=== PATIENT | female | born 1940 | race Caucasian/White ===

== ENCOUNTER → 2017-12-24 | Outpatient (CLI) | payer MEDICARE ==
--- NOTE | 2017-12-26 11:33 | Pulmonary Function Test ---
Pulmonary Function Test Date of Procedure:: 12/26/17 INDICATION:: Dyspnea on exertion Referring Provider: Dr. Felix Mattress Finisher: Sharon Abebe [employer] - Report Spirometry: FVC 1.23 L 53% FEV1 0.98 L 54% FEV1/FVC % 80 predicted 82 FEF 25-75% 1.04 L 61% Lung Volume: Total lung capacity 2.65 L 67% Vital capacity 1.23 L 53% Inspiratory capacity 1.05 L FRC in 2 1.60 L 98% ERV 0.13 L RV 1.42 L 85% RV/TLC % 53 predicted 42 Diffusion Capactity: Diffusion capacity 7.6 35% DLCO/VA 4.10 116% Impression: Mild restrictive ventilatory defect. (Restrictive defect may mask the degree of obstruction.) Mild obstructive ventilatory defect. No hyperinflation or air trapping. Severe decrease in diffusion capacity.
== END ==
LOC: RT 10:00
PROVIDERS: ATTEND Internal Medicine Pulmonary Disease
DX: J70.1 Chronic and other pulmonary manifestations due to radiation (principal)
CPT/HCPCS: 94010; 94727; 94729

== ENCOUNTER → 2018-04-10 | Outpatient (CLI) | payer MEDICARE ==
--- NOTE | 2018-04-10 14:51 | RADIOLOGY REPORT (SQ) ---
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 TECHNIQUE: CT scan performed of the chest without intravenous contrast. Images reviewed with lung, soft tissue and bone windows. Reconstructed coronal and sagittal MPR images reviewed. All images st ored on PACS. All CT scanners at this facility use dose modulation, iterative reconstruction, and/or weight based d osing when appropriate to reduce radiation dose to as low as reasonably achievable (ALARA). [facility]: Dose Right [facility]: CareDose [facility]: Dose Right [facility]: Teradose 4D [facility]: Smart Radish Systems RADIATION DOSE: CT Rad equipment meets quality standard of care and radiation dose reduction techniq ues were employed. CTDIvol: 16.7 mGy. DLP: 592 mGy-cm. mGy. LIMITATIONS: No technical limitations. FINDINGS: LUNGS AND PLEURA: Volume loss in the right lung with areas of bronchiectasis and periphera l subpleural scarring. Subpleural areas of fibrosis, most notable in the posterior right costophreni c angle. Left lung is relatively clear. HILAR AND MEDIASTINAL STRUCTURES: No identified masses or abnormal nodes. No obvious aneurysm. HEART AND VASCULAR STRUCTURES: No pericardial effusion or aortic aneurysm. Heavy coronary calcificat ion. UPPER ABDOMEN: Elevated right hemidiaphragm. No upper abdominal mass detected. THYROID AND OTHER SOFT TISSUES: No masses. No adenopathy. BONES: No significant finding. HARDWARE: None in the chest. OTHER: No other significant findings. IMPRESSION: 1. Chronic appearing right lung changes as above. TECHNICAL DOCUMENTATION: JOB ID: [id number] Quality ID # [id number]: Final reports with documentation of one or more dose reduction techniques (e.g., Au tomated exposure control, adjustment of the mA and/or kV according to patient size, use of iterative reconstruction technique) 2010 [employer]- All Rights Reserved Reading location - IP/workstation name: [email or web address]
== END ==
LOC: RAD 13:01
PROVIDERS: ATTEND Internal Medicine Critical Care Medicine
DX: J98.4 Other disorders of lung (principal)
CPT/HCPCS: 71250

== ENCOUNTER 2019-02-26 19:15 | Inpatient (IN) | payer MEDICARE ==
--- NOTE | 2019-02-26 19:55 | ER Document Report ---
ED Medical Screen (RME) - General Chief Complaint: Shortness Of Breath Stated Complaint: SHORTNESS OF BREATH Time Seen by Provider: 02/26/19 19:47 Primary Care Provider: IRMA KINGSTON MD [Primary Care Provider] - Follow up as needed Notes: Patient is a 78-year-old female who presents to the emergency department with shortness of breath. Patient states that her shortness of breath has been gradual over the past week. She also admits to increased swelling to bilateral legs. She currently takes Lasix twice daily. Patient has a history of COPD and she is oxygen dependent. Exam: Crackles noted in bilateral bases. Oxygen saturation 86% on 3 L nasal cannula. I have greeted and performed a rapid initial assessment of this patient. A comprehensive ED assessment and evaluation of the patient, analysis of test results and completion of medical decision making process will be conducted by an additional ED providers. TRAVEL OUTSIDE OF THE [place] IN LAST 30 DAYS: No - Related Data Allergies/Adverse Reactions: albuterol Allergy (Verified 02/26/19 19:53) aspirin Allergy (Verified 02/26/19 19:53) diphenhydramine [From Benadryl] Allergy (Verified 02/26/19 19:53) Physical Exam - Vital signs Vitals: Temp Pulse Resp BP Pulse Ox 97.4 F 44 L 16 138/75 H 65 L 02/26/19 19:30 02/26/19 19:30 02/26/19 19:30 02/26/19 19:30 02/26/19 19:30 Course - Vital Signs Vital signs: Temp Pulse Resp BP Pulse Ox 97.4 F 44 L 16 138/75 H 65 L 02/26/19 19:30 02/26/19 19:30 02/26/19 19:30 02/26/19 19:30 02/26/19 19:30 Doctor's Discharge - Discharge Referrals: IRMA KINGSTON MD [Primary Care Provider] - Follow up as needed
--- NOTE | 2019-02-26 20:15 | ER Document Report ---
ED General - General Chief Complaint: Shortness Of Breath Stated Complaint: SHORTNESS OF BREATH Time Seen by Provider: 02/26/19 19:47 TRAVEL OUTSIDE OF THE [place] IN LAST 30 DAYS: No - HPI Notes: This is a 78-year-old patient who presents today with a complaint of shortness of breath. Patient has had progressive worsening exertional dyspnea over the past several days, significantly worse today. She also describes a cough productive of green sputum. She denies any fever or chills. She denies any negrita st pain. She wears oxygen at home but has been forced to increase her oxygen to 3 L recently because of increased worsening shortness of breath. She describes her symptoms as moderate. Symptoms worse with exertion. - Related Data Allergies/Adverse Reactions: albuterol Allergy (Verified 02/26/19 19:53) aspirin Allergy (Verified 02/26/19 19:53) diphenhydramine [From Benadryl] Allergy (Verified 02/26/19 19:53) Past Medical History - Social History Smoking Status: Former Smoker Frequency of alcohol use: None Drug Abuse: None Family History: Hypertension Patient has suicidal ideation: No Patient has homicidal ideation: No Review of Systems - Review of Systems Cardiovascular: Palpitations, Edema. denies: Chest pain Respiratory: Cough, Short of breath, Sputum Gastrointestinal: denies: Abdominal pain -: Yes All other systems reviewed and negative Physical Exam - Vital signs Vitals: Temp Pulse Resp BP Pulse Ox 97.4 F 44 L 16 138/75 H 65 L 02/26/19 19:30 02/26/19 19:30 02/26/19 19:30 02/26/19 19:30 02/26/19 19:30 Interpretation: Tachycardic - General In distress: Mild - Respiratory Respiratory status: Respiratory distress Chest status: Accessory muscle use Breath sounds: Rales, Rhonchi, Wheezing - Cardiovascular Rhythm: Tachycardia Heart sounds: Normal auscultation - Abdominal Inspection: Normal Distension: No distension Bowel sounds: Normal Tenderness: Nontender Organomegaly: No organomegaly - Extremities General lower extremity: Edema - 2+ peripheral edema bilaterally. - Neurological Neuro grossly intact: Yes Cognition: Normal Orientation: AAOx4 [place] Coma Scale Eye Opening: Spontaneous [place] Coma Scale Verbal: Oriented [place] Coma Scale Motor: Obeys Commands [place] Coma Scale Total: 15 Speech: Normal Motor strength normal: LUE, RUE, LLE, RLE Sensory: Normal Course - Re-evaluation Re-evalutation: 02/26/19 20:15 Differential diagnosis includes CHF exacerbation versus pneumonia. EKG shows sinus tach at 130 bpm. Right bundle branch block. No acute injury pattern. No old EKGs to compare. 02/26/19 22:09 Patient reevaluated. Patient is doing well. Chest x-ray is suggestive of CHF with probably right-sided pneumonia. Will cover her for both. Lasix ordered. Rocephin and Zithromax was ordered. Patient's care discussed with Dr. Hoffmann. Will admit. - Vital Signs Vital signs: Temp Pulse Resp BP Pulse Ox 98.7 F 44 L 20 107/88 H 98 02/27/19 01:01 02/26/19 19:30 02/27/19 01:01 02/27/19 01:01 02/27/19 02:34 - Laboratory Result Diagrams: 02/26/19 20:45 02/26/19 20:45 Laboratory results interpreted by me: 02/26/19 02/26/19 02/26/19 20:45 20:45 20:45 RBC 3.29 L Hgb 10.6 L Hct 31.6 L RDW 14.8 H Chloride 97 L Carbon Dioxide 37 H BUN 28 H Lactic Acid NT-Pro-B Natriuret Pep 2580 H 02/26/19 21:58 RBC Hgb Hct RDW Chloride Carbon Dioxide BUN Lactic Acid 0.5 L NT-Pro-B Natriuret Pep Discharge - Discharge Clinical Impression: Acute CHF, Pneumonia Condition: Fair Disposition: ADMITTED INPATIENT Admitting Provider: Shun (Hospitalist) Unit Admitted: Telemetry
[2019-02-26 21:15] LABS: ABSOLUTE EOSINOPHILS # (AUTO) 0.1 10^3/uL (0.0-0.6); ABSOLUTE LYMPHOCYTES (AUTO) 1.1 10^3/uL (0.5-4.7); ABSOLUTE MONOCYTES (AUTO) 0.6 10^3/uL (0.1-1.4); ABSOLUTE NEUT (AUTO) 3.9 10^3/uL (1.7-8.2); BASOPHILS % (AUTO) 0.3 % (0-2); EOSINOPHILS % (AUTO) 1.7 % (0-6); HEMATOCRIT 31.6 % (36.0-47.0); HEMOGLOBIN 10.6 g/dL (12.0-15.5); LYMPHOCYTES % (AUTO) 19.3 % (13-45); MEAN CORPUSCULAR HEMOGLOBIN 32.1 pg (27.0-33.4); MEAN CORPUSCULAR HGB CONC 33.5 g/dL (32.0-36.0); MEAN CORPUSCULAR VOLUME 96 fl (80-97); PLATELET COUNT 195 10^3/uL (150-450); RED BLOOD COUNT 3.29 10^6/uL (3.72-5.28); RED CELL DISTRIBUTION WIDTH 14.8 % (11.5-14.0); SEGMENTED NEUTROPHILS % (AUTO) 68.7 % (42-78); TOTAL CELLS COUNTED % (AUTO) 100 %; WHITE BLOOD COUNT 5.7 10^3/uL (4.0-10.5)
[2019-02-26 21:37] LABS: ALBUMIN 3.6 g/dL (3.5-5.0); ALKALINE PHOSPHATASE 87 U/L (38-126); ANION GAP 7 (5-19); ASPARTATE AMINO TRANSFERASE 22 U/L (14-36); BILIRUBIN,DIRECT 0.1 mg/dL (0.0-0.4); BILIRUBIN,TOTAL 0.4 mg/dL (0.2-1.3); BLOOD UREA NITROGEN 28 mg/dL (7-20); CALCIUM 9.1 mg/dL (8.4-10.2); CARBON DIOXIDE 37 mmol/L (22-30); CHLORIDE 97 mmol/L (98-107); CREATINE KINASE 46 U/L (30-135); GLUCOSE 110 mg/dL (75-110); POTASSIUM 4.7 mmol/L (3.6-5.0); TOTAL PROTEIN 6.6 g/dL (6.3-8.2)
[2019-02-26 21:48] LABS: TROPONIN I 0.025 ng/mL
[2019-02-26] MEDS ORDERED: CEFTRIAXONE 1 GM/D5W RTU 1 GM/50 ML RTUPB IV ONE (21:49)
[2019-02-26] MEDS ORDERED: FUROSEMIDE INJ/PF 20 MG/2 ML SDV IV ONE (21:49)
[2019-02-26] MEDS ORDERED: AZITHROMYCIN INJ 500 MG VIAL IV ONE (21:49)
--- NOTE | 2019-02-26 22:15 | RADIOLOGY REPORT (SQ) ---
EXAM DESCRIPTION: XR CHEST 1 VIEW COMPLETED DATE/TME: 02/26/2019 19:52 CLINICAL HISTORY: 78 years, Female, shortness of breath COMPARISON: None. NUMBER OF VIEWS: 1 TECHNIQUE: Portable chest LIMITATIONS: None. FINDINGS: Elevation of the right hemidiaphragm. Cardiomegaly. Surgical clips in the axillary regions bilaterally. Osteopenia. Equivocal airspace opacity right lung base. No pneumothorax IMPRESSION: Equivocal right basilar airspace opacity. There is elevation right hemidiaphragm. Cardiac megaly copyright 2010 [employer]- All Rights Reserved
[2019-02-26] MEDS ORDERED: MAGNESIUM HYDROXIDE SUSP 30 ML UDCUP PO PRN (22:33)
[2019-02-26] MEDS ORDERED: MAG HYDROX/AL HYDROX/SIMETH SUSP 30 ML UDCUP PO PRN (22:33)
[2019-02-26] MEDS ORDERED: PROMETHAZINE HCL INJ 25 MG/1 ML VIAL IV PRN (22:33)
[2019-02-26] MEDS ORDERED: ACETAMINOPHEN 325 MG TABLET PO PRN (22:39)
[2019-02-26] MEDS ORDERED: FAMOTIDINE 20 MG TABLET PO ONE (23:00)
[2019-02-27] MEDS: MORPHINE SULFATE 10 MG/ML INJ IV PRN ×2 (00:03→02:45)
[2019-02-27] MEDS: BUMETANIDE INJ/PF 1 MG/4 ML SDV IV SCH ×4 (00:03→18:01)
[2019-02-27] MEDS: IPRATROPIUM BROMIDE 0.02% NEB 0.5 MG/2.5 ML AMPUL NEB SCH ×4 (00:03→23:47)
[2019-02-27] MEDS ORDERED: DEXTROSE 40% GEL 15 GM TUBE PO PRN ×2 (05:22)
[2019-02-27] MEDS ORDERED: GLUCAGON,HUMAN RECOMB 1 MG INJ IM PRN (05:22)
[2019-02-27] MEDS ORDERED: DEXTROSE 50%-WATER 25 GM/50 ML DISP.SYRIN IV PRN ×2 (05:22)
[2019-02-27 05:24] LABS: HEMATOCRIT 30.4 % (36.0-47.0); HEMOGLOBIN 10.3 g/dL (12.0-15.5); MEAN CORPUSCULAR HEMOGLOBIN 32.3 pg (27.0-33.4); MEAN CORPUSCULAR HGB CONC 33.8 g/dL (32.0-36.0); MEAN CORPUSCULAR VOLUME 95 fl (80-97); PLATELET COUNT 169 10^3/uL (150-450); RED BLOOD COUNT 3.19 10^6/uL (3.72-5.28); RED CELL DISTRIBUTION WIDTH 14.5 % (11.5-14.0); WHITE BLOOD COUNT 4.7 10^3/uL (4.0-10.5)
--- NOTE | 2019-02-27 05:24 | PDOC H&P ---
History of Present Illness Admission Date/PCP: 02/26/2019 22:08 DESIRE BAILEY MD Patient complains of: Dyspnea History of Present Illness: KIMBERLY GAMEZ is a 78 year old female who presented to the emergency room with a one-week history of dyspnea. Patient admits gradually worsening dyspnea over the last 7 days with associated increase and bilateral lower extremity edema and significant worsening of her dyspnea with exertion. Her dyspnea became severe today causing her to present to the emergency room. She has been using her prescribed inhalers and continuous oxygen at home at 3 L/min via nasal cannula, without improvement. She also admits a chronic cough which has been occasi onally productive of small amounts of greenish mucus. She denies other associated or accompanying signs and symptoms. She admits prior similar episodes related to her COPD and congestive heart failure. She has not identified any additional aggravating or ameliorating factors for her dyspnea. In the emergency room she was found to be hypoxic with a O2 sat of 86 on her usual oxygen at 3 L/min via nasal cannula. Her chest x-ray showed evidence of a right basilar opacity with an elevated right hemidiaphragm. Clinically the patient appears to have acute congestive heart failure based on her examination by the ER physician. He treated her with IV Lasix and also initiated antibiotic therapy for a possible pneumonia. Patient was subsequently admitted to the hospital for further evaluation and treatment. Past Medical History Cardiac Medical History: Reports: Congestive Heart Failure, Hypertension Denies: Atrial Fibrillation Pulmonary Medical History: Reports: Asthma, Chronic Obstructive Pulmonary Disease (COPD), Pneumonia, Respiratory Failure - Chronic respiratory failure with oxygen dependence EENT Medical History: Reports: Cataracts - Bilateral Denies: Ears - Hearing aids Neurological Medical History: Denies: Hemorrhagic CVA, Ischemic CVA, Seizures Endocrine Medical History: Reports: Diabetes Mellitus Type 2, Obesity Denies: Diabetes Mellitus Type 1, Hyperthyroidism, Hypothyroidism Renal/ Medical History: Denies: Chronic Kidney Disease, Nephrolithiasis Malignancy Medical History: Reports: Breast Cancer - Status post bilateral mastectomies GI Medical History: Reports: Hiatal Hernia Denies: Cirrhosis, Crohn's Disease, Hepatitis, Ulcerative Colitis Musculoskeltal Medical History: Reports: Arthritis Denies: Gout Skin Medical History: Denies: Eczema, Psoriasis Psychiatric Medical History: Denies: Alcohol Dependency, Substance Abuse, Tobacco Dependency Traumatic Medical History: Reports: None Hematology: Denies: Anemia, Bleeding Tendencies Infectious Medical History: Reports: None Past Surgical History Past Surgical History: Reports: Appendectomy, Cholecystectomy, Hysterectomy, Mastectomy - bilateral, Other - Bilateral cataract surgery, 5 colon surgeries for abnormal growths Social History Information Source: Patient Lives with: Family Smoking Status: Former Smoker Electronic Cigarette use?: No Frequency of Alcohol Use: None Hx Recreational Drug Use: No Drugs: None Hx Prescription Drug Abuse: No - Advance Directive Resuscitation Status: Full Code Surrogate healthcare decision maker:: Little Garveyid Family History Family History: CAD, DM, Hypertension, Malignancy. denies: Thyroid Disfunction Parental Family History Reviewed: Yes Children Family History Reviewed: No Sibling(s) Family History Reviewed.: Yes Medication/Allergy Allergies/Adverse Reactions: albuterol Allergy (Verified 02/26/19 19:53) aspirin Allergy (Verified 02/26/19 19:53) diphenhydramine [From Benadryl] Allergy (Verified 02/26/19 19:53) Review of Systems Constitutional: ABSENT: chills, fever(s) Eyes: ABSENT: visual disturbances, other - Eye pain Ears: ABSENT: hearing changes, other - Ear pain Nose, Mouth, and Throat: ABSENT: headache(s), mouth pain, sore throat Cardiovascular: PRESENT: as per HPI, dyspnea on exertion, edema. ABSENT: chest pain, orthropnea, palpitations Respiratory: PRESENT: as per HPI, cough, dyspnea, sputum Gastrointestinal: ABSENT: abdominal pain, constipation, diarrhea, nausea, vomiting Genitourinary: ABSENT: dysuria, hematuria Musculoskeletal: PRESENT: other - Frequent nocturnal leg cramps. ABSENT: back pain, joint swelling, muscle weakness Integumentary: ABSENT: pruritus, rash Neurological: ABSENT: confusion, convulsions, focal weakness, memory loss, syncope Psychiatric: ABSENT: anxiety, depression Endocrine: ABSENT: cold intolerance, heat intolerance Hematologic/Lymphatic: ABSENT: easy bleeding, easy bruising Allergic/Immunologic: ABSENT: seasonal rhinorrhea Physical Exam Vital Signs: Temp Pulse Resp BP Pulse Ox 97.4 F 44 L 16 138/75 H 98 02/26/19 19:30 02/26/19 19:30 02/26/19 19:30 02/26/19 19:30 02/26/19 19:52 Intake & Output 02/24/19 02/25/19 02/26/19 23:59 23:59 23:59 Weight 110.4 kg General appearance: PRESENT: no acute distress, cooperative, morbidly obese Head exam: PRESENT: atraumatic, normocephalic Eye exam: PRESENT: conjunctiva pink. ABSENT: conjunctival injection, scleral icterus Ear exam: PRESENT: normal external ear exam. ABSENT: bleeding, drainage Mouth exam: PRESENT: dry mucosa, neck supple Neck exam: PRESENT: JVD - Bilateral at 30 degrees elevation. ABSENT: thyromegaly, tracheal deviation Respiratory exam: PRESENT: prolonged expiratory phas - Mildly prolonged expiratory phase present in all cerrato, rales - Bibasilar fine rales in the lower one fourth of the bilateral lung cerrato, symmetrical, tachypnea, wheezes - Minimal expiratory wheezes noted in all cerrato Cardiovascular exam: PRESENT: gallop - S4 gallop, RRR, tachycardia. ABSENT: clicks, rubs Pulses: PRESENT: normal radial pulses, normal dorsalis pedis pul Vascular exam: PRESENT: normal capillary refill. ABSENT: pallor GI/Abdominal exam: PRESENT: normal bowel sounds, soft Rectal exam: PRESENT: deferred Extremities exam: PRESENT: pedal edema - Bilateral, +2 edema - 2+ pretibial pitting edema bilaterally. ABSENT: joint swelling Musculoskeletal exam: ABSENT: deformity, dislocation Neurological exam: PRESENT: alert, oriented to person, oriented to place, oriented to time, oriented to situation, CN II-XII grossly intact. ABSENT: motor sensory deficit Psychiatric exam: PRESENT: appropriate affect, normal mood Skin exam: PRESENT: dry, intact, warm. ABSENT: jaundice, rash, urticaria Results Laboratory Results: 02/26/19 20:45 02/26/19 20:45 02/26/19 02/26/19 20:45 20:45 WBC 5.7 RBC 3.29 L Hgb 10.6 L Hct 31.6 L MCV 96 MCH 32.1 MCHC 33.5 RDW 14.8 H Plt Count 195 Seg Neutrophils % 68.7 Sodium 141.4 Potassium 4.7 Chloride 97 L Carbon Dioxide 37 H Anion Gap 7 BUN 28 H Creatinine 0.82 Est GFR ( Amer) > 60 Glucose 110 Calcium 9.1 Total Bilirubin 0.4 AST 22 Alkaline Phosphatase 87 Total Protein 6.6 Albumin 3.6 02/26/19 02/26/19 20:45 20:45 Creatine Kinase 46 Troponin I 0.025 NT-Pro-B Natriuret Pep 2580 H Assessment and Plan - Diagnosis (1) Acute on chronic diastolic congestive heart failure Is this a current diagnosis for this admission?: Yes (2) Acute and chronic respiratory failure with hypoxia Is this a current diagnosis for this admission?: Yes (3) Chronic obstructive pulmonary disease (COPD) Qualifiers: COPD type: unspecified COPD Qualified Code(s): J44.9 - Chronic obstructive pulmonary disease, unspecified Is this a current diagnosis for this admission?: Yes (4) Normochromic normocytic anemia Is this a current diagnosis for this admission?: Yes (5) Morbid obesity with BMI of 40.0-44.9, adult Is this a current diagnosis for this admission?: Yes (6) Diabetes mellitus type 2 in obese Is this a current diagnosis for this admission?: Yes - Plan Summary Summary: Patient is admitted to a telemetry bed where she will receive usual supportive and symptomatic cares. She will be treated with IV Bumex 1 mg every 6 hours to help resolve her acute congestive heart failure. She will also receive supplemental oxygen utilizing nasal cannula and or noninvasive airway pressure support devices such as CPAP or BiPAP to obtain an adequate oxygen saturation and avoid hypercapnia. She will receive morphine sulfate 2 mg IV every 1 hour PRN severe dyspnea. She will receive a pulmonary toilet utilizing Atrovent and Pulmicort and will be maintained on antibiotic therapy for possible pneumonia/pneumonitis with Levaquin 750 mg p.o. daily x4 days. Patient will be continued on her usual home medications as soon as her medication reconciliation has been verified and completed. A print line tailer consultation will be obtained to nurses' association counselor the patient on her obesity and possible diet interventions. Patient will be continued on her cardiac and diabetic restricted diet. Before meals and at bedtime Accu-Cheks will be obtained with sliding scale insulin used for control of hyperglycemia and a hypoglycemic protocol in place. - Time Time Spent with patient: 15-24 minutes Medications reviewed and adjusted accordingly: Yes Anticipated discharge: Home - Inpatient Certification Based on my medical assessment, after consideration of the patient's comorbidities, presenting symptoms, or acuity I expect that the services needed warrant INPATIENT care.: Yes I certify that my determination is in accordance with my understanding of Medicare's requirements for reasonable and necessary INPATIENT services [42 CFR 412.3e].: Yes Medical Necessity: Need Close Monitoring Due to Risk of Patient Decompensation, Need For Continuous Telemetry Monitoring, Need for Nebulizer Therapy and Monitoring of Response, Risk of Complication if Not Cared For in Hospital
[2019-02-27 05:27] LABS: VENOUS BLOOD BASE EXCESS 10.9 mmol/L; VENOUS BLOOD HCO3 38.5 mmol/L (20-32); VENOUS BLOOD PH 7.38 (7.30-7.42)
[2019-02-27 05:30] LABS: VENOUS BLOOD PCO2 66.1 mmHg (35-63)
[2019-02-27] MEDS: HEPARIN SOD (PORCINE) 5,000 UNIT/ML 1 ML VIAL SUBCUT SCH ×3 (05:31→21:21)
[2019-02-27 05:52] LABS: ANION GAP 5 (5-19); BLOOD UREA NITROGEN 26 mg/dL (7-20); CALCIUM 8.8 mg/dL (8.4-10.2); CARBON DIOXIDE 38 mmol/L (22-30); CHLORIDE 98 mmol/L (98-107); CHOLESTEROL 117.26 mg/dL (0-200); GLUCOSE 110 mg/dL (75-110); POTASSIUM 4.1 mmol/L (3.6-5.0); TRIGLYCERIDES 78 mg/dL (<150)
[2019-02-27 06:03] LABS: DIRECT LDL 52 mg/dL (<100)
[2019-02-27] MEDS: BUDESONIDE NEB 0.5 MG/2 ML AMPUL NEB SCH ×2 (07:56→21:16)
--- NOTE | 2019-02-27 08:47 | PDOC PROGRESS REPORT ---
Subjective Progress Note for:: 02/27/19 Subjective:: 02/27/2019-no complaints this a.m. Reason For Visit: ACUTE ON CHRONIC DISTOLIC CONGESTIVE HEART FAILURE Physical Exam Vital Signs: Temp Pulse Resp BP Pulse Ox 97.9 F 83 16 132/73 H 98 02/27/19 03:22 02/27/19 07:56 02/27/19 07:56 02/27/19 03:22 02/27/19 07:56 Intake & Output 02/26/19 02/27/19 02/28/19 06:59 06:59 06:59 Intake Total 50 Output Total 175 Balance -125 Weight 108.6 kg General appearance: PRESENT: no acute distress, well-developed, well-nourished Neck exam: ABSENT: carotid bruit, JVD, lymphadenopathy, thyromegaly Respiratory exam: PRESENT: decreased breath sounds, symmetrical, unlabored, wheezes Cardiovascular exam: PRESENT: RRR. ABSENT: diastolic murmur, rubs, systolic murmur Pulses: PRESENT: +1 pedal pulses bilateral Vascular exam: PRESENT: normal capillary refill GI/Abdominal exam: PRESENT: normal bowel sounds, soft. ABSENT: distended, guarding, mass, organolmegaly, rebound, tenderness Extremities exam: PRESENT: full ROM, pedal edema, +2 edema. ABSENT: calf tenderness, clubbing Neurological exam: PRESENT: alert, awake, oriented to person, oriented to place, oriented to time, oriented to situation, CN II-XII grossly intact. ABSENT: motor sensory deficit Psychiatric exam: PRESENT: appropriate affect, normal mood. ABSENT: homicidal ideation, suicidal ideation Skin exam: PRESENT: dry, intact, warm. ABSENT: cyanosis, rash Results Laboratory Results: 02/27/19 05:05 02/27/19 05:05 02/26/19 02/26/19 02/26/19 20:45 20:45 21:58 WBC 5.7 RBC 3.29 L Hgb 10.6 L Hct 31.6 L MCV 96 MCH 32.1 MCHC 33.5 RDW 14.8 H Plt Count 195 Seg Neutrophils % 68.7 VBG pH VBG pCO2 VBG HCO3 VBG Base Excess Sodium 141.4 Potassium 4.7 Chloride 97 L Carbon Dioxide 37 H Anion Gap 7 BUN 28 H Creatinine 0.82 Est GFR ( Amer) > 60 Glucose 110 Lactic Acid 0.5 L Calcium 9.1 Magnesium Total Bilirubin 0.4 AST 22 Alkaline Phosphatase 87 Total Protein 6.6 Albumin 3.6 Triglycerides Cholesterol LDL Cholesterol Direct VLDL Cholesterol HDL Cholesterol TSH 02/27/19 02/27/19 02/27/19 05:05 05:05 05:05 WBC 4.7 RBC 3.19 L Hgb 10.3 L Hct 30.4 L MCV 95 MCH 32.3 MCHC 33.8 RDW 14.5 H Plt Count 169 Seg Neutrophils % VBG pH VBG pCO2 VBG HCO3 VBG Base Excess Sodium 141.4 Potassium 4.1 Chloride 98 Carbon Dioxide 38 H Anion Gap 5 BUN 26 H Creatinine 0.70 Est GFR ( Amer) > 60 Glucose 110 Lactic Acid Calcium 8.8 Magnesium 1.9 Total Bilirubin AST Alkaline Phosphatase Total Protein Albumin Triglycerides 78 Cholesterol 117.26 LDL Cholesterol Direct 52 VLDL Cholesterol 16.0 HDL Cholesterol 48 TSH 7.47 H 02/27/19 05:05 WBC RBC Hgb Hct MCV MCH MCHC RDW Plt Count Seg Neutrophils % VBG pH 7.38 VBG pCO2 66.1 H* VBG HCO3 38.5 H VBG Base Excess 10.9 Sodium Potassium Chloride Carbon Dioxide Anion Gap BUN Creatinine Est GFR ( Amer) Glucose Lactic Acid Calcium Magnesium Total Bilirubin AST Alkaline Phosphatase Total Protein Albumin Triglycerides Cholesterol LDL Cholesterol Direct VLDL Cholesterol HDL Cholesterol TSH 02/26/19 02/26/19 02/26/19 20:45 20:45 23:14 Creatine Kinase 46 Troponin I 0.025 0.027 NT-Pro-B Natriuret Pep 2580 H 02/27/19 05:05 Creatine Kinase Troponin I 0.027 NT-Pro-B Natriuret Pep Impressions: Chest X-Ray 02/26/19 19:52 IMPRESSION: Equivocal right basilar airspace opacity. There is elevation right hemidiaphragm. Cardiac megaly copyright 2010 [employer]- All Rights Reserved Assessment and Plan - Diagnosis (1) Acute and chronic respiratory failure with hypoxia Is this a current diagnosis for this admission?: Yes Plan: 02/27/2019-this is actually acute on chronic respiratory failure with hypoxia and hypercapnia. CO2 66. Will have patient wear BiPAP per RT settings. Continue all other supportive measures including submental oxygen. Diuresis. (2) Acute on chronic diastolic congestive heart failure Is this a current diagnosis for this admission?: Yes Plan: 02/27/2019-continue Bumex 1 mg IV every 6 hours and as needed morphine. BiPAP. (3) Chronic obstructive pulmonary disease (COPD) Qualifiers: COPD type: unspecified COPD Qualified Code(s): J44.9 - Chronic obstructive pulmonary disease, unspecified Is this a current diagnosis for this admission?: Yes Plan: 02/27/2019-supportive measures, BiPAP, pulmonary toileting, bronchodilators steroids Levaquin 750 mg daily. (4) Diabetes mellitus type 2 in obese Is this a current diagnosis for this admission?: Yes Plan: 02/27/2019-stable at this time continue current therapies (5) Morbid obesity with BMI of 40.0-44.9, adult Is this a current diagnosis for this admission?: Yes Plan: 02/27/2019-continue education about dietary modification (6) Normochromic normocytic anemia Is this a current diagnosis for this admission?: Yes Plan: 02/27/2019-stable - Plan Summary Summary: Patient is admitted to a telemetry bed where she will receive usual supportive and symptomatic cares. She will be treated with IV Bumex 1 mg every 6 hours to help resolve her acute congestive heart failure. She will also receive supplemental oxygen utilizing nasal cannula and or noninvasive airway pressure support devices such as CPAP or BiPAP to obtain an adequate oxygen saturation and avoid hypercapnia. She will receive morphine sulfate 2 mg IV every 1 hour PRN severe dyspnea. She will receive a pulmonary toilet utilizing Atrovent and Pulmicort and will be maintained on antibiotic therapy for possible pneumonia/pneumonitis with Levaquin 750 mg p.o. daily x4 days. Patient will be continued on her usual home medications as soon as her medication reconciliation has been verified and completed. A on site services specialist consultation will be obtained to assessment counselor the patient on her obesity and possible diet interventions. Patient will be continued on her cardiac and diabetic restricted diet. Before meals and at bedtime Accu-Cheks will be obtained with sliding scale insulin used for control of hyperglycemia and a hypoglycemic protocol in place. - Time Time Spent with patient: 15-24 minutes - Inpatient Certification Based on my medical assessment, after consideration of the patient's comorbidities, presenting symptoms, or acuity I expect that the services needed warrant INPATIENT care.: Yes I certify that my determination is in accordance with my understanding of Medicare's requirements for reasonable and necessary INPATIENT services [42 CFR 412.3e].: Yes Medical Necessity: Significant Comorbidiites Make Outpatient Treatment Too Risky, Need Close Monitoring Due to Risk of Patient Decompensation, Other - IV diuresis
[2019-02-27] MEDS ORDERED: DOCUSATE SODIUM 100 MG/10 ML UDC PO SCH (10:00)
[2019-02-27] MEDS: INSULIN REG, HUMAN 100 UNIT/ML 3 ML VIAL (PYX) SUBCUT SCH ×4 (10:08→21:21)
[2019-02-27] MEDS: FAMOTIDINE 20 MG TABLET PO SCH ×2 (10:11→21:22)
[2019-02-27] MEDS: LEVOFLOXACIN 750 MG TABLET PO SCH (10:11)
[2019-02-27] MEDS: DOCUSATE SODIUM 100 MG CAPSULE PO SCH ×2 (10:12→17:56)
--- NOTE | 2019-02-27 16:24 | EKG REPORT ---
SEVERITY:- ABNORMAL ECG - SINUS TACHYCARDIA RBBB AND LAFB PROBABLE LVH WITH SECONDARY REPOL ABNRM : Confirmed by: Hillary Holder MD 27-Feb-2019 16:24:00
--- NOTE | 2019-02-27 17:31 | XCELERA REPORT ---
[address] [address] Transthoracic Echocardiogram Report Name: KIMBERLY GAMEZ Age: 78 yrs Gender: Female : 1940 Patient Status: Inpatient Patient Location: [address] [place], [place] [id number] Study Date: 02/27/2019 09:51 AM Height: 63 in Weight: 243 lb BSA: 2.1 m2 Procedure: A two-dimensional transthoracic echocardiogram with color flow and Doppler was performed. Study Quality: Poor. Reason For Study: Acute on chronic congestive heart failure History: Acute on chronic congestive heart failure. Ordering Physician: ESTHER MCCULLOUGH Performed By: Yen Brewster Interpretation Summary RECOMMEND LIMITED FOLLOW UP TR JET MEASUREMENT AND RVVSP. The left ventricle is mildly dilated. LV EF is 30% t0 35% Left ventricular systolic function is moderate to severely reduced. Doppler measurements suggest pseudonormalized left ventricular relaxation, which is associated with grade II/IV or mild to moderate diastolic dysfunction There is moderate to severe global hypokinesis of the left ventricle. There is no thrombus. Cannot asssess ASD ,VSD ,or PFO. The right ventricle is moderately dilated. The right ventricle is not well visualized secondary to technical limitations The right ventricular systolic function is moderately reduced. The right atrium is moderately dilated. The left atrium is mildly dilated. There is no evidence of mitral valve prolapse. There is no vegetation seen on the mitral valve. There is no mitral valve stenosis. There is no aortic valvular vegetation. There is no aortic valve stenosis There is no LVOT obstruction. No aortic regurgitation is present. There is no tricuspid stenosis. In 1 view there seems to be moderate to severe TR.But TR max pressure gradient is only 22 .3 mm of HG , for a calculated RVSP of only 32 mm of Hg , with RA mean of 10.Strongly suspect undersampling of the TR jet.RECOMMEND LIMITED FOLLOW UP TR JET MEASUREMENT AND RVVSP. There is no pulmonic valvular stenosis. There is a trace amount of pulmonic regurgitation The aortic root is normal size. There is no pericardial effusion. RECOMMEND LIMITED FOLLOW UP TR JET MEASUREMENT AND RVVSP. MMode/2D Measurements & Calculations RVDd: 4.2 cm LVIDd: 5.1 cm FS: 29.5 % Ao root diam: 3.2 cm IVSd: 1.0 cm LVIDs: 3.6 cm EDV(Teich): 121.7 ml Ao root area: 8.1 cm2 LVPWd: 0.97 cm ESV(Teich): 53.3 ml EF(Teich): 56.2 % Doppler Measurements & Calculations MV E max brody: MV dec slope: Ao V2 max: LV V1 max P.9 cm/sec 810.9 cm/sec2 119.3 cm/sec 2.0 mmHg MV A max brody: MV dec time: 0.12 secAo max P.7 mmHgLV V1 max: 62.7 cm/sec 70.5 cm/sec MV E/A: 1.6 PA V2 max: PI end-d brody: TR max brody: 80.6 cm/sec 137.1 cm/sec 235.9 cm/sec PA max P.6 mmHg TR max P.3 mmHg Left Ventricle The left ventricle is mildly dilated. There is normal left ventricular wall thickness. LV EF is 30% t0 35%. Left ventricular systolic function is moderate to severely reduced. Doppler measurements suggest pseudonormalized left ventricular relaxation, which is associated with grade II/IV or mild to moderate diastolic dysfunction. There is moderate to severe global hypokinesis of the left ventricle. There is no thrombus. Cannot asssess ASD ,VSD ,or PFO. Right Ventricle The right ventricle is moderately dilated. The right ventricle is not well visualized secondary to technical limitations. The right ventricular systolic function is moderately reduced. Atria The right atrium is moderately dilated. The left atrium is mildly dilated. Mitral Valve There is no evidence of mitral valve prolapse. There is no vegetation seen on the mitral valve. There is no mitral valve stenosis. There is a mild amount of mitral regurgitation. Aortic Valve There is no aortic valvular vegetation. There is no aortic valve stenosis. There is no LVOT obstruction. There is aortic sclerosis without aortic stenosis. No aortic regurgitation is present. Tricuspid Valve There is no tricuspid stenosis. In 1 view there seems to be moderate to severe TR.But TR max pressure gradient is only 22 .3 mm of HG , for a calculated RVSP of only 32 mm of Hg , with RA mean of 10.Strongly suspect undersampling of the TR jet.RECOMMEND LIMITED FOLLOW UP TR JET MEASUREMENT AND RVVSP. Pulmonic Valve There is no pulmonic valvular stenosis. There is a trace amount of pulmonic regurgitation. Great Vessels The aortic root is normal size. The inferior vena cava appeared normal and decreased < 50% with respiration (RAP 10-15 mmHg). Effusions There is no pericardial effusion. : ESTHER MCCULLOUGH Lakshmi
[2019-02-27] MEDS: CYCLOBENZAPRINE HCL 10 MG TABLET PO PRN (18:09)
--- NOTE | 2019-02-27 18:18 | PDOC CONSULTATION ---
Consultation-Blank Consultation: CARDIOLOGY CONSULTATION with Dr. Hillary Holder on 02/27/2019. Patient seen at 3:45 PM. 60 minutes spent on this patient more than 50% time spent direct patient care. REASON FOR CONSULTATION: Congestive heart failure. Consult Requesting PHYSICIAN: Dr. Gordo Cyr, [facility]. HISTORY OF PRESENT ILLNESS: Patient is a 78-year-old female with known history of hypertension, diabetes mellitus, asthma, COPD, on home oxygen, restrictive lung disease and history of pulmonary fibrosis states since past 6 to 7 days has been having progressively increasing shortness of breath with orthopnea. Also she has been having increased leg swelling. She also has been having episodes of PND. She denies any chest pain or palpitations. The patient was found to be hypoxic in the emergency room with O2 saturation being 86 on her home oxygen at 2 L/min. She also states that she has intermittent coughing with intermittent wheezing. The cough is productive of greenish sputum which is not a whole lot. She has no hemoptysis. There is no pleuritic chest pain. The patient denies past history of congestive heart failure, and denies any history of MA or anginal symptoms. 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 She denies any chronic kidney disease. There is no history of sleep apnea. Her echocardiogram shows LV ejection fraction of 30% to 35% with current treatment she feels slightly better. She has no history of MA or cardiac arrhythmia. There is no history of TIA or CVA. She has a past history of pulmonary embolism and is on Xarelto. She has also history of radiation after chemotherapy for bilateral breast cancer for which she has had bilateral mastectomies. Past Medical History Cardiac Medical History: Reports: Denies history of CAD MA or past history of congestive Heart Failure, no history of cardiac arrhythmias or syncope. She has a history of hypertension Denies: Atrial Fibrillation Pulmonary Medical History: Reports: Asthma, Chronic Obstructive Pulmonary Disease (COPD), Pneumonia, Respiratory Failure - Chronic respiratory failure with oxygen dependence. She also has a past history of pulmonary embolism. Denies history of sleep apnea. EENT Medical History: Reports: Cataracts - Bilateral Denies: Ears - Hearing aids Neurological Medical History: Denies: Hemorrhagic CVA, Ischemic CVA, Seizures Endocrine Medical History: Reports: Diabetes Mellitus Type 2, Obesity and hyp othyroidism, on replacement therapy for the hypothyroidism. Renal/ Medical History: Denies: Chronic Kidney Disease, Nephrolithiasis no history of chronic kidney disease. Malignancy Medical History: Reports: Breast Cancer - Status post bilateral mastectomies, after chemotherapy and radiation treatment. GI Medical History: Reports: Hiatal Hernia Denies: Cirrhosis, Crohn's Disease, Hepatitis, Ulcerative Colitis Musculoskeltal Medical History: Reports: Arthritis Denies: Gout Skin Medical History: Denies: Eczema, Psoriasis Psychiatric Medical History: Denies: Alcohol Dependency, Substance Abuse, Tobacco Dependency Traumatic Medical History: Reports: None Hematology: Denies: Anemia, Bleeding Tendencies Infectious Medical History: Reports: None Past Surgical History Past Surgical History: Reports: Appendectomy, Cholecystectomy, Hysterectomy, Mastectomy - bilateral, Other - Bilateral cataract surgery, 5 colon surgeries for abnormal growths. She has also had surgery for abdominal wall hernia, and had to be reoperated due to mesh failure. Social History Information Source: Patient Lives with: Family Smoking Status: Former Smoker Electronic Cigarette use?: No Frequency of Alcohol Use: None Hx Recreational Drug Use: No Drugs: None Hx Prescription Drug Abuse: No - Advance Directive Resuscitation Status: Full Code Surrogate healthcare decision maker:: [place] Family History Family History: CAD, DM, Hypertension,malignancy. denies: Thyroid Disfunction Parental Family History Reviewed: Yes Children Family History Reviewed: No Sibling(s) Family History Reviewed.: Yes Medication/Allergy Allergies/Adverse Reactions: albuterol Allergy (Verified 02/26/19 19:53) aspirin Allergy (Verified 02/26/19 19:53) diphenhydramine [From Benadryl] Allergy (Verified 02/26/19 19:53) RESUSCITATION STATUS: The patient is a full code. Her daughter is her surrogate healthcare decision maker. Current Medications Generic Name Dose Route Start Last Admin Trade Name Freq PRN Reason Stop Dose Admin Acetaminophen 650 mg 02/26/19 22:39 Tylenol 325 Mg Tablet PO 03/28/19 22:38 Q4HP PRN For headache, pain or fever Al Hydrox/Mg Hydrox/Simethicone 30 ml 02/26/19 22:33 Maalox Plus Susp 30 Udcup PO 03/28/19 22:32 Q6HP PRN HEARTBURN Budesonide 0.5 mg 02/27/19 08:00 02/27/19 21:16 Pulmicort Neb 0.5 Mg/2 Ml Ampul NEB 03/29/19 07:59 0.5 mg RTBID BHAKTI Administration Bumetanide 1 mg 02/27/19 00:00 02/27/19 18:01 Bumex Inj/Pf 1 Mg/4 Ml Sdv IV 02/28/19 06:01 1 mg Q6 BHAKTI Administration Cyclobenzaprine HCl 10 mg 02/27/19 17:01 02/27/19 18:09 Flexeril 10 Mg Tablet PO 03/29/19 17:00 10 mg Q8HP PRN Administration MUSCLE SPASMS Dextrose 12.5 gm 02/27/19 05:22 Dextrose Inj 50% Syringe (25 Gm/50 Ml) IV 03/29/19 05:21 PRN PRN FOR BG 50-69 IN ALERT PATIENT Protocol Dextrose 25 gm 02/27/19 05:22 Dextrose Inj 50% Syringe (25 Gm/50 Ml) IV 03/29/19 05:21 PRN PRN PER PROTOCOL Protocol Docusate Sodium 100 mg 02/27/19 10:00 02/27/19 17:56 Colace 100 Mg Capsule PO 03/29/19 09:59 Not Given BID BHAKTI Famotidine 20 mg 02/27/19 10:00 02/27/19 21:22 Pepcid 20 Mg Tablet PO 03/29/19 09:59 20 mg Q12 BHAKTI Administration Glucagon 1 mg 02/27/19 05:22 Glucagen Inj 1 Mg Vial IM 03/29/19 05:21 PRN PRN Evaluate for BG < 70 Protocol Glucose 15 gm 02/27/19 05:22 Glutose 40% Gel 15 Gm Tube PO 03/29/19 05:21 PRN PRN FOR BG 50-69 IN ALERT PATIENT Protocol Glucose 30 gm 02/27/19 05:22 Glutose 40% Gel 15 Gm Tube PO 03/29/19 05:21 PRN PRN FOR BG < 50 IN ALERT PATIENT Protocol Heparin Sodium (Porcine) 5,000 unit 02/27/19 06:00 02/27/19 21:21 Heparin Inj 5,000 Units/Ml 1 Ml Vial SUBCUT 03/29/19 05:59 5,000 unit Q8 BHAKTI Administration Insulin Human Regular 0 - 15 unit 02/27/19 08:00 02/27/19 21:21 Humulin R (Pyxis) Insulin 100 Unit/Ml 3ml SUBCUT 03/29/19 07:59 3 unit ACHS BHAKTI Administration Protocol Ipratropium [place] 0.5 mg 02/27/19 00:00 02/27/19 23:47 Atrovent 0.02% Neb 0.5 Mg/2.5 Ml Ampul NEB 03/29/19 00:00 0.5 mg RTQ8 BHAKTI Administration Levofloxacin 750 mg 02/27/19 10:00 02/27/19 10:11 Levaquin 750 Mg Tablet PO 03/06/19 09:59 750 mg DAILY BHAKTI Administration Levothyroxine Sodium 0.025 mg 02/28/19 06:00 Synthroid 0.025 Mg Tablet PO 03/30/19 05:59 Q6AM BHAKTI Magnesium Hydroxide 30 ml 02/26/19 22:33 Milk Of Magnesia 30 Ml Udcup PO 03/28/19 22:32 HSP PRN FOR CONSTIPATION Metoprolol Tartrate 5 mg 02/27/19 22:17 02/27/19 22:31 Lopressor Inj/Pf 5 Mg/5 Ml Sdv IV 03/29/19 22:16 5 mg Q4HP PRN Administration Give For Sbp > 160 / Dbp > 100 Morphine Sulfate 2 mg 02/26/19 22:39 02/27/19 02:45 Morphine 10 Mg/Ml Inj IV 03/05/19 22:38 2 mg Q1HP PRN Administration Acute Severe Dyspnea Promethazine HCl 12.5 mg 02/27/19 09:00 Phenergan Inj 25 Mg/1 Ml Vial IV 03/28/19 22:32 Q4HP PRN FOR NAUSEA/VOMITING Sacubitril/Valsartan 1 tab 02/28/19 10:00 Entresto 24 Mg/26 Mg Tablet [started by me] PO 03/30/19 09:59 BID BHAKTI Sodium Chloride 2.5 ml 02/27/19 06:00 02/27/19 21:22 Saline Flush 2.5 Ml Monoject Prefil Syrin IV 03/29/19 05:59 2.5 ml Q8 BHAKTI Administration Discontinued Medications Generic Name Dose Route Start Last Admin Trade Name Freq PRN Reason Stop Dose Admin Azithromycin 500 mg 02/26/19 21:49 02/26/19 22:02 Zithromax Inj 500 Mg Vial IV 02/26/19 21:50 500 mg IVBAG (ED) ONE Administration Docusate Sodium 100 mg 02/27/19 10:00 Colace Udc 100 Mg/10 Ml Oral Soln PO 03/29/19 09:59 BID BHAKTI Famotidine 20 mg 02/26/19 23:00 02/27/19 00:03 Pepcid 20 Mg Tablet PO 02/26/19 23:01 20 mg NOW ONE Administration Furosemide 40 mg 02/26/19 21:49 02/26/19 22:02 Lasix Inj/Pf 20 Mg/2 Ml Sdv IV 02/26/19 21:50 40 mg NOW ONE Administration Ceftriaxone Sodium/Dextrose 1 gm in 50 mls @ 100 mls/hr 02/26/19 21:49 02/27/19 00:35 Rocephin Rtu 1 Gm/D5w 50 Ml Premix IV 02/26/19 22:18 Infused NOW ONE Infusion Promethazine HCl 12.5 mg 02/26/19 22:33 02/27/19 05:41 Phenergan Inj 25 Mg/1 Ml Vial IV 03/28/19 22:32 12.5 mg Q4HP PRN Administration FOR NAUSEA/VOMITING Review of Systems Constitutional: ABSENT: chills, fever(s) Eyes: ABSENT: visual disturbances, other - Eye pain Ears: ABSENT: hearing changes, other - Ear pain Nose, Mouth, and Throat: ABSENT: headache(s), mouth pain, sore throat Cardiovascular: PRESENT: as per HPI, dyspnea on exertion, edema. ABSENT: chest pain, orthropnea, palpitations Respiratory: PRESENT: as per HPI, cough, dyspnea, sputum Gastrointestinal: ABSENT: abdominal pain, constipation, diarrhea, nausea, vomiting Genitourinary: ABSENT: dysuria, hematuria Musculoskeletal: PRESENT: other - Frequent nocturnal leg cramps. ABSENT: back pain, joint swelling, muscle weakness Integumentary: ABSENT: pruritus, rash Neurological: ABSENT: confusion, convulsions, focal weakness, memory loss, syncope Psychiatric: ABSENT: anxiety, depression Endocrine: ABSENT: cold intolerance, heat intolerance Hematologic/Lymphatic: ABSENT: easy bleeding, easy bruising Allergic/Immunologic: ABSENT: seasonal rhinorrhea. PHYSICAL EXAMINATION: The patient is morbidly obese. In mild respiratory distress. She becomes short of breath speaking a few sentences. She is well- groomed. Selected Entries 02/27/19 02/27/19 16:04 17:05 Temperature 98.0 F Temperature Oral Source Pulse Rate 128 H Respiratory 20 Rate Blood Pressure 130/83 H Blood Pressure 98 Mean BP Location Left Arm BP Position Sitting O2 Sat by Pulse 100 Oximetry Fraction of 28 Inspired Oxygen (FIO2) Oxygen Flow 2.00 Rate Oxygen Delivery Nasal Cannula Method HEAD: Is atraumatic. Normocephalic. EYES: Pupils are equal round regular reactive to light and accommodation. Extraocular movements are normal there is no conjunctival pallor. There is no scleral icterus. EARS: Tympanic membranes are intact. External auditory canals are clear. NOSE: There is no deviated nasal septum. There is no inflammation of the nasal mucous membrane. MOUTH: There is no ulcers in the mouth. Mucous membranes of the mouth are moist. THROAT: There is no redness of the oropharynx. There is no exudates. SKIN: There is no skin rashes. There is no petechia or ecchymosis. NECK: Is supple. There is mild JVD present. Carotids are equal there is no bruit. There is no lymphadenopathy. There is no goiter. There is no accessory muscle respiration use. Trachea is central. LUNGS: Shows diminished air entry prolonged expiration. There is scattered end expiratory wheezing and rhonchi. There is "Velcro" [E] rales of pulmonary fibrosis bilaterally in the bases. There is a few fine rales of CHF. HEART: S1-S2 is heard. There is no S3 gallop. There is no S4 gallop. There is systolic murmur of tricuspid regurgitation and mild mitral regurgitation murmur present. There is no S3 gallop. There is no S4 gallop. There is no rub. ABDOMEN: Is obese. Nontender. There is no mikayla osvaldo megaly. Bowel sounds are well heard. EXTREMITIES: Femorals are deep. Femorals are diminished there is no femoral bruits. Leg pulses are diminished. There is 1+ bilateral edema. There is no DVT or cellulitis. There is no cyanosis or clubbing. There is no calf tenderness. COMPOUNDING ASSISTANT: The patient is conscious awake alert oriented x3 with no focal deficit. PSYCHIATRIC:. The patient judgment insight are intact her affect is normal. Labs- Entire Visit 02/26/19 02/26/19 02/26/19 20:45 20:45 20:45 WBC 5.7 RBC 3.29 L Hgb 10.6 L Hct 31.6 L MCV 96 MCH 32.1 MCHC 33.5 RDW 14.8 H Plt Count 195 Lymph % (Auto) 19.3 Bibb % (Auto) 10.0 Eos % (Auto) 1.7 Baso % (Auto) 0.3 Absolute Neuts (auto) 3.9 Absolute Lymphs (auto) 1.1 Absolute Monos (auto) 0.6 Absolute Eos (auto) 0.1 Absolute Basos (auto) 0.0 Seg Neutrophils % 68.7 VBG pH VBG pCO2 VBG HCO3 VBG Base Excess Sodium 141.4 Potassium 4.7 Chloride 97 L Carbon Dioxide 37 H Anion Gap 7 BUN 28 H Creatinine 0.82 Est GFR ( Amer) > 60 Est GFR (MDRD) Non-Af > 60 Glucose 110 POC Glucose Lactic Acid Calcium 9.1 Magnesium Total Bilirubin 0.4 Direct Bilirubin 0.1 Neonat Total Bilirubin Not Reportable Neonat Direct Bilirubin Not Reportable Neonat Indirect Bili Not Reportable AST 22 ALT 17 Alkaline Phosphatase 87 Creatine Kinase 46 Troponin I 0.025 NT-Pro-B Natriuret Pep 2580 H Total Protein 6.6 Albumin 3.6 Triglycerides Cholesterol LDL Cholesterol Direct VLDL Cholesterol HDL Cholesterol TSH 02/26/19 02/26/19 02/27/19 21:58 23:14 05:05 WBC RBC Hgb Hct MCV MCH MCHC RDW Plt Count Lymph % (Auto) Bibb % (Auto) Eos % (Auto) Baso % (Auto) Absolute Neuts (auto) Absolute Lymphs (auto) Absolute Monos (auto) Absolute Eos (auto) Absolute Basos (auto) Seg Neutrophils % VBG pH VBG pCO2 VBG HCO3 VBG Base Excess Sodium Potassium Chloride Carbon Dioxide Anion Gap BUN Creatinine Est GFR ( Amer) Est GFR (MDRD) Non-Af Glucose POC Glucose Lactic Acid 0.5 L Calcium Magnesium Total Bilirubin Direct Bilirubin Neonat Total Bilirubin Neonat Direct Bilirubin Neonat Indirect Bili AST ALT Alkaline Phosphatase Creatine Kinase Troponin I 0.027 0.027 NT-Pro-B Natriuret Pep Total Protein Albumin Triglycerides Cholesterol LDL Cholesterol Direct VLDL Cholesterol HDL Cholesterol TSH 02/27/19 02/27/19 02/27/19 05:05 05:05 05:05 WBC 4.7 RBC 3.19 L Hgb 10.3 L Hct 30.4 L MCV 95 MCH 32.3 MCHC 33.8 RDW 14.5 H Plt Count 169 Lymph % (Auto) Bibb % (Auto) Eos % (Auto) Baso % (Auto) Absolute Neuts (auto) Absolute Lymphs (auto) Absolute Monos (auto) Absolute Eos (auto) Absolute Basos (auto) Seg Neutrophils % VBG pH VBG pCO2 VBG HCO3 VBG Base Excess Sodium 141.4 Potassium 4.1 Chloride 98 Carbon Dioxide 38 H Anion Gap 5 BUN 26 H Creatinine 0.70 Est GFR ( Amer) > 60 Est GFR (MDRD) Non-Af > 60 Glucose 110 POC Glucose Lactic Acid Calcium 8.8 Magnesium 1.9 Total Bilirubin Direct Bilirubin Neonat Total Bilirubin Neonat Direct Bilirubin Neonat Indirect Bili AST ALT Alkaline Phosphatase Creatine Kinase Troponin I NT-Pro-B Natriuret Pep Total Protein Albumin Triglycerides 78 Cholesterol 117.26 LDL Cholesterol Direct 52 VLDL Cholesterol 16.0 HDL Cholesterol 48 TSH 7.47 H 02/27/19 02/27/19 02/27/19 05:05 08:33 11:08 WBC RBC Hgb Hct MCV MCH MCHC RDW Plt Count Lymph % (Auto) Bibb % (Auto) Eos % (Auto) Baso % (Auto) Absolute Neuts (auto) Absolute Lymphs (auto) Absolute Monos (auto) Absolute Eos (auto) Absolute Basos (auto) Seg Neutrophils % VBG pH 7.38 VBG pCO2 66.1 H* VBG HCO3 38.5 H VBG Base Excess 10.9 Sodium Potassium Chloride Carbon Dioxide Anion Gap BUN Creatinine Est GFR ( Amer) Est GFR (MDRD) Non-Af Glucose POC Glucose 113 H Lactic Acid Calcium Magnesium Total Bilirubin Direct Bilirubin Neonat Total Bilirubin Neonat Direct Bilirubin Neonat Indirect Bili AST ALT Alkaline Phosphatase Creatine Kinase Troponin I 0.024 NT-Pro-B Natriuret Pep Total Protein Albumin Triglycerides Cholesterol LDL Cholesterol Direct VLDL Cholesterol HDL Cholesterol TSH 02/27/19 02/27/19 02/27/19 11:16 16:03 21:09 WBC RBC Hgb Hct MCV MCH MCHC RDW Plt Count Lymph % (Auto) Bibb % (Auto) Eos % (Auto) Baso % (Auto) Absolute Neuts (auto) Absolute Lymphs (auto) Absolute Monos (auto) Absolute Eos (auto) Absolute Basos (auto) Seg Neutrophils % VBG pH VBG pCO2 VBG HCO3 VBG Base Excess Sodium Potassium Chloride Carbon Dioxide Anion Gap BUN Creatinine Est GFR ( Amer) Est GFR (MDRD) Non-Af Glucose POC Glucose 189 H 78 154 H Lactic Acid Calcium Magnesium Total Bilirubin Direct Bilirubin Neonat Total Bilirubin Neonat Direct Bilirubin Neonat Indirect Bili AST ALT Alkaline Phosphatase Creatine Kinase Troponin I NT-Pro-B Natriuret Pep Total Protein Albumin Triglycerides Cholesterol LDL Cholesterol Direct VLDL Cholesterol HDL Cholesterol TSH Chest X-Ray 02/26/19 19:52 IMPRESSION: Equivocal right basilar airspace opacity. There is elevation right hemidiaphragm. Cardiac megaly ECHOCARDIOGRAM: Is a poor quality study. There is mild left ventricular enlargement. LV ejection fraction is severely reduced to moderately reduced at 30% to 35%. There is mild mitral regurgitation. There is no aortic stenosis. There is no significant aortic regurgitation. There is no pericardial effusion. In one view there is moderate to severe tricuspid regurgitation, but there is another sampling of the TR jet and hence erroneously low RVSP obtained. Will have to repeat the tricuspid valve reinterrogation by echocardiogram to obtain accurate right ventricular systolic pressure estimations. EKG shows sinus tachycardia. Versus atrial flutter. Right bundle branch block pattern and left anterior hemiblock. Probable LVH with strain pattern. Impression/RECOMMENDATION: 1. Acute on chronic respiratory failure. Continue supplemental oxygen, and current anti-COPD medication 2. Acute infective bronchitis: Continue current treatment including antibiotics. 3. Most likely acute on chronic systolic heart failure: Continue diuretics, in view of the patient's current current wheezing will not start the patient on Toprol-XL at present. We will start the patient on Entresto. If tachycardia persists will give 1 dose of digoxin. 4 . Pulmonary fibrosis. 5. History of asthma and COPD. 6. Hypertension: Continue current medication. Increase Entresto as tolerated. Later would add a beta-les. 7. Sinus tach versus atrial flutter. There is also bifascicular block. Once the heart rate slows down we will know whether this is sinus tach or atrial flutter. 8. Diabetes mellitus type 2 [id number]. 9. Hypothyroidism:: Continue thyroid replacement. Note the patient's TSH is high. Recommend checking the patient's free T3 and free T4.. 10 I suspect significant pulmonary hypertension. Hence will repeat interrogation of the tricuspid valve to see if we can get better estimation of the TR jet to be able to calculate right ventricle systolic pressure accurately. 11. History of pulmonary embolism: Patient states she is on Xarelto. Will continue Xarelto. 12. History of breast cancer status post bilateral mastectomies and chemotherapy and radiation treatment. 13. History of multiple abdominal surgeries. 14. Morbid obesity. Discussed echo findings with the patient and patient's daughter. Medical decision making is of high complexity. Medications reviewed. Medications added. Medical regimen and medical management discussed with attending provider on the case. 60 minutes spent as patient with more than 50% of time spent in direct patient care. Office note from Dr. Moody reviewed.
[2019-02-27] MEDS ORDERED: METOPROLOL TARTRATE PF/INJ 5 MG/5 ML SDV IV PRN (22:17)
[2019-02-28] MEDS: BUMETANIDE INJ/PF 1 MG/4 ML SDV IV SCH ×2 (00:37→06:05)
[2019-02-28 05:15] LABS: VENOUS BLOOD BASE EXCESS 15.5 mmol/L; VENOUS BLOOD HCO3 43.8 mmol/L (20-32); VENOUS BLOOD PH 7.39 (7.30-7.42)
[2019-02-28 05:16] LABS: HEMATOCRIT 31.1 % (36.0-47.0); HEMOGLOBIN 10.5 g/dL (12.0-15.5); MEAN CORPUSCULAR HEMOGLOBIN 32.1 pg (27.0-33.4); MEAN CORPUSCULAR HGB CONC 33.7 g/dL (32.0-36.0); MEAN CORPUSCULAR VOLUME 95 fl (80-97); PLATELET COUNT 179 10^3/uL (150-450); RED BLOOD COUNT 3.26 10^6/uL (3.72-5.28); RED CELL DISTRIBUTION WIDTH 14.8 % (11.5-14.0); WHITE BLOOD COUNT 4.4 10^3/uL (4.0-10.5)
[2019-02-28 05:35] LABS: BLOOD UREA NITROGEN 19 mg/dL (7-20); CALCIUM 8.9 mg/dL (8.4-10.2); CHLORIDE 93 mmol/L (98-107); GLUCOSE 92 mg/dL (75-110); POTASSIUM 3.8 mmol/L (3.6-5.0)
[2019-02-28 05:48] LABS: ANION GAP 6 (5-19)
[2019-02-28 05:49] LABS: CARBON DIOXIDE 42 mmol/L (22-30)
[2019-02-28] MEDS: LEVOTHYROXINE SODIUM 0.025 MG TABLET PO SCH (06:05)
[2019-02-28] MEDS: HEPARIN SOD (PORCINE) 5,000 UNIT/ML 1 ML VIAL SUBCUT SCH (06:05)
[2019-02-28 06:21] LABS: VENOUS BLOOD PCO2 74.1 mmHg (35-63)
[2019-02-28] MEDS: IPRATROPIUM BROMIDE 0.02% NEB 0.5 MG/2.5 ML AMPUL NEB SCH ×2 (08:02→16:23)
[2019-02-28] MEDS: BUDESONIDE NEB 0.5 MG/2 ML AMPUL NEB SCH ×2 (08:02→20:27)
--- NOTE | 2019-02-28 09:13 | PDOC PROGRESS REPORT ---
Subjective Progress Note for:: 02/28/19 Subjective:: 02/27/2019-no complaints this a.m. 02/28/2019-no complaints patient feeling much better this a.m. Reason For Visit: ACUTE ON CHRONIC DISTOLIC CONGESTIVE HEART FAILURE Physical Exam Vital Signs: Temp Pulse Resp BP Pulse Ox 97.7 F 125 H 16 130/95 H 95 02/28/19 07:54 02/28/19 08:04 02/28/19 08:04 02/28/19 07:54 02/28/19 08:04 Intake & Output 02/27/19 02/28/19 03/01/19 06:59 06:59 06:59 Intake Total 50 1040 Output Total 175 3000 Balance -125 -1960 Weight 108.6 kg 108.3 kg General appearance: PRESENT: no acute distress, well-developed, well-nourished Neck exam: ABSENT: carotid bruit, JVD, lymphadenopathy, thyromegaly Respiratory exam: PRESENT: decreased breath sounds, symmetrical, unlabored. ABSENT: rales, rhonchi, wheezes Cardiovascular exam: PRESENT: RRR. ABSENT: diastolic murmur, rubs, systolic murmur Pulses: PRESENT: +1 pedal pulses bilateral Vascular exam: PRESENT: normal capillary refill GI/Abdominal exam: PRESENT: normal bowel sounds, soft. ABSENT: distended, guarding, mass, organolmegaly, rebound, tenderness Extremities exam: PRESENT: full ROM, +2 edema. ABSENT: calf tenderness, clubbing, pedal edema Neurological exam: PRESENT: alert, awake, oriented to person, oriented to place, oriented to time, oriented to situation, CN II-XII grossly intact. ABSENT: motor sensory deficit Psychiatric exam: PRESENT: appropriate affect, normal mood. ABSENT: homicidal ideation, suicidal ideation Skin exam: PRESENT: dry, intact, warm. ABSENT: cyanosis, rash Results Laboratory Results: 02/28/19 04:51 02/28/19 04:51 02/28/19 02/28/19 02/28/19 04:51 04:51 04:51 WBC 4.4 RBC 3.26 L Hgb 10.5 L Hct 31.1 L MCV 95 MCH 32.1 MCHC 33.7 RDW 14.8 H Plt Count 179 VBG pH 7.39 VBG pCO2 74.1 H* VBG HCO3 43.8 H VBG Base Excess 15.5 Sodium 140.6 Potassium 3.8 Chloride 93 L Carbon Dioxide 42 H* Anion Gap 6 BUN 19 Creatinine 0.82 Est GFR ( Amer) > 60 Glucose 92 Calcium 8.9 02/26/19 02/26/19 02/26/19 20:45 20:45 23:14 Creatine Kinase 46 Troponin I 0.025 0.027 NT-Pro-B Natriuret Pep 2580 H 02/27/19 02/27/19 05:05 11:08 Creatine Kinase Troponin I 0.027 0.024 NT-Pro-B Natriuret Pep Impressions: Chest X-Ray 02/26/19 19:52 IMPRESSION: Equivocal right basilar airspace opacity. There is elevation right hemidiaphragm. Cardiac megaly copyright 2010 [employer]- All Rights Reserved Assessment and Plan - Diagnosis (1) Acute and chronic respiratory failure with hypoxia Is this a current diagnosis for this admission?: Yes Plan: 02/27/2019-this is actually acute on chronic respiratory failure with hypoxia and hypercapnia. CO2 66. Will have patient wear BiPAP per RT settings. Continue all other supportive measures including supplemental oxygen. Diuresis. 02/28/2019-much improved. Patient on nasal cannula sitting up in bed eating breakfast. Patient talking in full sentences. Continue supplemental oxygen and continue to diurese. Patient was started on Entresto yesterday for systolic congestive heart failure (2) Acute on chronic diastolic congestive heart failure Is this a current diagnosis for this admission?: Yes Plan: 02/27/2019-continue Bumex 1 mg IV every 6 hours and as needed morphine. BiPAP. 02/28/2019-echocardiogram shows ejection fraction 30-35%. Patient started on Entresto yesterday. Will repeat echocardiogram per Dr. Holder. Metoprolol succ 25 mg p.o. twice daily. (3) Chronic obstructive pulmonary disease (COPD) Qualifiers: COPD type: unspecified COPD Qualified Code(s): J44.9 - Chronic obstructive pulmonary disease, unspecified Is this a current diagnosis for this admission?: Yes Plan: 02/27/2019-supportive measures, BiPAP, pulmonary toileting, bronchodilators steroids Levaquin 750 mg daily. 02/28/2019-improved. Continue current therapy including bronchodilators, steroids and Levaquin (4) Diabetes mellitus type 2 in obese Is this a current diagnosis for this admission?: Yes Plan: 02/27/2019-stable at this time continue current therapies 02/28/2019-stable (5) Morbid obesity with BMI of 40.0-44.9, adult Is this a current diagnosis for this admission?: Yes Plan: 02/27/2019-continue education about dietary modification 02/28/2019-continue dietary modification education (6) Normochromic normocytic anemia Is this a current diagnosis for this admission?: Yes Plan: 02/27/2019-stable 02/28/2019-stable - Plan Summary Summary: Patient is admitted to a telemetry bed where she will receive usual supportive and symptomatic cares. She will be treated with IV Bumex 1 mg every 6 hours to help resolve her acute congestive heart failure. She will also receive supplemental oxygen utilizing nasal cannula and or noninvasive airway pressure support devices such as CPAP or BiPAP to obtain an adequate oxygen saturation and avoid hypercapnia. She will receive morphine sulfate 2 mg IV every 1 hour PRN severe dyspnea. She will receive a pulmonary toilet utilizing Atrovent and Pulmicort and will be maintained on antibiotic therapy for possible pneumo harsha/pneumonitis with Levaquin 750 mg p.o. daily x4 days. Patient will be continued on her usual home medications as soon as her medication reconciliation has been verified and completed. A shop welder consultation will be obtained to family court counsellor the patient on her obesity and possible diet interventions. Patient will be continued on her cardiac and diabetic restricted diet. Before meals and at bedtime Accu-Cheks will be obtained with sliding scale insulin used for control of hyperglycemia and a hypoglycemic protocol in place. - Time Time Spent with patient: 15-24 minutes - Inpatient Certification Based on my medical assessment, after consideration of the patient's comorbidities, presenting symptoms, or acuity I expect that the services needed warrant INPATIENT care.: Yes I certify that my determination is in accordance with my understanding of Medicare's requirements for reasonable and necessary INPATIENT services [42 CFR 412.3e].: Yes Medical Necessity: Significant Comorbidiites Make Outpatient Treatment Too Risky, Need Close Monitoring Due to Risk of Patient Decompensation, Need For Continuous Telemetry Monitoring
[2019-02-28] MEDS: INSULIN REG, HUMAN 100 UNIT/ML 3 ML VIAL (PYX) SUBCUT SCH ×4 (09:21→21:44)
[2019-02-28] MEDS: FAMOTIDINE 20 MG TABLET PO SCH ×2 (09:28→21:47)
[2019-02-28] MEDS: LEVOFLOXACIN 750 MG TABLET PO SCH (09:28)
[2019-02-28] MEDS: SACUBITRIL/VALSARTAN 24 MG/26 MG TABLET PO SCH ×2 (09:28→18:29)
[2019-02-28] MEDS: DOCUSATE SODIUM 100 MG CAPSULE PO SCH ×2 (09:29→18:26)
[2019-02-28] MEDS ORDERED: METOPROLOL SUCCINATE 25 MG TAB.SR.24H PO SCH (10:00)
[2019-02-28] MEDS ORDERED: DIGOXIN INJ 0.5 MG/2 ML AMPULE IV ONE (14:15)
[2019-02-28] MEDS: PREGABALIN 100 MG CAPSULE PO SCH ×2 (14:19→21:47)
[2019-02-28] MEDS: CYCLOBENZAPRINE HCL 10 MG TABLET PO PRN (14:19)
[2019-02-28] MEDS: RIVAROXABAN 10 MG TABLET PO SCH (18:27)
--- NOTE | 2019-02-28 19:17 | Progress Note ---
Provider Note Provider Note: CARDIOLOGY PROGRESS NOTE by Dr. Hillary Holder on 02/28/2019. SUBJECTIVE: The patient states she feels a little better. She still has some orthopnea but no PND. There is no leg edema. There is no arrhythmia seen on the monitor. The patient denies any chest pain discomfort. She continues to have wheezing and leathery rales. There is no bleeding on Xarelto. There is no TIA CVA symptoms. Past physical EXAMINATION: The patient morbidly obese. At present in no acute distress. Selected Entries 02/28/19 07:54 Temperature 97.7 F Temperature Oral Source Pulse Rate 125 H Respiratory 18 Rate Blood Pressure 130/95 H Blood Pressure 106 Mean BP Location Left Arm BP Position Supine O2 Sat by Pulse 100 Oximetry Oxygen Flow 2.50 Rate Oxygen Delivery Nasal Cannula Method HEAD: Is atraumatic. Normocephalic. EYES: Pupils are equal round regular reactive to light and accommodation. Extraocular movements are normal there is no conjunctival pallor. There is no scleral icterus. EARS: Tympanic membranes are intact. External auditory canals are clear. NOSE: There is no deviated nasal septum. There is no inflammation of the nasal mucous membrane. MOUTH: There is no ulcers in the mouth. Mucous membranes of the mouth are moist. THROAT: There is no redness of the oropharynx. There is no exudates. SKIN: There is no skin rashes. There is no petechia or ecchymosis. NECK: Is supple. There is mild JVD present. Carotids are equal there is no bruit. There is no lymphadenopathy. There is no goiter. There is no accessory muscle respiration use. Trachea is central. LUNGS: Shows diminished air entry prolonged expiration. There is scattered end expiratory wheezing and rhonchi. There is "Velcro" [E] rales of pulmonary fibrosis bilaterally in the bases. There is a few fine rales of CHF. HEART: S1-S2 is heard. There is no S3 gallop. There is no S4 gallop. There is systolic murmur of tricuspid regurgitation and mild mitral regurgitation murmur present. There is no S3 gallop. There is no S4 gallop. There is no rub. ABDOMEN: Is obese. Nontender. There is no paraspinal megaly. Bowel sounds are well heard. EXTREMITIES: Femorals are deep. Femorals are diminished there is no femoral bruits. Leg pulses are diminished. There is 1+ bilateral edema. There is no DVT or cellulitis. There is no cyanosis or clubbing. There is no calf tenderness. COREMAKER HELPER: The patient is conscious awake alert oriented x3 with no focal deficit. PSYCHIATRIC:. The patient judgment insight are intact her affect is normal. Labs- All tests 24 hr 02/28/19 02/28/19 02/28/19 04:51 04:51 04:51 WBC 4.4 RBC 3.26 L Hgb 10.5 L Hct 31.1 L MCV 95 MCH 32.1 MCHC 33.7 RDW 14.8 H Plt Count 179 VBG pH 7.39 VBG pCO2 74.1 H* VBG HCO3 43.8 H VBG Base Excess 15.5 Sodium Potassium Chloride Carbon Dioxide Anion Gap BUN Creatinine Est GFR ( Amer) Est GFR (MDRD) Non-Af Glucose POC Glucose Hemoglobin A1c % 5.9 Calcium 02/28/19 02/28/19 02/28/19 04:51 07:50 11:21 WBC RBC Hgb Hct MCV MCH MCHC RDW Plt Count VBG pH VBG pCO2 VBG HCO3 VBG Base Excess Sodium 140.6 Potassium 3.8 Chloride 93 L Carbon Dioxide 42 H* Anion Gap 6 BUN 19 Creatinine 0.82 Est GFR ( Amer) > 60 Est GFR (MDRD) Non-Af > 60 Glucose 92 POC Glucose 110 122 H Hemoglobin A1c % Calcium 8.9 02/28/19 02/28/19 16:43 21:36 WBC RBC Hgb Hct MCV MCH MCHC RDW Plt Count VBG pH VBG pCO2 VBG HCO3 VBG Base Excess Sodium Potassium Chloride Carbon Dioxide Anion Gap BUN Creatinine Est GFR ( Amer) Est GFR (MDRD) Non-Af Glucose POC Glucose 105 137 H Hemoglobin A1c % Calcium Chest X-Ray 02/26/19 19:52 IMPRESSION: Equivocal right basilar airspace opacity. There is elevation right hemidiaphragm. Cardiac megaly Impression/RECOMMENDATION: 1. Acute on chronic respiratory failure. Continue supplemental oxygen, and cu rrent anti-COPD medication 2. Acute infective bronchitis: Continue current treatment including antibiotics. 3. Most likely acute on chronic systolic heart failure: Continue diuretics, in view of the patient's current current wheezing will not start the patient on Toprol-XL at present. We will start the patient on Entresto. If tachycardia persists will give 1 dose of digoxin. The patient still has some wheezing and hence we will start not start Toprol-XL will try from tomorrow. 4 . Pulmonary fibrosis. 5. History of asthma and COPD. 6. Hypertension: Continue current medication. Increase Entresto as tolerated. Later would add a beta-les. 7. Sinus tach versus atrial flutter. There is also right bundle branch block pattern and left anterior fascicular block. [Bifascicular block]. 8. Diabetes mellitus type 2 [id number]. 9. Hypothyroidism:: Continue thyroid replacement. Note the patient's TSH is high. Recommend checking the patient's free T3 and free T4.. 10 Moderate to severe tricuspid regurgitation. At least moderate pulmonary hypertension with right ventricle systolic pressure of 53 to 58 mmHg. 11. History of pulmonary embolism: Patient states she is on Xarelto. Will continue Xarelto. 12. History of breast cancer status post bilateral mastectomies and chemotherapy and radiation treatment. 13. History of multiple abdominal surgeries. 14. Morbid obesity. 15. Sinus Tachycardia: We will give 1 dose of digoxin to see if this will help the heart rate come down. Also this will clearly tell us whether this is indeed sinus tachycardia or atrial flutter. Medications reviewed. Medical regimen and management plan discussed with attending physician on the case. Medical decision making is of high complexity. 40 minutes spent as patient more than 50% of time spent in direct patient care.
[2019-03-01] MEDS: IPRATROPIUM BROMIDE 0.02% NEB 0.5 MG/2.5 ML AMPUL NEB SCH ×4 (00:38→23:54)
[2019-03-01] MEDS: HYDROCODONE/ACETAMINOPHEN 5-325 MG TABLET PO PRN ×2 (03:52→12:50)
[2019-03-01 05:23] LABS: HEMATOCRIT 32.4 % (36.0-47.0); HEMOGLOBIN 10.9 g/dL (12.0-15.5); MEAN CORPUSCULAR HEMOGLOBIN 32.2 pg (27.0-33.4); MEAN CORPUSCULAR HGB CONC 33.8 g/dL (32.0-36.0); MEAN CORPUSCULAR VOLUME 95 fl (80-97); PLATELET COUNT 175 10^3/uL (150-450); RED CELL DISTRIBUTION WIDTH 14.7 % (11.5-14.0)
[2019-03-01] MEDS: PREGABALIN 100 MG CAPSULE PO SCH ×3 (05:27→21:21)
[2019-03-01] MEDS: LEVOTHYROXINE SODIUM 0.025 MG TABLET PO SCH (05:27)
[2019-03-01 05:49] LABS: ANION GAP 7 (5-19); BLOOD UREA NITROGEN 13 mg/dL (7-20); CARBON DIOXIDE 38 mmol/L (22-30); CHLORIDE 95 mmol/L (98-107); GLUCOSE 101 mg/dL (75-110); POTASSIUM 3.9 mmol/L (3.6-5.0)
[2019-03-01 06:01] LABS: FREE T3 1.49 pg/mL (2.77-5.27); FREE T4 (FREE THYROXINE) 1.03 ng/dL (0.78-2.19)
[2019-03-01 06:14] LABS: THYROID STIMULATING HORMONE 2.27 uIU/mL (0.47-4.68)
[2019-03-01] MEDS: BUDESONIDE NEB 0.5 MG/2 ML AMPUL NEB SCH ×2 (07:49→20:33)
[2019-03-01] MEDS: INSULIN REG, HUMAN 100 UNIT/ML 3 ML VIAL (PYX) SUBCUT SCH ×4 (08:16→22:58)
[2019-03-01] MEDS: FAMOTIDINE 20 MG TABLET PO SCH ×2 (09:09→21:21)
[2019-03-01] MEDS: SACUBITRIL/VALSARTAN 24 MG/26 MG TABLET PO SCH ×2 (09:09→17:31)
[2019-03-01] MEDS: LEVOFLOXACIN 750 MG TABLET PO SCH (09:09)
[2019-03-01] MEDS: DOCUSATE SODIUM 100 MG CAPSULE PO SCH ×2 (09:10→17:33)
--- NOTE | 2019-03-01 09:36 | PDOC PROGRESS REPORT ---
Subjective Progress Note for:: 03/01/19 Subjective:: 02/27/2019-no complaints this a.m. 02/28/2019-no complaints patient feeling much better this a.m. 03/01/2019-no complaints Reason For Visit: ACUTE ON CHRONIC DISTOLIC CONGESTIVE HEART FAILURE Physical Exam Vital Signs: Temp Pulse Resp BP Pulse Ox 97.2 F 125 H 16 110/77 97 03/01/19 06:58 03/01/19 07:49 03/01/19 07:49 03/01/19 06:58 03/01/19 07:49 Intake & Output 02/28/19 03/01/19 03/02/19 06:59 06:59 06:59 Intake Total 1040 980 Output Total 3000 4000 Balance -1960 -3020 Weight 108.3 kg 103.9 kg General appearance: PRESENT: no acute distress, well-developed, well-nourished Neck exam: ABSENT: carotid bruit, JVD, lymphadenopathy, thyromegaly Respiratory exam: PRESENT: decreased breath sounds, symmetrical, unlabored Cardiovascular exam: PRESENT: RRR. ABSENT: diastolic murmur, rubs, systolic murmur Pulses: PRESENT: +1 pedal pulses bilateral Vascular exam: PRESENT: normal capillary refill GI/Abdominal exam: PRESENT: normal bowel sounds, soft. ABSENT: distended, guarding, mass, organolmegaly, rebound, tenderness Extremities exam: PRESENT: full ROM, pedal edema, +1 edema. ABSENT: calf tenderness, clubbing Neurological exam: PRESENT: alert, awake, oriented to person, oriented to place, oriented to time, oriented to situation, CN II-XII grossly intact. ABSENT: motor sensory deficit Psychiatric exam: PRESENT: appropriate affect, normal mood. ABSENT: homicidal ideation, suicidal ideation Skin exam: PRESENT: dry, intact, warm. ABSENT: cyanosis, rash Results Laboratory Results: 03/01/19 04:38 03/01/19 04:38 03/01/19 03/01/19 03/01/19 04:38 04:38 04:38 WBC 4.0 RBC 3.40 L Hgb 10.9 L Hct 32.4 L MCV 95 MCH 32.2 MCHC 33.8 RDW 14.7 H Plt Count 175 Sodium 140.2 Potassium 3.9 Chloride 95 L Carbon Dioxide 38 H Anion Gap 7 BUN 13 Creatinine 0.72 Est GFR ( Amer) > 60 Glucose 101 Calcium 9.0 TSH 2.27 Free T4 1.03 Free T3 pg/mL 1.49 L 02/26/19 02/26/19 02/26/19 20:45 20:45 23:14 Creatine Kinase 46 Troponin I 0.025 0.027 NT-Pro-B Natriuret Pep 2580 H 02/27/19 02/27/19 05:05 11:08 Creatine Kinase Troponin I 0.027 0.024 NT-Pro-B Natriuret Pep Impressions: Chest X-Ray 02/26/19 19:52 IMPRESSION: Equivocal right basilar airspace opacity. There is elevation right hemidiaphragm. Cardiac megaly copyright 2010 [employer]- All Rights Reserved Assessment and Plan - Diagnosis (1) Acute and chronic respiratory failure with hypoxia Is this a current diagnosis for this admission?: Yes Plan: 02/27/2019-this is actually acute on chronic respiratory failure with hypoxia and hypercapnia. CO2 66. Will have patient wear BiPAP per RT settings. C ontinue all other supportive measures including supplemental oxygen. Diuresis. 02/28/2019-much improved. Patient on nasal cannula sitting up in bed eating breakfast. Patient talking in full sentences. Continue supplemental oxygen and continue to diurese. Patient was started on Entresto yesterday for systolic congestive heart failure 02/21/2019-improved. Patient refusing BiPAP. Most of the secondary to chronic systolic congestive heart failure. Patient followed by Dr. Holder (2) Acute on chronic diastolic congestive heart failure Is this a current diagnosis for this admission?: Yes Plan: 02/27/2019-continue Bumex 1 mg IV every 6 hours and as needed morphine. BiPAP. 02/28/2019-echocardiogram shows ejection fraction 30-35%. Patient started on Entresto yesterday. Will repeat echocardiogram per Dr. Holder. Metoprolol succ 25 mg p.o. twice daily. 03/01/2019-Per cardiology recommendations (3) Chronic obstructive pulmonary disease (COPD) Qualifiers: COPD type: unspecified COPD Qualified Code(s): J44.9 - Chronic obstructive pulmonary disease, unspecified Is this a current diagnosis for this admission?: Yes Plan: 02/27/2019-supportive measures, BiPAP, pulmonary toileting, bronchodilators steroids Levaquin 750 mg daily. 02/28/2019-improved. Continue current therapy including bronchodilators, steroids and Levaquin 03/01/2019-stable see #1 (4) Diabetes mellitus type 2 in obese Is this a current diagnosis for this admission?: Yes Plan: 02/27/2019-stable at this time continue current therapies 02/28/2019-stable 03/01/2019-stable (5) Morbid obesity with BMI of 40.0-44.9, adult Is this a current diagnosis for this admission?: Yes Plan: 02/27/2019-continue education about dietary modification 02/28/2019-continue dietary modification education 03/01/2019-dietary modification education (6) Normochromic normocytic anemia Is this a current diagnosis for this admission?: Yes Plan: 02/27/2019-stable 02/28/2019-stable 03/01/2019-stable - Plan Summary Summary: Patient is admitted to a telemetry bed where she will receive usual supportive and symptomatic cares. She will be treated with IV Bumex 1 mg every 6 hours to help resolve her acute congestive heart failure. She will also receive supplemental oxygen utilizing nasal cannula and or noninvasive airway pressure support devices such as CPAP or BiPAP to obtain an adequate oxygen saturation and avoid hypercapnia. She will receive morphine sulfate 2 mg IV every 1 hour PRN severe dyspnea. She will receive a pulmonary toilet utilizing Atrovent and Pulmicort and will be maintained on antibiotic therapy for possible pneumonia/pneumonitis with Levaquin 750 mg p.o. daily x4 days. Patient will be continued on her usual home medications as soon as her medication reconciliation has been verified and completed. A wood bucker consultation will be obtained to counseling case manager the patient on her obesity and possible diet interventions. Patient will be continued on her cardiac and diabetic restricted diet. Before meals and at bedtime Accu-Cheks will be obtained with sliding scale insulin used for control of hyperglycemia and a hypoglycemic protocol in place. - Time Time Spent with patient: 15-24 minutes - Inpatient Certification Based on my medical assessment, after consideration of the patient's comorbidities, presenting symptoms, or acuity I expect that the services needed warrant INPATIENT care.: Yes I certify that my determination is in accordance with my understanding of Medicare's requirements for reasonable and necessary INPATIENT services [42 CFR 412.3e].: Yes Medical Necessity: Significant Comorbidiites Make Outpatient Treatment Too Risky, Need Close Monitoring Due to Risk of Patient Decompensation, Need For C ontinuous Telemetry Monitoring
[2019-03-01] MEDS ORDERED: METOPROLOL SUCCINATE 25 MG TAB.SR.24H PO SCH (10:00)
[2019-03-01] MEDS ORDERED: METOPROLOL TARTRATE PF/INJ 5 MG/5 ML SDV IV ONE (13:00)
[2019-03-01] MEDS ORDERED: DILTIAZEM HCL INJ 25 MG/5 ML VIAL ONE (13:20)
--- NOTE | 2019-03-01 13:42 | XCELERA REPORT ---
[address] [address] Transthoracic Echocardiogram Report Name: KIMBERLY GAMEZ Age: 78 yrs Gender: Female : 1940 Patient Status: Inpatient Patient Location: [address] [place], [place] [address] Study Date: 02/28/2019 02:38 PM Height: 60 in Weight: 238 lb BSA: 2.0 m2 Procedure: A two-dimensional transthoracic echocardiogram with color flow and Doppler was performed in limited views only. Study Quality: Fair. Reason For Study: EVAL RT ATRIAL PRESSURE History: PULMONARY HYPERTENSION. Ordering Physician: ESTHER MCCULLOUGH Performed By: Kofi Nair Interpretation Summary The right ventricular systolic function is moderately reduced. The right ventricle is moderately dilated. There is no tricuspid stenosis. There is a moderate amount of tricuspid regurgitation rvsp IS 53 TO 58 MM OF hG , WITH ra MEAN OF 10 -15.(IVC not seen). There is moderate pulmonary hypertension by echo MMode/2D Measurements & Calculations RVDd: 4.3 cm LVIDd: 5.3 cm FS: 22.2 % Ao root diam: 3.5 cm IVSd: 1.2 cm LVIDs: 4.1 cm EDV(Teich): 135.8 ml Ao root area: 9.4 cm2 LVPWd: 1.2 cm ESV(Teich): 75.6 ml LA dimension: 4.9 cm EF(Teich): 44.4 % Doppler Measurements & Calculations TR max brody: 327.4 cm/sec TR max P.9 mmHg Right Ventricle The right ventricle is moderately dilated. The right ventricular systolic function is moderately reduced. Tricuspid Valve There is no tricuspid stenosis. There is a moderate amount of tricuspid regurgitation. rvsp IS 53 TO 58 MM OF hG , WITH ra MEAN OF 10 -15.(IVC not seen). There is moderate pulmonary hypertension by echo. : ESTHER MCCULLOUGH, Hillary
[2019-03-01] MEDS ORDERED: DIGOXIN INJ 0.5 MG/2 ML AMPULE IV ONE ×2 (15:00→22:30)
[2019-03-01] MEDS: RIVAROXABAN 10 MG TABLET PO SCH (17:31)
[2019-03-01] MEDS: CYCLOBENZAPRINE HCL 10 MG TABLET PO PRN (21:21)
[2019-03-01] MEDS: METOPROLOL SUCCINATE 50 MG TAB.SR.24H PO SCH (21:21)
--- NOTE | 2019-03-01 22:17 | Progress Note ---
Provider Note Provider Note: CARDIOLOGY PROGRESS NOTE by Dr. Hillary Holder on 03/01/2019. Subjective: The patient states that shortness of breath is much better. She still has some degree of orthopnea. She still requires oxygen. She is still a heart rate is 129 to 130 bpm and now the suspicion that this is atrial flutter is high. As the patient was given 5 mg of IV push of metoprolol followed by another 5 mg of IV push of Cardizem. The patient already received a dose of Toprol-XL 25 mg p.o. Subsequently the patient later had an EKG which shows that this is indeed atrial flutter. There is no ventricular arrhythmia seen on the monitor. There is no TIA CVA symptoms. There is no bleeding on Eliquis. The patient states his cough is much improved. The patient not wheezing today. As mentioned earlier repeat interrogation of the tricuspid valve shows there is moderate tricuspid regurgitation. Since the IVC was not visualized, and since there is right ventricular and right atrial enlargement and decreased right ventricle systolic function the patient's probably has moderate pulmonary hypertension at least. Now this raises the possibility of tachycardia induced cardiomyopathy. Since the patient most likely was in atrial flutter with fast ventricular response. The degree of time. PHYSICAL EXAMINATION: The patient is morbidly obese. At present in no acute distress. Selected Entries 03/01/19 03/01/19 03/01/19 06:58 16:08 16:12 Temperature 97.2 F 98.1 F Temperature Oral Oral Source Pulse Rate 124 H 77 119 H Heart Rate ( Monitors) Respiratory 18 18 Rate Blood Pressure 110/77 116/62 Blood Pressure 80 Mean BP Location Left Arm Left Arm O2 Sat by Pulse 100 99 Oximetry Oxygen Flow 3.00 2.50 Rate Oxygen Delivery Nasal Cannula Nasal Cannula Method 03/01/19 17:00 Temperature Temperature Source Pulse Rate Heart Rate ( 86 Monitors) Respiratory Rate Blood Pressure Blood Pressure Mean BP Location O2 Sat by Pulse Oximetry Oxygen Flow Rate Oxygen Delivery Method HEAD: Is atraumatic. Normocephalic. EYES: Pupils are equal round regular reactive to light and accommodation. Extraocular movements are normal there is no conjunctival pallor. There is no scleral icterus. EARS: Tympanic membranes are intact. External auditory canals are clear. NOSE: There is no deviated nasal septum. There is no inflammation of the nasal mucous membrane. MOUTH: There is no ulcers in the mouth. Mucous membranes of the mouth are moist. THROAT: There is no redness of the oropharynx. There is no exudates. SKIN: There is no skin rashes. There is no petechia or ecchymosis. NECK: Is supple. There is mild JVD present. Carotids are equal there is no bruit. There is no lymphadenopathy. There is no goiter. There is no accessory muscle respiration use. Trachea is central. LUNGS: Shows diminished air entry prolonged expiration. There is scattered end expiratory wheezing and rhonchi. There is "Velcro" [E] rales of pulmonary fibrosis bilaterally in the bases. There is a few fine rales of CHF. HEART: S1-S2 is heard. There is no S3 gallop. There is no S4 gallop. There is systolic murmur of tricuspid regurgitation and mild mitral regurgitation murmur present. There is no S3 gallop. There is no S4 gallop. There is no rub. ABDOMEN: Is obese. Nontender. There is no paraspinal megaly. Bowel sounds are well heard. EXTREMITIES: Femorals are deep. Femorals are diminished there is no femoral bruits. Leg pulses are diminished. There is 1+ bilateral edema. There is no DVT or cellulitis. There is no cyanosis or clubbing. There is no calf tenderness. FLAGMAN: The patient is conscious awake alert oriented x3 with no focal deficit. PSYCHIATRIC:. The patient judgment insight are intact her affect is normal. Chest X-Ray 02/26/19 19:52 IMPRESSION: Equivocal right basilar airspace opacity. There is elevation right hemidiaphragm. Cardiac megaly copyright 2011 [employer]- All Rights Reserved 02/26/19 02/26/19 02/26/19 20:45 20:45 20:45 RBC 3.29 L Hgb 10.6 L Hct 31.6 L RDW 14.8 H VBG pCO2 VBG HCO3 Chloride 97 L Carbon Dioxide 37 H BUN 28 H POC Glucose Lactic Acid NT-Pro-B Natriuret Pep 2580 H TSH Free T3 pg/mL 02/26/19 02/27/19 02/27/19 21:58 05:05 05:05 RBC 3.19 L Hgb 10.3 L Hct 30.4 L RDW 14.5 H VBG pCO2 VBG HCO3 Chloride Carbon Dioxide 38 H BUN 26 H POC Glucose Lactic Acid 0.5 L NT-Pro-B Natriuret Pep TSH Free T3 pg/mL 02/27/19 02/27/19 02/27/19 05:05 05:05 08:33 RBC Hgb Hct RDW VBG pCO2 66.1 H* VBG HCO3 38.5 H Chloride Carbon Dioxide BUN POC Glucose 113 H Lactic Acid NT-Pro-B Natriuret Pep TSH 7.47 H Free T3 pg/mL 02/27/19 02/27/19 02/28/19 11:16 21:09 04:51 RBC Hgb Hct RDW VBG pCO2 74.1 H* VBG HCO3 43.8 H Chloride Carbon Dioxide BUN POC Glucose 189 H 154 H Lactic Acid NT-Pro-B Natriuret Pep TSH Free T3 pg/mL 02/28/19 02/28/19 02/28/19 04:51 04:51 11:21 RBC 3.26 L Hgb 10.5 L Hct 31.1 L RDW 14.8 H VBG pCO2 VBG HCO3 Chloride 93 L Carbon Dioxide 42 H* BUN POC Glucose 122 H Lactic Acid NT-Pro-B Natriuret Pep TSH Free T3 pg/mL 02/28/19 03/01/19 03/01/19 21:36 04:38 04:38 RBC 3.40 L Hgb 10.9 L Hct 32.4 L RDW 14.7 H VBG pCO2 VBG HCO3 Chloride 95 L Carbon Dioxide 38 H BUN POC Glucose 137 H Lactic Acid NT-Pro-B Natriuret Pep TSH Free T3 pg/mL 03/01/19 03/01/19 03/01/19 04:38 07:54 11:39 RBC Hgb Hct RDW VBG pCO2 VBG HCO3 Chloride Carbon Dioxide BUN POC Glucose 139 H 128 H Lactic Acid NT-Pro-B Natriuret Pep TSH Free T3 pg/mL 1.49 L 03/01/19 03/01/19 16:04 21:31 RBC Hgb Hct RDW VBG pCO2 VBG HCO3 Chloride Carbon Dioxide BUN POC Glucose 125 H 143 H Lactic Acid NT-Pro-B Natriuret Pep TSH Free T3 pg/mL Labs- All tests 24 hr 03/01/19 03/01/19 03/01/19 04:38 04:38 04:38 WBC 4.0 RBC 3.40 L Hgb 10.9 L Hct 32.4 L MCV 95 MCH 32.2 MCHC 33.8 RDW 14.7 H Plt Count 175 Sodium 140.2 Potassium 3.9 Chloride 95 L Carbon Dioxide 38 H Anion Gap 7 BUN 13 Creatinine 0.72 Est GFR ( Amer) > 60 Est GFR (MDRD) Non-Af > 60 Glucose 101 POC Glucose Calcium 9.0 TSH 2.27 Free T4 1.03 Free T3 pg/mL 1.49 L 03/01/19 03/01/19 03/01/19 07:54 11:39 16:04 WBC RBC Hgb Hct MCV MCH MCHC RDW Plt Count Sodium Potassium Chloride Carbon Dioxide Anion Gap BUN Creatinine Est GFR ( Amer) Est GFR (MDRD) Non-Af Glucose POC Glucose 139 H 128 H 125 H Calcium TSH Free T4 Free T3 pg/mL 03/01/19 21:31 WBC RBC Hgb Hct MCV MCH MCHC RDW Plt Count Sodium Potassium Chloride Carbon Dioxide Anion Gap BUN Creatinine Est GFR ( Amer) Est GFR (MDRD) Non-Af Glucose POC Glucose 143 H Calcium TSH Free T4 Free T3 pg/mL Impression/RECOMMENDATION: 1. Acute on chronic respiratory failure. Continue supplemental oxygen, and current anti-COPD medication 2. Acute infective bronchitis: Continue current treatment including antibiotics. 3. Most likely acute on chronic systolic heart failure: Continue diuretics, in view of the patient's current current wheezing will not start the patient on Toprol-XL at present. We will start the patient on Entresto. If tachycardia persists will give 1 dose of digoxin. The patient still has some wheezing and hence we will start not start Toprol-XL will try from tomorrow. 4 . Pulmonary fibrosis.? Right lower lobe pneumonia. We will repeat the patient's chest x-ray in a.m. 5. History of asthma and COPD. 6. Hypertension: Continue current medication. Increase Entresto as tolerated. Later would add a beta-les. 7. Atrial flutter. There is also right bundle branch block pattern and left anterior fascicular block. [Bifascicular block]. 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 Will increase the patient's Toprol- XL to 50 mg p.o. every 12 hours. In view of the cardiomyopathy we will continue patient on Entresto. 8. Diabetes mellitus type 2 [id number]. 9. Hypothyroidism:: Continue thyroid replacement. Note the patient's repeat TSH is normal, and free T3 and free T4 are normal... 10 Moderate to severe tricuspid regurgitation. At least moderate pulmonary hypertension with right ventricle systolic pressure of 53 to 58 mmHg. 11. History of pulmonary embolism: Patient states she is on Xarelto. Will continue Xarelto. 12. History of breast cancer status post bilateral mastectomies and chemotherapy and radiation treatment. 13. History of multiple abdominal surgeries. 14. Morbid obesity. Occasions reviewed. Medications increased [dose of Toprol increased]. Medication regimen and management plan discussed with the attending provider on the case. Also discussed on the phone with the patient's permission with the patient's granddaughter the patient's condition. Medical decision making is of high complexity. 40 minutes spent with patient more than 50% time spent in direct patient care. Will follow.
--- NOTE | 2019-03-01 22:54 | EKG REPORT ---
SEVERITY:- ABNORMAL ECG - ATRIAL FLUTTER, A-RATE 258 RBBB AND LAFB PROBABLE LVH WITH SECONDARY REPOL ABNRM : Confirmed by: Hillary Holder MD 01-Mar-2019 22:53:42
[2019-03-02] MEDS ORDERED: METOCLOPRAMIDE HCL INJ/PF 10 MG/2 ML SDV IV ONE ×2 (01:00→13:00)
[2019-03-02] MEDS: PROMETHAZINE HCL INJ 25 MG/1 ML VIAL IV PRN ×2 (01:48→06:28)
[2019-03-02] MEDS: PREGABALIN 100 MG CAPSULE PO SCH ×3 (06:28→21:22)
[2019-03-02] MEDS: LEVOTHYROXINE SODIUM 0.05 MG TABLET PO SCH (06:28)
[2019-03-02] MEDS ORDERED: FUROSEMIDE INJ/PF 20 MG/2 ML SDV ONE (08:01)
[2019-03-02 08:12] LABS: ABSOLUTE LYMPHOCYTES (AUTO) 0.4 10^3/uL (0.5-4.7); ABSOLUTE MONOCYTES (AUTO) 0.4 10^3/uL (0.1-1.4); BASOPHILS % (AUTO) 0.2 % (0-2); EOSINOPHILS % (AUTO) 0.1 % (0-6); HEMOGLOBIN 12.6 g/dL (12.0-15.5); LYMPHOCYTES % (AUTO) 5.4 % (13-45); MEAN CORPUSCULAR HGB CONC 34.1 g/dL (32.0-36.0); MEAN CORPUSCULAR VOLUME 94 fl (80-97); MONOCYTES % (AUTO) 4.9 % (3-13); PLATELET COUNT 183 10^3/uL (150-450); RED BLOOD COUNT 3.94 10^6/uL (3.72-5.28); RED CELL DISTRIBUTION WIDTH 14.5 % (11.5-14.0); SEGMENTED NEUTROPHILS % (AUTO) 89.4 % (42-78); TOTAL CELLS COUNTED % (AUTO) 100 %; WHITE BLOOD COUNT 7.8 10^3/uL (4.0-10.5)
[2019-03-02] MEDS: IPRATROPIUM BROMIDE 0.02% NEB 0.5 MG/2.5 ML AMPUL NEB SCH ×3 (08:12→23:38)
[2019-03-02] MEDS: BUDESONIDE NEB 0.5 MG/2 ML AMPUL NEB SCH ×2 (08:12→19:41)
[2019-03-02 08:26] LABS: ANION GAP 9 (5-19); BLOOD UREA NITROGEN 19 mg/dL (7-20); CARBON DIOXIDE 34 mmol/L (22-30); CHLORIDE 95 mmol/L (98-107); GLUCOSE 274 mg/dL (75-110); POTASSIUM 4.3 mmol/L (3.6-5.0)
[2019-03-02 08:27] LABS: ARTERIAL BLOOD BASE EXCESS 5.4 mmol/L; ARTERIAL BLOOD HCO3 32.6 mmol/L (20-24); ARTERIAL BLOOD O2 SATURATION 95.6 % (94-98); ARTERIAL BLOOD PCO2 59.9 mmHg (35-45); ARTERIAL BLOOD PH 7.35 (7.35-7.45); ARTERIAL BLOOD PO2 83.7 mmHg (80-100); ARTERIAL BLOOD TOTAL CO2 34.5 mmol/L (21-25)
[2019-03-02 08:28] LABS: ARTERIAL BLOOD FIO2 30%
--- NOTE | 2019-03-02 09:06 | RADIOLOGY REPORT (SQ) ---
EXAM DESCRIPTION: CHEST SINGLE VIEW COMPLETED DATE/TIME: 03/02/2019 8:15 am REASON FOR STUDY: CHF COMPARISON: 02/26/2019. CT chest from 04/10/2018. NUMBER OF VIEWS: One view. TECHNIQUE: Single frontal radiographic view of the chest acquired. LIMITATIONS: None. FINDINGS: LUNGS AND PLEURA: Low lung volumes, as before. Associated vascular crowding. Areas of valladares bsegmental atelectasis with patchy opacities particularly in the right lung. Correlation with prior radiographs and CT suggests chronic lung disease with scarring and fibrosis. No evidence of pneumoth orax. Similar appearance compared to prior. MEDIASTINUM AND HILAR STRUCTURES: Stable. HEART AND VASCULAR STRUCTURES: Cardiomegaly. Stable appearance. BONES: No acute findings. HARDWARE: None in the chest. OTHER: No other significant finding. IMPRESSION: Chronic lung changes, stable appearance. TECHNICAL DOCUMENTATION: JOB ID: [id number] [employer]- All Rights Reserved Reading location - IP/workstation name: [email or web address]
[2019-03-02] MEDS: DILTIAZEM HCL/D5W 125 MG/125 ML RTUINJ IV PRN (09:11)
[2019-03-02] MEDS ORDERED: ONDANSETRON HCL INJ/PF 4 MG/2 ML SDV IV PRN (10:17)
[2019-03-02] MEDS: INSULIN REG, HUMAN 100 UNIT/ML 3 ML VIAL (PYX) SUBCUT SCH ×4 (10:27→21:32)
[2019-03-02] MEDS: METOPROLOL SUCCINATE 50 MG TAB.SR.24H PO SCH ×2 (10:36→21:22)
[2019-03-02] MEDS: FAMOTIDINE 20 MG TABLET PO SCH ×2 (10:36→21:22)
[2019-03-02] MEDS: DOCUSATE SODIUM 100 MG CAPSULE PO SCH ×2 (10:36→18:00)
[2019-03-02] MEDS: SACUBITRIL/VALSARTAN 24 MG/26 MG TABLET PO SCH ×2 (11:51→18:01)
[2019-03-02] MEDS: LEVOFLOXACIN 750 MG TABLET PO SCH (11:51)
[2019-03-02 14:50] LABS: VENOUS BLOOD BASE EXCESS 10.6 mmol/L; VENOUS BLOOD HCO3 40.7 mmol/L (20-32); VENOUS BLOOD PH 7.29 (7.30-7.42)
[2019-03-02 14:51] LABS: VENOUS BLOOD PCO2 85.8 mmHg (35-63)
[2019-03-02 15:25] LABS: ARTERIAL BLOOD BASE EXCESS 10.5 mmol/L; ARTERIAL BLOOD H2CO3 1.77 mmol/L (1.05-1.35); ARTERIAL BLOOD HCO3 37.2 mmol/L (20-24); ARTERIAL BLOOD PCO2 58.8 mmHg (35-45); ARTERIAL BLOOD PH 7.42 (7.35-7.45); ARTERIAL BLOOD PO2 75.1 mmHg (80-100)
[2019-03-02 15:26] LABS: ARTERIAL BLOOD FIO2 28%
[2019-03-02] MEDS: RIVAROXABAN 10 MG TABLET PO SCH (18:06)
--- NOTE | 2019-03-02 18:33 | RADIOLOGY REPORT (SQ) ---
EXAM DESCRIPTION: CT HEAD WITHOUT COMPLETED DATE/TIME: 03/02/2019 5:52 pm REASON FOR STUDY: AMS COMPARISON: None. TECHNIQUE: Axial images acquired through the brain without intravenous contrast. Images reviewed wit h bone, brain and subdural windows. Images stored on PACS. All CT scanners at this facility use dose modulation, iterative reconstruction, and/or weight based d osing when appropriate to reduce radiation dose to as low as reasonably achievable (ALARA). [facility]: Dose Right [facility]: CareDose [facility]: Dose Right [facility]: Teradose 4D [facility]: Smart CompassMD RADIATION DOSE: CT Rad equipment meets quality standard of care and radiation dose reduction techniq ues were employed. CTDIvol: 53.2 mGy. DLP: 964 mGy-cm.. LIMITATIONS: None. FINDINGS: VENTRICLES: Normal size and contour. CEREBRUM: No masses. No hemorrhage. No midline shift. Age appropriate white matter. No evidence for a cute infarction. CEREBELLUM: No hemorrhage. 9 mm ovoid hyperdensity in the left cerebellar hemisphere suggesting lac unar infarction, age undetermined. EXTRA-AXIAL SPACES: No fluid collections. ORBITS AND GLOBE: No intra- or extraconal masses. Normal contour of globe without masses. CALVARIUM: No fracture. PARANASAL SINUSES: No fluid or mucosal thickening. SOFT TISSUES: No mass or hematoma. OTHER: No other significant finding. IMPRESSION: No hemorrhage. 9 mm ovoid hyperdensity in the left cerebellar hemisphere suggesting lac unar infarction, possibly acute. EVIDENCE OF ACUTE STROKE: YES. LEFT VERTEBROBASILAR COMMENT: The findings were sent to the Radiology Results Communication Center at 18:27 on 9 to be communicated to a licensed caregiver. TECHNICAL DOCUMENTATION: JOB ID: [id number] [place]-72 Quality ID # [id number]: Final reports with documentation of one or more dose reduction techniques (e.g., Au tomated exposure control, adjustment of the mA and/or kV according to patient size, use of iterative reconstruction technique) 2010 [employer]- All Rights Reserved Reading location - IP/workstation name: [email or web address]
--- NOTE | 2019-03-02 18:51 | PDOC PROGRESS REPORT ---
Subjective Progress Note for:: 03/02/19 Subjective:: 02/21/2019. This morning patient was found to be very lethargic, rapid response was called. On chart review it was found that patient had received Phenergan and her lethargy was bad. Chest x-ray did not show any significant changes. CBC CMP WNL. ABG showed mild CO2 retention. Patient was started on BiPAP with improvement of her symptoms. But unfortunately patient became lethargic again. Patient was continued on BiPAP and a CT head was obtained this afternoon which showed acute lacunar infarction. Patient was transferred to ICU for airway protection and further management. Reason For Visit: ACUTE ON CHRONIC DISTOLIC CONGESTIVE HEART FAILURE Physical Exam Vital Signs: Temp Pulse Resp BP Pulse Ox 98.1 F 115 H 23 H 122/81 98 03/02/19 14:48 03/02/19 18:36 03/02/19 16:04 03/02/19 18:00 03/02/19 16:04 Intake & Output 03/01/19 03/02/19 03/03/19 06:59 06:59 06:59 Intake Total 980 1720 18 Output Total 4000 1600 800 Balance -3020 120 -782 Weight 103.9 kg 103.6 kg General appearance: PRESENT: other - Somnolent, arousable. Following commands. Respiratory exam: PRESENT: crackles - Diffuse crackles., decreased breath sounds. ABSENT: rales, rhonchi, wheezes Cardiovascular exam: PRESENT: irregular rhythm, tachycardia. ABSENT: diastolic murmur, rubs, systolic murmur GI/Abdominal exam: PRESENT: normal bowel sounds, soft. ABSENT: distended, guarding, mass, organolmegaly, rebound, tenderness Neurological exam: PRESENT: CN II-XII grossly intact, motor sensory deficit, other - Somnolent. Arousable. Results Laboratory Results: 03/02/19 07:58 03/02/19 07:58 03/02/19 03/02/19 03/02/19 07:58 07:58 07:58 WBC 7.8 RBC 3.94 Hgb 12.6 Hct 37.0 MCV 94 MCH 32.0 MCHC 34.1 RDW 14.5 H Plt Count 183 Seg Neutrophils % 89.4 H Carbonic Acid 1.80 H HCO3/H2CO3 Ratio 18:1 ABG pH 7.35 ABG pCO2 59.9 H ABG pO2 83.7 ABG HCO3 32.6 H ABG O2 Saturation 95.6 ABG Base Excess 5.4 VBG pH VBG pCO2 VBG HCO3 VBG Base Excess FiO2 30% Sodium 137.8 Potassium 4.3 Chloride 95 L Carbon Dioxide 34 H Anion Gap 9 BUN 19 Creatinine 0.69 Est GFR ( Amer) > 60 Glucose 274 H Calcium 9.0 Magnesium 1.7 03/02/19 03/02/19 14:30 15:10 WBC RBC Hgb Hct MCV MCH MCHC RDW Plt Count Seg Neutrophils % Carbonic Acid 1.77 H HCO3/H2CO3 Ratio 21:1 ABG pH 7.42 ABG pCO2 58.8 H ABG pO2 75.1 L ABG HCO3 37.2 H ABG O2 Saturation 95.0 ABG Base Excess 10.5 VBG pH 7.29 L VBG pCO2 85.8 H* VBG HCO3 40.7 H VBG Base Excess 10.6 FiO2 28% Sodium Potassium Chloride Carbon Dioxide Anion Gap BUN Creatinine Est GFR ( Amer) Glucose Calcium Magnesium 02/26/19 02/26/19 02/26/19 20:45 20:45 23:14 Creatine Kinase 46 Troponin I 0.025 0.027 NT-Pro-B Natriuret Pep 2580 H 02/27/19 02/27/19 03/02/19 05:05 11:08 07:58 Creatine Kinase Troponin I 0.027 0.024 0.015 NT-Pro-B Natriuret Pep Impressions: Chest X-Ray 03/02/19 00:00 IMPRESSION: Chronic lung changes, stable appearance. Head CT 03/02/19 00:00 IMPRESSION: No hemorrhage. 9 mm ovoid hyperdensity in the left cerebellar hemisphere suggesting lacunar infarction, possibly acute. EVIDENCE OF ACUTE STROKE: YES. LEFT VERTEBROBASILAR Assessment and Plan - Diagnosis (1) Acute and chronic respiratory failure with hypoxia Is this a current diagnosis for this admission?: Yes (2) Acute on chronic diastolic congestive heart failure Is this a current diagnosis for this admission?: Yes (3) Chronic obstructive pulmonary disease (COPD) Qualifiers: COPD type: unspecified COPD Qualified Code(s): J44.9 - Chronic obstructive pulmonary disease, unspecified Is this a current diagnosis for this admission?: Yes (4) Diabetes mellitus type 2 in obese Is this a current diagnosis for this admission?: Yes (5) Morbid obesity with BMI of 40.0-44.9, adult Is this a current diagnosis for this admission?: Yes (6) Normochromic normocytic anemia Is this a current diagnosis for this admission?: Yes
--- NOTE | 2019-03-02 19:03 | CRITICAL CARE ADMISSION REPORT ---
HPI Date:: 03/02/19 Time:: 18:48 Reason for ICU Reason:: acute on chronic respiratory failure, altered mental status HPI: Pt is a 78 yo woman with COPD on home O2, CHF who was admitted on 02/26 with increasing shortness of breath. She was admitted to the hospitalist service and was treated for a COPD exacerbation. She was also found to be in atrial flutter and has been on a cardizem drip for that. This am around 7:30 am, a rapid response was called b/c pt was found to be lethargic. She was placed on bipap. It was thought that her lethargy was due to the phenergan she had received earlier. Dr. Kirkland was concerned that pt's mentation was not improving so he asked that pt be transferred to the ICU at around 6:30 pm today. Upon my evaluation of the pt in the IMCU, she is on bipap, but she is easily arousable and follows commands. Her daughter is at the bedside. Past Medical History Cardiac Medical History: Reports: Congestive Heart Failure, Hypertension Denies: Atrial Fibrillation Pulmonary Medical History: Reports: Asthma, Chronic Obstructive Pulmonary Disease (COPD), Pneumonia, Respiratory Failure - Chronic respiratory failure with oxygen dependence EENT Medical History: Reports: Cataracts - Bilateral Denies: Ears - Hearing aids Neurological Medical History: Denies: Hemorrhagic CVA, Ischemic CVA, Seizures Endocrine Medical History: Reports: Diabetes Mellitus Type 2, Obesity Denies: Diabetes Mellitus Type 1, Hyperthyroidism, Hypothyroidism Renal/ Medical History: Denies: Chronic Kidney Disease, Nephrolithiasis Malignancy Medical History: Reports: Breast Cancer - Status post bilateral mastectomies GI Medical History: Reports: Hiatal Hernia Denies: Cirrhosis, Crohn's Disease, Hepatitis, Ulcerative Colitis Musculoskeltal Medical History: Reports: Arthritis Denies: Gout Skin Medical History: Denies: Eczema, Psoriasis Psychiatric Medical History: Denies: Alcohol Dependency, Substance Abuse, Tobacco Dependency Traumatic Medical History: Reports: None Hematology: Denies: Anemia, Bleeding Tendencies Infectious Medical History: Reports: None Past Surgical History Past Surgical History: Reports: Appendectomy, Cholecystectomy, Hysterectomy, Mastectomy - bilateral, Other - Bilateral cataract surgery, 5 colon surgeries fo r abnormal growths Social/Family History - Social History Lives with: Family Smoking Status: Former Smoker Number of Years Smokin Last Time Smoked: 2008 Frequency of Alcohol Use: None Hx Recreational Drug Use: No Drugs: None Hx Prescription Drug Abuse: No - Medication/Allergies Home Medications: Fluticasone/Umeclidin/Vilanter [Trelegy 100-62.5-25 Mcg Ellipta 14 Dose/Dpi] 1 puff IH DAILY 02/27/19 Furosemide [Lasix 20 mg Tablet] 20 mg PO QAM 02/27/19 Glimepiride 2 mg PO DAILY 02/27/19 Hydrocodone/Acetaminophen [[place] 5-325 Tablet] 1 each PO Q6HP PRN 02/27/19 Levothyroxine Sodium [Synthroid 0.025 mg Tablet] 25 mcg PO DAILY 02/27/19 Potassium Chloride [Klor-Con M20] 20 meq PO DAILY 02/27/19 Pregabalin [Lyrica 100 Mg Capsule] 100 mg PO TID 02/27/19 Rivaroxaban [Xarelto] 20 mg PO DAILY 02/27/19 Allergies/Adverse Reactions: albuterol Allergy (Verified 02/26/19 19:53) aspirin Allergy (Verified 02/26/19 19:53) diphenhydramine [From Benadryl] Allergy (Verified 02/26/19 19:53) Review of Systems ROS unobtainable: Due to mental status, Other - pt on bipap Physical Exam Vital Signs: Temp Pulse Resp BP Pulse Ox 98.1 F 115 H 23 H 122/81 98 03/02/19 14:48 03/02/19 18:36 03/02/19 16:04 03/02/19 18:00 03/02/19 16:04 Intake & Output 03/01/19 03/02/19 03/03/19 06:59 06:59 06:59 Intake Total 980 1720 18 Output Total 4000 1600 800 Balance -3020 120 -782 Weight 103.9 kg 103.6 kg Weight/Height Weight 103.6 kg Height 5 ft General appearance: PRESENT: no acute distress, well-developed, well-nourished, other - on bipap, awake, follows commands, NAD Head exam: PRESENT: atraumatic, normocephalic Respiratory exam: PRESENT: decreased breath sounds, unlabored Cardiovascular exam: PRESENT: irregular rhythm GI/Abdominal exam: PRESENT: soft Neurological exam: PRESENT: alert, awake Laboratory/Radiographs Laboratory Results: 03/02/19 07:58 03/02/19 07:58 03/02/19 03/02/19 03/02/19 07:58 07:58 07:58 WBC 7.8 RBC 3.94 Hgb 12.6 Hct 37.0 MCV 94 MCH 32.0 MCHC 34.1 RDW 14.5 H Plt Count 183 Seg Neutrophils % 89.4 H Carbonic Acid 1.80 H HCO3/H2CO3 Ratio 18:1 ABG pH 7.35 ABG pCO2 59.9 H ABG pO2 83.7 ABG HCO3 32.6 H ABG O2 Saturation 95.6 ABG Base Excess 5.4 VBG pH VBG pCO2 VBG HCO3 VBG Base Excess FiO2 30% Sodium 137.8 Potassium 4.3 Chloride 95 L Carbon Dioxide 34 H Anion Gap 9 BUN 19 Creatinine 0.69 Est GFR ( Amer) > 60 Glucose 274 H Calcium 9.0 Magnesium 1.7 03/02/19 03/02/19 14:30 15:10 WBC RBC Hgb Hct MCV MCH MCHC RDW Plt Count Seg Neutrophils % Carbonic Acid 1.77 H HCO3/H2CO3 Ratio 21:1 ABG pH 7.42 ABG pCO2 58.8 H ABG pO2 75.1 L ABG HCO3 37.2 H ABG O2 Saturation 95.0 ABG Base Excess 10.5 VBG pH 7.29 L VBG pCO2 85.8 H* VBG HCO3 40.7 H VBG Base Excess 10.6 FiO2 28% Sodium Potassium Chloride Carbon Dioxide Anion Gap BUN Creatinine Est GFR ( Amer) Glucose Calcium Magnesium 02/26/19 02/26/19 02/26/19 20:45 20:45 23:14 Creatine Kinase 46 Troponin I 0.025 0.027 NT-Pro-B Natriuret Pep 2580 H 02/27/19 02/27/19 03/02/19 05:05 11:08 07:58 Creatine Kinase Troponin I 0.027 0.024 0.015 NT-Pro-B Natriuret Pep Impressions: Chest X-Ray 03/02/19 00:00 IMPRESSION: Chronic lung changes, stable appearance. Head CT 03/02/19 00:00 IMPRESSION: No hemorrhage. 9 mm ovoid hyperdensity in the left cerebellar hemisphere suggesting lacunar infarction, possibly acute. EVIDENCE OF ACUTE STROKE: YES. LEFT VERTEBROBASILAR Critical Time Critical Time (minutes): 35 -: The care of a critically ill patient is dynamic. This note represents a static moment in the admission process. Orders and treatments may be given simultaneously and urgently, and time is not c s s representative of the treatment process. This patient requires Critical Care secondary to life threatening organ or limb dysfunction. Without Critical Care services, the patient is at risk for increased mortality and morbidity. Provider Note Provider Note: Assessment: critically ill 78 yo woman with acute on chronic respiratory failure, AECOPD, atrial flutter,h/o PE, acute CHF, DM, h/o pulmonary fibrosis, altered mental status, acute lacunar infarction. Plan: 1. Respiratory: acute on chronic respiratory failure. Continue bipap. Monitor respiratory status closely. Pt's mentation is improving. No need for intubation at this time 2. Pulmonary: AECOPD, h/o pulmonary fibrosis. Continue levaquine, steroids, bronchodilators 3. CV: atrial flutter, acute CHF, cardiomyopathy with EF of 35%. On cardizem drip,toprol, entresto. Care per Dr. Valerio. 4. Heme: on xarelto 5. Neuro: head CT shows acute lacunar infarct. Will order MRI. Will need PT/OT/ST 6. Endocrine: DM. Accuchecks, SSI. Hypothyroidism, synthroid 7. Nutrition: NPO 8. Prophylaxis: pharmacologic DVT prophlaxis not indicated b/c pt on xarelto Critical care time=40 min, excluding procedures
--- NOTE | 2019-03-02 19:29 | EKG REPORT ---
SEVERITY:- ABNORMAL ECG - SINUS TACHYCARDIA LVH WITH IVCD, LAD AND SECONDARY REPOL ABNRM : Confirmed by: Hillary Holder MD 02-Mar-2019 19:28:18
[2019-03-02] MEDS: METHYLPREDNISOLONE INJ 40 MG/1 ML SDV IV SCH (21:24)
--- NOTE | 2019-03-02 21:47 | Progress Note ---
Provider Note Provider Note: CARDIOLOGY PROGRESS NOTE by Dr. Hillary Melton on 03/02/2019. 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 She was placed on BiPAP and it was thought that this is due to secondary to the patient receiving Phenergan and also due to hypercapnia. In spite of the BiPAP although the patient became more awake and answer questions appropriately she continued to have some degree of somnolence since. And the blood gases did not improve a lot. With the PCO2 coming down from 58.82 54.8. The patient also had a O2 sat dropped to 75%. The patient's definitely now is in atrial flutter. And hence the patient has been started on IV Cardizem. Her records from [place] were reviewed. There is one EKG done in 2017 which showed that probably the patient had atrial flutter at that time a lthough the official report on the patient is that the patient has sinus tachycardia on the EKG. But I am convinced that the patient most likely is an EKG of atrial flutter. Would strongly as discussed with the hospitalist getting a CTA of the head to make sure there is no intracranial pathology and if she continues to have shortness of breath transferred to ICU for possible anticipation of the patient requiring intubation. This has been discussed in detail with the family. This also could explain that the patient has been asymptomatic and unaware of her palpitations, the tachycardia could be causing the patient's cardiomyopathy. PHYSICAL EXAMINATION: The patient morbidly obese. She is somnolent and is on a BiPAP. Selected Entries 03/02/19 14:48 Temperature 98.1 F Temperature Axillary Source Pulse Rate 63 Respiratory 25 H Rate Blood Pressure 129/61 H Blood Pressure 83 Mean BP Location Left Arm BP Position Supine O2 Sat by Pulse 100 Oximetry Oxygen Delivery Bipap Method HEAD: Is atraumatic. Normocephalic. EYES: Pupils are equal round regular reactive to light and accommodation. Extraocular movements are normal there is no conjunctival pallor. There is no scleral icterus. EARS: Tympanic membranes are intact. External auditory canals are clear. NOSE: There is no deviated nasal septum. There is no inflammation of the nasal mucous membrane. MOUTH: There is no ulcers in the mouth. Mucous membranes of the mouth are moist. THROAT: There is no redness of the oropharynx. There is no exudates. SKIN: There is no skin rashes. There is no petechia or ecchymosis. NECK: Is supple. There is mild JVD present. Carotids are equal there is no bruit. There is no lymphadenopathy. There is no goiter. There is no accessory muscle respiration use. Trachea is central. LUNGS: Shows diminished air entry prolonged expiration. There is scattered end expiratory wheezing and rhonchi. There is "Velcro" [E] rales of pulmonary fibrosis bilaterally in the bases. There is a few fine rales of CHF. HEART: S1-S2 is heard. There is no S3 gallop. There is no S4 gallop. There is systolic murmur of tricuspid regurgitation and mild mitral regurgitation murmur present. There is no S3 gallop. There is no S4 gallop. There is no rub. ABDOMEN: Is obese. Nontender. There is no paraspinal megaly. Bowel sounds are well heard. EXTREMITIES: Femorals are deep. Femorals are diminished there is no femoral bruits. Leg pulses are diminished. There is 1+ bilateral edema. There is no DVT or cellulitis. There is no cyanosis or clubbing. There is no calf tenderness. 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 PSYCHIATRIC:. The patient judgment insight are intact her affect is normal. Labs- All tests 24 hr 03/02/19 03/02/19 03/02/19 05:05 07:36 07:58 WBC 7.8 RBC 3.94 Hgb 12.6 Hct 37.0 MCV 94 MCH 32.0 MCHC 34.1 RDW 14.5 H Plt Count 183 Lymph % (Auto) 5.4 L [place] % (Auto) 4.9 Eos % (Auto) 0.1 Baso % (Auto) 0.2 Absolute Neuts (auto) 7.0 Absolute Lymphs (auto) 0.4 L Absolute Monos (auto) 0.4 Absolute Eos (auto) 0.0 Absolute Basos (auto) 0.0 Seg Neutrophils % 89.4 H Carbonic Acid HCO3/H2CO3 Ratio ABG pH ABG pCO2 ABG pO2 ABG HCO3 ABG Total CO2 ABG O2 Saturation ABG Base Excess VBG pH VBG pCO2 VBG HCO3 VBG Base Excess FiO2 Sodium Potassium Chloride Carbon Dioxide Anion Gap BUN Creatinine Est GFR ( Amer) Est GFR (MDRD) Non-Af Glucose POC Glucose 282 H Calcium Magnesium Troponin I Digoxin 1.09 03/02/19 03/02/19 03/02/19 07:58 07:58 07:58 WBC RBC Hgb Hct MCV MCH MCHC RDW Plt Count Lymph % (Auto) [place] % (Auto) Eos % (Auto) Baso % (Auto) Absolute Neuts (auto) Absolute Lymphs (auto) Absolute Monos (auto) Absolute Eos (auto) Absolute Basos (auto) Seg Neutrophils % Carbonic Acid 1.80 H HCO3/H2CO3 Ratio 18:1 ABG pH 7.35 ABG pCO2 59.9 H ABG pO2 83.7 ABG HCO3 32.6 H ABG Total CO2 34.5 H ABG O2 Saturation 95.6 ABG Base Excess 5.4 VBG pH VBG pCO2 VBG HCO3 VBG Base Excess FiO2 30% Sodium 137.8 Potassium 4.3 Chloride 95 L Carbon Dioxide 34 H Anion Gap 9 BUN 19 Creatinine 0.69 Est GFR ( Amer) > 60 Est GFR (MDRD) Non-Af > 60 Glucose 274 H POC Glucose Calcium 9.0 Magnesium 1.7 Troponin I 0.015 Digoxin 03/02/19 03/02/19 03/02/19 10:48 14:30 15:10 WBC RBC Hgb Hct MCV MCH MCHC RDW Plt Count Lymph % (Auto) [place] % (Auto) Eos % (Auto) Baso % (Auto) Absolute Neuts (auto) Absolute Lymphs (auto) Absolute Monos (auto) Absolute Eos (auto) Absolute Basos (auto) Seg Neutrophils % Carbonic Acid 1.77 H HCO3/H2CO3 Ratio 21:1 ABG pH 7.42 ABG pCO2 58.8 H ABG pO2 75.1 L ABG HCO3 37.2 H ABG Total CO2 39.0 H ABG O2 Saturation 95.0 ABG Base Excess 10.5 VBG pH 7.29 L VBG pCO2 85.8 H* VBG HCO3 40.7 H VBG Base Excess 10.6 FiO2 28% Sodium Potassium Chloride Carbon Dioxide Anion Gap BUN Creatinine Est GFR ( Amer) Est GFR (MDRD) Non-Af Glucose POC Glucose 278 H Calcium Magnesium Troponin I Digoxin 03/02/19 03/02/19 16:56 21:31 WBC RBC Hgb Hct MCV MCH MCHC RDW Plt Count Lymph % (Auto) [place] % (Auto) Eos % (Auto) Baso % (Auto) Absolute Neuts (auto) Absolute Lymphs (auto) Absolute Monos (auto) Absolute Eos (auto) Absolute Basos (auto) Seg Neutrophils % Carbonic Acid HCO3/H2CO3 Ratio ABG pH ABG pCO2 ABG pO2 ABG HCO3 ABG Total CO2 ABG O2 Saturation ABG Base Excess VBG pH VBG pCO2 VBG HCO3 VBG Base Excess FiO2 Sodium Potassium Chloride Carbon Dioxide Anion Gap BUN Creatinine Est GFR ( Amer) Est GFR (MDRD) Non-Af Glucose POC Glucose 181 H 106 Calcium Magnesium Troponin I Digoxin Chest X-Ray 02/26/19 19:52 IMPRESSION: Equivocal right basilar airspace opacity. There is elevation right hemidiaphragm. Cardiac megaly copyright 2011 [employer]- All Rights Reserved Chest X-Ray 03/02/19 00:00 IMPRESSION: Chronic lung changes, stable appearance. Impression/RECOMMENDATION: 1. Acute on chronic respiratory failure. Continue supplemental oxygen, and current anti-COPD medication. This is worsening. 2. Acute infective bronchitis/possible right lower lobe pneumonia: Continue current treatment including antibiotics. 3. Intermittent altered sensorium with somnolence since most likely secondary to hypercapnia, but would also recommend getting the patient a CT of the head to make sure there is no acute intracranial pathology. 4. Most likely acute on chronic systolic heart failure: Continue diuretics, in view of the patient's current current wheezing will not start the patient on Toprol-XL at present. We will start the patient on Entresto. If tachycardia persists will give 1 dose of digoxin. The patient still has some wheezing and hence we will start not start Toprol-XL will try from tomorrow. 5. Pulmonary fibrosis.? Right lower lobe pneumonia. We will repeat the patie nt's chest x-ray in a.m. 6. History of asthma and COPD. 7. Hypertension: Continue current medication. Increase Entresto as tolerated. Later would add a beta-les. 8. Atrial flutter. There is also right bundle branch block pattern and left anterior fascicular block. [Bifascicular block]. 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 Will increase the patient's Toprol- XL to 50 mg p.o. every 12 hours. In view of the cardiomyopathy we will continue patient on Entresto. In view of the patient's heart rate still being up we will start the patient on IV Cardizem infusion at 7.5 mg/h. Also her old records from [place] were reviewed. There is one EKG done which is suspicious for atrial flutter although the official reading is sinus tachycardia. But I strongly believe that that EKG is atrial flutter, and hence the patient has had longstanding atrial fibrillation or at least intermittent paroxysmal atrial fibrillation since 2017, the data of that prior EKG from [place]. 9. Diabetes mellitus type 2 [id number]. 10. Hypothyroidism:: Continue thyroid replacement. Note the patient's repeat TSH is normal, and free T3 and free T4 are normal... 11 Moderate to severe tricuspid regurgitation. At least moderate pulmonary hypertension with right ventricle systolic pressure of 53 to 58 mmHg. 12. History of pulmonary embolism: Patient states she is on Xarelto. Will continue Xarelto. 13. History of breast cancer status post bilateral mastectomies and chemotherapy and radiation treatment. 14. History of multiple abdominal surgeries. 15. Morbid obesity. Medications reviewed. Medical regimen and management plan discussed with the hospitalist. Discussed with the family also. Medical decision making is of hi gh complexity. 40 minutes spent as patient more than 50% of time spent in direct patient care. Will follow.
[2019-03-03] MEDS: DILTIAZEM HCL/D5W 125 MG/125 ML RTUINJ IV PRN ×2 (03:20→12:19)
[2019-03-03 04:42] LABS: HEMATOCRIT 38.9 % (36.0-47.0); MEAN CORPUSCULAR HEMOGLOBIN 31.2 pg (27.0-33.4); MEAN CORPUSCULAR HGB CONC 33.4 g/dL (32.0-36.0); MEAN CORPUSCULAR VOLUME 93 fl (80-97); PLATELET COUNT 198 10^3/uL (150-450); RED BLOOD COUNT 4.17 10^6/uL (3.72-5.28); RED CELL DISTRIBUTION WIDTH 14.9 % (11.5-14.0); WHITE BLOOD COUNT 13.4 10^3/uL (4.0-10.5)
[2019-03-03 04:45] LABS: ANION GAP 9 (5-19); BLOOD UREA NITROGEN 30 mg/dL (7-20); CALCIUM 8.6 mg/dL (8.4-10.2); CARBON DIOXIDE 35 mmol/L (22-30); CHLORIDE 93 mmol/L (98-107); DIGOXIN 0.91 ng/mL (0.8-2.0); GLUCOSE 123 mg/dL (75-110); POTASSIUM 4.4 mmol/L (3.6-5.0)
[2019-03-03 05:13] LABS: ABSOLUTE LYMPHOCYTES# (MANUAL) 0.9 10^3/uL (0.5-4.7); ABSOLUTE MONOCYTES # (MANUAL) 0.1 10^3/uL (0.1-1.4); BAND NEUTROPHILS % (MANUAL) 6 % (3-5); BASOPHILS % (MANUAL) 0 % (0-2); EOSINOPHILS % (MANUAL) 0 % (0-6); LYMPHOCYTES % (MANUAL) 7 % (13-45); MONOCYTES % (MANUAL) 1 % (3-13); PLATELET COMMENT ADEQUATE; RBC MORPHOLOGY COMMENT NORMO-CYTIC/CHROMIC; SEGMENTED NEUTROPHILS % (MAN) 86 % (42-78); TOTAL CELLS COUNTED 100
[2019-03-03 05:35] LABS: ARTERIAL BLOOD BASE EXCESS 5.7 mmol/L; ARTERIAL BLOOD H2CO3 1.89 mmol/L (1.05-1.35); ARTERIAL BLOOD HCO3 33.3 mmol/L (20-24); ARTERIAL BLOOD O2 SATURATION 95.5 % (94-98); ARTERIAL BLOOD PCO2 62.7 mmHg (35-45); ARTERIAL BLOOD PH 7.34 (7.35-7.45); ARTERIAL BLOOD PO2 83.9 mmHg (80-100); ARTERIAL BLOOD TOTAL CO2 35.2 mmol/L (21-25)
[2019-03-03 05:38] LABS: ARTERIAL BLOOD FIO2 3L
[2019-03-03] MEDS: PREGABALIN 100 MG CAPSULE PO SCH ×4 (06:10→21:57)
[2019-03-03] MEDS: METHYLPREDNISOLONE INJ 40 MG/1 ML SDV IV SCH ×3 (06:10→21:51)
[2019-03-03] MEDS: LEVOTHYROXINE SODIUM 0.05 MG TABLET PO SCH (06:10)
[2019-03-03] MEDS: IPRATROPIUM BROMIDE 0.02% NEB 0.5 MG/2.5 ML AMPUL NEB SCH ×3 (08:04→23:53)
[2019-03-03] MEDS: BUDESONIDE NEB 0.5 MG/2 ML AMPUL NEB SCH ×2 (08:04→20:16)
[2019-03-03] MEDS ORDERED: CEFEPIME 2 GM/D5W RTU 2 GM/50 ML RTUPB IV SCH (09:00)
[2019-03-03] MEDS ORDERED: VANCOMYCIN HCL 0 MG in DEXTROSE 5%-WATER 250 ML IV NR (09:00)
[2019-03-03] MEDS: INSULIN REG, HUMAN 100 UNIT/ML 3 ML VIAL (PYX) SUBCUT SCH ×4 (09:59→21:52)
[2019-03-03] MEDS: METOPROLOL SUCCINATE 50 MG TAB.SR.24H PO SCH ×2 (10:31→21:52)
[2019-03-03] MEDS: FAMOTIDINE 20 MG TABLET PO SCH ×2 (10:31→21:52)
[2019-03-03] MEDS: DOCUSATE SODIUM 100 MG CAPSULE PO SCH ×2 (10:31→18:35)
[2019-03-03] MEDS: CEFEPIME HCL 2 GM in DEXTROSE 5%-WATER 50 ML IV SCH ×2 (10:33→23:02)
[2019-03-03] MEDS ORDERED: DIGOXIN INJ 0.5 MG/2 ML AMPULE IV PRN (10:40)
--- NOTE | 2019-03-03 11:32 | RADIOLOGY REPORT (SQ) ---
EXAM DESCRIPTION: CHEST SINGLE VIEW COMPLETED DATE/TIME: 03/03/2019 11:23 am REASON FOR STUDY: acute respiratory failure COMPARISON: Chest x-ray dated 03/02/2019. Chest CT dated 04/10/2018. EXAM PARAMETERS: NUMBER OF VIEWS: One view. TECHNIQUE: Single frontal radiographic view of the chest acquired. RADIATION DOSE: NA LIMITATIONS: None. FINDINGS: LUNGS AND PLEURA: Persist elevation of the right hemidiaphragm. Chronic interstitial rodriguez ges. No focal infiltrates, masses or pneumothorax. No pleural effusion. MEDIASTINUM AND HILAR STRUCTURES: No masses. Contour normal. HEART AND VASCULAR STRUCTURES: Heart normal in size. Normal vasculature. BONES: No acute findings. HARDWARE: None in the chest. OTHER: No other significant finding. IMPRESSION: STABLE CHRONIC CHANGES. NO ACUTE RADIOGRAPHIC FINDING IN THE CHEST. TECHNICAL DOCUMENTATION: JOB ID: [id number] [employer]- All Rights Reserved Reading location - IP/workstation name: [email or web address]
[2019-03-03] MEDS: SACUBITRIL/VALSARTAN 24 MG/26 MG TABLET PO SCH ×2 (12:19→18:37)
--- NOTE | 2019-03-03 12:19 | PDOC CRITICAL CARE PROG REPORT ---
General Date:: 03/03/19 - Critical Care Progress Note Resuscitation Status: Full Code Events in the past 12 to 24 Hours:: Pt is off bipap. Is awake and has no complaints. Reason for ICU Addmission:: acute on chronic respiratory failure, altered mental status Physical Exam Vital Signs: Temp Pulse Resp BP Pulse Ox 97.4 F 99 23 H 123/55 L 97 03/03/19 08:00 03/03/19 10:00 03/03/19 10:00 03/03/19 10:00 03/03/19 10:00 Intake & Output 03/02/19 03/03/19 03/04/19 06:59 06:59 06:59 Intake Total 1720 140 Output Total 1600 1200 50 Balance 120 -1060 -50 Weight 103.6 kg 101.5 kg Weight/Height Weight 101.5 kg Height 5 ft General appearance: PRESENT: no acute distress, well-developed, well-nourished, other - awake,alert, NAD Head exam: PRESENT: atraumatic, normocephalic Respiratory exam: PRESENT: decreased breath sounds, unlabored Cardiovascular exam: PRESENT: irregular rhythm GI/Abdominal exam: PRESENT: soft Gentrourinary exam: PRESENT: urethral discharge Extremities exam: PRESENT: other - trace pretibial edema Musculoskeletal exam: PRESENT: normal inspection Neurological exam: PRESENT: alert, awake, CN II-XII grossly intact Psychiatric exam: PRESENT: appropriate affect Laboratory/Radiographs Laboratory Results: 03/03/19 03:52 03/03/19 03:52 03/02/19 03/02/19 03/03/19 14:30 15:10 03:52 WBC RBC Hgb Hct MCV MCH MCHC RDW Plt Count Seg Neutrophils % Carbonic Acid 1.77 H HCO3/H2CO3 Ratio 21:1 ABG pH 7.42 ABG pCO2 58.8 H ABG pO2 75.1 L ABG HCO3 37.2 H ABG O2 Saturation 95.0 ABG Base Excess 10.5 VBG pH 7.29 L VBG pCO2 85.8 H* VBG HCO3 40.7 H VBG Base Excess 10.6 FiO2 28% Sodium 137.4 Potassium 4.4 Chloride 93 L Carbon Dioxide 35 H Anion Gap 9 BUN 30 H Creatinine 0.89 Est GFR ( Amer) > 60 Glucose 123 H Calcium 8.6 03/03/19 03/03/19 03:52 04:55 WBC 13.4 H RBC 4.17 Hgb 13.0 Hct 38.9 MCV 93 MCH 31.2 MCHC 33.4 RDW 14.9 H Plt Count 198 Seg Neutrophils % Not Reportable Carbonic Acid 1.89 H HCO3/H2CO3 Ratio 17:1 ABG pH 7.34 L ABG pCO2 62.7 H ABG pO2 83.9 ABG HCO3 33.3 H ABG O2 Saturation 95.5 ABG Base Excess 5.7 VBG pH VBG pCO2 VBG HCO3 VBG Base Excess FiO2 3L Sodium Potassium Chloride Carbon Dioxide Anion Gap BUN Creatinine Est GFR ( Amer) Glucose Calcium 02/26/19 02/26/19 02/26/19 20:45 20:45 23:14 Creatine Kinase 46 Troponin I 0.025 0.027 NT-Pro-B Natriuret Pep 2580 H 02/27/19 02/27/19 03/02/19 05:05 11:08 07:58 Creatine Kinase Troponin I 0.027 0.024 0.015 NT-Pro-B Natriuret Pep Impressions: Head CT 03/02/19 00:00 IMPRESSION: No hemorrhage. 9 mm ovoid hyperdensity in the left cerebellar hemisphere suggesting lacunar infarction, possibly acute. EVIDENCE OF ACUTE STROKE: YES. LEFT VERTEBROBASILAR Chest X-Ray 03/03/19 00:00 IMPRESSION: STABLE CHRONIC CHANGES. NO ACUTE RADIOGRAPHIC FINDING IN THE CHEST. Assessment and Plan Plan Summary: Assessment: critically ill 78 yo woman with acute on chronic respiratory failure, AECOPD, atrial flutter,h/o PE, acute CHF, DM, h/o pulmonary fibrosis, altered mental status, acute lacunar infarction. Plan: 1. Respiratory: acute on chronic respiratory failure, resolve. Pt is off bipap and on NC. Continue bipap prn 2. Pulmonary: AECOPD, h/o pulmonary fibrosis. WBC increasig. Will d/c levaquin and start vanc and cefepime. Continue steroids, bronchodilators 3. CV: atrial flutter, acute CHF, cardiomyopathy with EF of 35%. On cardizem drip,toprol, entresto. Care per Dr. Valerio. 4. Heme: on xarelto 5. Neuro: head CT shows acute lacunar infarct. Will order MRI/MRA of brain. Will order carotid doppers. Will order PT/OT/ST 6. ID: worsening leukocytosis, possible aspiration PNA. Will d/c levaquin. Will start vanc and cefepime. Will check blood cultures. 7. Endocrine: DM. Accuchecks, SSI. Hypothyroidism, synthroid 8. Nutrition: had swallow eval. Needs modified barium study. NPO 9. Prophylaxis: pharmacologic DVT prophlaxis not indicated b/c pt on xarelto Critical Time Critical Time (minutes): 0 Level of Care: ICU -: 1. The care of a critical patient is a dynamic process. This note is a cordage sales representative synopsis but static in nature. The timeframe for treatments given in order is not necessarily the actual time these treatments may have been done. 2. This patient requires critical care secondary to ongoing requirements for therapy not offered or safe outside the critical care environment. Transfer to a lower level of care will result in altered life or limb morbidity and mo rtality. 3. Multidisciplinary rounds completed. 4. ABCDE bundle addressed.
[2019-03-03] MEDS: VANCOMYCIN HCL 1,000 MG in DEXTROSE 5%-WATER 250 ML IV SCH (12:20)
--- NOTE | 2019-03-03 13:55 | RADIOLOGY REPORT (SQ) ---
EXAM DESCRIPTION: CAROTID DOPPLER COMPLETED DATE/TIME: 03/03/2019 12:15 pm REASON FOR STUDY: acute CVA COMPARISON: None. TECHNIQUE: Grayscale ultrasound, Doppler velocity and spectra, and color Doppler images acquired of the extra-cranial carotid and vertebral arteries. Images stored on PACS. LIMITATIONS: None. FINDINGS: RIGHT CAROTID CCA Velocities: Within normal limits. ICA Velocities Peak systolic 59 cm/s. End diastolic 22 cm/s. Proximal ICA/CCA peak systolic ratio 1.2. Spectra normal. No significant plaque. LEFT CAROTID CCA Velocities: Within normal limits. ICA Velocities Peak systolic 71 cm/s. End diastolic 21 cm/s. Proximal ICA/CCA peak systolic ratio 1.3. Spectra normal. No significant plaque. VERTEBRAL ARTERIES: Antegrade flow. Normal waveforms. SUBCLAVIAN ARTERIES: No finding. OTHER: No other significant finding. IMPRESSION: NO HEMODYNAMICALLY SIGNIFICANT STENOSIS. COMMENT: Quality ID #[id number]: Velocity criteria are extrapolated from the diameter data as defined by t he Society of Radiologists in Ultrasound Consensus Conference. Radiology 2003: 229; 340-346. TECHNICAL DOCUMENTATION: JOB ID: [id number] [employer]- All Rights Reserved Reading location - IP/workstation name: [email or web address]
--- NOTE | 2019-03-03 16:42 | Progress Note ---
Provider Note Provider Note: CARDIOLOGY PROGRESS NOTE by Dr. Hillary Melton on 03/03/2019. SUBJECTIVE: The patient is more awake and alert and denies any chest pain discomfort. She is lying flat in bed. She states that shortness of breath is much improved. There is no cough or wheezing. There is no PND. She continues to be in atrial flutter with a ventricular response in the 80s to the 110s. She had a CT scan of the head due to somnolence since yesterday and this cleared back with the report saying that the patient had acute lacunar infarct. MRI done to confirm this showed that this is not an acute infarctions old lacunar infarct. There is no ventricular arrhythmia seen on the monitor. There is no bleeding on Xarelto. PHYSICAL EXAMINATION: The patient is morbidly obese. At present no acute distress. Selected Entries 03/03/19 03/03/19 18:00 18:33 Pulse Rate 110 H Heart Rate ( 93 Monitors) Respiratory 23 H 22 H Rate Blood Pressure 97/61 L Blood Pressure 111/85 [Left Upper Arm ] Blood Pressure 73 Mean Blood Pressure 93 Mean [Left Upper Arm] Blood Pressure Supine Position [Left Upper Arm] O2 Sat by Pulse 100 97 Oximetry Oxygen Delivery Nasal Cannula Method ( includes room air) HEAD: Is atraumatic. Normocephalic. EYES: Pupils are equal round regular reactive to light and accommodation. Extraocular movements are normal there is no conjunctival pallor. There is no scleral icterus. EARS: Tympanic membranes are intact. External auditory canals are clear. NOSE: There is no deviated nasal septum. There is no inflammation of the nasal mucous membrane. MOUTH: There is no ulcers in the mouth. Mucous membranes of the mouth are moist. THROAT: There is no redness of the oropharynx. There is no exudates. SKIN: There is no skin rashes. There is no petechia or ecchymosis. NECK: Is supple. There is mild JVD present. Carotids are equal there is no bruit. There is no lymphadenopathy. There is no goiter. There is no accessory muscle respiration use. Trachea is central. LUNGS: Shows diminished air entry prolonged expiration. There is scattered end expiratory wheezing and rhonchi. There is "Velcro" [E] rales of pulmonary fibrosis bilaterally in the bases. There is a few fine rales of CHF. HEART: S1-S2 is heard. There is no S3 gallop. There is no S4 gallop. There is systolic murmur of tricuspid regurgitation and mild mitral regurgitation murmur present. There is no S3 gallop. There is no S4 gal lop. There is no rub. ABDOMEN: Is obese. Nontender. There is no paraspinal megaly. Bowel sounds are well heard. EXTREMITIES: Femorals are deep. Femorals are diminished there is no femoral bruits. Leg pulses are diminished. There is 1+ bilateral edema. There is no DVT or cellulitis. There is no cyanosis or clubbing. There is no calf tenderness. CAR VARNISHER: The patient is conscious awake alert oriented x3 with no focal deficit. PSYCHIATRIC:. The patient judgment insight are intact her affect is normal. Labs- All tests 24 hr 03/03/19 03/03/19 03/03/19 03:52 03:52 04:55 WBC 13.4 H RBC 4.17 Hgb 13.0 Hct 38.9 MCV 93 MCH 31.2 MCHC 33.4 RDW 14.9 H Plt Count 198 Lymph % (Auto) Not Reportable [place] % (Auto) Not Reportable Eos % (Auto) Not Reportable Baso % (Auto) Not Reportable Absolute Neuts (auto) Not Reportable Absolute Lymphs (auto) Not Reportable Absolute Monos (auto) Not Reportable Absolute Eos (auto) Not Reportable Absolute Basos (auto) Not Reportable Total Counted 100 Seg Neutrophils % Not Reportable Seg Neuts % (Manual) 86 H Band Neutrophils % 6 H Lymphocytes % (Manual) 7 L Monocytes % (Manual) 1 L Eosinophils % (Manual) 0 Basophils % (Manual) 0 Abs Neuts (Manual) 12.3 H Abs Lymphs (Manual) 0.9 Abs Monocytes (Manual) 0.1 Absolute Eos (Manual) 0.0 Abs Basophils (Manual) 0.0 Platelet Comment ADEQUATE RBC Morph Comment NORMO-CYTIC/CHROMIC Carbonic Acid 1.89 H HCO3/H2CO3 Ratio 17:1 ABG pH 7.34 L ABG pCO2 62.7 H ABG pO2 83.9 ABG HCO3 33.3 H ABG Total CO2 35.2 H ABG O2 Saturation 95.5 ABG Base Excess 5.7 FiO2 3L Sodium 137.4 Potassium 4.4 Chloride 93 L Carbon Dioxide 35 H Anion Gap 9 BUN 30 H Creatinine 0.89 Est GFR ( Amer) > 60 Est GFR (MDRD) Non-Af > 60 Glucose 123 H POC Glucose Calcium 8.6 Digoxin 0.91 03/03/19 03/03/19 03/03/19 08:55 11:44 18:29 WBC RBC Hgb Hct MCV MCH MCHC RDW Plt Count Lymph % (Auto) [place] % (Auto) Eos % (Auto) Baso % (Auto) Absolute Neuts (auto) Absolute Lymphs (auto) Absolute Monos (auto) Absolute Eos (auto) Absolute Basos (auto) Total Counted Seg Neutrophils % Seg Neuts % (Manual) Band Neutrophils % Lymphocytes % (Manual) Monocytes % (Manual) Eosinophils % (Manual) Basophils % (Manual) Abs Neuts (Manual) Abs Lymphs (Manual) Abs Monocytes (Manual) Absolute Eos (Manual) Abs Basophils (Manual) Platelet Comment RBC Morph Comment Carbonic Acid HCO3/H2CO3 Ratio ABG pH ABG pCO2 ABG pO2 ABG HCO3 ABG Total CO2 ABG O2 Saturation ABG Base Excess FiO2 Sodium Potassium Chloride Carbon Dioxide Anion Gap BUN Creatinine Est GFR ( Amer) Est GFR (MDRD) Non-Af Glucose POC Glucose 147 H 170 H 169 H Calcium Digoxin 03/03/19 21:50 WBC RBC Hgb Hct MCV MCH MCHC RDW Plt Count Lymph % (Auto) [place] % (Auto) Eos % (Auto) Baso % (Auto) Absolute Neuts (auto) Absolute Lymphs (auto) Absolute Monos (auto) Absolute Eos (auto) Absolute Basos (auto) Total Counted Seg Neutrophils % Seg Neuts % (Manual) Band Neutrophils % Lymphocytes % (Manual) Monocytes % (Manual) Eosinophils % (Manual) Basophils % (Manual) Abs Neuts (Manual) Abs Lymphs (Manual) Abs Monocytes (Manual) Absolute Eos (Manual) Abs Basophils (Manual) Platelet Comment RBC Morph Comment Carbonic Acid HCO3/H2CO3 Ratio ABG pH ABG pCO2 ABG pO2 ABG HCO3 ABG Total CO2 ABG O2 Saturation ABG Base Excess FiO2 Sodium Potassium Chloride Carbon Dioxide Anion Gap BUN Creatinine Est GFR ( Amer) Est GFR (MDRD) Non-Af Glucose POC Glucose 189 H Calcium Digoxin Chest X-Ray 02/26/19 19:52 IMPRESSION: Equivocal right basilar airspace opacity. There is elevation right hemidiaphragm. Cardiac megaly copyright 2011 [employer]- All Rights Reserved Chest X-Ray 03/02/19 00:00 IMPRESSION: Chronic lung changes, stable appearance. Head CT 03/02/19 00:00 IMPRESSION: No hemorrhage. 9 mm ovoid hyperdensity in the left cerebellar hemisphere suggesting lacunar infarction, possibly acute. EVIDENCE OF ACUTE STROKE: YES. LEFT VERTEBROBASILAR Brain MRI with MRA 03/03/19 00:00 IMPRESSION: NORMAL MRA OF THE [place]. Carotid Doppler Study 03/03/19 00: IMPRESSION: NO HEMODYNAMICALLY SIGNIFICANT STENOSIS. Chest X-Ray 03/03/19 00:00 IMPRESSION: STABLE CHRONIC CHANGES. NO ACUTE RADIOGRAPHIC FINDING IN THE CHEST. Head MRI 03/03/19 00:00 IMPRESSION: OLD LACUNAR INFARCT IN THE LEFT CEREBELLAR HEMISPHERE. NO OTHER SIGNIFICANT OR ACUTE FINDINGS. EVIDENCE OF ACUTE STROKE: NO. pression/RECOMMENDATION: 1. Acute lacunar infarct by CT scan of the head. But MRI shows that there is old lacunar infarct. The patient has no signs or symptoms of a CVA. 2.Acute on chronic respiratory failure. Continue supplemental oxygen, and current anti-COPD medication. This is improved. 3. Acute infective bronchitis/possible right lower lobe pneumonia: Continue current treatment including antibiotics. 4. Intermittent altered sensorium with somnolence since most likely secondary to hypercapnia, but would also recommend getting the patient a CT of the head to make sure there is no acute intracranial pathology. 5. Most likely acute on chronic systolic heart failure: Continue diuretics, in view of the patient's current current wheezing will not start the patient on Toprol-XL at present. We will start the patient on Entresto. If tachycardia persists will give 1 dose of digoxin. The patient still has some wheezing and hence we will start not start Toprol-XL will try from tomorrow. 6. Pulmonary fibrosis.? Right lower lobe pneumonia. We will repeat the patient's chest x-ray in a.m. 7. History of asthma and COPD. 8. Hypertension: Continue current medication. Increase Entresto as tolerated. Later would add a beta-les. 9. Atrial flutter. There is also right bundle branch block pattern and left anterior fascicular block. [Bifascicular block]. 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 Will increase the patient's Toprol- XL to 50 mg p.o. every 12 hours. In view of the cardiomyopathy we will continue patient on Entresto. In view of the patient's heart rate still being up we will start the patient on IV Cardizem infusion at 7.5 mg/h. Also her old records from [place] were reviewed. There is one EKG done which is suspicious for atrial flutter although the official reading is sinus tachycardia. But I strongly believe that that EKG is atrial flutter, and hence the patient has had longstanding atrial fibrillation or at least intermittent paroxysmal atrial fibrillation since 2017, the data of that prior EKG from [place]. 10. Diabetes mellitus type 2 [id number]. 11. Hypothyroidism:: Continue thyroid replacement. Note the patient's repeat TSH is normal, and free T3 and free T4 are normal... 12 Moderate to severe tricuspid regurgitation. At least moderate pulmonary hypertension with right ventricle systolic pressure of 53 to 58 mmHg. 13. History of pulmonary embolism: Patient states she is on Xarelto. Will continue Xarelto. 14. History of breast cancer status post bilateral mastectomies and chemotherapy and radiation treatment. 15. History of multiple abdominal surgeries. 16. Morbid obesity. Occasions reviewed. Medical regimen and management plan discussed with the inspector exhaust emissions. Medical decision making is of high complexity. 40 minutes spent with patient more than 50% of time spent in direct patient care. Will follow.
--- NOTE | 2019-03-03 17:14 | RADIOLOGY REPORT (SQ) ---
EXAM DESCRIPTION: MRI HEAD WITHOUT COMPLETED DATE/TIME: 03/03/2019 4:53 pm REASON FOR STUDY: acute cva COMPARISON: CT dated 03/02/2019. TECHNIQUE: Multiplanar imaging includes non-contrasted T1, T2, FLAIR, and diffusion with ADC map seq uences. Images stored on PACS. LIMITATIONS: None. FINDINGS: ANATOMY: No anomalies. Normal vascular flow voids. Pituitary fossa normal. CSF SPACES: Normal in size and contour. No hemorrhage. CEREBRUM: Sulci and gyri normal in size and contour. Normal white matter signal on FLAIR imaging. No evidence of hemorrhage, mass, or extraaxial fluid collection. POSTERIOR FOSSA: Old lacunar infarct in the left cerebellar hemisphere. No hemorrhage. No edema, mass es or mass effect. Internal auditory canals, cerebello-pontine angles, mastoids normal. DIFFUSION IMAGING: Negative for acute or sub-acute infarction. ORBITS: No masses. Globes normal. PARANASAL SINUSES: No fluid levels. Mucosa normal. OTHER: No other significant finding. IMPRESSION: OLD LACUNAR INFARCT IN THE LEFT CEREBELLAR HEMISPHERE. NO OTHER SIGNIFICANT OR ACUTE FI NDINGS. EVIDENCE OF ACUTE STROKE: NO. TECHNICAL DOCUMENTATION: JOB ID: [id number] [employer]- All Rights Reserved Reading location - IP/workstation name: [email or web address]
--- NOTE | 2019-03-03 17:17 | RADIOLOGY REPORT (SQ) ---
EXAM DESCRIPTION: MRA HEAD WITHOUT COMPLETED DATE/TIME: 03/03/2019 5:01 pm REASON FOR STUDY: ACUTE CVA COMPARISON: None. TECHNIQUE: Axial 3-D [id number] acquisition imaging performed through the brain in the area of t he [place]. Images reformatted using 3-D MIPS. LIMITATIONS: None. FINDINGS: SOURCE IMAGES: No unexpected findings on source images. No large masses. 3-D MIP: No aneurysm. No occlusions. No significant stenosis. OTHER: No other significant finding. IMPRESSION: NORMAL MRA OF THE [place]. TECHNICAL DOCUMENTATION: JOB ID: [id number] [employer]- All Rights Reserved Reading location - IP/workstation name: [email or web address]
[2019-03-03] MEDS: RIVAROXABAN 10 MG TABLET PO SCH (18:35)
[2019-03-03] MEDS ORDERED: CEFEPIME HCL 2 GM in DEXTROSE 5%-WATER 50 ML IV ONE (23:00)
[2019-03-04 04:37] LABS: HEMATOCRIT 35.1 % (36.0-47.0); HEMOGLOBIN 11.9 g/dL (12.0-15.5); MEAN CORPUSCULAR HEMOGLOBIN 31.7 pg (27.0-33.4); MEAN CORPUSCULAR HGB CONC 33.9 g/dL (32.0-36.0); MEAN CORPUSCULAR VOLUME 94 fl (80-97); PLATELET COUNT 199 10^3/uL (150-450); RED BLOOD COUNT 3.74 10^6/uL (3.72-5.28); RED CELL DISTRIBUTION WIDTH 14.6 % (11.5-14.0); WHITE BLOOD COUNT 11.5 10^3/uL (4.0-10.5)
[2019-03-04 05:15] LABS: ANION GAP 5 (5-19); BLOOD UREA NITROGEN 37 mg/dL (7-20); CALCIUM 8.3 mg/dL (8.4-10.2); CARBON DIOXIDE 39 mmol/L (22-30); CHLORIDE 94 mmol/L (98-107); DIGOXIN 0.59 ng/mL (0.8-2.0); GLUCOSE 183 mg/dL (75-110); POTASSIUM 4.1 mmol/L (3.6-5.0)
[2019-03-04 05:35] LABS: ABSOLUTE LYMPHOCYTES# (MANUAL) 0.7 10^3/uL (0.5-4.7); ABSOLUTE MONOCYTES # (MANUAL) 0.1 10^3/uL (0.1-1.4); BAND NEUTROPHILS % (MANUAL) 1 % (3-5); BASOPHILS % (MANUAL) 0 % (0-2); EOSINOPHILS % (MANUAL) 0 % (0-6); LYMPHOCYTES % (MANUAL) 6 % (13-45); MONOCYTES % (MANUAL) 1 % (3-13); PLATELET COMMENT ADEQUATE; SEGMENTED NEUTROPHILS % (MAN) 92 % (42-78); TOTAL CELLS COUNTED 100
[2019-03-04 05:37] LABS: ANISOCYTOSIS SLIGHT; OVALOCYTES SLIGHT
[2019-03-04] MEDS: METHYLPREDNISOLONE INJ 40 MG/1 ML SDV IV SCH ×3 (06:00→22:01)
[2019-03-04] MEDS: PREGABALIN 100 MG CAPSULE PO SCH ×3 (06:00→22:00)
[2019-03-04] MEDS: LEVOTHYROXINE SODIUM 0.05 MG TABLET PO SCH (06:00)
[2019-03-04] MEDS: CEFEPIME HCL 2 GM in DEXTROSE 5%-WATER 50 ML IV SCH ×2 (06:01→14:47)
--- NOTE | 2019-03-04 06:17 | Progress Note ---
Provider Note Provider Note: Time spent at bedside to educate pt and son as to why she was made NPO and answered all questions regarding barium swallow test that was ordered for pt. Pt states she was not aware of the test but states she has had some coughing recently. Understands the need for being NPO and agrees to the test. All questions answered for both pt and son at bedside.
[2019-03-04] MEDS: INSULIN REG, HUMAN 100 UNIT/ML 3 ML VIAL (PYX) SUBCUT SCH ×4 (08:06→22:01)
[2019-03-04] MEDS: BUDESONIDE NEB 0.5 MG/2 ML AMPUL NEB SCH ×2 (08:13→20:47)
[2019-03-04] MEDS: IPRATROPIUM BROMIDE 0.02% NEB 0.5 MG/2.5 ML AMPUL NEB SCH ×2 (08:13→17:05)
--- NOTE | 2019-03-04 09:06 | RADIOLOGY REPORT (SQ) ---
EXAM DESCRIPTION: DORCAS SWALLOW COMPLETED DATE/TIME: 03/04/2019 8:46 am REASON FOR STUDY: Signs/symptoms of aspiration COMPARISON: None. TECHNIQUE: Videofluoroscopic swallowing examination was performed in conjunction with speech patholo gy. Videofluoroscopic imaging was obtained and reviewed and these are the findings: RADIATION DOSE: Fluoro time 1.25 minutes 2 images saved to PACS. LIMITATIONS: None FINDINGS: The patient was brought into the fluoro room and placed upright on a modified barium swall ow chair. The patient was then given multiple consistencies mixed with barium to swallow under live fluoroscopic video guidance. According to the Speech Pathologist there was no penetration or aspirat ion. Please refer to the speech pathology report for further details. IMPRESSION: NO EVIDENCE OF PENETRATION OR ASPIRATION. PLEASE SEE SPEECH PATHOLOGIST REPORT FOR OTHER FINDINGS AND RECOMMENDATIONS. COMMENT: None Quality ID [id number]: Final reports for procedures using fluoroscopy that document radiation exposure olivia ness, or exposure time and number of fluorographic images (if radiation exposure indices are not avail able) TECHNICAL DOCUMENTATION: JOB ID: [id number] [employer]- All Rights Reserved Reading location - IP/workstation name: [email or web address]
[2019-03-04] MEDS: DOCUSATE SODIUM 100 MG CAPSULE PO SCH ×2 (09:23→17:08)
[2019-03-04] MEDS: SACUBITRIL/VALSARTAN 24 MG/26 MG TABLET PO SCH ×2 (09:23→17:08)
[2019-03-04] MEDS: FAMOTIDINE 20 MG TABLET PO SCH ×2 (09:23→22:00)
[2019-03-04] MEDS: METOPROLOL SUCCINATE 50 MG TAB.SR.24H PO SCH ×3 (10:51→22:09)
[2019-03-04] MEDS: VANCOMYCIN HCL 1,000 MG in DEXTROSE 5%-WATER 250 ML IV SCH (10:51)
--- NOTE | 2019-03-04 11:03 | ST Inp Modified Barium Swallow ---
Medical Diagnosis - Medical Diagnoses Medical Diagnosis Description & ICD-10 Code(s): Congestive heart failure - ICD-10 Tx Diagnosis Coding (1) Dysphagia ICD-10 Code(s): R13.10 - DYSPHAGIA, UNSPECIFIED ST [place] [facility] [place] - General Date: 03/04/19 Date of Onset: 02/26/19 - History -: Medical - Patient is a 78 year old female presenting for modified barium swallow study. Per EMR, patient was admitted to the ED with shortness of breath and exacerbating COPD symptoms. At the bedside, overt signs and symptoms of aspiration were observed including wet, gurgly voice and delayed cough on single sips thin liquid. Delayed cough also noted on puree. Given elevated white blood cell count and risk factors for dysphagia, including hypertension, recommended modified barium swallow study. Medications: Medications Reviewed - No medications placing at risk for dysphagia - Subjective Current Nutritional Means: NPO Current PO Diet: N/A (NPO) Current Symptoms: Coughing, Wet/gurgly voice Pain: no signs/symptoms of pain - Objective Assessment: Upright, Left Lateral - Food Trials Food Trials Used: Thin liquids, Pureed, Regular The Patient: Was Able to Self Feed - Assessment Labial Function: Within Normal Limits Lingual Function: Within Normal Limits Mandibular Function: Within Normal Limits Dentition: Partial, Dentures-Upper - Not wearing during study, but reports wearing Velo-Pharyngeal Function: Not assessed Laryngeal Function: Volitional Swallow - Pharyngeal Stage Initiation of Pharyngeal Stage: Delayed - Mild delay, initated in valleculae Decreased Laryngeal Elevation: No Reduced Velo-Pharyngeal Closure: yes - Only with seguential sips Reduced Pressure Generation: No Reduced Tongue Base Retraction: No Pre-Swallowing Pooling in Valleculae: None Pre-Swallowing Pooling in Pyriforms: None Reduced Thyro-Hyiod Approximation: No Reduced Epiglottic Excursion: No Reduced Pharyngeal Peristalsis: No Multiple Swallows With: Effective Post Swallow Residuals in Valleculae: Mild Post Swallow Residuals in Pyriforms: Mild Pahryngeal Stage Comments: Mild oropharyngeal dysphagia observed, characterized by mildly delayed swallow and reduced hyolaryngeal elevation. Trace transient penetration of thin liquids with sequential sips, however, all material ejected from airway. - Impression/Summary Laryngeal Penetration: Flash, during swallow Tracheal Aspiration: no Patient Presents With: Pharyngeal stage dysph. - Mild oropharyngeal dysphagia, however, swallowing largely within normal limits. No aspiration. Risk of Aspiration: Minimal Risk of Nutritional Compromise: None - Recommendations Solid Diet Recommendations: Mechanical Soft - Due to dentures, Chopped Meat Liquid Diet Recommendations: Thin Dysphagia Therapy with ALUMNI RELATIONS COORDINATOR: No Recommended Techniques: Fully Upright During Meal Supervision: Independent - Time Total Time: 15 Total Timed Minutes: 15
--- NOTE | 2019-03-04 12:58 | PDOC CRITICAL CARE PROG REPORT ---
General Date:: 03/04/19 - Critical Care Attending Note Resuscitation Status: Full Code Events in the past 12 to 24 Hours:: Pt passed her MBS. Remains on cardizem drip. Reason for ICU Addmission:: acute on chronic respiratory failure, altered mental status Physical Exam Vital Signs: Temp Pulse Resp BP Pulse Ox 98.0 F 89 21 H 109/70 97 03/04/19 12:00 03/04/19 12:00 03/04/19 12:00 03/04/19 12:00 03/04/19 12:00 Intake & Output 03/03/19 03/04/19 03/05/19 06:59 06:59 06:59 Intake Total 140 570 200 Output Total 1200 1550 300 Balance -1060 -980 -100 Weight 101.5 kg 102 kg Weight/Height Weight 102 kg Height 5 ft General appearance: PRESENT: no acute distress, well-developed, well-nourished Head exam: PRESENT: atraumatic, normocephalic Respiratory exam: PRESENT: clear to auscultation rick, unlabored Cardiovascular exam: PRESENT: irregular rhythm GI/Abdominal exam: PRESENT: soft Extremities exam: PRESENT: other - no edema Neurological exam: PRESENT: alert, awake, CN II-XII grossly intact Laboratory/Radiographs Laboratory Results: 03/04/19 04:11 03/04/19 04:11 03/04/19 03/04/19 04:11 04:11 WBC 11.5 H RBC 3.74 Hgb 11.9 L Hct 35.1 L MCV 94 MCH 31.7 MCHC 33.9 RDW 14.6 H Plt Count 199 Seg Neutrophils % Not Reportable Sodium 138.0 Potassium 4.1 Chloride 94 L Carbon Dioxide 39 H Anion Gap 5 BUN 37 H Creatinine 0.88 Est GFR ( Amer) > 60 Glucose 183 H Calcium 8.3 L 02/26/19 23:14 Blood Blood Culture - Final NO GROWTH IN 5 DAYS 02/26/19 21:58 Blood Blood Culture - Final NO GROWTH IN 5 DAYS 02/26/19 02/26/19 02/26/19 20:45 20:45 23:14 Creatine Kinase 46 Troponin I 0.025 0.027 NT-Pro-B Natriuret Pep 2580 H 02/27/19 02/27/19 03/02/19 05:05 11:08 07:58 Creatine Kinase Troponin I 0.027 0.024 0.015 NT-Pro-B Natriuret Pep Impressions: Head CT 03/02/19 00:00 IMPRESSION: No hemorrhage. 9 mm ovoid hyperdensity in the left cerebellar hemisphere suggesting lacunar infarction, possibly acute. EVIDENCE OF ACUTE STROKE: YES. LEFT VERTEBROBASILAR Brain MRI with MRA 03/03/19 00:00 IMPRESSION: NORMAL MRA OF THE [place]. Carotid Doppler Study 03/03/19 00:00 IMPRESSION: NO HEMODYNAMICALLY SIGNIFICANT STENOSIS. Chest X-Ray 03/03/19 00:00 IMPRESSION: STABLE CHRONIC CHANGES. NO ACUTE RADIOGRAPHIC FINDING IN THE CHEST. Head MRI 03/03/19 00:00 IMPRESSION: OLD LACUNAR INFARCT IN THE LEFT CEREBELLAR HEMISPHERE. NO OTHER SIGNIFICANT OR ACUTE FINDINGS. EVIDENCE OF ACUTE STROKE: NO. Modified Barium Swallow 03/04/19 00:00 IMPRESSION: NO EVIDENCE OF PENETRATION OR ASPIRATION. PLEASE SEE SPEECH PATHOLOGIST REPORT FOR OTHER FINDINGS AND RECOMMENDATIONS. Assessment and Plan - Diagnosis (1) Acute and chronic respiratory failure with hypoxia Is this a current diagnosis for this admission?: Yes (2) Chronic obstructive pulmonary disease (COPD) Qualifiers: COPD type: unspecified COPD Qualified Code(s): J44.9 - Chronic obstructive pulmonary disease, unspecified Is this a current diagnosis for this admission?: Yes Plan Summary: Assessment: critically ill 78 yo woman with acute on chronic respiratory failure, AECOPD, atrial flutter,h/o PE, acute CHF, DM, h/o pulmonary fibrosis, altered mental status Plan: 1. Respiratory: acute on chronic respiratory failure, resolved. Pt is off bipap and on NC. Continue bipap prn 2. Pulmonary: AECOPD, h/o pulmonary fibrosis. PNA. Day 2 vanc and cefepime. Continue steroids, bronchodilators 3. CV: atrial flutter, acute CHF, cardiomyopathy with EF of 35%. On cardizem drip,toprol, entresto. Care per Dr. Valerio. 4. Heme: on xarelto 5. Neuro: head CT shows acute lacunar infarct. MRI done 03/04 shows that the lacunar infarct is old. 6. ID: PNA. Day 2 vanc and cefepime. 7. Endocrine: DM. Accuchecks, SSI. Hypothyroidism, synthroid 8. Nutrition: passed MBS. Cardiac diet 9. Prophylaxis: pharmacologic DVT prophlaxis not indicated b/c pt on xarelto 10. Disposition: will transfer to [facility] Critical Time Critical Time (minutes): 0 Level of Care: [facility] -: 1. The care of a critical patient is a dynamic process. This note is a field support representative synopsis but static in nature. The timeframe for treatments given in order is not necessarily the actual time these treatments may have been done. 2. This patient requires critical care secondary to ongoing requirements for therapy not offered or safe outside the critical care environment. Transfer to a lower level of care will result in altered life or limb morbidity and mortality. 3. Multidisciplinary rounds completed. 4. ABCDE bundle addressed.
[2019-03-04] MEDS: RIVAROXABAN 10 MG TABLET PO SCH (17:08)
[2019-03-04] MEDS: HYDROCODONE/ACETAMINOPHEN 5-325 MG TABLET PO PRN (17:17)
[2019-03-04] MEDS: DILTIAZEM HCL/D5W 125 MG/125 ML RTUINJ IV PRN (19:00)
[2019-03-04] MEDS: CEFEPIME HCL 2 GM in NORMAL SALINE 50 ML IV SCH (22:02)
[2019-03-05] MEDS: IPRATROPIUM BROMIDE 0.02% NEB 0.5 MG/2.5 ML AMPUL NEB SCH ×3 (00:22→09:26)
[2019-03-05] MEDS: HYDROCODONE/ACETAMINOPHEN 5-325 MG TABLET PO PRN ×3 (03:46→21:28)
[2019-03-05] MEDS: PREGABALIN 100 MG CAPSULE PO SCH ×3 (05:13→21:25)
[2019-03-05] MEDS: LEVOTHYROXINE SODIUM 0.05 MG TABLET PO SCH (05:13)
[2019-03-05] MEDS: METHYLPREDNISOLONE INJ 40 MG/1 ML SDV IV SCH ×2 (05:15→13:47)
[2019-03-05] MEDS: CEFEPIME HCL 2 GM in NORMAL SALINE 50 ML IV SCH ×3 (05:19→21:28)
[2019-03-05 06:31] LABS: ANION GAP 6 (5-19); BLOOD UREA NITROGEN 44 mg/dL (7-20); CALCIUM 8.6 mg/dL (8.4-10.2); CARBON DIOXIDE 36 mmol/L (22-30); CHLORIDE 96 mmol/L (98-107); GLUCOSE 180 mg/dL (75-110); POTASSIUM 4.3 mmol/L (3.6-5.0)
[2019-03-05 06:50] LABS: HEMATOCRIT 38.2 % (36.0-47.0); HEMOGLOBIN 13.2 g/dL (12.0-15.5); MEAN CORPUSCULAR HEMOGLOBIN 32.1 pg (27.0-33.4); MEAN CORPUSCULAR HGB CONC 34.4 g/dL (32.0-36.0); MEAN CORPUSCULAR VOLUME 93 fl (80-97); PLATELET COUNT 163 10^3/uL (150-450); RED CELL DISTRIBUTION WIDTH 14.6 % (11.5-14.0)
[2019-03-05 07:32] LABS: ABSOLUTE LYMPHOCYTES# (MANUAL) 0.5 10^3/uL (0.5-4.7); ANISOCYTOSIS SLIGHT; BASOPHILS % (MANUAL) 0 % (0-2); EOSINOPHILS % (MANUAL) 0 % (0-6); LYMPHOCYTES % (MANUAL) 5 % (13-45); MONOCYTES % (MANUAL) 0 % (3-13); POIKILOCYTOSIS SLIGHT; SEGMENTED NEUTROPHILS % (MAN) 95 % (42-78); TOTAL CELLS COUNTED 100; TOXIC GRANULATION SLIGHT
[2019-03-05 07:33] LABS: OVALOCYTES SLIGHT; PLATELET COMMENT ADEQUATE; SCHISTOCYTES SLIGHT
[2019-03-05] MEDS: INSULIN REG, HUMAN 100 UNIT/ML 3 ML VIAL (PYX) SUBCUT SCH ×4 (08:00→21:24)
[2019-03-05] MEDS: FAMOTIDINE 20 MG TABLET PO SCH ×2 (09:07→21:25)
[2019-03-05] MEDS: DOCUSATE SODIUM 100 MG CAPSULE PO SCH ×2 (09:07→17:02)
[2019-03-05] MEDS: METOPROLOL SUCCINATE 50 MG TAB.SR.24H PO SCH ×2 (09:07→21:25)
[2019-03-05] MEDS: SACUBITRIL/VALSARTAN 24 MG/26 MG TABLET PO SCH ×2 (09:07→17:02)
[2019-03-05] MEDS: BUDESONIDE NEB 0.5 MG/2 ML AMPUL NEB SCH ×3 (09:20→20:55)
[2019-03-05] MEDS: VANCOMYCIN HCL 1,000 MG in NORMAL SALINE 250 ML IV SCH (10:43)
[2019-03-05] MEDS ORDERED: METOPROLOL SUCCINATE 50 MG TAB.SR.24H PO ONE (11:00)
--- NOTE | 2019-03-05 14:27 | PDOC PROGRESS REPORT ---
Subjective Progress Note for:: 03/05/19 Subjective:: This is a 78-year-old female with chronic respiratory failure, COPD, history of PE, congestive heart failure and history of pulmonary fibrosis initially presented with increasing shortness of breath. She was admitted for acute and chronic asthma hypoxic respiratory failure multifactorial from CHF exacerbation, right lobe pneumonia and COPD exacerbation. On the floor she developed atrial fibrillation with RVR. She reportedly had confusion and there was initial concern for possible CVA. She was subsequently transferred to the ICU. She was seen by cardiology. She was also started on Cardizem drip. She was downgraded to the floor yesterday 03/04. No acute event overnight. She was weaned off Cardizem drip overnight. Upon encounter, she is currently saturating well and comfortable on BiPAP. She denies chest pain. She says her shortness of breath continue to improve. Heart rate running in the 110s-120s. Reason For Visit: ACUTE ON CHRONIC DISTOLIC CONGESTIVE HEART FAILURE Physical Exam Vital Signs: Temp Pulse Resp BP Pulse Ox 97.2 F 127 H 20 117/84 99 03/05/19 12:06 03/05/19 12:06 03/05/19 12:06 03/05/19 12:06 03/05/19 12:06 Intake & Output 03/04/19 03/05/19 03/06/19 06:59 06:59 06:59 Intake Total 570 638 625 Output Total 1550 950 400 Balance -980 -312 225 Weight 224 lb 13.944 oz 182 lb 15.739 oz General appearance: PRESENT: no acute distress, well-developed, well-nourished Head exam: PRESENT: atraumatic, normocephalic Eye exam: PRESENT: conjunctiva pink, EOMI, PERRLA. ABSENT: scleral icterus Ear exam: PRESENT: normal external ear exam Mouth exam: PRESENT: moist, tongue midline Neck exam: ABSENT: carotid bruit, JVD, lymphadenopathy, thyromegaly Respiratory exam: PRESENT: rhonchi. ABSENT: rales, wheezes Cardiovascular exam: PRESENT: irregular rhythm, tachycardia Pulses: PRESENT: normal dorsalis pedis pul GI/Abdominal exam: PRESENT: normal bowel sounds, soft. ABSENT: distended, guarding, mass, organolmegaly, rebound, tenderness Rectal exam: PRESENT: deferred Neurological exam: PRESENT: alert, awake, oriented to person, oriented to place, oriented to time, oriented to situation, CN II-XII grossly intact. ABSENT: motor sensory deficit Results Laboratory Results: 03/05/19 05:46 03/05/19 05:46 03/05/19 03/05/19 05:46 05:46 WBC 10.0 RBC 4.10 Hgb 13.2 Hct 38.2 MCV 93 MCH 32.1 MCHC 34.4 RDW 14.6 H Plt Count 163 Seg Neutrophils % Not Reportable Sodium 138.0 Potassium 4.3 Chloride 96 L Carbon Dioxide 36 H Anion Gap 6 BUN 44 H Creatinine 0.79 Est GFR ( Amer) > 60 Glucose 180 H Calcium 8.6 02/26/19 02/26/19 02/26/19 20:45 20:45 23:14 Creatine Kinase 46 Troponin I 0.025 0.027 NT-Pro-B Natriuret Pep 2580 H 02/27/19 02/27/19 03/02/19 05:05 11:08 07:58 Creatine Kinase Troponin I 0.027 0.024 0.015 NT-Pro-B Natriuret Pep Impressions: Head CT 03/02/19 00:00 IMPRESSION: No hemorrhage. 9 mm ovoid hyperdensity in the left cerebellar hemisphere suggesting lacunar infarction, possibly acute. EVIDENCE OF ACUTE STROKE: YES. LEFT VERTEBROBASILAR Brain MRI with MRA 03/03/19 00:00 IMPRESSION: NORMAL MRA OF THE [place]. Carotid Doppler Study 03/03/19 00:00 IMPRESSION: NO HEMODYNAMICALLY SIGNIFICANT STENOSIS. Chest X-Ray 03/03/19 00:00 IMPRESSION: STABLE CHRONIC CHANGES. NO ACUTE RADIOGRAPHIC FINDING IN THE CHEST. Head MRI 03/03/19 00:00 IMPRESSION: OLD LACUNAR INFARCT IN THE LEFT CEREBELLAR HEMISPHERE. NO OTHER SIGNIFICANT OR ACUTE FINDINGS. EVIDENCE OF ACUTE STROKE: NO. Modified Barium Swallow 03/04/19 00:00 IMPRESSION: NO EVIDENCE OF PENETRATION OR ASPIRATION. PLEASE SEE SPEECH P ATHOLOGIST REPORT FOR OTHER FINDINGS AND RECOMMENDATIONS. Assessment and Plan - Diagnosis (1) Acute and chronic respiratory failure with hypoxia Is this a current diagnosis for this admission?: Yes Plan: Multifactorial from COPD exacerbation, CHF exacerbation and pneumonia. (2) Atrial fibrillation Is this a current diagnosis for this admission?: Yes Plan: Wean off Cardizem drip overnight. Discussed with cardiology. Increase metoprolol to 100 mg every 12. Tolerating Xarelto well. (3) Acute on chronic diastolic congestive heart failure Is this a current diagnosis for this admission?: Yes Plan: Echocardiogram shows ejection fraction 30-35%. On Entresto. Continue metoprolol. (4) Pneumonia Is this a current diagnosis for this admission?: Yes Plan: Continue IV antibiotics. Plan to switch to p.o. levofloxacin in the next 24 to 48 hours. (5) Chronic obstructive pulmonary disease (COPD) Qualifiers: COPD type: unspecified COPD Qualified Code(s): J44.9 - Chronic obstructive pulmonary disease, unspecified Is this a current diagnosis for this admission?: Yes Plan: Keep breathing treatments as needed due to tachycardia/Afib. Switch IV Solu-M edrol to prednisone. - Plan Summary Summary: Patient is admitted to a telemetry bed where she will receive usual supportive and symptomatic cares. She will be treated with IV Bumex 1 mg every 6 hours to help resolve her acute congestive heart failure. She will also receive supplemental oxygen utilizing nasal cannula and or noninvasive airway pressure support devices such as CPAP or BiPAP to obtain an adequate oxygen saturation and avoid hypercapnia. She will receive morphine sulfate 2 mg IV every 1 hour PRN severe dyspnea. She will receive a pulmonary toilet utilizing Atrovent and Pulmicort and will be maintained on antibiotic therapy for possible pneumonia/pneumonitis with Levaquin 750 mg p.o. daily x4 days. Patient will be continued on her usual home medications as soon as her medication reconciliation has been verified and completed. A mill labor supervisor consultation will be obtained to safety counselor the patient on her obesity and possible diet interventions. Patient will be continued on her cardiac and diabetic restricted diet. Before meals and at bedtime Accu-Cheks will be obtained with sliding scale insulin used for control of hyperglycemia and a hypoglycemic protocol in place. - Time Time Spent with patient: 25-34 minutes
--- NOTE | 2019-03-05 14:38 | EKG REPORT ---
SEVERITY:- ABNORMAL ECG - ATRIAL FLUTTER, A-RATE 254 RBBB AND LAFB PROBABLE LVH WITH SECONDARY REPOL ABNRM : Confirmed by: Tk Garay MD 05-Mar-2019 14:37:22
[2019-03-05] MEDS: RIVAROXABAN 10 MG TABLET PO SCH (17:02)
[2019-03-05] MEDS: PREDNISONE 20 MG TABLET PO SCH (17:04)
--- NOTE | 2019-03-05 18:55 | Progress Note ---
Provider Note Provider Note: CARDIOLOGY PROGRESS NOTE by Dr. Hillary Holder on 03/05/2019. SUBJECTIVE: The patient denies any chest pain. She has no shortness of breath. There is no PND orthopnea. She continues to be in atrial flutter. The ventricular response is around 91 to 110 bpm. She states she is still coughing but is unable to produce any mucus. She has no wheezing today. There is no bleeding on Xarelto. There is no TIA CVA symptoms. There is no ventricle arrhythmia seen on the monitor. PHYSICAL EXAMINATION: The patient is morbidly obese. In no acute distress. Selected Entries 03/05/19 03/05/19 15:32 16:00 Temperature 98.1 F Temperature Oral Source Pulse Rate 110 H Heart Rate ( 91 Monitors) Respiratory 20 Rate Blood Pressure 91 Mean BP Location Left Arm O2 Sat by Pulse 94 Oximetry Oxygen Flow 3.00 Rate Oxygen Delivery Nasal Cannula Method HEAD: Is atraumatic. Normocephalic. EYES: Pupils are equal round regular reactive to light and accommodation. Extraocular movements are normal there is no conjunctival pallor. There is no scleral icterus. EARS: Tympanic membranes are intact. External auditory canals are clear. NOSE: There is no deviated nasal septum. There is no inflammation of the nasal mucous membrane. MOUTH: There is no ulcers in the mouth. Mucous membranes of the mouth are moist. THROAT: There is no redness of the oropharynx. There is no exudates. SKIN: There is no skin rashes. There is no petechia or ecchymosis. NECK: Is supple. There is mild JVD present. Carotids are equal there is no bruit. There is no lymphadenopathy. There is no goiter. There is no accessory muscle respiration use. Trachea is central. LUNGS: Shows diminished air entry prolonged expiration. There is scattered end expiratory wheezing and rhonchi. There is "Velcro" [E] rales of pulmonary fibrosis bilaterally in the bases. There is a few fine rales of CHF. HEART: S1-S2 is heard. There is no S3 gallop. There is no S4 gallop. There is systolic murmur of tricuspid regurgitation and mild mitral regurgitation murmur present. There is no S3 gallop. There is no S4 gallop. There is no rub. ABDOMEN: Is obese. Nontender. There is no paraspinal megaly. Bowel sounds are well heard. EXTREMITIES: Femorals are deep. Femorals are diminished there is no femoral bruits. Leg pulses are diminished. There is 1+ bilateral edema. There is no DVT or cellulitis. There is no cyanosis or clubbing. There is no calf tenderness. PASSENGER FLAGMAN: The patient is conscious awake alert oriented x3 with no focal deficit. PSYCHIATRIC:. The patient judgment insight are intact her affect is normal. Labs- All tests 24 hr 03/04/19 03/04/19 03/05/19 20:59 23:12 05:46 WBC 10.0 RBC 4.10 Hgb 13.2 Hct 38.2 MCV 93 MCH 32.1 MCHC 34.4 RDW 14.6 H Plt Count 163 Lymph % (Auto) Not Reportable [place] % (Auto) Not Reportable Eos % (Auto) Not Reportable Baso % (Auto) Not Reportable Absolute Neuts (auto) Not Reportable Absolute Lymphs (auto) Not Reportable Absolute Monos (auto) Not Reportable Absolute Eos (auto) Not Reportable Absolute Basos (auto) Not Reportable Total Counted 100 Seg Neutrophils % Not Reportable Seg Neuts % (Manual) 95 H Lymphocytes % (Manual) 5 L Monocytes % (Manual) 0 L Eosinophils % (Manual) 0 Basophils % (Manual) 0 Abs Neuts (Manual) 9.5 H Abs Lymphs (Manual) 0.5 Abs Monocytes (Manual) 0.0 L Absolute Eos (Manual) 0.0 Abs Basophils (Manual) 0.0 Toxic Granulation SLIGHT Platelet Comment ADEQUATE Poikilocytosis SLIGHT Anisocytosis SLIGHT Ovalocytes SLIGHT Schistocytes SLIGHT Sodium Potassium Chloride Carbon Dioxide Anion Gap BUN Creatinine Est GFR ( Amer) Est GFR (MDRD) Non-Af Glucose POC Glucose 180 H 166 H Calcium 03/05/19 03/05/19 03/05/19 05:46 07:51 12:07 WBC RBC Hgb Hct MCV MCH MCHC RDW Plt Count Lymph % (Auto) [place] % (Auto) Eos % (Auto) Baso % (Auto) Absolute Neuts (auto) Absolute Lymphs (auto) Absolute Monos (auto) Absolute Eos (auto) Absolute Basos (auto) Total Counted Seg Neutrophils % Seg Neuts % (Manual) Lymphocytes % (Manual) Monocytes % (Manual) Eosinophils % (Manual) Basophils % (Manual) Abs Neuts (Manual) Abs Lymphs (Manual) Abs Monocytes (Manual) Absolute Eos (Manual) Abs Basophils (Manual) Toxic Granulation Platelet Comment Poikilocytosis Anisocytosis Ovalocytes Schistocytes Sodium 138.0 Potassium 4.3 Chloride 96 L Carbon Dioxide 36 H Anion Gap 6 BUN 44 H Creatinine 0.79 Est GFR ( Amer) > 60 Est GFR (MDRD) Non-Af > 60 Glucose 180 H POC Glucose 181 H 229 H Calcium 8.6 03/05/19 15:57 WBC RBC Hgb Hct MCV MCH MCHC RDW Plt Count Lymph % (Auto) [place] % (Auto) Eos % (Auto) Baso % (Auto) Absolute Neuts (auto) Absolute Lymphs (auto) Absolute Monos (auto) Absolute Eos (auto) Absolute Basos (auto) Total Counted Seg Neutrophils % Seg Neuts % (Manual) Lymphocytes % (Manual) Monocytes % (Manual) Eosinophils % (Manual) Basophils % (Manual) Abs Neuts (Manual) Abs Lymphs (Manual) Abs Monocytes (Manual) Absolute Eos (Manual) Abs Basophils (Manual) Toxic Granulation Platelet Comment Poikilocytosis Anisocytosis Ovalocytes Schistocytes Sodium Potassium Chloride Carbon Dioxide Anion Gap BUN Creatinine Est GFR ( Amer) Est GFR (MDRD) Non-Af Glucose POC Glucose 246 H Calcium Chest X-Ray 02/26/19 19:52 IMPRESSION: Equivocal right basilar airspace opacity. There is elevation right hemidiaphragm. Cardiac megaly copyright 2010 [email or web address]- All Rights Reserved Chest X-Ray 03/02/19 00:00 IMPRESSION: Chronic lung changes, stable appearance. Head CT 03/02/19 00:00 IMPRESSION: No hemorrhage. 9 mm ovoid hyperdensity in the left cerebellar hemisphere suggesting lacunar infarction, possibly acute. EVIDENCE OF ACUTE STROKE: YES. LEFT VERTEBROBASILAR Brain MRI with MRA 03/03/19 00:00 IMPRESSION: NORMAL MRA OF THE [place]. Carotid Doppler Study 03/03/19 00:00 IMPRESSION: NO HEMODYNAMICALLY SIGNIFICANT STENOSIS. Chest X-Ray 03/03/19 00:00 IMPRESSION: STABLE CHRONIC CHANGES. NO ACUTE RADIOGRAPHIC FINDING IN THE CHEST. Head MRI 03/03/19 00:00 IMPRESSION: OLD LACUNAR INFARCT IN THE LEFT CEREBELLAR HEMISPHERE. NO OTHER SIGNIFICANT OR ACUTE FINDINGS. EVIDENCE OF ACUTE STROKE: NO. Modified Barium Swallow 03/04/19 00:00 IMPRESSION: NO EVIDENCE OF PENETRATION OR ASPIRATION. PLEASE SEE SPEECH PATHOLOGIST REPORT FOR OTHER FINDINGS AND RECOMMENDATIONS. IMPRESSION/RECOMMENDATION: 1. Acute lacunar infarct by CT scan of the head. But MRI shows that there is old lacunar infarct. The patient has no signs or symptoms of a CVA. 2.Acute on chronic respiratory failure. Continue supplemental oxygen, and current anti-COPD medication. This is improved. 3. Acute infective bronchitis/possible right lower lobe pneumonia: Continue current treatment including antibiotics. 4. Intermittent altered sensorium with somnolence since most likely secondary to hypercapnia, but would also recommend getting the patient a CT of the head to make sure there is no acute intracranial pathology. This is resolved. 5. Most likely acute on chronic systolic heart failure: Continue diuretics, in view of the patient's current current wheezing will not start the patient on Toprol-XL at present. We will start the patient on Entresto. If tachycardia persists will give 1 dose of digoxin. The patient still has some wheezing and hence we will start not start Toprol-XL will try from tomorrow. 6. Pulmonary fibrosis.? Right lower lobe pneumonia. We will repeat the patient's chest x-ray in a.m. 7. History of asthma and COPD. 8. Hypertension: Continue current medication. Increase Entresto as tolerated. Later would add a beta-les. 9. Atrial flutter. There is also right bundle branch block pattern and left anterior fascicular block. [Bifascicular block]. 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 Will increase the patient's Toprol- XL to 50 mg p.o. every 12 hours. In view of the cardiomyopathy we will continue patient on Entresto. In view of the patient's heart rate still being up we will start the patient on IV Cardizem infusion at 7.5 mg/h. Also her old records from [place] were reviewed. There is one EKG done which is suspicious for atrial flutter although the official reading is sinus tachycardia. But I strongly believe that that EKG is atrial flutter, and hence the patient has had longstanding atrial fibrillation or at least intermittent paroxysmal atrial fibrillation since 2017, the data of that prior EKG from [place]. The patient's Cardizem drip has been discontinued. The patient Toprol will be increased 200 mg p.o. every 12 hours. Once heart rate is adequately controlled for a period of time, then would repeat the patient's echocardiogram to see if indeed the patient's cardiomyopathy is secondary to tachycardia induced cardi omyopathy. This has been discussed with the patient. 10. Diabetes mellitus type 2 [id number]. 11. Hypothyroidism:: Continue thyroid replacement. Note the patient's repeat TSH is normal, and free T3 and free T4 are normal... 12 Moderate to severe tricuspid regurgitation. At least moderate pulmonary hypertension with right ventricle systolic pressure of 53 to 58 mmHg. 13. 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 But will reassess. We will treat the patient with beta-lse and Entresto. Will increase the patient's Entresto. 14. With history of pulmonary embolism: Patient states she is on Xarelto. Will continue Xarelto. 15. History of breast cancer status post bilateral mastectomies and chemotherapy and radiation treatment. 16. History of multiple abdominal surgeries. 17. Morbid obesity. Medications reviewed. Medical regimen and management plan discussed with the hospitalist Dr. Ling. Medical decision making is of moderate complexity. 40 minutes spent on this patient more than 50% of time spent in direct patient care. Will follow.
[2019-03-05] MEDS ORDERED: METOPROLOL SUCCINATE 50 MG TAB.SR.24H PO SCH (22:00)
[2019-03-06] MEDS ORDERED: DILTIAZEM HCL INJ 25 MG/5 ML VIAL ONE (01:38)
[2019-03-06] MEDS ORDERED: DILTIAZEM HCL 30 MG TABLET ONE (01:38)
[2019-03-06] MEDS ORDERED: DILTIAZEM HCL INJ 25 MG/5 ML VIAL IV ONE (02:00)
[2019-03-06] MEDS: DILTIAZEM HCL 30 MG TABLET PO SCH ×4 (03:21→21:47)
[2019-03-06] MEDS: PREGABALIN 100 MG CAPSULE PO SCH ×3 (06:42→21:46)
[2019-03-06] MEDS: CEFEPIME HCL 2 GM in NORMAL SALINE 50 ML IV SCH ×3 (06:42→21:49)
[2019-03-06] MEDS: LEVOTHYROXINE SODIUM 0.05 MG TABLET PO SCH (06:42)
[2019-03-06] MEDS: INSULIN REG, HUMAN 100 UNIT/ML 3 ML VIAL (PYX) SUBCUT SCH ×4 (08:23→21:52)
[2019-03-06] MEDS: BUDESONIDE NEB 0.5 MG/2 ML AMPUL NEB SCH ×2 (08:36→21:24)
[2019-03-06] MEDS ORDERED: SACUBITRIL/VALSARTAN 49 MG/51 MG TABLET PO SCH (10:00)
[2019-03-06] MEDS: METOPROLOL SUCCINATE 50 MG TAB.SR.24H PO SCH ×2 (10:05→21:45)
[2019-03-06] MEDS: PREDNISONE 20 MG TABLET PO SCH ×2 (10:06→17:30)
[2019-03-06] MEDS: DOCUSATE SODIUM 100 MG CAPSULE PO SCH ×2 (10:06→17:30)
[2019-03-06] MEDS: FAMOTIDINE 20 MG TABLET PO SCH ×2 (10:06→21:45)
[2019-03-06] MEDS: SACUBITRIL/VALSARTAN 49 MG/51 MG TABLET PO SCH ×2 (10:06→21:46)
[2019-03-06] MEDS: VANCOMYCIN HCL 1,000 MG in NORMAL SALINE 250 ML IV SCH (11:47)
[2019-03-06] MEDS ORDERED: ACETYLCYSTEINE 20% SOLN 800 MG/4 ML VIAL.NEB PO SCH (14:00)
--- NOTE | 2019-03-06 14:03 | PDOC PROGRESS REPORT ---
Subjective Progress Note for:: 03/06/19 Subjective:: This is a 78-year-old female with chronic respiratory failure, COPD, history of PE, congestive heart failure and history of pulmonary fibrosis initially presented with increasing shortness of breath. She was admitted for acute and chronic asthma hypoxic respiratory failure multifactorial from CHF exacerbation, right lobe pneumonia and COPD exacerbation. On the floor she developed atrial fibrillation with RVR. She reportedly had confusion and there was initial concern for possible CVA. She was subsequently transferred to the ICU. She was seen by cardiology. She was also started on Cardizem drip. She was downgraded to the floor yesterday 03/04. 03/05: She was weaned off Cardizem drip overnight. Upon encounter, she is currently saturating well and comfortable on BiPAP. She denies chest pain. She says her shortness of breath continue to improve. Heart rate running in the 110s-120s. 03/06: She wentinto RVR last night and was given IV Cardizem push. She was also started on p.o. Cardizem. She continues to feel better. Weaned off BiPAP. Saturating well on 3 L via nasal cannula. She is on 2.5 L of home O2. She says her breathing continued to improve. Heart rate running in the 80s but occasionally goes up to 110s when she ambulates. Reason For Visit: ACUTE ON CHRONIC DISTOLIC CONGESTIVE HEART FAILURE Physical Exam Vital Signs: Temp Pulse Resp BP Pulse Ox 98.0 F 127 H 21 H 114/74 96 03/05/19 23:10 03/06/19 08:36 03/06/19 13:12 03/05/19 23:10 03/06/19 13:12 Intake & Output 03/05/19 03/06/19 03/07/19 06:59 06:59 06:59 Intake Total 638 725 Output Total 950 550 Balance -312 175 Weight 182 lb 15.739 oz 235 lb 3.732 oz General appearance: PRESENT: no acute distress, well-developed, well-nourished Head exam: PRESENT: atraumatic, normocephalic Eye exam: PRESENT: conjunctiva pink, EOMI, PERRLA. ABSENT: scleral icterus Ear exam: PRESENT: normal external ear exam Mouth exam: PRESENT: moist, tongue midline Neck exam: ABSENT: carotid bruit, JVD, lymphadenopathy, thyromegaly Respiratory exam: PRESENT: rhonchi. ABSENT: rales, wheezes Cardiovascular exam: PRESENT: irregular rhythm. ABSENT: systolic murmur Pulses: PRESENT: normal dorsalis pedis pul GI/Abdominal exam: PRESENT: normal bowel sounds, soft. ABSENT: distended, guarding, mass, organolmegaly, rebound, tenderness Rectal exam: PRESENT: deferred Neurological exam: PRESENT: alert, awake, oriented to person, oriented to place, oriented to time, oriented to situation, CN II-XII grossly intact. ABSENT: motor sensory deficit Results Laboratory Results: 03/05/19 05:46 03/05/19 05:46 02/26/19 02/26/19 02/26/19 20:45 20:45 23:14 Creatine Kinase 46 Troponin I 0.025 0.027 NT-Pro-B Natriuret Pep 2580 H 02/27/19 02/27/19 03/02/19 05:05 11:08 07:58 Creatine Kinase Troponin I 0.027 0.024 0.015 NT-Pro-B Natriuret Pep Impressions: Head CT 03/02/19 00:00 IMPRESSION: No hemorrhage. 9 mm ovoid hyperdensity in the left cerebellar he misphere suggesting lacunar infarction, possibly acute. EVIDENCE OF ACUTE STROKE: YES. LEFT VERTEBROBASILAR Brain MRI with MRA 03/03/19 00:00 IMPRESSION: NORMAL MRA OF THE [place]. Carotid Doppler Study 03/03/19 00:00 IMPRESSION: NO HEMODYNAMICALLY SIGNIFICANT STENOSIS. Chest X-Ray 03/03/19 00:00 IMPRESSION: STABLE CHRONIC CHANGES. NO ACUTE RADIOGRAPHIC FINDING IN THE CHEST. Head MRI 03/03/19 00:00 IMPRESSION: OLD LACUNAR INFARCT IN THE LEFT CEREBELLAR HEMISPHERE. NO OTHER SIGNIFICANT OR ACUTE FINDINGS. EVIDENCE OF ACUTE STROKE: NO. Modified Barium Swallow 03/04/19 00:00 IMPRESSION: NO EVIDENCE OF PENETRATION OR ASPIRATION. PLEASE SEE SPEECH PATHOLOGIST REPORT FOR OTHER FINDINGS AND RECOMMENDATIONS. Assessment and Plan - Diagnosis (1) Acute and chronic respiratory failure with hypoxia Is this a current diagnosis for this admission?: Yes Plan: Multifactorial from COPD exacerbation, CHF exacerbation and pneumonia. 1/2: Weaned off BiPAP. Saturating well on 3 L via nasal cannula. She is on 2.5 L of home O2. She says her breathing continued to improve. (2) Atrial fibrillation Is this a current diagnosis for this admission?: Yes Plan: 03/05: Wean off Cardizem drip overnight. Discussed with cardiology. Increase metoprolol to 100 mg every 12. Tolerating Xarelto well. 03/06: She went into RVR last night and was given IV Cardizem push. She was also started on p.o. Cardizem. Heart rate running in the 80s but occasionally goes up to 110s when she ambulates. Cardiology following. Continue PO cardizem and metoprolol. (3) Acute on chronic diastolic congestive heart failure Is this a current diagnosis for this admission?: Yes Plan: Echocardiogram shows ejection fraction 30-35%. On Entresto. Continue metoprolol. (4) Pneumonia Is this a current diagnosis for this admission?: Yes Plan: Continue IV antibiotics. (5) Chronic obstructive pulmonary disease (COPD) Qualifiers: COPD type: unspecified COPD Qualified Code(s): J44.9 - Chronic obstructive pulmonary disease, unspecified Is this a current diagnosis for this admission?: Yes Plan: Keep breathing treatments prn due to tachycardia/Afib. 03/06: Continue prednisone. - Plan Summary Summary: Patient is admitted to a telemetry bed where she will receive usual supportive and symptomatic cares. She will be treated with IV Bumex 1 mg every 6 hours to help resolve her acute congestive heart failure. She will also receive supplemental oxygen utilizing nasal cannula and or noninvasive airway pressure support devices such as CPAP or BiPAP to obtain an adequate oxygen saturation and avoid hypercapnia. She will receive morphine sulfate 2 mg IV every 1 hour PRN severe dyspnea. She will receive a pulmonary toilet utilizing Atrovent and Pulmicort and will be maintained on antibiotic therapy for possible pneumonia/pneumonitis with Levaquin 750 mg p.o. daily x4 days. Patient will be continued on her usual home medications as soon as her medication reconciliation has been verified and completed. A service loss control consultant consultation will be obtained to consumer credit counselor the patient on her obesity and possible diet interventions. Patient will be continued on her cardiac and diabetic restricted diet. Before meals and at bedtime Accu-Cheks will be obtained with sliding scale insulin used for control of hyperglycemia and a hypoglycemic protocol in place. - Time Time Spent with patient: 25-34 minutes
[2019-03-06] MEDS: RIVAROXABAN 10 MG TABLET PO SCH (17:30)
--- NOTE | 2019-03-06 19:17 | Progress Note ---
Provider Note Provider Note: CARDIOLOGY PROGRESS NOTE by Dr. Hillary Holder on 03/06/2019. SUBJECTIVE: The patient last night had A. fib flutter with rapid ventricular response and needed IV Cardizem. This morning she is off IV Cardizem and she is on a beta-les but still heart rate was up. A small dose of Cardizem to 30 mg p.o. every 8 hours has been added. And the heart rate is much improved. She denies any chest pain or discomfort. Shortness of breath is much improved but still has shortness of breath with minimal movement in the bed. There is no chest pains. She has cough which is now much less, but is nonproductive. There is no hemoptysis there is no pleuritic chest pain. There is no wheezing today. There is no ventricular arrhythmias seen. There is no TIA CVA symptoms. There is no bleeding on Xarelto. PHYSICAL EXAMINATION: The patient morbidly obese. At present in no acute distress Selected Entries 03/06/19 12:21 Temperature 98.5 F Temperature Oral Source Pulse Rate 66 Respiratory 16 Rate Blood Pressure 127/74 H Blood Pressure 91 Mean BP Location Right Arm BP Position Supine O2 Sat by Pulse 100 Oximetry Oxygen Flow 2.00 Rate Oxygen Delivery Nasal Cannula Method HEAD: Is atraumatic. Normocephalic. EYES: Pupils are equal round regular reactive to light and accommodation. Extraocular movements are normal there is no conjunctival pallor. There is no scleral icterus. EARS: Tympanic membranes are intact. External auditory canals are clear. NOSE: There is no deviated nasal septum. There is no inflammation of the nasal mucous membrane. MOUTH: There is no ulcers in the mouth. Mucous membranes of the mouth are moist. THROAT: There is no redness of the oropharynx. There is no exudates. SKIN: There is no skin rashes. There is no petechia or ecchymosis. NECK: Is supple. There is mild JVD present. Carotids are equal there is no bruit. There is no lymphadenopathy. There is no goiter. There is no accessory muscle respiration use. Trachea is central. LUNGS: Shows diminished air entry prolonged expiration. There is scattered end expiratory wheezing and rhonchi. There is "Velcro" [E] rales of pulmonary fibrosis bilaterally in the bases. There is a few fine rales of CHF. HEART: S1-S2 is heard. There is no S3 gallop. There is no S4 gallop. There is systolic murmur of tricuspid regurgitation and mild mitral regurgitation murmur present. There is no S3 gallop. There is no S4 gallop. There is no rub. ABDOMEN: Is obese. Nontender. There is no paraspinal megaly. Bowel sounds are well heard. EXTREMITIES: Femorals are deep. Femorals are diminished there is no femoral bruits. Leg pulses are diminished. There is 1+ bilateral edema. There is no DVT or cellulitis. There is no cyanosis or clubbing. There is no calf tenderness. ACTIVITIES SPECIALIST: The patient is conscious awake alert oriented x3 with no focal deficit. PSYCHIATRIC:. The patient judgment insight are intact her affect is normal. IMPRESSION/RECOMMENDATION: 1. Acute lacunar infarct by CT scan of the head. But MRI shows that there is old lacunar infarct. The patient has no signs or symptoms of a CVA. 2.Acute on chronic respiratory failure. Continue supplemental oxygen, and current anti-COPD medication. This is improved. 3. Acute infective bronchitis/possible right lower lobe pneumonia: Continue current treatment including antibiotics. 4. Intermittent altered sensorium with somnolence since most likely secondary to hypercapnia, but would also recommend getting the patient a CT of the head to make sure there is no acute intracranial pathology. This is resolved. 5. Most likely acute on chronic systolic heart failure: Continue diuretics, in view of the patient's current current wheezing will not start the patient on Toprol-XL at present. We will start the patient on Entresto. If tachycardia persists will give 1 dose of digoxin. The patient still has some wheezing and hence we will start not start Toprol-XL will try from tomorrow. 6. Pulmonary fibrosis.? Right lower lobe pneumonia. We will repeat the patient's chest x-ray in a.m. 7. History of asthma and COPD. 8. Hypertension: Continue current medication. Increase Entresto as tolerated. Later would add a beta-les. 9. Atrial flutter. There is also right bundle branch block pattern and left anterior fascicular block. [Bifascicular block]. 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 Will increase the patient's Toprol- XL to 50 mg p.o. every 12 hours. In view of the cardiomyopathy we will continue patient on Entresto. In view of the patient's heart rate still being up we will start the patient on IV Cardizem infusion at 7.5 mg/h. Also her old records from [place] were reviewed. There is one EKG done which is suspicious for atrial flutter although the official reading is sinus tachycardia. But I strongly believe that that EKG is atrial flutter, and hence the patient has had longstanding atrial fibrillation or at least intermittent paroxysmal atrial fibrillation since 2017, the data of that prior EKG from [place]. The patient's Cardizem drip has been discontinued. The patient Toprolas w increased 200 mg p.o. every 12 hours. But only with addition of a small dose of Cardizem p.o. the patient's heart rate is now much improved. 10. Diabetes mellitus type 2 [id number]. 11. Hypothyroidism:: Continue thyroid replacement. Note the patient's repeat TSH is normal, and free T3 and free T4 are normal... 12 Moderate to severe tricuspid regurgitation. At least moderate pulmonary hypertension with right ventricle systolic pressure of 53 to 58 mmHg. 13. 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 But will reassess. We will treat the patient with beta-les and Entresto. Will increase the patient's Entresto. 14. With history of pulmonary embolism: Patient states she is on Xarelto. Will continue Xarelto. 15. History of breast cancer status post bilateral mastectomies and chemo therapy and radiation treatment. 16. History of multiple abdominal surgeries. 17. Morbid obesity. Medications reviewed. Medical regimen and management plan discussed with attending physician on the case. Medical decision making is of moderate complexity. 50 minutes spent as patient with more than 50% of time spent in direct patient care. Follow
[2019-03-06] MEDS: HYDROCODONE/ACETAMINOPHEN 5-325 MG TABLET PO PRN (21:46)
[2019-03-07] MEDS ORDERED: ACETYLCYSTEINE 20% SOLN 800 MG/4 ML VIAL.NEB NEB SCH
[2019-03-07] MEDS: DILTIAZEM HCL 30 MG TABLET PO SCH ×3 (03:20→14:55)
[2019-03-07] MEDS: PREGABALIN 100 MG CAPSULE PO SCH ×3 (06:28→21:37)
[2019-03-07] MEDS: LEVOTHYROXINE SODIUM 0.05 MG TABLET PO SCH (06:28)
[2019-03-07] MEDS: CEFEPIME HCL 2 GM in NORMAL SALINE 50 ML IV SCH ×2 (06:28→14:55)
[2019-03-07] MEDS: INSULIN REG, HUMAN 100 UNIT/ML 3 ML VIAL (PYX) SUBCUT SCH ×4 (08:50→21:50)
[2019-03-07] MEDS: ACETYLCYSTEINE 20% SOLN 800 MG/4 ML VIAL.NEB NEB SCH ×2 (08:57→19:01)
[2019-03-07] MEDS: BUDESONIDE NEB 0.5 MG/2 ML AMPUL NEB SCH ×2 (08:57→21:11)
[2019-03-07] MEDS: FAMOTIDINE 20 MG TABLET PO SCH ×2 (11:11→21:37)
[2019-03-07] MEDS: DOCUSATE SODIUM 100 MG CAPSULE PO SCH ×2 (11:11→17:24)
[2019-03-07] MEDS: METOPROLOL SUCCINATE 50 MG TAB.SR.24H PO SCH ×2 (11:11→21:37)
[2019-03-07] MEDS: SACUBITRIL/VALSARTAN 49 MG/51 MG TABLET PO SCH ×2 (11:12→21:37)
[2019-03-07] MEDS: PREDNISONE 20 MG TABLET PO SCH ×2 (11:12→17:25)
[2019-03-07] MEDS: VANCOMYCIN HCL 1,000 MG in NORMAL SALINE 250 ML IV SCH (11:13)
[2019-03-07 12:08] LABS: VANCOMYCIN,TROUGH 6.2 ug/mL (5.0-20.0)
--- NOTE | 2019-03-07 15:58 | PDOC PROGRESS REPORT ---
Subjective Progress Note for:: 03/07/19 Subjective:: This is a 78-year-old female with chronic respiratory failure, COPD, history of PE, congestive heart failure and history of pulmonary fibrosis initially presented with increasing shortness of breath. She was admitted for acute and chronic asthma hypoxic respiratory failure multifactorial from CHF exacerbation, right lobe pneumonia and COPD exacerbation. On the floor she developed atrial fibrillation with RVR. She reportedly had confusion and there was initial concern for possible CVA. She was subsequently transferred to the ICU. She was seen by cardiology. She was also started on Cardizem drip. She was downgraded to the floor yesterday 03/04. 03/05: She was weaned off Cardizem drip overnight. Upon encounter, she is currently saturating well and comfortable on BiPAP. She denies chest pain. She says her shortness of breath continue to improve. Heart rate running in the 110s-120s. 03/06: She went into RVR last night and was given IV Cardizem push. She was also started on p.o. Cardizem. She continues to feel better. Weaned off BiPAP. Saturating well on 3 L via nasal cannula. She is on 2.5 L of home O2. She says her breathing continued to improve. Heart rate running in the 80s but occasionally goes up to 110s when she ambulates. 03/07: No acute event overnight. She continues to improve and feel better. She does still have a few episodes of getting tachycardic when she ambulates but overall heart rate has improved. Discussed with cardiology and Cardizem PO has been increased to 60 mg every 8. Reason For Visit: ACUTE ON CHRONIC DISTOLIC CONGESTIVE HEART FAILURE Physical Exam Vital Signs: Temp Pulse Resp BP Pulse Ox 97.4 F 83 20 118/82 97 03/07/19 07:41 03/07/19 14:00 03/07/19 08:55 03/07/19 07:41 03/07/19 08:55 Intake & Output 03/06/19 03/07/19 03/08/19 06:59 06:59 06:59 Intake Total 725 1410 720 Output Total 550 950 300 Balance 175 460 420 Weight 235 lb 3.732 oz 237 lb 7.005 oz General appearance: PRESENT: no acute distress, well-developed, well-nourished Head exam: PRESENT: atraumatic, normocephalic Eye exam: PRESENT: conjunctiva pink, EOMI, PERRLA. ABSENT: scleral icterus Ear exam: PRESENT: normal external ear exam Mouth exam: PRESENT: moist, tongue midline Neck exam: ABSENT: carotid bruit, JVD, lymphadenopathy, thyromegaly Respiratory exam: PRESENT: clear to auscultation rick. ABSENT: rales, rhonchi, wheezes Cardiovascular exam: PRESENT: irregular rhythm, tachycardia. ABSENT: diastolic murmur, rubs, systolic murmur Pulses: PRESENT: normal dorsalis pedis pul GI/Abdominal exam: PRESENT: normal bowel sounds, soft. ABSENT: distended, guarding, mass, organolmegaly, rebound, tenderness Rectal exam: PRESENT: deferred Neurological exam: PRESENT: alert, awake, oriented to person, oriented to place, oriented to time, oriented to situation, CN II-XII grossly intact. ABSENT: motor sensory deficit Results Laboratory Results: 03/05/19 05:46 03/07/19 11:30 03/07/19 11:30 Creatinine 0.74 Est GFR ( Amer) > 60 02/26/19 02/26/19 02/26/19 20:45 20:45 23:14 Creatine Kinase 46 Troponin I 0.025 0.027 NT-Pro-B Natriuret Pep 2580 H 02/27/19 02/27/19 03/02/19 05:05 11:08 07:58 Creatine Kinase Troponin I 0.027 0.024 0.015 NT-Pro-B Natriuret Pep Impressions: Head CT 03/02/19 00:00 IMPRESSION: No hemorrhage. 9 mm ovoid hyperdensity in the left cerebellar hemisphere suggesting lacunar infarction, possibly acute. EVIDENCE OF ACUTE STROKE: YES. LEFT VERTEBROBASILAR Brain MRI with MRA 03/03/19 00:00 IMPRESSION: NORMAL MRA OF [facility] [place] [facility] [place]. Carotid Doppler Study 03/03/19 00:00 IMPRESSION: NO HEMODYNAMICALLY SIGNIFICANT STENOSIS. Chest X-Ray 03/03/19 00:00 IMPRESSION: STABLE CHRONIC CHANGES. NO ACUTE RADIOGRAPHIC FINDING IN THE CHEST. Head MRI 03/03/19 00:00 IMPRESSION: OLD LACUNAR INFARCT IN THE LEFT CEREBELLAR HEMISPHERE. NO OTHER SIGNIFICANT OR ACUTE FINDINGS. EVIDENCE OF ACUTE STROKE: NO. Modified Barium Swallow 03/04/19 00:00 IMPRESSION: NO EVIDENCE OF PENETRATION OR ASPIRATION. PLEASE SEE SPEECH PATHOLOGIST REPORT FOR OTHER FINDINGS AND RECOMMENDATIONS. Assessment and Plan - Diagnosis (1) Acute and chronic respiratory failure with hypoxia Is this a current diagnosis for this admission?: Yes Plan: Multifactorial from COPD exacerbation, CHF exacerbation and pneumonia. 03/06: Weaned off BiPAP. Saturating well on 3 L via nasal cannula. She is on 2.5 L of home O2. She says her breathing continued to improve. 03/07: Doing well on home O2 requirement (2.5 L). (2) Atrial fibrillation Is this a current diagnosis for this admission?: Yes Plan: 03/05: Wean off Cardizem drip overnight. Discussed with cardiology. Increase metoprolol to 100 mg every 12. Tolerating Xarelto well. 03/06: She went into RVR last night and was given IV Cardizem push. She was also started on p.o. Cardizem. Heart rate running in the 80s but occasionally goes up to 110s when she ambulates. Cardiology following. Continue PO cardizem and metoprolol. 03/07: Discussed with cardiology and Cardizem PO has been increased to 60 mg every 8. (3) Acute on chronic diastolic congestive heart failure Is this a current diagnosis for this admission?: Yes Plan: Echocardiogram shows ejection fraction 30-35%. On Entresto. Continue metoprolol. (4) Pneumonia Is this a current diagnosis for this admission?: Yes Plan: Continue IV antibiotics. 03/07: Switch to PO Levaquin. (5) Chronic obstructive pulmonary disease (COPD) Qualifiers: COPD type: unspecified COPD Qualified Code(s): J44.9 - Chronic obstructive pulmonary disease, unspecified Is this a current diagnosis for this admission?: Yes Plan: Keep breathing treatments prn due to tachycardia/Afib. 2: Continue prednisone. - Plan Summary Summary: Patient is admitted to a telemetry bed where she will receive usual supportive and symptomatic cares. She will be treated with IV Bumex 1 mg every 6 hours to help resolve her acute congestive heart failure. She will also receive supplemental oxygen utilizing nasal cannula and or noninvasive airway pressure support devices such as CPAP or BiPAP to obtain an adequate oxygen saturation and avoid hypercapnia. She will receive morphine sulfate 2 mg IV every 1 hour PRN severe dyspnea. She will receive a pulmonary toilet utilizing Atrovent and Pulmicort and will be maintained on antibiotic therapy for possible pneumonia/pneumonitis with Levaquin 750 mg p.o. daily x4 days. Patient will be continued on her usual home medications as soon as her medication reconciliation has been verified and completed. A packaging materials inspector consultation will be obtained to counselling psychologist the patient on her obesity and possible diet interventions. Patient will be continued on her cardiac and diabetic restricted diet. Before meals and at bedtime Accu-Cheks will be obtained with sliding scale insulin used for control of hyperglycemia and a hypoglycemic protocol in place. - Time Time Spent with patient: 25-34 minutes
[2019-03-07] MEDS: HYDROCODONE/ACETAMINOPHEN 5-325 MG TABLET PO PRN (17:23)
[2019-03-07] MEDS: RIVAROXABAN 10 MG TABLET PO SCH (17:25)
[2019-03-07] MEDS ORDERED: VANCOMYCIN HCL 1,000 MG in DEXTROSE 5%-WATER 250 ML IV SCH (18:00)
[2019-03-07] MEDS ORDERED: VANCOMYCIN HCL 1,000 MG in NORMAL SALINE 250 ML IV SCH (18:00)
--- NOTE | 2019-03-07 19:07 | Progress Note ---
Provider Note Provider Note: CARDIOLOGY PROGRESS NOTE by Dr. Hillary Holder on 03/07/2019. Subjective: Patient Is Making Slow Improvement. She Denies Shortness of Breath at Rest. But with the Walking to the Bathroom She Has Shortness of Breath and Her Heart Rate Goes up into the 140s. She Has No Chest Pain Discomfort. There Is No PND Orthopnea. There Is No Ventricular Arrhythmias Seen. There Is No Bleeding on Eliquis. There Is No TIA CVA Symptoms. Physical EXAMINATION: The patient is morbidly obese in no acute distress. Selected Entries 03/07/19 03/07/19 11:00 11:09 Temperature 97.8 F Temperature Oral Source Heart Rate ( 85 Monitors) Respiratory 17 Rate Blood Pressure 109/57 L Blood Pressure 74 Mean BP Location Right Arm BP Position Supine O2 Sat by Pulse 96 Oximetry Oxygen Flow 2.00 Rate Oxygen Delivery Nasal Cannula Method HEAD: Is atraumatic. Normocephalic. EYES: Pupils are equal round regular reactive to light and accommodation. Extraocular movements are normal there is no conjunctival pallor. There is no scleral icterus. EARS: Tympanic membranes are intact. External auditory canals are clear. NOSE: There is no deviated nasal septum. There is no inflammation of the nasal mucous membrane. MOUTH: There is no ulcers in the mouth. Mucous membranes of the mouth are moist. THROAT: There is no redness of the oropharynx. There is no exudates. SKIN: There is no skin rashes. There is no petechia or ecchymosis. NECK: Is supple. There is mild JVD present. Carotids are equal there is no bruit. There is no lymphadenopathy. There is no goiter. There is no accessory muscle respiration use. Trachea is central. LUNGS: Shows diminished air entry prolonged expiration. There is scattered end expiratory wheezing and rhonchi. There is "Velcro" [E] rales of pulmonary fibrosis bilaterally in the bases. There is a few fine rales of CHF. HEART: S1-S2 is heard. There is no S3 gallop. There is no S4 gallop. There is systolic murmur of tricuspid regurgitation and mild mitral regurgitation murmur present. There is no S3 gallop. There is no S4 gallop. There is no rub. ABDOMEN: Is obese. Nontender. There is no paraspinal megaly. Bowel sounds are well heard. EXTREMITIES: Femorals are deep. Femorals are diminished there is no femoral bruits. Leg pulses are diminished. There is 1+ bilateral edema. There is no DVT or cellulitis. There is no cyanosis or clubbing. There is no calf tenderness. RESEARCH ASST: The patient is conscious awake alert oriented x3 with no focal deficit. PSYCHIATRIC:. The patient judgment insight are intact her affect is normal. IMPRESSION/RECOMMENDATION: 1. Acute lacunar infarct by CT scan of the head. But MRI shows that there is old lacunar infarct. The patient has no signs or symptoms of a CVA. 2.Acute on chronic respiratory failure. Continue supplemental oxygen, and curre nt anti-COPD medication. This is improved. 3. Acute infective bronchitis/possible right lower lobe pneumonia: Continue current treatment including antibiotics. 4. Intermittent altered sensorium with somnolence since most likely secondary to hypercapnia, but would also recommend getting the patient a CT of the head to make sure there is no acute intracranial pathology. This is resolved. 5. Most likely acute on chronic systolic heart failure: Continue diuretics, in view of the patient's current current wheezing will not start the patient on Toprol-XL at present. We will start the patient on Entresto. If tachycardia persists will give 1 dose of digoxin. The patient still has some wheezing and hence we will start not start Toprol-XL will try from tomorrow. 6. Pulmonary fibrosis.? Right lower lobe pneumonia. We will repeat the patient's chest x-ray in a.m. 7. History of asthma and COPD. 8. Hypertension: Continue current medication. Increase Entresto as tolerated. Later would add a beta-les. 9. Atrial flutter. There is also right bundle branch block pattern and left anterior fascicular block. [Bifascicular block]. 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 Will increase the patient's Toprol- XL to 50 mg p.o. every 12 hours. In view of the cardiomyopathy we will continue patient on Entresto. In view of the patient's heart rate still being up we will start the patient on IV Cardizem infusion at 7.5 mg/h. Also her old records from [place] were reviewed. There is one EKG done which is suspicious for atrial flutter although the official reading is sinus tachycardia. But I strongly believe that that EKG is atrial flutter, and hence the patient has had longstanding atrial fibrillation or at least intermittent paroxysmal atrial fibrillation since 2017, the data of that prior EKG from [place]. The patient's Cardizem drip has been discontinued. The patient Toprol will be increased 200 mg p.o. every 12 hours. Once heart rate is adequately controlled for a period of time, then would repeat the patient's echocardiogram to see if indeed the patient's cardiomyopathy is secondary to tachycardia induced cardiomyopathy. This has been discussed with the patient. Since the patient's heart rate does go up will increase the patient's Cardizem to 60 mg p.o. every 8 hours. 10. Diabetes mellitus type 2 [id number]. 11. Hypothyroidism:: Continue thyroid replacement. Note the patient's repeat TSH is normal, and free T3 and free T4 are normal... 12 Moderate to severe tricuspid regurgitation. At least moderate pulmonary hypertension with right ventricle systolic pressure of 53 to 58 mmHg. 13. 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 But will reassess. We will treat the patient with beta-les and Entresto. Will increase the patient's Entresto. 14. With history of pulmonary embolism: Patient states she is on Xarelto. Will continue Xarelto. 15. History of breast cancer status post bilateral mastectomies and chemotherapy and radiation treatment. 16. History of multiple abdominal surgeries. 17. Morbid obesity. Medications reviewed. Medical regimen and management plan discussed with the hospitalist Dr. Ling. Medical decision making is of high complexity, in view of the need to adjust medications.. 40 minutes spent on this patient more than 50% of time spent in direct patient care. Will follow.
[2019-03-07] MEDS: DILTIAZEM HCL 60 MG TABLET PO SCH (21:36)
[2019-03-08] MEDS: ACETYLCYSTEINE 20% SOLN 800 MG/4 ML VIAL.NEB NEB SCH ×3 (01:14→16:26)
[2019-03-08] MEDS: PREGABALIN 100 MG CAPSULE PO SCH ×3 (05:52→22:36)
[2019-03-08] MEDS: DILTIAZEM HCL 60 MG TABLET PO SCH ×2 (05:52→13:23)
[2019-03-08] MEDS: LEVOTHYROXINE SODIUM 0.05 MG TABLET PO SCH (05:52)
[2019-03-08] MEDS: INSULIN REG, HUMAN 100 UNIT/ML 3 ML VIAL (PYX) SUBCUT SCH ×4 (07:51→22:36)
[2019-03-08] MEDS: BUDESONIDE NEB 0.5 MG/2 ML AMPUL NEB SCH ×2 (09:21→20:32)
[2019-03-08] MEDS: LEVALBUTEROL HCL NEB 1.25 MG/3 ML AMPUL NEB PRN ×2 (09:21→16:26)
[2019-03-08] MEDS: DOCUSATE SODIUM 100 MG CAPSULE PO SCH ×2 (09:53→17:35)
[2019-03-08] MEDS: LEVOFLOXACIN 500 MG TABLET PO SCH (09:53)
[2019-03-08] MEDS: PREDNISONE 20 MG TABLET PO SCH ×2 (09:53→17:33)
[2019-03-08] MEDS: FAMOTIDINE 20 MG TABLET PO SCH ×2 (09:53→22:36)
[2019-03-08] MEDS: SACUBITRIL/VALSARTAN 49 MG/51 MG TABLET PO SCH ×2 (09:53→22:35)
[2019-03-08] MEDS: METOPROLOL SUCCINATE 50 MG TAB.SR.24H PO SCH ×2 (09:53→22:36)
[2019-03-08] MEDS ORDERED: DIGOXIN INJ 0.5 MG/2 ML AMPULE ONE (13:17)
[2019-03-08] MEDS ORDERED: DILTIAZEM HCL 30 MG TABLET PO ONE (14:30)
[2019-03-08] MEDS: HYDROCODONE/ACETAMINOPHEN 5-325 MG TABLET PO PRN ×2 (14:38→22:39)
--- NOTE | 2019-03-08 15:15 | PDOC PROGRESS REPORT ---
Subjective Progress Note for:: 03/08/19 Subjective:: This is a 78-year-old female with chronic respiratory failure, COPD, history of PE, congestive heart failure and history of pulmonary fibrosis initially presented with increasing shortness of breath. She was admitted for acute and chronic asthma hypoxic respiratory failure multifactorial from CHF exacerbation, right lobe pneumonia and COPD exacerbation. On the floor she developed atrial fibrillation with RVR. She reportedly had confusion and there was initial concern for possible CVA. She was subsequently transferred to the ICU. She was seen by cardiology. She was also started on Cardizem drip. She was downgraded to the floor yesterday 03/04. 03/05: She was weaned off Cardizem drip overnight. Upon encounter, she is currently saturating well and comfortable on BiPAP. She denies chest pain. She says her shortness of breath continue to improve. Heart rate running in the 110s-120s. 03/06: She went into RVR last night and was given IV Cardizem push. She was also started on p.o. Cardizem. She continues to feel better. Weaned off BiPAP. Saturating well on 3 L via nasal cannula. She is on 2.5 L of home O2. She says her breathing continued to improve. Heart rate running in the 80s but occasionally goes up to 110s when she ambulates. 03/07: She continues to improve and feel better. She does still have a few episodes of getting tachycardic when she ambulates but overall heart rate has improved. Discussed with cardiology and Cardizem PO has been increased to 60 mg every 8. 03/08: No acute event overnight. She feels like she is at her baseline. Denies chest pain or shortness of breath. Heart rate went up to the 130s on ambulation. Cardiology has increased p.o. Cardizem to 90 every 8. She was also given digoxin. Anticipate discharge in the next 24 hours once heart rate continues to be optimized. Reason For Visit: ACUTE ON CHRONIC DISTOLIC CONGESTIVE HEART FAILURE Physical Exam Vital Signs: Temp Pulse Resp BP Pulse Ox 97.5 F 81 18 110/73 100 03/08/19 11:08 03/08/19 11:08 03/08/19 11:08 03/08/19 11:08 03/08/19 11:08 Intake & Output 03/07/19 03/08/1920 06:59 06:59 06:59 Intake Total 1410 1380 Output Total 950 600 Balance 460 780 Weight 237 lb 7.005 oz 233 lb 3.985 oz General appearance: PRESENT: no acute distress, well-developed, well-nourished Head exam: PRESENT: atraumatic, normocephalic Eye exam: PRESENT: conjunctiva pink, EOMI, PERRLA. ABSENT: scleral icterus Ear exam: PRESENT: normal external ear exam Mouth exam: PRESENT: moist, tongue midline Neck exam: ABSENT: carotid bruit, JVD, lymphadenopathy, thyromegaly Respiratory exam: PRESENT: clear to auscultation rick. ABSENT: rales, rhonchi, wheezes Cardiovascular exam: PRESENT: irregular rhythm, tachycardia. ABSENT: systolic murmur Pulses: PRESENT: normal dorsalis pedis pul GI/Abdominal exam: PRESENT: normal bowel sounds, soft. ABSENT: distended, guarding, mass, organolmegaly, rebound, tenderness Rectal exam: PRESENT: deferred Neurological exam: PRESENT: alert, awake, oriented to person, oriented to place, oriented to time, oriented to situation, CN II-XII grossly intact. ABSENT: motor sensory deficit Results Laboratory Results: 03/05/19 05:46 03/07/19 11:30 03/03/19 09:40 Blood Blood Culture - Final NO GROWTH IN 5 DAYS 03/03/19 09:52 Blood Blood Culture - Final NO GROWTH IN 5 DAYS 02/26/19 02/26/19 02/26/19 20:45 20:45 23:14 Creatine Kinase 46 Troponin I 0.025 0.027 NT-Pro-B Natriuret Pep 2580 H 02/27/19 02/27/19 03/02/19 05:05 11:08 07:58 Creatine Kinase Troponin I 0.027 0.024 0.015 NT-Pro-B Natriuret Pep Impressions: Head CT 03/02/19 00:00 IMPRESSION: No hemorrhage. 9 mm ovoid hyperdensity in the left cerebellar hemisphere suggesting lacunar infarction, possibly acute. EVIDENCE OF ACUTE STROKE: YES. LEFT VERTEBROBASILAR Brain MRI with MRA 03/03/19 00:00 IMPRESSION: NORMAL MRA OF THE [place]. Carotid Doppler Study 03/03/19 00:00 IMPRESSION: NO HEMODYNAMICALLY SIGNIFICANT STENOSIS. Chest X-Ray 03/03/19 00:00 IMPRESSION: STABLE CHRONIC CHANGES. NO ACUTE RADIOGRAPHIC FINDING IN THE CHEST. Head MRI 03/03/19 00:00 IMPRESSION: OLD LACUNAR INFARCT IN THE LEFT CEREBELLAR HEMISPHERE. NO OTHER SIGNIFICANT OR ACUTE FINDINGS. EVIDENCE OF ACUTE STROKE: NO. Modified Barium Swallow 03/04/19 00:00 IMPRESSION: NO EVIDENCE OF PENETRATION OR ASPIRATION. PLEASE SEE SPEECH PATHOLOGIST REPORT FOR OTHER FINDINGS AND RECOMMENDATIONS. Assessment and Plan - Diagnosis (1) Acute and chronic respiratory failure with hypoxia Is this a current diagnosis for this admission?: Yes Plan: Multifactorial from COPD exacerbation, CHF exacerbation and pneumonia. 03/06: Weaned off BiPAP. Saturating well on 3 L via nasal cannula. She is on 2.5 L of home O2. She says her breathing continued to improve. 03/07: Doing well on home O2 requirement (2.5 L). (2) Atrial fibrillation Is this a current diagnosis for this admission?: Yes Plan: 03/05: Wean off Cardizem drip overnight. Discussed with cardiology. Increase metoprolol to 100 mg every 12. Tolerating Xarelto well. 03/06: She went into RVR last night and was given IV Cardizem push. She was also started on p.o. Cardizem. Heart rate running in the 80s but occasionally goes up to 110s when she ambulates. Cardiology following. Continue PO cardizem and metoprolol. 03/07: Discussed with cardiology and Cardizem PO has been increased to 60 mg every 8. 03/08: Heart rate went up to the 130s on ambulation. Cardiology has increased p.o. Cardizem to 90 every 8. She was also given digoxin. Anticipate discharge in the next 24 hours once heart rate continues to be optimized. (3) Acute on chronic diastolic congestive heart failure Is this a current diagnosis for this admission?: Yes Plan: Echocardiogram shows ejection fraction 30-35%. On Entresto. Continue metoprolol. (4) Pneumonia Is this a current diagnosis for this admission?: Yes Plan: Continue IV antibiotics. 03/07: Switch to PO Levaquin. (5) Chronic obstructive pulmonary disease (COPD) Qualifiers: COPD type: unspecified COPD Qualified Code(s): J44.9 - Chronic obstructive pulmonary disease, unspecified Is this a current diagnosis for this admission?: Yes Plan: Keep breathing treatments prn due to tachycardia/Afib. 1/2: Continue prednisone. - Plan Summary Summary: Patient is admitted to a telemetry bed where she will receive usual supportive and symptomatic cares. She will be treated with IV Bumex 1 mg every 6 hours to help resolve her acute congestive heart failure. She will also receive supplemental oxygen utilizing nasal cannula and or noninvasive airway pressure support devices such as CPAP or BiPAP to obtain an adequate oxygen saturation and avoid hypercapnia. She will receive morphine sulfate 2 mg IV every 1 hour PRN severe dyspnea. She will receive a pulmonary toilet utilizing Atrovent and Pulmicort and will be maintained on antibiotic therapy for possible pneumonia/pneumonitis with Levaquin 750 mg p.o. daily x4 days. Patient will be continued on her usual home medications as soon as her medication reconciliation has been verified and completed. A cone winder consultation will be obtained to alcohol and drug counselor the patient on her obesity and possible diet interventions. Patient will be continued on her cardiac and diabetic restricted diet. Before meals and at bedtime Accu-Cheks will be obtained with sliding scale insulin used for control of hyperglycemia and a hypoglycemic protocol in place. - Time Time Spent with patient: 25-34 minutes
[2019-03-08] MEDS: RIVAROXABAN 10 MG TABLET PO SCH (16:27)
--- NOTE | 2019-03-08 21:18 | Progress Note ---
Provider Note Provider Note: CARDIOLOGY PROGRESS NOTE by Dr. Hillary Melton on 03/08/2019. OBJECTIVE: The patient denies any shortness of breath or chest pain. There is no PND orthopnea. She still has a cough but unable to produce any mucus or sputum. She states yesterday she coughed up a glob of sputum. There is no wheezing. The patient's heart rate when she went to the bathroom and came back went into 130s and stayed in the 130 bpm with the patient still being in atrial flutter. The patient was given 0.125 mg of digoxin intravenously for 1 dose. Subsequently the patient was given Cardizem 30 mg p.o. x1 dose and Cardizem has been increased to 90 mg p.o. every 8 hours. Will later transition this to a long-acting preparation. There is no bleeding on Xarelto. There is no TIA CVA symptoms. There is no ventricular arrhythmias seen. PHYSICAL EXAMINATION: The patient is morbidly obese. In no acute distress. Selected Entries 03/08/19 15:03 Temperature 97.7 F Temperature Oral Source Pulse Rate 78 Respiratory 17 Rate Blood Pressure 119/62 Blood Pressure 81 Mean BP Location Right Arm BP Position Supine O2 Sat by Pulse 100 Oximetry Oxygen Flow 2.00 Rate Oxygen Delivery Nasal Cannula Method HEAD: Is atraumatic. Normocephalic. EYES: Pupils are equal round regular react avinash to light and accommodation. Extraocular movements are normal there is no conjunctival pallor. There is no scleral icterus. EARS: Tympanic membranes are intact. External auditory canals are clear. NOSE: There is no deviated nasal septum. There is no inflammation of the nasal mucous membrane. MOUTH: There is no ulcers in the mouth. Mucous membranes of the mouth are moist. THROAT: There is no redness of the oropharynx. There is no exudates. SKIN: There is no skin rashes. There is no petechia or ecchymosis. NECK: Is supple. There is mild JVD present. Carotids are equal there is no bruit. There is no lymphadenopathy. There is no goiter. There is no accessory muscle respiration use. Trachea is central. LUNGS: Shows diminished air entry prolonged expiration. There is scattered end expiratory wheezing and rhonchi. There is "Velcro" [E] rales of pulmonary fibrosis bilaterally in the bases. There is a few fine rales of CHF. HEART: S1-S2 is heard. There is no S3 gallop. There is no S4 gallop. There is systolic murmur of tricuspid regurgitation and mild mitral regurgitation murmur present. There is no S3 gallop. There is no S4 gallop. There is no rub. ABDOMEN: Is obese. Nontender. There is no paraspinal megaly. Bowel sounds are well heard. EXTREMITIES: Femorals are deep. Femorals are diminished there is no femoral bruits. Leg pulses are diminished. There is 1+ bilateral edema. There is no DVT or cellulitis. There is no cyanosis or clubbing. There is no calf tenderness. FLIGHT RADIO OPERATOR: The patient is conscious awake alert oriented x3 with no focal deficit. PSYCHIATRIC:. The patient judgment insight are intact her affect is normal. Labs- All tests 24 hr 03/07/19 03/08/19 03/08/19 21:07 07:38 11:11 POC Glucose 226 H 143 H 193 H 03/08/19 15:05 POC Glucose 265 H Chest X-Ray 02/26/19 19:52 IMPRESSION: Equivocal right basilar airspace opacity. There is elevation right hemidiaphragm. Cardiac megaly copyright 2011 [employer]- All Rights Reserved Chest X-Ray 03/02/19 00:00 IMPRESSION: Chronic lung changes, stable appearance. Head CT 03/02/19 00:00 IMPRESSION: No hemorrhage. 9 mm ovoid hyperdensity in the left cerebellar hemisphere suggesting lacunar infarction, possibly acute. EVIDENCE OF ACUTE STROKE: YES. LEFT VERTEBROBASILAR Brain MRI with MRA 03/03/19 00:00 IMPRESSION: NORMAL MRA OF [place]. Carotid Doppler Study 03/03/19 00:00 IMPRESSION: NO HEMODYNAMICALLY SIGNIFICANT STENOSIS. Chest X-Ray 03/03/19 00:00 IMPRESSION: STABLE CHRONIC CHANGES. NO ACUTE RADIOGRAPHIC FINDING IN THE CHEST. Head MRI 03/03/19 00:00 IMPRESSION: OLD LACUNAR INFARCT IN THE LEFT CEREBELLAR HEMISPHERE. NO OTHER SIGNIFICANT OR ACUTE FINDINGS. EVIDENCE OF ACUTE STROKE: NO. Modified Barium Swallow 03/04/19 00:00 IMPRESSION: NO EVIDENCE OF PENETRATION OR ASPIRATION. PLEASE SEE SPEECH PATHOLOGIST REPORT FOR OTHER FINDINGS AND RECOMMENDATIONS. IMPRESSION/RECOMMENDATION: 1. Acute lacunar infarct by CT scan of the head. But MRI shows that there is old lacunar infarct. The patient has no signs or symptoms of a CVA. 2.Acute on chronic respiratory failure. Continue supplemental oxygen, and current anti-COPD medication. This is improved. 3. Acute infective bronchitis/possible right lower lobe pneumonia: Continue current treatment including antibiotics. 4. Intermittent altered sensorium with somnolence since most likely secondary to hypercapnia, but would also recommend getting the patient a CT of the head to make sure there is no acute intracranial pathology. This is resolved. 5. Most likely acute on chronic systolic heart failure: Continue diuretics, in view of the patient's current current wheezing will not start the patient on Toprol-XL at present. We will start the patient on Entresto. If tachycardia persists will give 1 dose of digoxin. The patient still has some wheezing and hence we will start not start Toprol-XL will try from tomorrow. 6. Pulmonary fibrosis.? Right lower lobe pneumonia. We will repeat the patient's chest x-ray in a.m. 7. History of asthma and COPD. 8. Hypertension: Continue current medication. Increase Entresto as tolerated. Later would add a beta-les. 9. Atrial flutter. There is also right bundle branch block pattern and left anterior fascicular block. [Bifascicular block]. 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 Will increase the patient's Toprol- XL to 100 mg p.o. every 12 hours. In view of the cardiomyopathy we will continue patient on Entresto. The patient's Cardizem drip has been discontinued. The patient Toprol will be increased 200 mg p.o. every 12 hours. Once heart rate is adequately controlled for a period of time, then would repeat the patient's echocardiogram to see if indeed the patient's cardiomyopathy is secondary to tachycardia induced cardiomyopathy. This has been discussed with the patient. Since the patient's heart rate does go up will increase the patient's Cardizem to 90 mg p.o. every 8 hours. From tomorrow will change to Cardizem CD 180 mg p.o. every 12 hours. 10. Diabetes mellitus type 2 [id number]. 11. Hypothyroidism:: Continue thyroid replacement. Note the patient's repeat TSH is normal, and free T3 and free T4 are normal... 12 Moderate to severe tricuspid regurgitation. At least moderate pulmonary hypertension with right ventricle systolic pressure of 53 to 58 mmHg. 13. 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 But will reassess. We will treat the patient with beta-les and Entresto. Will increase the patient's Entresto. 14. With history of pulmonary embolism: Patient states she is on Xarelto. Will continue Xarelto. 15. History of breast cancer status post bilateral mastectomies and chemotherapy and radiation treatment. 16. History of multiple abdominal surgeries. 17. Morbid obesity. Patient is anxious to go home. We will see if we can discharge the patient tomorrow subjective heart rate being controlled. Occasions reviewed. Medical regimen adjusted with increasing his dosages of medications. Medical regimen and management plan discussed with the attending provider on the case. Discussed the plan with the patient and patient's family. Medical decision making is of high complexity. 40 minutes spent as patient with more than 50% time spent in direct patient care.
[2019-03-08] MEDS: DILTIAZEM HCL 90 MG TABLET PO SCH (22:35)
[2019-03-09] MEDS: LEVALBUTEROL HCL NEB 1.25 MG/3 ML AMPUL NEB PRN ×2 (01:06→07:52)
[2019-03-09] MEDS: ACETYLCYSTEINE 20% SOLN 800 MG/4 ML VIAL.NEB NEB SCH ×2 (01:06→07:52)
[2019-03-09] MEDS: PREGABALIN 100 MG CAPSULE PO SCH ×2 (06:13→13:04)
[2019-03-09] MEDS: DILTIAZEM HCL 90 MG TABLET PO SCH ×2 (06:13→13:04)
[2019-03-09] MEDS: LEVOTHYROXINE SODIUM 0.05 MG TABLET PO SCH (06:13)
[2019-03-09] MEDS: BUDESONIDE NEB 0.5 MG/2 ML AMPUL NEB SCH (07:52)
[2019-03-09] MEDS: INSULIN REG, HUMAN 100 UNIT/ML 3 ML VIAL (PYX) SUBCUT SCH ×2 (08:24→11:56)
[2019-03-09] MEDS: SACUBITRIL/VALSARTAN 49 MG/51 MG TABLET PO SCH (10:22)
[2019-03-09] MEDS: PREDNISONE 20 MG TABLET PO SCH (10:22)
[2019-03-09] MEDS: FAMOTIDINE 20 MG TABLET PO SCH (10:23)
[2019-03-09] MEDS: LEVOFLOXACIN 500 MG TABLET PO SCH (10:23)
[2019-03-09] MEDS: METOPROLOL SUCCINATE 50 MG TAB.SR.24H PO SCH (10:23)
[2019-03-09] MEDS: DOCUSATE SODIUM 100 MG CAPSULE PO SCH (10:23)
[2019-03-09 13:28] VITALS: BP 110/59
--- NOTE | 2019-03-09 14:45 | Progress Note ---
Provider Note Provider Note: CARDIOLOGY PROGRESS NOTE by Dr. Hillary Holder on 03/09/2019. SUBJECTIVE: The patient heart rate is well controlled. She is on metoprolol 100 mg p.o. twice daily and also she is on Cardizem 90 mg p.o. every 6 hours. She denies any chest pain or discomfort. There is no shortness of breath. There is no PND orthopnea. She continues to be in atrial flutter with controlled ventricular response. She is on Xarelto with no bleeding complications. There is no TIA CVA symptoms. There is no leg edema. There is no ventricular arrhythmia seen on the monitor. There is no high-grade AV blocks. PHYSICAL EXAMINATION: The patient is morbidly obese. In no acute distress. Selected Entries 03/09/19 03/09/19 11:10 13:26 Temperature 97.9 F Pulse Rate 88 Respiratory 17 Rate Blood Pressure 109/70 [Left Lower Arm ] Blood Pressure 110/59 L [Left Upper Arm ] O2 Sat by Pulse 97 Oximetry Oxygen Flow 2.00 Rate Oxygen Delivery Nasal Cannula Method HEAD: Is atraumatic. Normocephalic. EYES: Pupils are equal round regular reactive to light and accommodation. Extraocular movements are normal there is no conjunctival pallor. There is no scleral icterus. EARS: Tympanic membranes are intact. External auditory canals are clear. NOSE: There is no deviated nasal septum. There is no inflammation of the nasal mucous membrane. MOUTH: There is no ulcers in the mouth. Mucous membranes of the mouth are moist. THROAT: There is no redness of the oropharynx. There is no exudates. SKIN: There is no skin rashes. There is no petechia or ecchymosis. NECK: Is supple. There is mild JVD present. Carotids are equal there is no bruit. There is no lymphadenopathy. There is no goiter. There is no accessory muscle respiration use. Trachea is central. LUNGS: Shows diminished air entry prolonged expiration. There is no expiratory wheezing or rhonchi. There is "Velcro" [E] rales of pulmonary fibrosis bilaterally in the bases. These are much less than prior examinations. There is a few fine rales of C a few HF. HEART: S1-S2 is heard. There is no S3 gallop. There is no S4 gallop. There is systolic murmur of tricuspid regurgitation and mild mitral regurgitation murmur present. There is no S3 gallop. There is no S4 gallop. There is no rub. ABDOMEN: Is obese. Nontender. There is no paraspinal megaly. Bowel sounds are well heard. EXTREMITIES: Femorals are deep. Femorals are diminished there is no femoral bruits. Leg pulses are diminished. There is 1+ bilateral edema. There is no DVT or cellulitis. There is no cyanosis or clubbing. There is no calf tenderness. LOT WORKER: The patient is conscious awake alert oriented x3 with no focal deficit. PSYCHIATRIC:. The patient judgment insight are intact her affect is normal. The patient's limited echocardiogram, only parasternal views obtained for the LV function but in the these limited views the LV ejection fraction seems to be of improved to 45%. There is moderate tricuspid regurgitation. With mild to moderate pulmonary hypertension, with right ventricle systolic pressure of 45 to 50 mmHg. Unfortunately the IVC has not been visualized. The right ventricle appears to be enlarged. This has been discussed with the patient and patient's granddaughter and, and Dr. Ling the hospitalist attending physician. Labs- All tests 24 hr 03/08/19 03/08/19 03/09/19 15:05 21:21 07:51 POC Glucose 265 H 248 H 153 H 03/09/19 11:21 POC Glucose 203 H Chest X-Ray 02/26/19 19:52 IMPRESSION: Equivocal right basilar airspace opacity. There is elevation right hemidiaphragm. Cardiac megaly copyright 2011 [employer]- All Rights Reserved Chest X-Ray 03/02/19 00:00 IMPRESSION: Chronic lung changes, stable appearance. Head CT 03/02/19 00:00 IMPRESSION: No hemorrhage. 9 mm ovoid hyperdensity in the left cerebellar hemisphere suggesting lacunar infarction, possibly acute. EVIDENCE OF ACUTE STROKE: YES. LEFT VERTEBROBASILAR Brain MRI with MRA 03/03/19 00:00 IMPRESSION: NORMAL MRA OF THE [place]. Carotid Doppler Study 03/03/19 00:00 IMPRESSION: NO HEMODYNAMICALLY SIGNIFICANT STENOSIS. Chest X-Ray 03/03/19 00:00 IMPRESSION: STABLE CHRONIC CHANGES. NO ACUTE RADIOGRAPHIC FINDING IN THE CHEST. Head MRI 03/03/19 00:00 IMPRESSION: OLD LACUNAR INFARCT IN THE LEFT CEREBELLAR HEMISPHERE. NO OTHER SIGNIFICANT OR ACUTE FINDINGS. EVIDENCE OF ACUTE STROKE: NO. Modified Barium Swallow 03/04/19 00:00 IMPRESSION: NO EVIDENCE OF PENETRATION OR ASPIRATION. PLEASE SEE SPEECH PATHOLOGIST REPORT FOR OTHER FINDINGS AND RECOMMENDATIONS. IMPRESSION/RECOMMENDATION: 1. Old cerebrovascular accident, with no residual effects. Acute lacunar infarct by CT scan of the head. But MRI shows that there is old lacunar infarct. The patient has no signs or symptoms of a CVA. 2.Acute on chronic respiratory failure. Continue supplemental oxygen, and current anti-COPD medication. This is improved. 3. Acute infective bronchitis/possible right lower lobe pneumonia: Continue current treatment including antibiotics. 4. Intermittent altered sensorium with somnolence since most likely secondary to hypercapnia, but would also recommend getting the patient a CT of the head to make sure there is no acute intracranial pathology. This is resolved. 5. Most likely acute on chronic systolic heart failure: Continue diuretics, in view of the patient's current current wheezing will not start the patient on Toprol-XL at present. We will start the patient on Entresto. If tachycardia persists will give 1 dose of digoxin. The patient still has some wheezing and hence we will start not start Toprol-XL will try from tomorrow. 6. Pulmonary fibrosis.? Right lower lobe pneumonia. We will repeat the patient's chest x-ray in a.m. 7. History of asthma and COPD. 8. Hypertension: Continue current medication. Increase Entresto as tolerated. Later would add a beta-les. 9. Atrial flutter. There is also right bundle branch block pattern and left anterior fascicular block. [Bifascicular block]. 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 Will increase the patient's Toprol- XL to 50 mg p.o. every 12 hours. In view of the cardiomyopathy we will continue patient on Entresto. In view of the patient's heart rate still being up we will start the patient on IV Cardizem infusion at 7.5 mg/h. Also her old records from [place] were reviewed. There is one EKG done which is suspicious for atrial flutter although the official reading is sinus tachycardia. But I strongly believe that that EKG is atrial flutter, and hence the patient has had longstanding atrial fibrillation or at least intermittent paroxysmal atrial fibrillation since 2017, the data of that prior EKG from [place]. The isaías bustos's Cardizem drip has been discontinued. The patient Toprol will be increased 100 mg p.o. every 12 hours. Her Cardizem is being converted to Cardizem CD 180 mg p.o. every 12 hours. 10. Diabetes mellitus type 2 [id number]. 11. Hypothyroidism:: Continue thyroid replacement. Note the patient's repeat TSH is normal, and free T3 and free T4 are normal... 12 Moderate to severe tricuspid regurgitation. At least moderate pulmonary hypertension with right ventricle systolic pressure of 53 to 58 mmHg. Repeat echocardiogram done shows that the tricuspid regurgitation now is of moderate severity. Right ventricle systolic pressure is 45 to 50 mmHg assuming RA mean of 5-10. This is much improved. 13. Cardiomyopathy with moderate to severely reduced ejection fraction earlier in the admission. Repeat echo today shows that the LV ejection fraction is close to 45% in limited views. 14. With history of pulmonary embolism: Patient states she is on Xarelto. Will continue Xarelto. 15. History of breast cancer status post bilateral mastectomies and chemotherapy and radiation treatment. 16. History of multiple abdominal surgeries. 17. Morbid obesity. Heart rate is well controlled. Medications reviewed medical regimen discussed with attending physician. The patient's cardiac status is stable. Medical decision making is of moderate complexity. 40 minutes spent on the patient with more than 50% time spent in direct patient care. I have discussed with the patient and the patient's granddaughter the future plans such as getting a 30- day event monitor to assess atrial flutter rate control. Also later would recommend that the patient have IV Lexiscan Cardiolite stress test in the office in view of the multiple CAD risk factors. Also her I have explained to the since the patient has been chronically on Xarelto the possibility if the patient's slowed heart rate shows typical atrial flutter will send her to EP cardiology for a possible opinion about ablation of the atrial flutter focus. The cardiac status is stable so the patient can be discharged home. Will follow the patient in the office. The patient and the granddaughter have my cell phone number, and will contact me if she has any chest pain, increasing shortness of breath, increasing heart rate or palpitations, dizziness, near syncope or syncope or any other new symptoms that may develop.
--- NOTE | 2019-03-09 18:04 | PDOC DISCHARGE SUMMARY ---
Impression - Admit/DC Date/PCP Admission Date/Primary Care Provider: 02/26/19 22:14 DESIRE BAILEY MD Discharge Date: 03/09/19 - Discharge Diagnosis (1) Acute and chronic respiratory failure with hypoxia Is this a current diagnosis for this admission?: Yes (2) Atrial fibrillation Is this a current diagnosis for this admission?: Yes (3) Acute on chronic diastolic congestive heart failure Is this a current diagnosis for this admission?: Yes (4) Pneumonia Is this a current diagnosis for this admission?: Yes (5) Chronic obstructive pulmonary disease (COPD) Is this a current diagnosis for this admission?: Yes - Additional Information Resuscitation Status: Full Code Discharge Diet: Cardiac, Diabetic Discharge Activity: Activity As Tolerated, Balance Activity w/Rest, Weigh Daily Referrals: CASEY QUESADA MD [ACTIVE STAFF] - IRMA KINGSTON MD [COMMUNITY BASED STAFF] - 05/15/19 3:20 pm DESIRE BAILEY MD [Primary Care Provider] - 03/20/19 1:00 pm () ASIA SHANKS MD [ACTIVE STAFF] - Prescriptions: Diltiazem HCl [Cardizem 90 mg Tablet] 90 mg PO Q8 #90 tablet Prednisone [Deltasone 10 mg Tablet] 10 mg PO BID 3 Days #6 tablet Sacubitril/Valsartan [Entresto 49 mg/51 mg Tablet] 1 tab PO Q12 #60 tablet Levofloxacin [Levaquin 500 mg Tablet] 500 mg PO DAILY 3 Days #3 tablet Metoprolol Succinate [Toprol Xl 50 mg Tab.sr] 100 mg PO Q12 #120 tab.sr.24h Home Medications: Fluticasone/Umeclidin/Vilanter [Trelegy 100-62.5-25 Mcg Ellipta 14 Dose/Dpi] 1 puff IH DAILY 02/27/19 Furosemide [Lasix 20 mg Tablet] 20 mg PO QAM 02/27/19 Glimepiride 2 mg PO DAILY 02/27/19 Hydrocodone/Acetaminophen [[place] 5-325 Tablet] 1 each PO Q6HP PRN 02/27/19 Levothyroxine Sodium [Synthroid 0.025 mg Tablet] 25 mcg PO DAILY 02/27/19 Potassium Chloride [Klor-Con M20] 20 meq PO DAILY 02/27/19 Pregabalin [Lyrica 100 mg Capsule] 100 mg PO TID 02/27/19 Rivaroxaban [Xarelto] 20 mg PO DAILY 02/27/19 Diltiazem HCl [Cardizem 90 mg Tablet] 90 mg PO Q8 #90 tablet 03/09/19 Levofloxacin [Levaquin 500 mg Tablet] 500 mg PO DAILY 3 Days #3 tablet 03/09/19 Metoprolol Succinate [Toprol Xl 50 mg Tab.sr] 100 mg PO Q12 #120 tab.sr.24h 03/09/19 Prednisone [Deltasone 10 mg Tablet] 10 mg PO BID 3 Days #6 tablet 03/09/19 Sacubitril/Valsartan [Entresto 49 mg/51 mg Tablet] 1 tab PO Q12 #60 tablet 03/09/19 History of Present Illiness History of Present Illness: Admitting hospitalist's H&P: KIMBERLY GAMEZ is a 78 year old female who presented to the emergency room with a one-week history of dyspnea. Patient admits gradually worsening dyspnea over the last 7 days with associated increase and bilateral lower extremity edema and significant worsening of her dyspnea with exertion. Her dyspnea became severe today causing her to present to the emergency room. She has been using her prescribed inhalers and continuous oxygen at home at 3 L/min via nasal cannula, without improvement. She also admits a chronic cough which has been occasionally productive of small amounts of greenish mucus. She denies other associated or accompanying signs and symptoms. She admits prior similar episodes related to her COPD and congestive heart failure. She has not identified any additional aggravating or ameliorating factors for her dyspnea. In the emergency room she was found to be hypoxic with a O2 sat of 86 on her usual oxygen at 3 L/min via nasal cannula. Her chest x-ray showed evidence of a right basilar opacity with an elevated right hemidiaphragm. Clinically the patient appears to have acute congestive heart failure based on her examination by the ER physician. He treated her with IV Lasix and also initiated antibiotic therapy for a possible pneumonia. Patient was subsequently admitted to the hospital for further evaluation and treatment. Hospital Course Hospital Course: This is a 78-year-old female with chronic respiratory failure, COPD, history of PE, congestive heart failure and history of pulmonary fibrosis initially presented with increasing shortness of breath. She was admitted for acute and chronic asthma hypoxic respiratory failure multifactorial from CHF exacerbation, right lobe pneumonia and COPD exacerbation. She was started on IV antibiotics and breathing treatments. On the floor she developed atrial fibrillation with RVR. She reportedly had confusion and there was initial concern for possible CVA. She was subsequently transferred to the ICU. She was seen by cardiology. She was also started on Cardizem drip. Hed MRI only showed an old lacunar infarct and the initial acute CVA was likely just overread. She was downgraded to the floor on 03/04. She was eventually weaned off Cardizem drip. Her rate controlling regimen was closely adjusted per cardiology recommendations. Her oral metoprolol was increased. Subsequently Cardizem oral was also added and was also increased per cardiology. Her A. flutter was eventually controlled and rate optimized. She returned to her baseline. She will closely follow-up with Dr. Valerio for possible stress testing and 30-day event monitor. Physical Exam Vital Signs: Temp Pulse Resp BP Pulse Ox 97.9 F 88 17 110/59 L 97 03/09/19 13:26 03/09/19 13:26 03/09/19 13:26 03/09/19 13:26 03/09/19 13:26 Intake & Output 03/08/19 03/09/19 03/10/19 06:59 06:59 06:59 Intake Total 1380 600 720 Output Total 600 0 0 Balance 780 600 720 Weight 233 lb 3.985 oz 231 lb 11.293 oz General appearance: PRESENT: no acute distress, well-developed, well-nourished Head exam: PRESENT: atraumatic, normocephalic Eye exam: PRESENT: conjunctiva pink, EOMI, PERRLA. ABSENT: scleral icterus Ear exam: PRESENT: normal external ear exam Mouth exam: PRESENT: moist, tongue midline Neck exam: ABSENT: carotid bruit, JVD, lymphadenopathy, thyromegaly Respiratory exam: PRESENT: clear to auscultation rick. ABSENT: rales, rhonchi, wheezes Cardiovascular exam: PRESENT: irregular rhythm. ABSENT: diastolic murmur, rubs, systolic murmur Pulses: PRESENT: normal dorsalis pedis pul GI/Abdominal exam: PRESENT: normal bowel sounds, soft. ABSENT: distended, guarding, mass, organolmegaly, rebound, tenderness Rectal exam: PRESENT: deferred Extremities exam: PRESENT: full ROM. ABSENT: calf tenderness, clubbing, pedal edema Neurological exam: PRESENT: alert, awake, oriented to person, oriented to place, oriented to time, oriented to situation, CN II-XII grossly intact. ABSENT: motor sensory deficit Results Laboratory Results: WBC 10.0 10^3/uL (4.0-10.5) 03/05/19 05:46 RBC 4.10 10^6/uL (3.72-5.28) 03/05/19 05:46 Hgb 13.2 g/dL (12.0-15.5) 03/05/19 05:46 Hct 38.2 % (36.0-47.0) 03/05/19 05:46 MCV 93 fl (80-97) 03/05/19 05:46 MCH 32.1 pg (27.0-33.4) 03/05/19 05:46 MCHC 34.4 g/dL (32.0-36.0) 03/05/19 05:46 RDW 14.6 % (11.5-14.0) H 03/05/19 05:46 Plt Count 163 10^3/uL (150-450) 03/05/19 05:46 Lymph % (Auto) Not Reportable 03/05/19 05:46 [place] % (Auto) Not Reportable 03/05/19 05:46 Eos % (Auto) Not Reportable 03/05/19 05:46 Baso % (Auto) Not Reportable 03/05/19 05:46 Absolute Neuts (auto) Not Reportable 03/05/19 05:46 Absolute Lymphs (auto) Not Reportable 03/05/19 05:46 Absolute Monos (auto) Not Reportable 03/05/19 05:46 Absolute Eos (auto) Not Reportable 03/05/19 05:46 Absolute Basos (auto) Not Reportable 03/05/19 05:46 Total Counted 100 03/05/19 05:46 Seg Neutrophils % Not Reportable 03/05/19 05:46 Seg Neuts % (Manual) 95 % (42-78) H 03/05/19 05:46 Band Neutrophils % 1 % (3-5) L 03/04/19 04:11 Lymphocytes % (Manual) 5 % (13-45) L 03/05/19 05:46 Monocytes % (Manual) 0 % (3-13) L 03/05/19 05:46 Eosinophils % (Manual) 0 % (0-6) 03/05/19 05:46 Basophils % (Manual) 0 % (0-2) 03/05/19 05:46 Abs Neuts (Manual) 9.5 10^3/uL (1.7-8.2) H 03/05/19 05:46 Abs Lymphs (Manual) 0.5 10^3/uL (0.5-4.7) 03/05/19 05:46 Abs Monocytes (Manual) 0.0 10^3/uL (0.1-1.4) L 03/05/19 05:46 Absolute Eos (Manual) 0.0 10^3/uL (0.0-0.6) 03/05/19 05:46 Abs Basophils (Manual) 0.0 10^3/uL (0.0-0.2) 03/05/19 05:46 Toxic Granulation SLIGHT 03/05/19 05:46 Platelet Comment ADEQUATE 03/05/19 05:46 Poikilocytosis SLIGHT 03/05/19 05:46 Anisocytosis SLIGHT 03/05/19 05:46 Ovalocytes SLIGHT 03/05/19 05:46 Schistocytes SLIGHT 03/05/19 05:46 RBC Morph Comment NORMO-CYTIC/CHROMIC 03/03/19 03:52 Carbonic Acid 1.89 mmol/L (1.05-1.35) H 03/03/19 04:55 HCO3/H2CO3 Ratio 17:1 03/03/19 04:55 ABG pH 7.34 (7.35-7.45) L 03/03/19 04:55 ABG pCO2 62.7 mmHg (35-45) H 03/03/19 04:55 ABG pO2 83.9 mmHg (80-100) 03/03/19 04:55 ABG HCO3 33.3 mmol/L (20-24) H 03/03/19 04:55 ABG Total CO2 35.2 mmol/L (21-25) H 03/03/19 04:55 ABG O2 Saturation 95.5 % (94-98) 03/03/19 04:55 ABG Base Excess 5.7 mmol/L 03/03/19 04:55 VBG pH 7.29 (7.30-7.42) L 03/02/19 14:30 VBG pCO2 85.8 mmHg (35-63) H* 03/02/19 14:30 VBG HCO3 40.7 mmol/L (20-32) H 03/02/19 14:30 VBG Base Excess 10.6 mmol/L 03/02/19 14:30 FiO2 3L 03/03/19 04:55 Sodium 138.0 mmol/L (137-145) 03/05/19 05:46 Potassium 4.3 mmol/L (3.6-5.0) 03/05/19 05:46 Chloride 96 mmol/L (98-107) L 03/05/19 05:46 Carbon Dioxide 36 mmol/L (22-30) H 03/05/19 05:46 Anion Gap 6 (5-19) 03/05/19 05:46 BUN 44 mg/dL (7-20) H 03/05/19 05:46 Creatinine 0.74 mg/dL (0.52-1.25) 03/07/19 11:30 Est GFR ( Amer) > 60 (>60) 03/07/19 11:30 Est GFR (MDRD) Non-Af > 60 (>60) 03/07/19 11:30 Glucose 180 mg/dL (75-110) H 03/05/19 05:46 POC Glucose 203 mg/dL (70-110) H 03/09/19 11:21 Hemoglobin A1c % 5.9 % (4.7-6.0) 02/28/19 04:51 Lactic Acid 0.5 mmol/L (0.7-2.1) L 02/26/19 21:58 Calcium 8.6 mg/dL (8.4-10.2) 03/05/19 05:46 Magnesium 1.7 mg/dL (1.6-2.3) 03/02/19 07:58 Total Bilirubin 0.4 mg/dL (0.2-1.3) 02/26/19 20:45 Direct Bilirubin 0.1 mg/dL (0.0-0.4) 02/26/19 20:45 Neonat Total Bilirubin Not Reportable 02/26/19 20:45 Neonat Direct Bilirubin Not Reportable 02/26/19 20:45 Neonat Indirect Bili Not Reportable 02/26/19 20:45 AST 22 U/L (14-36) 02/26/19 20:45 ALT 17 U/L (<35) 02/26/19 20:45 Alkaline Phosphatase 87 U/L (38-126) 02/26/19 20:45 Creatine Kinase 46 U/L (30-135) 02/26/19 20:45 Troponin I 0.015 ng/mL 03/02/19 07:58 NT-Pro-B Natriuret Pep 2580 pg/mL (<450) H 02/26/19 20:45 Total Protein 6.6 g/dL (6.3-8.2) 02/26/19 20:45 Albumin 3.6 g/dL (3.5-5.0) 02/26/19 20:45 Triglycerides 78 mg/dL (<150) 02/27/19 05:05 Cholesterol 117.26 mg/dL (0-200) 02/27/19 05:05 LDL Cholesterol Direct 52 mg/dL (<100) 02/27/19 05:05 VLDL Cholesterol 16.0 mg/dL (10-31) 02/27/19 05:05 HDL Cholesterol 48 mg/dL (>40) 02/27/19 05:05 TSH 2.27 uIU/mL (0.47-4.68) 03/01/19 04:38 Free T4 1.03 ng/dL (0.78-2.19) 03/01/19 04:38 Free T3 pg/mL 1.49 pg/mL (2.77-5.27) L 03/01/19 04:38 Time Trough Drawn 1130 03/07/19 11:30 Vancomycin Trough 6.2 ug/mL (5.0-20.0) 03/07/19 11:30 Digoxin 0.59 ng/mL (0.8-2.0) L 03/04/19 04:11 02/26/19 02/26/19 02/27/19 20:45 23:14 05:05 Troponin I 0.025 0.027 0.027 NT-Pro-B Natriuret Pep 2580 H 02/27/19 03/02/19 11:08 07:58 Troponin I 0.024 0.015 NT-Pro-B Natriuret Pep Impressions: Chest X-Ray 12/25/19 19:52 IMPRESSION: Equivocal right basilar airspace opacity. There is elevation right hemidiaphragm. Cardiac megaly copyright 2011 [employer]- All Rights Reserved Chest X-Ray 03/02/19 00:00 IMPRESSION: Chronic lung changes, stable appearance. Head CT 03/02/19 00:00 IMPRESSION: No hemorrhage. 9 mm ovoid hyperdensity in the left cerebellar hemisphere suggesting lacunar infarction, possibly acute. EVIDENCE OF ACUTE STROKE: YES. LEFT VERTEBROBASILAR Brain MRI with MRA 03/03/19 00:00 IMPRESSION: NORMAL MRA OF THE [place] OF [place]. Carotid Doppler Study 03/03/19 00:00 IMPRESSION: NO HEMODYNAMICALLY SIGNIFICANT STENOSIS. Chest X-Ray 03/03/19 00:00 IMPRESSION: STABLE CHRONIC CHANGES. NO ACUTE RADIOGRAPHIC FINDING IN THE CHEST. Head MRI 03/03/19 00:00 IMPRESSION: OLD LACUNAR INFARCT IN THE LEFT CEREBELLAR HEMISPHERE. NO OTHER SIGNIFICANT OR ACUTE FINDINGS. EVIDENCE OF ACUTE STROKE: NO. Modified Barium Swallow 03/04/19 00:00 IMPRESSION: NO EVIDENCE OF PENETRATION OR ASPIRATION. PLEASE SEE SPEECH PATHOLOGIST REPORT FOR OTHER FINDINGS AND RECOMMENDATIONS. Plan Goals: [facility] staff will call you Sunday03/10/2019 with an appointment date and time with , cardiology. Stroke Is this a Stroke Patient?: No Acute Heart Failure - Is this a Heart Failure Patient?: Yes Documentation of LVEF assessment?: Yes LVEF < 40%?: Yes-if yes answer questions a through e a) Discharged on ACEI?: N/A Discharged on ARNI b) Discharges on ARB?: N/A-Discharged on ARNI c) Discharged on ARNI?: Yes d) Discharged on evidence-based Beta les(carvedilol, sustained release metoprolol succinate, or bisoprolol)?: Yes e) For LVEF <35%, discharged on Aldosterone antagonist?: No-document contraincations
--- NOTE | 2019-03-11 18:33 | XCELERA REPORT ---
[address] [address] Transthoracic Echocardiogram Report Name: KIMBERLY GAMEZ Age: 78 yrs Gender: Female : 1940 Patient Status: Inpatient Patient Location: [facility]^A Study Date: 03/09/2019 11:35 AM Height: 60 in Weight: 231 lb BSA: 2.0 m2 Procedure: A two-dimensional transthoracic echocardiogram with color flow and Doppler was performed in limited views only. Study Quality: Fair. Reason For Study: ER, RVSP PER DR RODRIGUES History: CARDIOMYOPATHY / TR / PULMONARY HYPERTENSION. Ordering Physician: LENKA QUINONES Performed By: Arti Bradley Interpretation Summary Normal LV size.Only parasternal views obtained.There is moderate diffuse hypokinesis.LVEF is now 45% , which has improved. There is no tricuspid stenosis. There is a mild to moderate amount of tricuspid regurgitation There is mild to moderate pulmonary hypertension by echo RVSP is 45 to 50 mm of Hg , with RA mean of 5 to 10. MMode/2D Measurements & Calculations RVDd: 4.8 cm LVIDd: 5.2 cm FS: 31.3 % Ao root diam: 3.1 cm IVSd: 1.0 cm LVIDs: 3.6 cm EDV(Teich): 128.9 ml Ao root area: 7.7 cm2 LVPWd: 1.0 cm ESV(Teich): 53.2 ml LA dimension: 4.0 cm EF(Teich): 58.7 % Doppler Measurements & Calculations TR max brody: 317.1 cm/sec TR max P.2 mmHg Left Ventricle Normal LV size.Only parasternal views obtained.There is moderate diffuse hypokinesis.LVEF is now 45% , which has improved. Tricuspid Valve There is no tricuspid stenosis. There is a mild to moderate amount of tricuspid regurgitation. There is mild to moderate pulmonary hypertension by echo. RVSP is 45 to 50 mm of Hg , with RA mean of 5 to 10. : LENKA QUINONES, Hillary
== END 2019-03-09 14:00 | disposition home or self-care (01) | DRG 190 ==
LOC: ER 19:15 → EH 22:14 → 3W 02-27 03:12 → ICU 03-02 18:51 → 3S 03-04 16:15
PROVIDERS: ADMIT Internal Medicine; ATTEND Internal Medicine
PROC: 5A09357 Assistance with Respiratory Ventilation, Less than 24 Consecutive Hours, Continuous Positive Airway Pressure (ICD-10-PCS; principal; 2019-02-26)
DX: J44.0 Chronic obstructive pulmonary disease with (acute) lower respiratory infection (principal); J96.21 Acute and chronic respiratory failure with hypoxia; I50.33 Acute on chronic diastolic (congestive) heart failure; J18.1 Lobar pneumonia, unspecified organism; Z99.81 Dependence on supplemental oxygen; J84.10 Pulmonary fibrosis, unspecified; I11.0 Hypertensive heart disease with heart failure; J44.1 Chronic obstructive pulmonary disease with (acute) exacerbation; I48.91 Unspecified atrial fibrillation; E11.9 Type 2 diabetes mellitus without complications; E03.9 Hypothyroidism, unspecified; K44.9 Diaphragmatic hernia without obstruction or gangrene; M19.90 Unspecified osteoarthritis, unspecified site; E66.01 Morbid (severe) obesity due to excess calories; J20.9 Acute bronchitis, unspecified; Z79.84 Long term (current) use of oral hypoglycemic drugs; Z86.711 Personal history of pulmonary embolism; Z79.01 Long term (current) use of anticoagulants; Z85.3 Personal history of malignant neoplasm of breast; Z92.3 Personal history of irradiation; Z92.21 Personal history of antineoplastic chemotherapy; Z90.13 Acquired absence of bilateral breasts and nipples; Z79.899 Other long term (current) drug therapy; Z87.891 Personal history of nicotine dependence; Z83.3 Family history of diabetes mellitus; Z82.49 Family history of ischemic heart disease and other diseases of the circulatory system; Z80.9 Family history of malignant neoplasm, unspecified; Z88.6 Allergy status to analgesic agent; Z88.8 Allergy status to other drugs, medicaments and biological substances; Z68.35 Body mass index [BMI] 35.0-35.9, adult
CPT/HCPCS: 36415; 36600; 70450; 70544; 70551; 71045; 74230; 80048; 80053; 80061; 80162; 80202; 82550; 82565; 82803; 82962; 83036; 83605; 83735; 83880; 84439; 84443; 84481; 84484; 85025; 85027; 87040; 93005; 93010; 93306; 93321; 93880; 94660; 96374; 96375; 99285; 99291; J0456; J0692; J0696; J1160; J1644; J1815; J1940; J2270; J2405; J2550; J2765; J2920; J3370; J3490; J7050; J7060; J7512

== ENCOUNTER 2019-03-23 15:57 | Inpatient (IN) | payer MEDICARE ==
[2019-03-23 16:47] LABS: ABSOLUTE EOSINOPHILS # (AUTO) 0.1 10^3/uL (0.0-0.6); ABSOLUTE MONOCYTES (AUTO) 0.7 10^3/uL (0.1-1.4); ABSOLUTE NEUT (AUTO) 6.1 10^3/uL (1.7-8.2); BASOPHILS % (AUTO) 0.4 % (0-2); EOSINOPHILS % (AUTO) 1.8 % (0-6); HEMATOCRIT 33.5 % (36.0-47.0); HEMOGLOBIN 11.1 g/dL (12.0-15.5); LYMPHOCYTES % (AUTO) 12.5 % (13-45); MEAN CORPUSCULAR HEMOGLOBIN 31.5 pg (27.0-33.4); MEAN CORPUSCULAR HGB CONC 33.1 g/dL (32.0-36.0); MEAN CORPUSCULAR VOLUME 95 fl (80-97); MONOCYTES % (AUTO) 8.6 % (3-13); PLATELET COUNT 188 10^3/uL (150-450); RED BLOOD COUNT 3.53 10^6/uL (3.72-5.28); RED CELL DISTRIBUTION WIDTH 14.5 % (11.5-14.0); SEGMENTED NEUTROPHILS % (AUTO) 76.7 % (42-78); TOTAL CELLS COUNTED % (AUTO) 100 %; WHITE BLOOD COUNT 7.9 10^3/uL (4.0-10.5)
[2019-03-23 16:53] LABS: VENOUS BLOOD BASE EXCESS 9.2 mmol/L; VENOUS BLOOD PH 7.27 (7.30-7.42)
[2019-03-23 16:55] LABS: VENOUS BLOOD PCO2 89.1 mmHg (35-63)
[2019-03-23 16:59] LABS: INTERNATIONAL RATION (INR) 3.14; PROTHROMBIN TIME 32.9 SEC (11.4-15.4)
[2019-03-23 17:06] LABS: ALBUMIN 3.1 g/dL (3.5-5.0); ALKALINE PHOSPHATASE 88 U/L (38-126); ASPARTATE AMINO TRANSFERASE 21 U/L (14-36); BILIRUBIN,DIRECT 0.3 mg/dL (0.0-0.4); BILIRUBIN,TOTAL 0.4 mg/dL (0.2-1.3); BLOOD UREA NITROGEN 38 mg/dL (7-20); CALCIUM 9.1 mg/dL (8.4-10.2); CHLORIDE 94 mmol/L (98-107); GLUCOSE 118 mg/dL (75-110); TOTAL PROTEIN 6.4 g/dL (6.3-8.2)
[2019-03-23 17:18] LABS: CARBON DIOXIDE 39 mmol/L (22-30)
[2019-03-23 17:19] LABS: POTASSIUM 6.1 mmol/L (3.6-5.0)
--- NOTE | 2019-03-23 17:21 | RADIOLOGY REPORT (SQ) ---
EXAM DESCRIPTION: CHEST SINGLE VIEW COMPLETED DATE/TIME: 03/23/2019 4:50 pm REASON FOR STUDY: sepsis suspected COMPARISON: Chest x-ray 03/03/2019, 03/02/2019. CT chest 04/10/2018. EXAM PARAMETERS: NUMBER OF VIEWS: One view. TECHNIQUE: Single frontal radiographic view of the chest acquired. RADIATION DOSE: NA LIMITATIONS: None. FINDINGS: LUNGS AND PLEURA: There is elevation of the right hemidiaphragm. No consolidation, sizeab le pleural effusion or pneumothorax. Pleural thickening is noted at the right lung. MEDIASTINUM AND HILAR STRUCTURES: Stable appearance. HEART AND VASCULAR STRUCTURES: The heart is enlarged. There is mild central vascular congestion. BONES: No acute findings. HARDWARE: Surgical clips are noted at the axillary regions. IMPRESSION: Cardiomegaly and mild central vascular congestion. Elevation of the right hemidiaphragm . TECHNICAL DOCUMENTATION: JOB ID: [id number] [employer]- All Rights Reserved Reading location - IP/workstation name: [email or web address]
[2019-03-23 17:25] LABS: ANION GAP 4 (5-19)
[2019-03-23] MEDS ORDERED: DEXTROSE 50%-WATER 25 GM/50 ML DISP.SYRIN IV ONE (17:33)
[2019-03-23] MEDS ORDERED: INSULIN REG, HUMAN 100 UNIT/ML 3 ML VIAL (PYX) IV ONE (17:33)
[2019-03-23] MEDS ORDERED: NORMAL SALINE 500 ML IV ONE (17:40)
[2019-03-23] MEDS ORDERED: PATIROMER 8.4 GM SUSP PACKET ONE (18:13)
[2019-03-23] MEDS: PATIROMER 8.4 GM SUSP PACKET PO SCH (18:32)
--- NOTE | 2019-03-23 18:32 | EKG REPORT ---
SEVERITY:- ABNORMAL ECG - ATRIAL FLUTTER, A-RATE 245 RBBB AND LAFB PROBABLE LVH WITH SECONDARY REPOL ABNRM : Confirmed by: Hillary Holder MD 23-Mar-2019 18:32:00
[2019-03-23 18:37] LABS: ARTERIAL BLOOD BASE EXCESS 7.6 mmol/L; ARTERIAL BLOOD O2 SATURATION 98.1 % (94-98); ARTERIAL BLOOD PCO2 66.4 mmHg (35-45); ARTERIAL BLOOD PH 7.34 (7.35-7.45); ARTERIAL BLOOD PO2 121.9 mmHg (80-100); ARTERIAL BLOOD TOTAL CO2 37.1 mmol/L (21-25)
[2019-03-23 18:38] LABS: ARTERIAL BLOOD FIO2 3L
[2019-03-23 19:42] LABS: APPEARANCE,URINE CLEAR; BILIRUBIN,URINE NEGATIVE (NEGATIVE); COLOR,URINE YELLOW; GLUCOSE, URINE 50 mg/dL (NEGATIVE); KETONES,URINE NEGATIVE (NEGATIVE); PROTEIN,URINE NEGATIVE (NEGATIVE); URINE SPECIFIC GRAVITY 1.015; UROBILINOGEN,URINE NEGATIVE mg/dL (<2.0)
--- NOTE | 2019-03-23 20:41 | ER Document Report ---
ED General - General Chief Complaint: Respiratory Distress Stated Complaint: DIFFICULTY BREATHING Time Seen by Provider: 03/23/19 17:21 Notes: 78-year-old woman presents to the emergency department with a complaint of shortness of breath and "heartburn". She states that she began having a burning sensation in her epigastrium and chest area with associated burping earlier today. Apparently she ate tomato soup and thinks that that may have caused the symptoms to begin. She has had increasing weakness and shortness of breath associated with activity since her return home from hospital stay in February. She is on 3 L nasal cannula at home, according to the daughter she has had a one-week history of progressively worsening symptoms with weakness and inability to perform ADLs. She was scheduled to go to inpatient rehab tomorrow. TRAVEL OUTSIDE OF THE [place] IN LAST 30 DAYS: No - Related Data Allergies/Adverse Reactions: albuterol Allergy (Verified 02/26/19 19:53) aspirin Allergy (Verified 02/26/19 19:53) diphenhydramine [From Benadryl] Allergy (Verified 02/26/19 19:53) Past Medical History - Social History Smoking Status: Unknown if Ever Smoked Family History: CAD, DM, Hypertension, Malignancy. denies: Thyroid Disfunction Patient has suicidal ideation: No Patient has homicidal ideation: No - Past Medical History Cardiac Medical History: Reports: Hx Atrial Fibrillation, Hx Congestive Heart Failure, Hx Hypertension Pulmonary Medical History: Reports: Hx Asthma, Hx COPD, Hx Pneumonia, Hx Respiratory Failure - Chronic respiratory failure with oxygen dependence Neurological Medical History: Denies: Hx Seizures Endocrine Medical History: Reports: Hx Diabetes Mellitus Type 2. Denies: Hx Diabetes Mellitus Type 1, Hx Hyperthyroidism, Hx Hypothyroidism Malignancy Medical History: Reports: Hx Breast Cancer - Status post bilateral mastectomies GI Medical History: Reports: Hx Hiatal Hernia. Denies: Hx Cirrhosis, Hx Crohn's Disease, Hx Hepatitis, Hx Ulcerative Colitis Musculoskeletal Medical History: Reports Hx Arthritis, Denies Hx Gout Skin Medical History: Denies Hx Eczema, Denies Hx Psoriasis Infectious Medical History: Denies: Hx Hepatitis Past Surgical History: Reports: Hx Abdominal Surgery - hernia repair, Hx Appendectomy, Hx Breast Surgery, Hx Cholecystectomy, Hx Hysterectomy, Hx Mastectomy - bilateral, Other - Bilateral cataract surgery, 5 colon surgeries for abnormal growths Review of Systems - Review of Systems Notes: Constitutional: Negative for fever. HENT: Negative for sore throat. Eyes: Negative for visual changes. Cardiovascular: + Burning chest discomfort Respiratory: + Shortness of breath shortness of breath. Gastrointestinal: + Heartburn Genitourinary: Negative for dysuria. Musculoskeletal: Negative for back pain. Skin: Negative for rash. Neurological: + Shakiness, negative for headaches, weakness or numbness. 10 point ROS negative except as marked above and in HPI., Physical Exam - Vital signs Vitals: Resp Pulse Ox 27 H 90 L 03/23/19 16:02 03/23/19 16:02 - Notes Notes: PHYSICAL EXAMINATION: Physical Exam: General: Frail elderly woman complaining of shortness of breath and generalized weakness HEENT: NC/AT, pupils equal round and reactive to light, MM moist,nares clear, oropharynx clear Neck: supple, no adenopathy, no masses. Lungs: clear, no wheezing, no rales no rhonchi CVS: Tachycardic rate and rhythm no murmur gallop or rub Abdomen: Soft active nontender, no masses, no hepatosplenomegaly Ext: No edema, clubbing or cyanosis. Neuro: Alert and responsive, moving all 4 extremities on command, cranial nerves intact. Skin: Intact no open lesions, no rash PSYCH: Normal mood, normal affect. Course - Re-evaluation Re-evalutation: 03/24/19 01:45 A discussion was had with the daughter of the patient regarding the need for a central line given her hypotension and need for vasopressor. After much discussion phone calls with other family members the family agreed to have the central line placed. The triple-lumen catheter was successfully placed using sterile technique and chest x-ray was performed. Patient tolerated the p rocedure without complication. The central line was placed in the left jugular vein after 2 unsuccessful attempts to thread the wire on the left side. Chest x-ray reveals a good placement of the central line. - Vital Signs Vital signs: Temp Pulse Resp BP Pulse Ox 98.5 F 12 79/64 L 98 03/23/19 21:09 03/23/19 22:45 03/23/19 22:45 03/23/19 22:45 - Laboratory Result Diagrams: 03/23/19 16:25 03/23/19 16:25 Laboratory results interpreted by me: 03/23/19 03/23/19 03/23/19 16:25 16:25 16:25 RBC 3.53 L Hgb 11.1 L Hct 33.5 L RDW 14.5 H Lymph % (Auto) 12.5 L PT 32.9 H Carbonic Acid ABG pH ABG pCO2 ABG pO2 ABG HCO3 ABG Total CO2 ABG O2 Saturation VBG pH VBG pCO2 VBG HCO3 Potassium 6.1 H* Chloride 94 L Carbon Dioxide 39 H Anion Gap 4 L BUN 38 H Creatinine 2.27 H Est GFR ( Amer) 25 L Est GFR (MDRD) Non-Af 21 L Glucose 118 H Albumin 3.1 L Urine Glucose (UA) Leukocyte Esterase Rfl 03/23/19 03/23/19 03/23/19 16:25 18:04 19:24 RBC Hgb Hct RDW Lymph % (Auto) PT Carbonic Acid 2.00 H ABG pH 7.34 L ABG pCO2 66.4 H ABG pO2 121.9 H ABG HCO3 35.0 H ABG Total CO2 37.1 H ABG O2 Saturation 98.1 H VBG pH 7.27 L VBG pCO2 89.1 H* VBG HCO3 40.0 H Potassium Chloride Carbon Dioxide Anion Gap BUN Creatinine Est GFR ( Amer) Est GFR (MDRD) Non-Af Glucose Albumin Urine Glucose (UA) 50 H Leukocyte Esterase Rfl TRACE H , I have reviewed laboratory data and used this information for the treatment decisions regarding the patient. - Diagnostic Test Radiology reviewed: Image reviewed, Reports reviewed - Chest x-ray: Cardio megaly, right hemidiaphragm, mild central congestion. Procedures - Central Line Left Internal jugular Time completed: 01:30 Consent obtained: Yes Central line pre-insertion: Sterile PPE donned, Chloraprep applied, Sterile drapes applied Central line lumen type: Triple Anesthetic type: 1% Lidocaine mL's of anesthesia: 3 Ultrasound guided: Yes - 21-gauge needle used to puncture the skin and guidewire inserted Line secured with sutures: Yes Central line post-insertion: Blood return from lumens, Biopatch applied, S utured, Sterile dressing applied, Position confirmed w/ CXR Number of attempts: 3 - The wire kinked with 2 tubes on the right side Complications: No - Portable chest x-ray reveals good placement of the central line Critical Care Note - Critical Care Note Total time excluding time spent on procedures (mins): 120 - Critical care time spent obtaining history from patient or surrogate, discussions with consultants, development of treatment plan with patient or surrogate, evaluation of patient's response to treatment, examination of patient, ordering and performing treatments and interventions, ordering and review of laboratory studies, re- evaluation of patient's condition, ordering and review of radiographic studies and review of old charts Discharge - Discharge Clinical Impression: TOBI (acute kidney injury), Hyperkalemia, Morbid obesity with BMI of 40.0-44.9, adult Atrial fibrillation Qualifiers: Atrial fibrillation type: unspecified Qualified Code(s): I48.91 - Unspecified atrial fibrillation Chronic obstructive pulmonary disease (COPD) Qualifiers: COPD type: unspecified COPD Qualified Code(s): J44.9 - Chronic obstructive pulmonary disease, unspecified Hypotension Qualifiers: Hypotension type: other hypotension type Qualified Code(s): I95.89 - Other hypotension Condition: Critical Disposition: ADMITTED INPATIENT Admitting Provider: Dr Palacio Unit Admitted: ICU - Who is feeling Arely
[2019-03-23] MEDS ORDERED: NORMAL SALINE 1000 ML 1,000 ML IV ONE (20:50)
--- NOTE | 2019-03-23 23:10 | RADIOLOGY REPORT (SQ) ---
EXAM DESCRIPTION: CT HEAD WITHOUT IV CONTRAST COMPLETED DATE/TME: 03/23/2019 21:36 CLINICAL HISTORY: fall COMPARISON: None Available. TECHNIQUE: Contiguous axial images of the brain were obtained without the administration of intravenous contrast. This exam was performed according to our departmental dose-optimization program, which includes automated exposure control, adjustment of the mA and/or kV according to patient size and/or use of iterative reconstruction technique. FINDINGS: There is no acute intracranial hemorrhage or mass effect. Ventricular system is within normal limits. There is adequate lozano-white matter differentiation. There is no skull fracture. The visualized paranasal sinuses and mastoid air cells are within normal limits. IMPRESSION: No acute intracranial abnormalities.
[2019-03-24] MEDS ORDERED: DEXTROSE 5%-WATER 250 ML with NOREPINEPHRINE BITARTRATE 4 MG IV PRN ×4 (00:08→03:30)
[2019-03-24] MEDS ORDERED: NOREPINEPHRINE BITARTRATE INJ/PF 4 MG/4 ML SDV IV ONE (01:14)
--- NOTE | 2019-03-24 02:12 | RADIOLOGY REPORT (SQ) ---
EXAM DESCRIPTION: XR CHEST 1 VIEW COMPLETED DATE/TME: 03/24/2019 01:40 CLINICAL HISTORY: 78 years, Female, Post central line placement COMPARISON: 2018 2019 NUMBER OF VIEWS: Single TECHNIQUE: Portable LIMITATIONS: None. FINDINGS: Cardiomediastinal silhouette is prominent but stable. Elevation right hemidiaphragm. Chronic parenchymal lung change. Left IJ central venous catheter tip projects over SVC. Pneumothorax. No effusion IMPRESSION: Satisfactory placement of central venous catheter copyright 2010 [email or web address]- All Rights Reserved
--- NOTE | 2019-03-24 02:54 | CRITICAL CARE ADMISSION REPORT ---
HPI Date:: 03/24/19 Time:: 01:31 Reason for ICU Reason:: Hypotension, AMS, TOBI HPI: Mrs. Gonzalez is a 78yr old F with PMHx of COPD, CHF with most recent echo showing EF of 55-60% on 03/13/19, pulmonary fibrosis, COPD on home O2, HTN, hx of breast CA with bilateral mastecomy, DMII and arthritis. She was brought to the ED tonight by her daughter after pt had complaints of increased SOB and reported "heartburn" symptoms after eating tomato soup. Pt was discharged from the hospital 15 days ago after being treated for weakness and SOB. Daughter stated that pt usually ambulates with a walker and suffered a fall down to bilateral knees about 5 days ago. She believes her knees gave out on her while walking; she did not hit her head and there was no LOC. From this fall pt was not able to ambulate and required family assistance to transfer from chair to bedside commode. During one of these transfers, she slid from the arms of family and to the ground, again to her knees. Daughter states she has been noticeably more lethargic over the past 3-4 days but able to be aroused to eat small meals and take her meds that family administers for her. No complaints of increase cough. Daughter states she has not had changes to bowel or bladder. On assessment in the ED, pt is noted to be hypotension 70s and in Afib with a rate 100-120 on the monitor; daughter states pt did not take her medications this AM. She is resting in bed with NC on without acute distress. Difficult to arouse but when asked to wake by daughter pt will mumble and did answer "no" when asked if she was hungry but did not open her eyes. Labs on arrival were significant for K 6.1 that was treat by ED - repeat POC while at bedside was 94. Request ED obtain CT to rule out acute concerns for AMS/lethargy which was negative. Discussion with daughter regarding goals of care and treatment options was had, she stated that pt had told her she did not want to be placed on a breathing machine "if there was no chance," myself and ED physician discussed options of DNR/DNI and what this means in regards to treatment. Long discussion had with daughter and grand-daughter via phone to answer questions about central line placement while in the ED due to the need for vasopressors with continued hypotension to the 60s and declining mentation. Daughter agreed to line placement. ED physician to place central line prior to transport - Diagnosis/Plan (1) Acute and chronic respiratory failure with hypoxia Is this a current diagnosis for this admission?: Yes (2) TOBI (acute kidney injury) Is this a current diagnosis for this admission?: Yes (3) Hypotension Qualifiers: Hypotension type: other hypotension type Qualified Code(s): I95.89 - Other hypotension Is this a current diagnosis for this admission?: Yes (5) Atrial fibrillation Qualifiers: Atrial fibrillation type: unspecified Qualified Code(s): I48.91 - Unspecified atrial fibrillation Is this a current diagnosis for this admission?: Yes (6) Cardiomyopathy Is this a current diagnosis for this admission?: Yes (7) Chronic obstructive pulmonary disease (COPD) Qualifiers: COPD type: unspecified COPD Qualified Code(s): J44.9 - Chronic obstructive pulmonary disease, unspecified Is this a current diagnosis for this admission?: Yes (8) Diabetes mellitus type 2 in obese Is this a current diagnosis for this admission?: Yes (9) Elevated hemidiaphragm Is this a current diagnosis for this admission?: Yes (10) Lethargy Is this a current diagnosis for this admission?: Yes (11) Altered mental status Is this a current diagnosis for this admission?: Yes - . Plan Summary: Pulm: * continious pulse ox - maintain O2 >89% * maintain low threshold for intubation - did well on BiPAP on previous admission, initial ABG was stable, repeat ABG pending * Hx of COPD - nebs * Chest xray with stable right hemidiaphragm present on previous admission, cardiomegaly and scattered patchy inflitrates that appear similar from previous admission xray CV: * maintain continuos tele * Hx of HTN on home metoprolol QID per family with concerns that pts BP was too low at home - hold antihypertensives at this time * Afib on the monitor - can start cardizem if BP stabilizes or start amioderone for rate control until stable * Hx of CHF - avoid excessive fluids and monitor I&O closely * Cardiomyopathy with most recent EF of 55-60% on 03/13/19 * EKG showing evidence of hyperkalemia - repeal in AM Renal: * TOBI with Cr at 2.27 with basline or 0.7 - likley 2/2 dehydration and hypotension for indeterminate period - continue IV fluids and monitor response * place ko for strict I&O * trend renal indices and replace lytes PRN * initial K elevated - pt takes PO K at home, likely elevated 2/2 taking meds without PO intake and TOBI - treated in ED, pending repeat for follow up Neuro: * AMS/lethargy - CT head negative for acute concerns, POC stable on assessment, repeat ABG pending - will continue to monitor, if not improvement with i ncrease in BP and return of stable ABG will consider additional labs and testing * no acute concerns on phyical assessment - Q2hr neuro assessments to monitor for acute changes * Hold home lyrica and hydrocodone while altered - treat pain PRN GI/nutrition: * NPO at this time * no current indication for GI ppx Endo: * Hx of DM - Q2hr POC, SSI * hx of hypothyroidism recently diagnosed - hold on synthroid while NPO, TSH pending to monitor response to synthroid - add IV if needed Heme/onc: * Stable H/H - continue to trend and transfuse for <7.0 * Hold Xarelto at home - hold while NPO with AMS - heparin for DVT ppx * hx of breast CA with mastectomy ID: * WBC stable at 7.9, no fever, lactate negative, UA grossly negative - will hold on abx at this time * blood cultures pending Code status: daughter reported that pt stated she did not want to be placed on a breathing machine if "there was nothing that could be done." Daughter states she would like to proceed with full code at this time as her brother is on her way here from [place] and she believes it is important to make a decision with him here. Continuing conversations will be required to clarify goal of care with patient and family. Past Medical History Past Medical History: as per HPI Cardiac Medical History: Reports: Atrial Fibrillation, Congestive Heart Failure, Hypertension Pulmonary Medical History: Reports: Asthma, Chronic Obstructive Pulmonary Disease (COPD), Pneumonia, Respiratory Failure - Chronic respiratory failure with oxygen dependence Neurological Medical History: Denies: Seizures Endocrine Medical History: Reports: Diabetes Mellitus Type 2 Denies: Diabetes Mellitus Type 1, Hyperthyroidism, Hypothyroidism Malignancy Medical History: Reports: Breast Cancer - Status post bilateral mastectomies GI Medical History: Reports: Hiatal Hernia Denies: Cirrhosis, Crohn's Disease, Hepatitis, Ulcerative Colitis Musculoskeltal Medical History: Reports: Arthritis Denies: Gout Skin Medical History: Denies: Eczema, Psoriasis Hematology: Denies: Anemia, Bleeding Tendencies Past Surgical History Past Surgical History: Reports: Appendectomy, Cholecystectomy, Hysterectomy, Mastectomy - bilateral, Other - Bilateral cataract surgery, 5 colon surgeries for abnormal growths Social/Family History - Social History Lives with: Family Smoking Status: Unknown if Ever Smoked Frequency of Alcohol Use: None Hx Recreational Drug Use: No Drugs: None Hx Prescription Drug Abuse: No - Medication/Allergies Home Medications: Fluticasone/Umeclidin/Vilanter [Trelegy 100-62.5-25 Mcg Ellipta 14 Dose/Dpi] 1 puff IH DAILY 02/27/19 Furosemide [Lasix 20 mg Tablet] 20 mg PO QAM 02/27/19 Glimepiride 2 mg PO DAILY 02/27/19 Hydrocodone/Acetaminophen [[place] 5-325 Tablet] 1 each PO Q6HP PRN 02/27/19 Levothyroxine Sodium [Synthroid 0.025 mg Tablet] 25 mcg PO DAILY 02/27/19 Potassium Chloride [Klor-Con M20] 20 meq PO DAILY 02/27/19 Pregabalin [Lyrica 100 mg Capsule] 100 mg PO TID 02/27/19 Rivaroxaban [Xarelto] 20 mg PO DAILY 02/27/19 Diltiazem HCl [Cardizem 90 mg Tablet] 90 mg PO Q8 #90 tablet 03/09/19 Levofloxacin [Levaquin 500 mg Tablet] 500 mg PO DAILY 3 Days #3 tablet 03/09/19 Metoprolol Succinate [Toprol Xl 50 mg Tab.sr] 100 mg PO Q12 #120 tab.sr.24h 03/09/19 Prednisone [Deltasone 10 mg Tablet] 10 mg PO BID 3 Days #6 tablet 03/09/19 Sacubitril/Valsartan [Entresto 49 mg/51 mg Tablet] 1 tab PO Q12 #60 tablet 03/09/19 Allergies/Adverse Reactions: albuterol Allergy (Verified 02/26/19 19:53) aspirin Allergy (Verified 02/26/19 19:53) diphenhydramine [From Benadryl] Allergy (Verified 02/26/19 19:53) Review of Systems ROS unobtainable: Due to mental status Physical Exam Vital Signs: Temp Pulse Resp BP Pulse Ox 98.5 F 12 79/64 L 98 03/23/19 21:09 03/23/19 22:45 03/23/19 22:45 03/23/19 22:45 Intake & Output 03/22/19 03/23/19 03/24/19 06:59 06:59 06:59 Intake Total 955 Balance 955 Weight 102 kg Weight/Height Weight 102 kg Height 5 ft General appearance: PRESENT: obese, other - elderly woman lying in bed with pulse ox on with eyes closed - difficult to arouse Head exam: PRESENT: atraumatic Eye exam: PRESENT: conjunctiva pink, other - pupils equal reactive to light, sluggish bilaterally. ABSENT: scleral icterus Ear exam: PRESENT: normal external ear exam Mouth exam: PRESENT: moist Neck exam: ABSENT: tracheal deviation Respiratory exam: PRESENT: other - diminished to b/l LL. ABSENT: chest wall tenderness, rhonchi, wheezes Cardiovascular exam: PRESENT: irregular rhythm Vascular exam: PRESENT: pallor GI/Abdominal exam: PRESENT: normal bowel sounds. ABSENT: distended, mass, organolmegaly, tenderness Extremities exam: PRESENT: joint swelling - b/l knee - no erythema or warmth to the joint, +1 edema Neurological exam: PRESENT: altered - lethargic, difficult to arouse - wakes to persistant questions, answers simple questions yes/no but does not open eyes or follow commands. ABSENT: alert, awake Focused psych exam: ABSENT: restlessness Skin exam: PRESENT: dry, warm Laboratory/Radiographs Laboratory Results: 03/23/19 16:25 03/23/19 16:25 03/23/19 03/23/19 03/23/19 16:25 16:25 16:25 WBC 7.9 RBC 3.53 L Hgb 11.1 L Hct 33.5 L MCV 95 MCH 31.5 MCHC 33.1 RDW 14.5 H Plt Count 188 Seg Neutrophils % 76.7 Carbonic Acid HCO3/H2CO3 Ratio ABG pH ABG pCO2 ABG pO2 ABG HCO3 ABG O2 Saturation ABG Base Excess VBG pH 7.27 L VBG pCO2 89.1 H* VBG HCO3 40.0 H VBG Base Excess 9.2 FiO2 Sodium 138.3 Potassium 6.1 H* Chloride 94 L Carbon Dioxide 39 H Anion Gap 4 L BUN 38 H Creatinine 2.27 H Est GFR ( Amer) 25 L Glucose 118 H Lactic Acid Calcium 9.1 Total Bilirubin 0.4 AST 21 Alkaline Phosphatase 88 Total Protein 6.4 Albumin 3.1 L Urine Color Urine Appearance Urine pH Ur Specific [place] Urine Protein Urine Glucose (UA) Urine Ketones Urine Blood Urine RBC (Auto) 03/23/19 03/23/19 03/23/19 16:25 18:04 18:23 WBC RBC Hgb Hct MCV MCH MCHC RDW Plt Count Seg Neutrophils % Carbonic Acid 2.00 H HCO3/H2CO3 Ratio 17:1 ABG pH 7.34 L ABG pCO2 66.4 H ABG pO2 121.9 H ABG HCO3 35.0 H ABG O2 Saturation 98.1 H ABG Base Excess 7.6 VBG pH VBG pCO2 VBG HCO3 VBG Base Excess FiO2 3L Sodium Potassium Chloride Carbon Dioxide Anion Gap BUN Creatinine Est GFR ( Amer) Glucose Lactic Acid 1.1 1.2 Calcium Total Bilirubin AST Alkaline Phosphatase Total Protein Albumin Urine Color Urine Appearance Urine pH Ur Specific [place] Urine Protein Urine Glucose (UA) Urine Ketones Urine Blood Urine RBC (Auto) 03/23/19 19:24 WBC RBC Hgb Hct MCV MCH MCHC RDW Plt Count Seg Neutrophils % Carbonic Acid HCO3/H2CO3 Ratio ABG pH ABG pCO2 ABG pO2 ABG HCO3 ABG O2 Saturation ABG Base Excess VBG pH VBG pCO2 VBG HCO3 VBG Base Excess FiO2 Sodium Potassium Chloride Carbon Dioxide Anion Gap BUN Creatinine Est GFR ( Amer) Glucose Lactic Acid Calcium Total Bilirubin AST Alkaline Phosphatase Total Protein Albumin Urine Color YELLOW Urine Appearance CLEAR Urine pH 5.0 Ur Specific [place] 1.015 Urine Protein NEGATIVE Urine Glucose (UA) 50 H Urine Ketones NEGATIVE Urine Blood NEGATIVE Urine RBC (Auto) 3 03/23/19 16:25 Troponin I < 0.012 Impressions: Chest X-Ray 03/23/19 16:04 IMPRESSION: Cardiomegaly and mild central vascular congestion. Elevation of the right hemidiaphragm. Head CT 03/23/19 21:36 IMPRESSION: No acute intracranial abnormalities. Critical Time Critical Time (minutes): 70 - not including procedures -: The care of a critically ill patient is dynamic. This note represents a static moment in the admission process. Orders and treatments may be given simultaneously and urgently, and time is not safety representative of the treatment process. This patient requires Critical Care secondary to life threatening organ or limb dysfunction. Without Critical Care services, the patient is at risk for increased mortality and morbidity.
[2019-03-24 02:55] LABS: ABSOLUTE EOSINOPHILS # (AUTO) 0.2 10^3/uL (0.0-0.6); ABSOLUTE LYMPHOCYTES (AUTO) 1.3 10^3/uL (0.5-4.7); ABSOLUTE MONOCYTES (AUTO) 0.7 10^3/uL (0.1-1.4); ABSOLUTE NEUT (AUTO) 4.8 10^3/uL (1.7-8.2); BASOPHILS % (AUTO) 0.5 % (0-2); EOSINOPHILS % (AUTO) 2.7 % (0-6); HEMATOCRIT 29.6 % (36.0-47.0); HEMOGLOBIN 9.9 g/dL (12.0-15.5); MEAN CORPUSCULAR HEMOGLOBIN 31.9 pg (27.0-33.4); MEAN CORPUSCULAR HGB CONC 33.5 g/dL (32.0-36.0); MEAN CORPUSCULAR VOLUME 95 fl (80-97); MONOCYTES % (AUTO) 9.7 % (3-13); PLATELET COUNT 167 10^3/uL (150-450); RED BLOOD COUNT 3.11 10^6/uL (3.72-5.28); RED CELL DISTRIBUTION WIDTH 14.5 % (11.5-14.0); SEGMENTED NEUTROPHILS % (AUTO) 68.1 % (42-78); TOTAL CELLS COUNTED % (AUTO) 100 %
[2019-03-24] MEDS ORDERED: DEXTROSE 50%-WATER 25 GM/50 ML DISP.SYRIN IV PRN ×2 (02:59)
[2019-03-24] MEDS ORDERED: GLUCAGON,HUMAN RECOMB 1 MG INJ IM PRN (02:59)
[2019-03-24] MEDS ORDERED: DEXTROSE 40% GEL 15 GM TUBE PO PRN ×2 (02:59)
[2019-03-24 03:17] LABS: ALBUMIN 2.6 g/dL (3.5-5.0); ALKALINE PHOSPHATASE 76 U/L (38-126); ASPARTATE AMINO TRANSFERASE 19 U/L (14-36); BILIRUBIN,DIRECT 0.3 mg/dL (0.0-0.4); BILIRUBIN,TOTAL 0.4 mg/dL (0.2-1.3); BLOOD UREA NITROGEN 36 mg/dL (7-20); CALCIUM 8.9 mg/dL (8.4-10.2); GLUCOSE 84 mg/dL (75-110); PHOSPHORUS 5.1 mg/dL (2.5-4.5); POTASSIUM 5.9 mmol/L (3.6-5.0); TOTAL PROTEIN 5.1 g/dL (6.3-8.2)
[2019-03-24 03:20] LABS: INTERNATIONAL RATION (INR) 2.46; PROTHROMBIN TIME 27.1 SEC (11.4-15.4)
[2019-03-24 03:21] LABS: PARTIAL THROMBOPLASTIN TIME 39.9 SEC (23.5-35.8)
[2019-03-24 03:22] LABS: CARBON DIOXIDE 35 mmol/L (22-30); CHLORIDE 101 mmol/L (98-107)
[2019-03-24] MEDS: RINGERS SOLUTION,LACTATED 1,000 ML IV PRN ×3 (03:30→17:14)
[2019-03-24 03:32] LABS: ANION GAP 2 (5-19)
[2019-03-24 06:59] LABS: ABSOLUTE EOSINOPHILS # (AUTO) 0.2 10^3/uL (0.0-0.6); ABSOLUTE LYMPHOCYTES (AUTO) 1.1 10^3/uL (0.5-4.7); ABSOLUTE MONOCYTES (AUTO) 0.6 10^3/uL (0.1-1.4); ABSOLUTE NEUT (AUTO) 3.9 10^3/uL (1.7-8.2); BASOPHILS % (AUTO) 0.6 % (0-2); HEMATOCRIT 29.9 % (36.0-47.0); HEMOGLOBIN 9.9 g/dL (12.0-15.5); LYMPHOCYTES % (AUTO) 18.5 % (13-45); MEAN CORPUSCULAR HEMOGLOBIN 31.7 pg (27.0-33.4); MEAN CORPUSCULAR HGB CONC 33.1 g/dL (32.0-36.0); MEAN CORPUSCULAR VOLUME 96 fl (80-97); MONOCYTES % (AUTO) 10.4 % (3-13); PLATELET COUNT 153 10^3/uL (150-450); RED BLOOD COUNT 3.13 10^6/uL (3.72-5.28); RED CELL DISTRIBUTION WIDTH 14.4 % (11.5-14.0); SEGMENTED NEUTROPHILS % (AUTO) 67.5 % (42-78); TOTAL CELLS COUNTED % (AUTO) 100 %; WHITE BLOOD COUNT 5.7 10^3/uL (4.0-10.5)
[2019-03-24 07:15] LABS: ALBUMIN 2.7 g/dL (3.5-5.0); ALKALINE PHOSPHATASE 74 U/L (38-126); ASPARTATE AMINO TRANSFERASE 22 U/L (14-36); BILIRUBIN,DIRECT 0.3 mg/dL (0.0-0.4); BILIRUBIN,TOTAL 0.5 mg/dL (0.2-1.3); BLOOD UREA NITROGEN 32 mg/dL (7-20); CALCIUM 9.4 mg/dL (8.4-10.2); CARBON DIOXIDE 30 mmol/L (22-30); GLUCOSE 82 mg/dL (75-110); PHOSPHORUS 4.6 mg/dL (2.5-4.5); POTASSIUM 5.6 mmol/L (3.6-5.0); TOTAL PROTEIN 5.3 g/dL (6.3-8.2)
[2019-03-24 07:20] LABS: CHLORIDE 102 mmol/L (98-107)
[2019-03-24 07:22] LABS: ANION GAP 4 (5-19)
--- NOTE | 2019-03-24 07:38 | EKG REPORT ---
SEVERITY:- ABNORMAL ECG - ATRIAL FLUTTER WITH 2:1 AV BLOCK RBBB AND LAFB : Confirmed by: Tk Garay MD 24-Mar-2019 07:37:33
[2019-03-24] MEDS ORDERED: HEPARIN SOD (PORCINE) 5,000 UNIT/ML 1 ML VIAL SUBCUT SCH (08:15)
[2019-03-24] MEDS: INSULIN REG, HUMAN 100 UNIT/ML 3 ML VIAL (PYX) SUBCUT SCH ×4 (08:19→21:18)
--- NOTE | 2019-03-24 08:38 | RADIOLOGY REPORT (SQ) ---
EXAM DESCRIPTION: CHEST SINGLE VIEW COMPLETED DATE/TIME: 03/24/2019 6:11 am REASON FOR STUDY: abnormal breath sounds COMPARISON: AP view of the chest from 03/24/2019. EXAM PARAMETERS: NUMBER OF VIEWS: One view. TECHNIQUE: An AP view of the chest was obtained. RADIATION DOSE: NA LIMITATIONS: None. FINDINGS: LUNGS AND PLEURA: Low inspiratory lung volumes. The the elevation of the right hemidiaphr agm, the right-sided pleural thickening, the blunting of the right lateral costophrenic sulcus, and t he left retrocardiac opacities are unchanged. There is no pneumothorax. MEDIASTINUM AND HILAR STRUCTURES: Stable mediastinal and hilar contours. HEART AND VASCULAR STRUCTURES: Stable cardiomegaly. BONES: No acute findings. HARDWARE: The tip of the left IJ central venous catheter projects within the SVC. There surgical cli ps that project within the right axilla. OTHER: No other finding. IMPRESSION: Unchanged radiographic appearance of the chest. TECHNICAL DOCUMENTATION: JOB ID: [id number] [employer]- All Rights Reserved Reading location - IP/workstation name: [email or web address]
[2019-03-24] MEDS: HYDROCORTISONE SOD SUCCINATE INJ/PF 100 MG/2 ML SDV IV SCH ×3 (08:50→21:18)
--- NOTE | 2019-03-24 09:06 | Progress Note ---
Provider Note Provider Note: Recent admission by Zhane Theodore several hours ago. Pt is improved but on pressors. She has been on prednisone 10mg at home and ill for some time. Her risk of hypoadrenalism and CIRCI (critical care related adrenal insufficiency) is high. Will check random cortisol and start IV hydrocortisone. Critical care time 20 minutes.
[2019-03-24] MEDS ORDERED: LEVOTHYROXINE SODIUM 0.025 MG TABLET PO SCH (12:00)
[2019-03-24] MEDS: RIVAROXABAN 10 MG TABLET PO SCH (12:26)
[2019-03-24] MEDS: SACUBITRIL/VALSARTAN 49 MG/51 MG TABLET PO SCH ×2 (12:27→21:19)
[2019-03-24] MEDS: HYDROCODONE/ACETAMINOPHEN 5-325 MG TABLET PO PRN ×2 (12:31→21:21)
[2019-03-24] MEDS: PREGABALIN 100 MG CAPSULE PO SCH ×2 (14:15→17:46)
[2019-03-24] MEDS: PATIROMER 8.4 GM SUSP PACKET PO SCH (16:48)
[2019-03-24] MEDS: DOCUSATE SODIUM 100 MG CAPSULE PO SCH (21:57)
[2019-03-25] MEDS: RINGERS SOLUTION,LACTATED 1,000 ML IV PRN (03:15)
[2019-03-25 04:56] LABS: BLOOD UREA NITROGEN 27 mg/dL (7-20); CALCIUM 8.8 mg/dL (8.4-10.2); GLUCOSE 174 mg/dL (75-110); PHOSPHORUS 4.2 mg/dL (2.5-4.5); POTASSIUM 5.3 mmol/L (3.6-5.0)
[2019-03-25 05:02] LABS: CARBON DIOXIDE 33 mmol/L (22-30); CHLORIDE 100 mmol/L (98-107)
[2019-03-25 05:14] LABS: ANION GAP 4 (5-19)
[2019-03-25] MEDS: HYDROCORTISONE SOD SUCCINATE INJ/PF 100 MG/2 ML SDV IV SCH ×3 (05:55→21:59)
[2019-03-25] MEDS: MAGNESIUM SULFATE/D5W 1 GM/100 ML RTUPB IV SCH ×4 (05:56→13:58)
[2019-03-25] MEDS: LEVOTHYROXINE SODIUM 0.025 MG TABLET PO SCH (05:56)
[2019-03-25] MEDS: FUROSEMIDE 20 MG TABLET PO SCH (08:39)
[2019-03-25] MEDS: INSULIN REG, HUMAN 100 UNIT/ML 3 ML VIAL (PYX) SUBCUT SCH ×4 (08:40→21:58)
--- NOTE | 2019-03-25 08:48 | PDOC CRITICAL CARE PROG REPORT ---
General Date:: 03/25/19 ICU Day:: 2 Hospital Day:: 3 Resuscitation Status: Full Code Events in the past 12 to 24 Hours:: Off levophed, on hydrocortisone, rehydrated. Kidney function better. Review of systems relevant to events:: CV, endocrine. Reason for ICU Addmission:: Hypotension, AMS, TOBI, need for levophed. - Medications: Medications reviewed and adjusted accordingly: Yes Vasopressors:: None Sedation:: None Physical Exam Vital Signs: Temp Pulse Resp BP Pulse Ox 97.3 F 116 H 21 H 105/63 100 03/25/19 06:04 03/24/19 22:00 03/25/19 06:04 03/25/19 06:04 03/25/19 06:04 Intake & Output 03/24/19 03/25/19 03/26/19 06:59 06:59 06:59 Intake Total 1533 2160 Output Total 800 2685 Balance 733 -525 Weight 89.1 kg 104.5 kg Weight/Height Weight 104.5 kg Height 5 ft General appearance: PRESENT: no acute distress, morbidly obese, well-developed, well-nourished Head exam: PRESENT: atraumatic, normocephalic Eye exam: PRESENT: conjunctiva pink, EOMI, PERRLA. ABSENT: scleral icterus Ear exam: PRESENT: normal external ear exam Mouth exam: PRESENT: moist, tongue midline Respiratory exam: PRESENT: clear to auscultation rick. ABSENT: rales, rhonchi, wheezes Cardiovascular exam: PRESENT: tachycardia Pulses: PRESENT: normal dorsalis pedis pul GI/Abdominal exam: ABSENT: distended, guarding, mass, organolmegaly, rebound, tenderness Rectal exam: PRESENT: deferred Gentrourinary exam: PRESENT: indwelling catheter Extremities exam: PRESENT: full ROM. ABSENT: calf tenderness, clubbing, pedal edema Neurological exam: PRESENT: alert, awake, oriented to person, oriented to place, oriented to time, oriented to situation, CN II-XII grossly intact. ABSENT: motor sensory deficit Psychiatric exam: PRESENT: appropriate affect, normal mood. ABSENT: homicidal ideation, suicidal ideation Skin exam: PRESENT: abrasion, dry, intact, warm. ABSENT: cyanosis, rash Laboratory/Radiographs Laboratory Results: 03/24/19 06:45 03/25/19 04:03/25/19 04:19 Sodium 136.6 L Potassium 5.3 H Chloride 100 Carbon Dioxide 33 H Anion Gap 4 L BUN 27 H Creatinine 1.14 Est GFR ( Amer) 56 L Glucose 174 H Calcium 8.8 Phosphorus 4.2 Magnesium 1.6 03/23/19 03/24/19 03/24/19 16:25 02:40 08:40 Troponin I < 0.012 < 0.012 < 0.012 03/24/19 15:36 Troponin I < 0.012 Impressions: Head CT 03/23/19 21:36 IMPRESSION: No acute intracranial abnormalities. Chest X-Ray 03/24/19 06:00 IMPRESSION: Unchanged radiographic appearance of the chest. All labs, radiographs, diagnostic studies and EKGs were personally reviewed: Yes In addition, reports of radiographic and diagnostic studies were read: Yes Assessment and Plan - Diagnosis (1) TOBI (acute kidney injury) Is this a current diagnosis for this admission?: Yes Plan: Resolved. Cr 1.14 GFR 47. Continues to improve. IVF stopped in deference to EF of 20% (2) Altered mental status Qualifiers: Altered mental status type: delirium Qualified Code(s): R41.0 - Disorientation, unspecified Is this a current diagnosis for this admission?: Yes Plan: Resolved (3) Atrial fibrillation Qualifiers: Atrial fibrillation type: unspecified Qualified Code(s): I48.91 - Unspecified atrial fibrillation Is this a current diagnosis for this admission?: Yes Plan: Resolved (4) Chronic obstructive pulmonary disease (COPD) Qualifiers: COPD type: unspecified COPD Qualified Code(s): J44.9 - Chronic obstructive pulmonary disease, unspecified Is this a current diagnosis for this admission?: Yes Plan: Severe but stable. (5) Hyperkalemia Is this a current diagnosis for this admission?: Yes Plan: Level 5.3. Hyperkalemia mostly resolved but still somewhat high. Should return to normal. (6) Hypotension Qualifiers: Hypotension type: other hypotension type Qualified Code(s): I95.89 - Other hypotension Is this a current diagnosis for this admission?: Yes Plan: Resolved with stress steroids. Off levophed X 24 hours. (7) Morbid obesity with BMI of 40.0-44.9, adult Is this a current diagnosis for this admission?: Yes (8) Acute on chronic diastolic congestive heart failure Is this a current diagnosis for this admission?: Yes Plan: Resolved but still at risk with volume load and EF 25% (9) Diabetes mellitus type 2 in obese Is this a current diagnosis for this admission?: Yes Plan: Controlled. Plan Summary: Downgraded to tele. Dr. Valerio to see for medication adjustment. Entresto continued. Needs better rate control. Also needs PT and SNF rehab as home rehab did not work. Critical Time Critical Time (minutes): 30 Level of Care: TELE Anticipated discharge: SNF Within: within 72 hours -: 1. The care of a critical patient is a dynamic process. This note is a signs and displays sales representative synopsis but static in nature. The timeframe for treatments given in order is not necessarily the actual time these treatments may have been done. 2. This patient requires critical care secondary to ongoing requirements for therapy not offered or safe outside the critical care environment. Transfer to a lower level of care will result in altered life or limb morbidity and mortality. 3. Multidisciplinary rounds completed. 4. ABCDE bundle addressed.
[2019-03-25] MEDS ORDERED: (PENDING PHARMACY ID) (Glimepiride [Glimepiride] 2 MG) PO SCH (10:00)
[2019-03-25] MEDS ORDERED: POTASSIUM CHLORIDE 10 MEQ TABLET.ER PO SCH (10:00)
[2019-03-25] MEDS ORDERED: (PENDING PHARMACY ID) (Potassium Chloride [Klor-Con M20] 20 MEQ) PO SCH (10:00)
[2019-03-25] MEDS: GLIMEPIRIDE 1 MG TABLET PO SCH (10:27)
[2019-03-25] MEDS: PREGABALIN 100 MG CAPSULE PO SCH ×3 (10:27→17:38)
[2019-03-25] MEDS: DOCUSATE SODIUM 100 MG CAPSULE PO SCH ×2 (10:27→17:39)
[2019-03-25] MEDS: RIVAROXABAN 10 MG TABLET PO SCH (10:27)
[2019-03-25] MEDS: FLUTICASONE/UMECLIDIN/VILANTER 100-62.5-25 MCG/DOSE IH SCH (10:28)
[2019-03-25] MEDS ORDERED: DIGOXIN INJ 0.5 MG/2 ML AMPULE IV ONE ×2 (10:30→23:15)
[2019-03-25] MEDS ORDERED: MAGNESIUM SULFATE/D5W 1 GM/100 ML RTUPB IV ONE (11:45)
[2019-03-25] MEDS: SACUBITRIL/VALSARTAN 49 MG/51 MG TABLET PO SCH ×2 (12:13→21:58)
[2019-03-25] MEDS: PATIROMER 8.4 GM SUSP PACKET PO SCH (17:39)
[2019-03-25] MEDS ORDERED: AMIODARONE HCL INJ 150 MG/3 ML VIAL IV ONE ×2 (20:37→20:48)
[2019-03-25] MEDS ORDERED: AMIODARONE HCL 150 MG in DEXTROSE 5%-WATER 100 ML IV ONE (21:00)
[2019-03-25] MEDS ORDERED: DEXTROSE 5%-WATER 500 ML with AMIODARONE HCL 900 MG IV PRN ×2 (21:00)
[2019-03-25 21:07] LABS: ALBUMIN 2.6 g/dL (3.5-5.0); ALKALINE PHOSPHATASE 83 U/L (38-126); ASPARTATE AMINO TRANSFERASE 16 U/L (14-36); BILIRUBIN,TOTAL 0.3 mg/dL (0.2-1.3); TOTAL PROTEIN 4.9 g/dL (6.3-8.2)
[2019-03-25] MEDS ORDERED: DIGOXIN INJ 0.5 MG/2 ML AMPULE ONE (23:06)
[2019-03-26] MEDS: HYDROCORTISONE SOD SUCCINATE INJ/PF 100 MG/2 ML SDV IV SCH ×3 (05:06→21:08)
[2019-03-26] MEDS: LEVOTHYROXINE SODIUM 0.025 MG TABLET PO SCH (05:07)
[2019-03-26] MEDS: HYDROCODONE/ACETAMINOPHEN 5-325 MG TABLET PO PRN ×2 (05:14→22:23)
[2019-03-26 05:39] LABS: BLOOD UREA NITROGEN 28 mg/dL (7-20); CALCIUM 8.7 mg/dL (8.4-10.2); CARBON DIOXIDE 35 mmol/L (22-30); GLUCOSE 190 mg/dL (75-110); PHOSPHORUS 3.9 mg/dL (2.5-4.5); POTASSIUM 4.7 mmol/L (3.6-5.0)
[2019-03-26 05:44] LABS: CHLORIDE 98 mmol/L (98-107)
[2019-03-26 05:51] LABS: ANION GAP 2 (5-19)
[2019-03-26] MEDS: INSULIN REG, HUMAN 100 UNIT/ML 3 ML VIAL (PYX) SUBCUT SCH ×4 (09:00→22:44)
[2019-03-26] MEDS ORDERED: DIGOXIN INJ 0.5 MG/2 ML AMPULE IV ONE (09:00)
[2019-03-26] MEDS: DOCUSATE SODIUM 100 MG CAPSULE PO SCH ×2 (09:02→18:26)
[2019-03-26] MEDS: RIVAROXABAN 10 MG TABLET PO SCH (09:02)
[2019-03-26] MEDS: FUROSEMIDE 20 MG TABLET PO SCH (09:02)
[2019-03-26] MEDS: PREGABALIN 100 MG CAPSULE PO SCH ×3 (09:02→18:26)
[2019-03-26] MEDS: SACUBITRIL/VALSARTAN 49 MG/51 MG TABLET PO SCH ×2 (09:03→22:23)
[2019-03-26] MEDS: GLIMEPIRIDE 1 MG TABLET PO SCH (09:03)
[2019-03-26] MEDS: FLUTICASONE/UMECLIDIN/VILANTER 100-62.5-25 MCG/DOSE IH SCH (09:10)
[2019-03-26 11:25] LABS: FREE T3 1.53 pg/mL (2.77-5.27); FREE T4 (FREE THYROXINE) 0.78 ng/dL (0.78-2.19)
[2019-03-26] MEDS ORDERED: METOPROLOL TARTRATE PF/INJ 5 MG/5 ML SDV IV ONE (11:29)
--- NOTE | 2019-03-26 11:35 | PDOC CRITICAL CARE PROG REPORT ---
General Date:: 03/26/19 Hospital Day:: 3 Resuscitation Status: Full Code Events in the past 12 to 24 Hours:: Started on IV amiodarone. HR still not controlled. Starting IV digoxin per Dr. Valerio. Review of systems relevant to events:: CV is only system. Reason for ICU Addmission:: Hypotension, AMS, TOBI, need for levophed. Now off and on IV amiodarone. - Medications: Medications reviewed and adjusted accordingly: Yes Vasopressors:: None Sedation:: None. Physical Exam Vital Signs: Temp Pulse Resp BP Pulse Ox 98.2 F 105 H 26 H 115/101 H 100 03/26/19 10:33 03/26/19 08:36 03/26/19 10:33 03/26/19 10:33 03/26/19 10:33 Intake & Output 03/25/19 03/26/19 03/27/19 06:59 06:59 06:59 Intake Total 2260 1502 Output Total 2685 2100 Balance -425 -598 Weight 104.5 kg 105.1 kg Weight/Height Weight 105.1 kg Height 5 ft General appearance: PRESENT: no acute distress, well-developed, well-nourished Head exam: PRESENT: atraumatic, normocephalic Eye exam: PRESENT: conjunctiva pink, EOMI, PERRLA. ABSENT: scleral icterus Ear exam: PRESENT: normal external ear exam Mouth exam: PRESENT: moist, tongue midline Respiratory exam: PRESENT: clear to auscultation rick. ABSENT: rales, rhonchi, wheezes Cardiovascular exam: PRESENT: irregular rhythm, tachycardia Vascular exam: PRESENT: normal capillary refill GI/Abdominal exam: PRESENT: normal bowel sounds, soft. ABSENT: distended, guard ing, mass, organolmegaly, rebound, tenderness Rectal exam: PRESENT: deferred Gentrourinary exam: PRESENT: indwelling catheter Extremities exam: PRESENT: full ROM. ABSENT: calf tenderness, clubbing, pedal edema Musculoskeletal exam: PRESENT: normal inspection Neurological exam: PRESENT: alert, awake, oriented to person, oriented to place, oriented to time, oriented to situation, CN II-XII grossly intact. ABSENT: motor sensory deficit Skin exam: PRESENT: dry, intact, warm. ABSENT: cyanosis, rash Laboratory/Radiographs Laboratory Results: 03/24/19 06:45 03/26/19 05:11 03/25/19 03/25/19 03/26/19 20:29 20:29 05:11 Sodium 134.8 L Potassium 4.7 Chloride 98 Carbon Dioxide 35 H Anion Gap 2 L BUN 28 H Creatinine 1.11 Est GFR ( Amer) 58 L Glucose 190 H Calcium 8.7 Phosphorus 3.9 Magnesium 2.2 Total Bilirubin 0.3 AST 16 Alkaline Phosphatase 83 Total Protein 4.9 L Albumin 2.6 L TSH 0.21 L 03/23/19 03/24/19 03/24/19 16:25 02:40 08:40 Troponin I < 0.012 < 0.012 < 0.012 03/24/19 15:36 Troponin I < 0.012 Impressions: Head CT 03/23/19 21:36 IMPRESSION: No acute intracranial abnormalities. Chest X-Ray 03/24/19 06:00 IMPRESSION: Unchanged radiographic appearance of the chest. All labs, radiographs, diagnostic studies and EKGs were personally reviewed: Yes In addition, reports of radiographic and diagnostic studies were read: Yes Assessment and Plan - Diagnosis (1) TOBI (acute kidney injury) Is this a current diagnosis for this admission?: Yes Plan: Resolved (2) Altered mental status Qualifiers: Altered mental status type: delirium Qualified Code(s): R41.0 - Disorientation, unspecified Is this a current diagnosis for this admission?: Yes Plan: Resolved (3) Atrial fibrillation Qualifiers: Atrial fibrillation type: unspecified Qualified Code(s): I48.91 - Unspecified atrial fibrillation Is this a current diagnosis for this admission?: Yes Plan: This is the issue keeping her in the hospital. Rate is 120-130 on IV amiodarone and digoxin. When her rate is ideally below 100 or within reason we will consider discharge to rehab. For now she may go to [facility]. (4) Chronic obstructive pulmonary disease (COPD) Qualifiers: COPD type: unspecified COPD Qualified Code(s): J44.9 - Chronic obstructive pulmonary disease, unspecified Is this a current diagnosis for this admission?: Yes Plan: Stable. (5) Hyperkalemia Is this a current diagnosis for this admission?: Yes Plan: Resolved (6) Morbid obesity with BMI of 40.0-44.9, adult Is this a current diagnosis for this admission?: Yes Plan: Chronic (7) Acute on chronic diastolic congestive heart failure Is this a current diagnosis for this admission?: Yes Plan: Resolved (8) Diabetes mellitus type 2 in obese Is this a current diagnosis for this admission?: Yes Plan: Controlled. Plan Summary: If IV digoxin not effective we will need Dr. Valerio's input for further advice. Critical Time Critical Time (minutes): 40 Level of Care: IMCU Anticipated discharge: SNF Within: within 72 hours -: 1. The care of a critical patient is a dynamic process. This note is a scheduling representative synopsis but static in nature. The timeframe for treatments given in order is not necessarily the actual time these treatments may have been done. 2. This patient requires critical care secondary to ongoing requirements for therapy not offered or safe outside the critical care environment. Transfer to a lower level of care will result in altered life or limb morbidity and mortality. 3. Multidisciplinary rounds completed. 4. ABCDE bundle addressed.
[2019-03-26] MEDS: ESMOLOL 2500 MG/NS 250 ML IV PRN ×3 (13:52→22:46)
[2019-03-26] MEDS ORDERED: DIGOXIN INJ 0.5 MG/2 ML AMPULE ONE (14:35)
[2019-03-26] MEDS: PATIROMER 8.4 GM SUSP PACKET PO SCH (16:32)
--- NOTE | 2019-03-26 19:20 | Progress Note ---
Provider Note Provider Note: CARDIOLOGY PROGRESS NOTE by Dr. Hillary Melton on 03/26/2019. OBJECTIVE: The patient continues to be in atrial flutter with a ventricular response of 120s. No good response to IV amiodarone. Hence will discontinue amiodarone and start the patient on esmolol drip. The patient denies any chest pain or discomfort. She has no PND orthopnea. She is awake alert although she has difficulty getting his thoughts straight into speech. There is no TIA CVA symptoms. There is no ventricle arrhythmia seen on the monitor. The patient denies any chest pain or discomfort. PHYSICAL EXAMINATION: The patient is morbidly obese. In no acute distress. Selected Entries 03/26/19 03/26/19 13:17 16:00 Temperature 99.3 F Temperature Core Source Pulse Rate 124 H Respiratory 18 Rate Blood Pressure 114/89 H [Left Upper Arm ] Blood Pressure 97 Mean [Left Upper Arm] Blood Pressure Supine Position [Left Upper Arm] O2 Sat by Pulse 96 Oximetry Oxygen Delivery Nasal Cannula Method ( includes room air) Oxygen Flow 2 Rate HEAD: Is atraumatic. Normocephalic. EYES: Pupils are equal round regular reactive to light and accommodation. Extraocular movements are normal there is no conjunctival pallor. There is no scleral icterus. EARS: Tympanic membranes are intact. External auditory canals are clear. NOSE: There is no deviated nasal septum. There is no inflammation of the nasal mucous membrane. MOUTH: There is no ulcers in the mouth. Mucous membranes of the mouth are moist. THROAT: There is no redness of the oropharynx. There is no exudates. SKIN: There is no skin rashes. There is no petechia or ecchymosis. NECK: Is supple. There is mild JVD present. Carotids are equal there is no bruit. There is no lymphadenopathy. There is no goiter. There is no accessory muscle respiration use. Trachea is central. LUNGS: Shows diminished air entry prolonged expiration. T. There a few "Velcro" [E] rales of pulmonary fibrosis in the right base.. There is a few fine rales of CHF. HEART: S1-S2 is heard. There is no S3 gallop. There is no S4 gallop. There is systolic murmur of tricuspid regurgitation and mild mitral regurgitation murmur present. There is no S3 gallop. There is no S4 gallop. There is no rub. ABDOMEN: Is obese. Nontender. There is no paraspinal megaly. Bowel sounds are well heard. EXTREMITIES: Femorals are deep. Femorals are diminished there is no femoral bruits. Leg pulses are diminished. There is 1+ bilateral edema. There is no DVT or cellulitis. There is no cyanosis or clubbing. There is no calf tenderness. HIDE HANDLER: The patient is conscious awake alert oriented x3 with no focal deficit. PSYCHIATRIC:. The patient judgment insight are intact her affect is normal. Labs- All tests 24 hr 03/25/19 03/25/19 03/25/19 20:29 20:29 21:49 Sodium Potassium Chloride Carbon Dioxide Anion Gap BUN Creatinine Est GFR ( Amer) Est GFR (MDRD) Non-Af Glucose POC Glucose 193 H Calcium Phosphorus Magnesium Total Bilirubin 0.3 Direct Bilirubin 0.0 Neonat Total Bilirubin Not Reportable Neonat Direct Bilirubin Not Reportable Neonat Indirect Bili Not Reportable AST 16 ALT 20 Alkaline Phosphatase 83 Total Protein 4.9 L Albumin 2.6 L TSH 0.21 L Free T4 Free T3 pg/mL 03/26/19 03/26/19 03/26/19 05:11 08:14 10:31 Sodium 134.8 L Potassium 4.7 Chloride 98 Carbon Dioxide 35 H Anion Gap 2 L BUN 28 H Creatinine 1.11 Est GFR ( Amer) 58 L Est GFR (MDRD) Non-Af 48 L Glucose 190 H POC Glucose 207 H 122 H Calcium 8.7 Phosphorus 3.9 Magnesium 2.2 Total Bilirubin Direct Bilirubin Neonat Total Bilirubin Neonat Direct Bilirubin Neonat Indirect Bili AST ALT Alkaline Phosphatase Total Protein Albumin TSH Free T4 Free T3 pg/mL 03/26/19 03/26/19 10:34 16:23 Sodium Potassium Chloride Carbon Dioxide Anion Gap BUN Creatinine Est GFR ( Amer) Est GFR (MDRD) Non-Af Glucose POC Glucose 198 H Calcium Phosphorus Magnesium Total Bilirubin Direct Bilirubin Neonat Total Bilirubin Neonat Direct Bilirubin Neonat Indirect Bili AST ALT Alkaline Phosphatase Total Protein Albumin TSH Free T4 0.78 Free T3 pg/mL 1.53 L Chest X-Ray 03/23/19 16:04 IMPRESSION: Cardiomegaly and mild central vascular congestion. Elevation of the right hemidiaphragm. Head CT 03/23/19 21:36 IMPRESSION: No acute intracranial abnormalities. Chest X-Ray 03/24/19 01:40 IMPRESSION: Satisfactory placement of central venous catheter copyright 2010 [employer]- All Rights Reserved Chest X-Ray 03/24/19 06:00 IMPRESSION: Unchanged radiographic appearance of the chest. MONITOR strip shows atrial flutter with right branch block pattern and left anterior fascicular block. IMPRESSION/RECOMMENDATION: 1. Atrial flutter with fast ventricular response. We will start the patient on esmolol. If the patient continues to be in atrial flutter with rapid ventricular response then will in addition start the restart the patient's amiodarone in the a.m. and after a few hours of the combination of esmolol and amiodarone drip/infusion will set up the patient for elective cardioversion with anesthesia managing the patient's deep conscious sedation and airway. Continue Xarelto. Note that the patient has been uninterruptedly on Xarelto for about a year. 2. Acute on chronic hypoxic respiratory failure: Seems to be improved. Continue current treatment. 3. ACute on chronic kidney disease: GFR is improving. Avoid nephrotoxic drugs. 4. History of asthma/COPD: Continue current treatment. 5. History of pulmonary fibrosis. 6. Hypertension: Blood pressure now is much improved. The patient was hypotensive on admission on pressors. This has been weaned off. Patient blood pressure stable without any pressors. 7. Diabetes mellitus: Continue antidiabetic medication and Accu-Cheks as per protocol. 8. Hypothyroidism: Thyroid level seems to be optimal. 9. Cardiomyopathy with moderately reduced LV ejection fraction. Continue esmolol later transition to Toprol-XL. Continue Entresto. 10. Moderate to severe tricuspid regurgitation with moderate pulmonary hypertension. Medications reviewed. Medical Acacian regimen and management plan discussed with dishwasher busser. Medical decision making is of high complexity. 50 minutes spent as patient more than 50% of time spent direct patient care. Discussed wit h the patient and patient's daughter the the management plan including possible cardioversion tomorrow. Will follow
[2019-03-27] MEDS: ESMOLOL 2500 MG/NS 250 ML IV PRN ×2 (03:02→08:20)
[2019-03-27] MEDS: LEVOTHYROXINE SODIUM 0.025 MG TABLET PO SCH (06:15)
[2019-03-27] MEDS: HYDROCORTISONE SOD SUCCINATE INJ/PF 100 MG/2 ML SDV IV SCH ×3 (06:15→21:05)
[2019-03-27] MEDS: INSULIN REG, HUMAN 100 UNIT/ML 3 ML VIAL (PYX) SUBCUT SCH ×4 (08:43→21:19)
[2019-03-27] MEDS: FUROSEMIDE 20 MG TABLET PO SCH (08:50)
[2019-03-27] MEDS: DOCUSATE SODIUM 100 MG CAPSULE PO SCH ×2 (09:30→17:22)
[2019-03-27] MEDS: RIVAROXABAN 10 MG TABLET PO SCH (09:30)
[2019-03-27] MEDS: SACUBITRIL/VALSARTAN 49 MG/51 MG TABLET PO SCH ×2 (09:30→21:05)
[2019-03-27] MEDS: PREGABALIN 100 MG CAPSULE PO SCH ×3 (09:30→17:22)
[2019-03-27] MEDS: GLIMEPIRIDE 1 MG TABLET PO SCH (09:30)
[2019-03-27] MEDS: FLUTICASONE/UMECLIDIN/VILANTER 100-62.5-25 MCG/DOSE IH SCH (09:32)
--- NOTE | 2019-03-27 10:56 | PDOC CRITICAL CARE PROG REPORT ---
General Date:: 03/27/19 ICU Day:: 3 Hospital Day:: 3 Resuscitation Status: Full Code Events in the past 12 to 24 Hours:: Patient is in a regular appearing rhythm but is still in atrial flutter with no change in HR. Review of systems relevant to events:: CV and pulmonary. Reason for ICU Addmission:: Hypotension, AMS, TOBI, need for levophed. Now off and on IV amiodarone and esmolol. - Medications: Medications reviewed and adjusted accordingly: Yes Vasopressors:: None Sedation:: None Physical Exam Vital Signs: Temp Pulse Resp BP Pulse Ox 97.9 F 125 H 17 86/58 L 100 03/27/19 08:00 03/27/19 10:00 03/27/19 10:00 03/27/19 10:00 03/27/19 10:00 Intake & Output 03/26/19 03/27/19 03/28/19 06:59 06:59 06:59 Intake Total 1502 2245 105 Output Total 2100 975 330 Balance -598 1270 -225 Weight 105.1 kg 105.8 kg Weight/Height Weight 105.8 kg Height 5 ft General appearance: PRESENT: no acute distress, morbidly obese, well-developed, well-nourished Head exam: PRESENT: atraumatic, normocephalic Eye exam: PRESENT: conjunctiva pink, EOMI, PERRLA. ABSENT: scleral icterus Ear exam: PRESENT: normal external ear exam Mouth exam: PRESENT: moist, tongue midline Respiratory exam: PRESENT: clear to auscultation rick, decreased breath sounds. ABSENT: rales, rhonchi, wheezes Cardiovascular exam: PRESENT: irregular rhythm, tachycardia Vascular exam: PRESENT: normal capillary refill GI/Abdominal exam: PRESENT: normal bowel sounds, soft. ABSENT: distended, gua rding, mass, organolmegaly, rebound, tenderness Rectal exam: PRESENT: deferred Gentrourinary exam: PRESENT: indwelling catheter Extremities exam: PRESENT: full ROM. ABSENT: calf tenderness, clubbing, pedal edema Neurological exam: PRESENT: alert, awake, oriented to person, oriented to place, oriented to time, oriented to situation, CN II-XII grossly intact. ABSENT: motor sensory deficit Psychiatric exam: PRESENT: appropriate affect, normal mood. ABSENT: homicidal ideation, suicidal ideation Skin exam: PRESENT: dry, intact, warm. ABSENT: cyanosis, rash Tubes/Lines: PRESENT: Central Line Laboratory/Radiographs Laboratory Results: 03/24/19 06:45 03/26/19 05:11 03/26/19 10:34 Free T4 0.78 Free T3 pg/mL 1.53 L 03/23/19 03/24/19 03/24/19 16:25 02:40 08:40 Troponin I < 0.012 < 0.012 < 0.012 03/24/19 15:36 Troponin I < 0.012 Impressions: Head CT 03/23/19 21:36 IMPRESSION: No acute intracranial abnormalities. Chest X-Ray 03/24/19 06:00 IMPRESSION: Unchanged radiographic appearance of the chest. All labs, radiographs, diagnostic studies and EKGs were personally reviewed: Yes In addition, reports of radiographic and diagnostic studies were read: Yes Assessment and Plan - Diagnosis (1) Atrial fibrillation Qualifiers: Atrial fibrillation type: unspecified Qualified Code(s): I48.91 - Unspecified atrial fibrillation Is this a current diagnosis for this admission?: Yes Plan: No permanent results from esmolol or amiodarone. To get a DC cardioversion by Dr. Valerio today around 4:30. Is NPO. (2) Chronic obstructive pulmonary disease (COPD) Qualifiers: COPD type: unspecified COPD Qualified Code(s): J44.9 - Chronic obstructive pulmonary disease, unspecified Is this a current diagnosis for this admission?: Yes Plan: Currently stable. On home inhalers. (3) Hyperkalemia Is this a current diagnosis for this admission?: Yes (4) Morbid obesity with BMI of 40.0-44.9, adult Is this a current diagnosis for this admission?: Yes Plan: Chronic (5) Acute on chronic diastolic congestive heart failure Is this a current diagnosis for this admission?: Yes Plan: Stable even with this HR. (6) Diabetes mellitus type 2 in obese Is this a current diagnosis for this admission?: Yes Plan: Controlled. Plan Summary: Cardioversion today. If successful may discharge in AM to rehab. Critical Time Critical Time (minutes): 30 Level of Care: ICU Anticipated discharge: SNF Within: within 24 hours -: 1. The care of a critical patient is a dynamic process. This note is a associate sales representative synopsis but static in nature. The timeframe for treatments given in order is not necessarily the actual time these treatments may have been done. 2. This patient requires critical care secondary to ongoing requirements for therapy not offered or safe outside the critical care environment. Transfer to a lower level of care will result in altered life or limb morbidity and mortality. 3. Multidisciplinary rounds completed. 4. ABCDE bundle addressed.
[2019-03-27] MEDS ORDERED: DEXTROSE 5%-WATER 500 ML with AMIODARONE HCL 900 MG IV PRN ×2 (11:02)
[2019-03-27] MEDS ORDERED: PROPOFOL INJ 200 MG/20 ML VIAL IV ONE (15:55)
[2019-03-27 17:07] LABS: BLOOD UREA NITROGEN 23 mg/dL (7-20); CHLORIDE 99 mmol/L (98-107); GLUCOSE 137 mg/dL (75-110); POTASSIUM 3.7 mmol/L (3.6-5.0)
[2019-03-27 17:12] LABS: CARBON DIOXIDE 38 mmol/L (22-30)
[2019-03-27 17:13] LABS: ANION GAP 1 (5-19)
[2019-03-27] MEDS: PATIROMER 8.4 GM SUSP PACKET PO SCH (17:22)
--- NOTE | 2019-03-27 18:26 | EKG REPORT ---
SEVERITY:- ABNORMAL ECG - SINUS RHYTHM FIRST DEGREE AV BLOCK RBBB AND LAFB : Confirmed by: Tk Garay MD 27-Mar-2019 18:26:13
--- NOTE | 2019-03-27 18:27 | EKG REPORT ---
SEVERITY:- ABNORMAL ECG - A-FLUTTER W/ PREDOM 3:1 AV BLOCK, A-RATE 254 RBBB AND LAFB : Confirmed by: Tk Garay MD 27-Mar-2019 18:26:37
--- NOTE | 2019-03-27 19:04 | Progress Note ---
Provider Note Provider Note: CARDIOLOGY PROGRESS NOTE by Dr. Hillary Holder on 03/27/2019. Note that the patient was seen in the morning around 9:30 AM and subsequently the patient was seen in the evening around 1600 when she was cardioverted to sinus rhythm and the patient was again examined. The patient earlier this morning was in atrial flutter with a ventricular response of 120 bpm. She had transiently come down to 60 bpm with the rhythm still being atrial flutter last night. But with 100mcg/kg/min of esmolol her blood pressure went into the 70s. Has esmolol was decreased to 25 mcg/kg/min. Subsequently patient's heart rate went back into 124. The patient was continued on the esmolol at a rate of 25 mg/kg/min and also the patient was started on amiodarone drip at 0.5 mg per minute. With this the patient's heart rate went down into the 60s to 70s with the patient still being atrial flutter. The patient with anesthesia giving giving conscious sedation and managing the airway the patient successfully cardioverted with 150 J of biphasic synchronized DC current shock. The patient is EKG subsequently showed sinus rhythm with first-degree AV block. Left anterior hemiblock and right bundle branch block pattern. The patient has no ill effects or side effects or complications of the cardioversion. She is awake alert oriented x3 with no focal deficits and moves all 4 extremities. With the patient being in sinus rhythm her blood pressure is improved. PHYSICAL EXAMINATION: The patient morbidly obese. In no acute distress. Selected Entries 03/27/19 03/27/19 17:06 18:00 Temperature 98.2 F 98.4 F Pulse Rate 74 Heart Rate ( 65 84 Monitors) Respiratory 18 19 Rate Blood Pressure 161/73 H Blood Pressure 131/62 H [Left Upper Arm ] Blood Pressure 102 Mean Blood Pressure 85 Mean [Left Upper Arm] Blood Pressure Supine Position [Left Upper Arm] O2 Sat by Pulse 98 97 Oximetry Oxygen Delivery Nasal Cannula Method ( includes room air) HEAD: Is atraumatic. Normocephalic. EYES: Pupils are equal round regular reactive to light and accommodation. Extraocular movements are normal there is no conjunctival pallor. There is no scleral icterus. EARS: Tympanic membranes are intact. External auditory canals are clear. NOSE: There is no deviated nasal septum. There is no inflammation of the nasal mucous membrane. MOUTH: There is no ulcers in the mouth. Mucous membranes of the mouth are moist. THROAT: There is no redness of the oropharynx. There is no exudates. SKIN: There is no skin rashes. There is no petechia or ecchymosis. NECK: Is supple. There is mild JVD present. Carotids are equal there is no bruit. There is no lymphadenopathy. There is no goiter. There is no accessory muscle respiration use. Trachea is central. LUNGS: Shows diminished air entry prolonged expiration. T. There a few "Velcro" [E] rales of pulmonary fibrosis in the right base.. There are no rales of CHF.. HEART: S1-S2 is heard. S1 now is of normal intensity. There is no S3 gallop. There is no S4 gallop. There is syst olic murmur of tricuspid regurgitation and mild mitral regurgitation murmur present. There is no S3 gallop. There is no S4 gallop. There is no rub. ABDOMEN: Is obese. Nontender. There is no paraspinal megaly. Bowel sounds are well heard. EXTREMITIES: Femorals are deep. Femorals are diminished there is no femoral bruits. Leg pulses are diminished. There is 1+ bilateral edema. There is no DVT or cellulitis. There is no cyanosis or clubbing. There is no calf tenderness. PIPE STEM ALIGNER: The patient is conscious awake alert oriented x3 with no focal deficit. PSYCHIATRIC:. The patient judgment insight are intact her affect is normal. IMPRESSION/RECOMMENDATION: 1. Atrial flutter with fast ventricular response earlier this morning. The patient's heart rate was controlled with a combination of esmolol drip and amiodarone. Subsequently the patient has been cardioverted to sinus rhythm. The patient is on a very small dose of esmolol drip continuously. The amnio drip has been discontinued. Will later increase the patient's esmolol infusion. Continue Xarelto. Later tomorrow we will see if we can put the patient on sotalol to keep the patient in sinus rhythm. Subsequently if the patient remains in sinus rhythm we will repeat the patient's echo for surely the LV ejection fraction should have improved remarkably.. 2. Acute on chronic hypoxic respiratory failure: Seems to be improved. Continue current treatment. 3. ACute on chronic kidney disease: GFR is improving. Avoid nephrotoxic drugs. 4. History of asthma/COPD: Continue current treatment. 5. History of pulmonary fibrosis. 6. Hypertension: Blood pressure now is much improved. The patient was hypotensive on admission on pressors. This has been weaned off. Patient blood pressure stable without any pressors. 7. Diabetes mellitus: Continue antidiabetic medication and Accu-Cheks as per protocol. 8. Hypothyroidism: Thyroid level seems to be optimal. 9. Cardiomyopathy with moderately reduced LV ejection fraction. Continue esmolol later transition to Toprol-XL. Continue Entresto. 10. Moderate to severe tricuspid regurgitation with moderate pulmonary hypertension 11. Successful elective DC synchronized cardioversion of the patient, atrial flutter to sinus rhythm. Medications reviewed. Medical regimen and management plan discussed with utility clerk. Medical decision making is of high complexity. More than 60 minutes spent as patient more than 50% of time spent on direct patient care. Note the 60 minutes was divided into 30 minutes in the morning and about 10 minutes for the cardioversion and 20 minutes later after the cardioversion. Will follow
--- NOTE | 2019-03-27 19:08 | Progress Note ---
Provider Note Provider Note: PROCEDURE NOTE BY DR. ASIA SHANKS on 03/27/2019. PROCEDURE: Elective DC synchronized cardioversion of atrial flutter to sinus mechanism. Informed consent was obtained from the patient and the patient's daughter after explaining the procedure of cardioversion with anesthesia giving conscious sedation and managing the airway. The benefits and risks and complications have been discussed. Complications which are limited which are but not limited to CVA, development of ventricular arrhythmias requiring CPR or repeat defibrillation, need for temporary or permanent pacemaker for symptomatic bradycardia, need for CPR, and skin lara of all been discussed with him in detail and informed consent was obtained. PROCEDURE: With anesthesia giving the patient sedation with propofol and managing patient's airway when the patient was deeply sedated the patient was given 1 synchronized DC biphasic shock of 150 J on the pads that were applied to the chest. The patient converted to sinus rhythm. Subsequently the patient awakened with no focal deficits and no evidence of CVA. She was awake alert oriented x3 and was moving all 4 extremities. Also blood pressure was stable. The patient has been restarted on esmolol at 12.5 mcg/kg/min. Later we will see if we can increase this. There is no evidence of any complication of the cardioversion. Impression successful synchronized DC cardioversion of atrial flutter to sinus rhythm using 150 J of biphasic DC roderick
[2019-03-27] MEDS: HYDROCODONE/ACETAMINOPHEN 5-325 MG TABLET PO PRN (21:05)
[2019-03-28 03:21] LABS: ALBUMIN 2.4 g/dL (3.5-5.0); ALKALINE PHOSPHATASE 64 U/L (38-126); ASPARTATE AMINO TRANSFERASE 13 U/L (14-36); BILIRUBIN,TOTAL 0.2 mg/dL (0.2-1.3); BLOOD UREA NITROGEN 25 mg/dL (7-20); CALCIUM 7.9 mg/dL (8.4-10.2); CARBON DIOXIDE 37 mmol/L (22-30); GLUCOSE 134 mg/dL (75-110); POTASSIUM 3.8 mmol/L (3.6-5.0); TOTAL PROTEIN 4.5 g/dL (6.3-8.2)
[2019-03-28 03:26] LABS: CHLORIDE 102 mmol/L (98-107)
[2019-03-28 03:29] LABS: ANION GAP 0 (5-19)
[2019-03-28] MEDS: LEVOTHYROXINE SODIUM 0.025 MG TABLET PO SCH (06:02)
[2019-03-28] MEDS: HYDROCORTISONE SOD SUCCINATE INJ/PF 100 MG/2 ML SDV IV SCH ×3 (06:02→21:10)
[2019-03-28] MEDS: HYDROCODONE/ACETAMINOPHEN 5-325 MG TABLET PO PRN (06:08)
--- NOTE | 2019-03-28 07:05 | EKG REPORT ---
SEVERITY:- ABNORMAL ECG - SINUS RHYTHM INCOMPLETE RBBB AND LAFB PROBABLE ANTEROSEPTAL INFARCT, AGE INDETERM : Confirmed by: Tk Garay MD 28-Mar-2019 07:04:53
[2019-03-28] MEDS: INSULIN REG, HUMAN 100 UNIT/ML 3 ML VIAL (PYX) SUBCUT SCH ×4 (08:32→21:09)
[2019-03-28] MEDS: GLIMEPIRIDE 1 MG TABLET PO SCH (09:28)
[2019-03-28] MEDS: RIVAROXABAN 10 MG TABLET PO SCH (09:28)
[2019-03-28] MEDS: FLUTICASONE/UMECLIDIN/VILANTER 100-62.5-25 MCG/DOSE IH SCH (09:28)
[2019-03-28] MEDS: SACUBITRIL/VALSARTAN 49 MG/51 MG TABLET PO SCH ×2 (09:29→21:10)
[2019-03-28] MEDS: DOCUSATE SODIUM 100 MG CAPSULE PO SCH ×2 (09:29→17:17)
[2019-03-28] MEDS: PREGABALIN 100 MG CAPSULE PO SCH ×3 (09:29→17:17)
[2019-03-28] MEDS: FUROSEMIDE 20 MG TABLET PO SCH (09:29)
--- NOTE | 2019-03-28 11:50 | PDOC CRITICAL CARE PROG REPORT ---
General Date:: 03/28/19 ICU Day:: 4 Hospital Day:: 4 Resuscitation Status: Full Code Events in the past 12 to 24 Hours:: Carioverted successfully. Off esmolol and amiodarone IV Review of systems relevant to events:: CV Reason for ICU Addmission:: Hypotension, AMS, TOBI, need for levophed. Now off and on IV amiodarone and esmolol. - Medications: Medications reviewed and adjusted accordingly: Yes Vasopressors:: None Sedation:: None Physical Exam Vital Signs: Temp Pulse Resp BP Pulse Ox 98.1 F 56 L 22 H 116/56 L 99 03/28/19 10:13 03/28/19 10:00 03/28/19 10:13 03/28/19 10:13 03/28/19 10:13 Intake & Output 03/27/19 03/28/19 03/29/19 06:59 06:59 06:59 Intake Total 2245 348 200 Output Total 975 2110 50 Balance 1270 -1762 150 Weight 105.8 kg 107.3 kg Weight/Height Weight 107.3 kg Height 5 ft General appearance: PRESENT: no acute distress, morbidly obese Head exam: PRESENT: atraumatic, normocephalic Eye exam: PRESENT: conjunctiva pink, EOMI, PERRLA. ABSENT: scleral icterus Ear exam: PRESENT: normal external ear exam Mouth exam: PRESENT: moist, tongue midline Respiratory exam: PRESENT: clear to auscultation rick, decreased breath sounds. ABSENT: rales, rhonchi, wheezes Cardiovascular exam: PRESENT: bradycardia Vascular exam: PRESENT: normal capillary refill GI/Abdominal exam: PRESENT: normal bowel sounds, soft. ABSENT: distended, guarding, mass, organolmegaly, rebound, tenderness Rectal exam: PRESENT: deferred Extremities exam: PRESENT: pedal edema Neurological exam: PRESENT: alert, awake, oriented to person, oriented to place, oriented to time, oriented to situation, CN II-XII grossly intact. ABSENT: motor sensory deficit Psychiatric exam: PRESENT: appropriate affect, normal mood. ABSENT: homicidal ideation, suicidal ideation Skin exam: PRESENT: dry, normal color Laboratory/Radiographs Laboratory Results: 03/24/19 06:45 03/28/19 02:59 03/27/19 03/28/19 16:30 02:59 Sodium 137.6 139.1 Potassium 3.7 3.8 Chloride 99 102 Carbon Dioxide 38 H 37 H Anion Gap 1 L 0 L BUN 23 H 25 H Creatinine 1.06 1.01 Est GFR ( Amer) > 60 > 60 Glucose 137 H 134 H Calcium 8.0 L 7.9 L Magnesium 1.7 1.7 Total Bilirubin 0.2 AST 13 L Alkaline Phosphatase 64 Total Protein 4.5 L Albumin 2.4 L 03/23/19 03/24/19 03/24/19 16:25 02:40 08:40 Troponin I < 0.012 < 0.012 < 0.012 03/24/19 15:36 Troponin I < 0.012 Impressions: Head CT 03/23/19 21:36 IMPRESSION: No acute intracranial abnormalities. Chest X-Ray 03/24/19 06:00 IMPRESSION: Unchanged radiographic appearance of the chest. All labs, radiographs, diagnostic studies and EKGs were personally reviewed: Yes In addition, reports of radiographic and diagnostic studies were read: Yes Assessment and Plan - Diagnosis (1) Atrial fibrillation Qualifiers: Atrial fibrillation type: unspecified Qualified Code(s): I48.91 - Unspecified atrial fibrillation Is this a current diagnosis for this admission?: Yes Plan: Cardioverted to SR. Off esmolol and amiodarone. Needs at least one more day to observe. Any cardiac meds per Dr. Valerio. OK to transfer from ICU. (2) Chronic obstructive pulmonary disease (COPD) Qualifiers: COPD type: unspecified COPD Qualified Code(s): J44.9 - Chronic obstructive pulmonary disease, unspecified Is this a current diagnosis for this admission?: Yes Plan: Stable. (3) Hyperkalemia Is this a current diagnosis for this admission?: Yes Plan: Resolved (4) Morbid obesity with BMI of 40.0-44.9, adult Is this a current diagnosis for this admission?: Yes (5) Acute on chronic diastolic congestive heart failure Is this a current diagnosis for this admission?: Yes (6) Diabetes mellitus type 2 in obese Is this a current diagnosis for this admission?: Yes Critical Time Critical Time (minutes): 25 Level of Care: IMCU Anticipated discharge: SNF Within: within 48 hours -: 1. The care of a critical patient is a dynamic process. This note is a quality audit representative synopsis but static in nature. The timeframe for treatments given in order is not necessarily the actual time these treatments may have been done. 2. This patient requires critical care secondary to ongoing requirements for therapy not offered or safe outside the critical care environment. Transfer to a lower level of care will result in altered life or limb morbidity and mortality. 3. Multidisciplinary rounds completed. 4. ABCDE bundle addressed.
--- NOTE | 2019-03-28 19:08 | Progress Note ---
Provider Note Provider Note: CARDIOLOGY PROGRESS NOTE by Dr. Hillary Melton on 03/28/2019. SUBJECTIVE: The patient remains in sinus bradycardia. Unable to start the patient on a beta-les or sotalol in view of the patient's heart rate being anywhere from 40-60. She is asymptomatic. There is no ventricular arrhythmia seen on the monitor. The patient denies any chest pain or discomfort. There is no PND orthopnea. A limited echo follow-up shows that the LV ejection fraction has improved to about 60%. She still has moderate pulmonary hypertension with right ventricle systolic pressure of 51 to 56 mmHg. The study is not a very good study in view of the patient's body habitus. The patient denies any shortness of breath. There is no PND orthopnea wheezing. Her blood pressure is stable without any pressors. PHYSICAL EXAMINATION: The patient is morbidly obese. In no acute distress. She is well-groomed. Selected Entries 03/28/19 03/28/19 03/28/19 10:00 17:20 17:21 Temperature 98.1 F 98.2 F Pulse Rate 79 Heart Rate ( 45 52 Monitors) Respiratory 17 19 Rate Blood Pressure 158/81 H Blood Pressure 118/58 L [Left Upper Arm ] Blood Pressure 106 Mean Blood Pressure 78 Mean [Left Upper Arm] Blood Pressure Supine Position [Left Upper Arm] Blood Pressure 118 Systolic [Left Upper Arm] O2 Sat by Pulse 98 100 Oximetry Oxygen Delivery Nasal Cannula Method ( includes room air) Oxygen Flow 3 Rate 03/28/19 17:35 Temperature 98.2 F Pulse Rate Heart Rate ( 73 Monitors) Respiratory Rate Blood Pressure Blood Pressure [Left Upper Arm ] Blood Pressure Mean Blood Pressure Mean [Left Upper Arm] Blood Pressure Position [Left Upper Arm] Blood Pressure Systolic [Left Upper Arm] O2 Sat by Pulse Oximetry Oxygen Delivery Method ( includes room air) Oxygen Flow Rate HEAD: Is atraumatic. Normocephalic. EYES: Pupils are equal round regular reactive to light and accommodation. Extraocular movements are normal there is no conjunctival pallor. There is no scleral icterus. EARS: Tympanic membranes are intact. External auditory canals are clear. NOSE: There is no deviated nasal septum. There is no inflammation of the nasal mucous membrane. MOUTH: There is no ulcers in the mouth. Mucous membranes of the mouth are moist. THROAT: There is no redness of the oropharynx. There is no exudates. SKIN: There is no skin rashes. There is no petechia or ecchymosis. NECK: Is supple. There is mild JVD present. Carotids are equal there is no bruit. There is no lymphadenopathy. There is no goiter. There is no accessory muscle respiration use. Trachea is central. LUNGS: Shows diminished air entry prolonged expiration. T. There a few "Velcro" [E] rales of pulmonary fibrosis in the right base.. There are no rales of CHF.. HEART: S1-S2 is heard. S1 now is of normal intensity. There is no S3 gallop. There is no S4 gallop. There is systolic murmur of tricuspid regurgitation and mild mitral regurgitation murmur present. There is no S3 gallop. There is no S4 gallop. There is no rub. ABDOMEN: Is obese. Nontender. There is no paraspinal megaly. Bowel sounds are well heard. EXTREMITIES: Femorals are deep. Femorals are diminished there is no femoral bruits. Leg pulses are diminished. There is 1+ bilateral edema. There is no DVT or cellulitis. There is no cyanosis or clubbing. There is no calf tenderness. MANAGER SOCIAL MEDIA: The patient is conscious awake alert oriented x3 with no focal deficit. PSYCHIATRIC:. The patient judgment insight are intact her affect is normal. Labs- All tests 24 hr 03/28/19 03/28/19 03/28/19 02:59 16:12 20:58 Sodium 139.1 Potassium 3.8 Chloride 102 Carbon Dioxide 37 H Anion Gap 0 L BUN 25 H Creatinine 1.01 Est GFR ( Amer) > 60 Est GFR (MDRD) Non-Af 53 L Glucose 134 H POC Glucose 239 H 164 H Calcium 7.9 L Magnesium 1.7 Total Bilirubin 0.2 Direct Bilirubin 0.0 Neonat Total Bilirubin Not Reportable Neonat Direct Bilirubin Not Reportable Neonat Indirect Bili Not Reportable AST 13 L ALT 17 Alkaline Phosphatase 64 Total Protein 4.5 L Albumin 2.4 L Chest X-Ray 03/23/19 16:04 IMPRESSION: Cardiomegaly and mild central vascular congestion. Elevation of the right hemidiaphragm. Head CT 03/23/19 21:36 IMPRESSION: No acute intracranial abnormalities. Chest X-Ray 03/24/19 01:40 IMPRESSION: Satisfactory placement of central venous catheter copyright 2011 [employer]- All Rights Reserved Chest X-Ray 03/24/19 06:00 IMPRESSION: Unchanged radiographic appearance of the chest. IMPRESSION/RECOMMENDATION: 1. Atrial flutter. S/p cardioversion to sinus bradycardia. The patient's heart rate still low. Will wait for the heart rate to come up prior to starting the patient on a beta-les or sotalol. 2. Acute on chronic hypoxic respiratory failure: Seems to be improved. Continue current treatment. 3. ACute on chronic kidney disease: GFR is improving. Avoid nephrotoxic drugs. 4. History of asthma/COPD: Continue current treatment. 5. History of pulmonary fibrosis. 6. Hypertension: Blood pressure now is much improved. The patient was hypotensive on admission on pressors. This has been weaned off. Patient blood pressure stable without any pressors. 7. Diabetes mellitus: Continue antidiabetic medication and Accu-Cheks as per protocol. 8. Hypothyroidism: Thyroid level seems to be optimal. 9. Cardiomyopathy with moderately reduced LV ejection fraction. Continue esmolol later transition to Toprol-XL. Continue Entresto. Note with the patient being in sinus rhythm patient repeat echocardiogram shows that the cardiomyopathy is resolved. LV ejection fraction is 60% although the ecstatic very good echo study. 10. Moderate to severe tricuspid regurgitation with moderate pulmonary hypertension 11. Successful elective DC synchronized cardioversion of the patient, atrial flutter to sinus rhythm. 12. Moderate pulmonary hypertension: Since the blood pressure is up will try to increase the patient's Entresto. Medications reviewed. Medical management and management plan discussed with the college teacher. Medical decision making is of high complexity. 40 minutes spent with patient more than 50% time spent in direct patient care. Will follow.
[2019-03-29] MEDS: HYDROCODONE/ACETAMINOPHEN 5-325 MG TABLET PO PRN ×2 (03:38→22:12)
[2019-03-29] MEDS: HYDROCORTISONE SOD SUCCINATE INJ/PF 100 MG/2 ML SDV IV SCH ×3 (07:03→22:12)
[2019-03-29] MEDS: LEVOTHYROXINE SODIUM 0.025 MG TABLET PO SCH (07:03)
[2019-03-29] MEDS: INSULIN REG, HUMAN 100 UNIT/ML 3 ML VIAL (PYX) SUBCUT SCH ×4 (09:13→22:17)
[2019-03-29] MEDS: SACUBITRIL/VALSARTAN 49 MG/51 MG TABLET PO SCH ×2 (09:14→22:12)
[2019-03-29] MEDS: PREGABALIN 100 MG CAPSULE PO SCH ×3 (09:14→17:39)
[2019-03-29] MEDS: DOCUSATE SODIUM 100 MG CAPSULE PO SCH ×2 (09:14→17:39)
[2019-03-29] MEDS: FUROSEMIDE 20 MG TABLET PO SCH (09:14)
[2019-03-29] MEDS: RIVAROXABAN 10 MG TABLET PO SCH (09:14)
[2019-03-29] MEDS: GLIMEPIRIDE 1 MG TABLET PO SCH (09:14)
[2019-03-29] MEDS: FLUTICASONE/UMECLIDIN/VILANTER 100-62.5-25 MCG/DOSE IH SCH (09:15)
--- NOTE | 2019-03-29 11:21 | Progress Note ---
Provider Note Provider Note: CARDIOLOGY PROGRESS NOTE by Dr. Hillary Holder on 03/29/2019. OBJECTIVE: The patient denies any chest pain or discomfort. There is no shortness of breath. There is no PND orthopnea. There is no recurrence of atrial fibrillation or ventricular arrhythmias. There is no high-grade AV block. Unfortunately the patient still in sinus bradycardia but with no symptoms and with a stable blood pressure. In view of the bradycardia unable to start the patient on a beta-les or sotalol. Note that the patient's repeat echocardiogram showed that the patient's LV ejection fraction is now normal. Right ventricle systolic pressure still moderately elevated at 51 mmHg which is less than prior before. Hence we will continue the patient on Entresto. The patient has been downgraded to [facility] floor. PHYSICAL EXAMINATION: The patient is morbidly obese. In no acute distress. Selected Entries 03/29/19 12:00 Temperature 98.8 F Temperature Core Source Pulse Rate 55 L Heart Rate ( 59 Monitors) Respiratory 21 H Rate Blood Pressure 145/76 H [Left Upper Arm ] Blood Pressure 99 Mean [Left Upper Arm] Blood Pressure Supine Position [Left Upper Arm] O2 Sat by Pulse 98 Oximetry Oxygen Delivery Nasal Cannula Method ( includes room air) Oxygen Flow 3 Rate HEAD: Is atraumatic. Normocephalic. EYES: Pupils are equal round regular reactive to light and accommodation. Extraocular movements are normal there is no conjunctival pallor. There is no scleral icterus. EARS: Tympanic membranes are intact. External auditory canals are clear. NOSE: There is no deviated nasal septum. There is no inflammation of the nasal mucous membrane. MOUTH: T here is no ulcers in the mouth. Mucous membranes of the mouth are moist. THROAT: There is no redness of the oropharynx. There is no exudates. SKIN: There is no skin rashes. There is no petechia or ecchymosis. NECK: Is supple. There is mild JVD present. Carotids are equal there is no bruit. There is no lymphadenopathy. There is no goiter. There is no accessory muscle respiration use. Trachea is central. LUNGS: Shows diminished air entry prolonged expiration. T. There a few "Velcro" [E] rales of pulmonary fibrosis in the right base.. There are no rales of CHF.. HEART: S1-S2 is heard. S1 now is of normal intensity. There is no S3 gallop. There is no S4 gallop. There is systolic murmur of tricuspid regurgitation and mild mitral regurgitation murmur present. There is no S3 gallop. There is no S4 gallop. There is no rub. ABDOMEN: Is obese. Nontender. There is no paraspinal megaly. Bowel sounds are well heard. EXTREMITIES: Femorals are deep. Femorals are diminished there is no femoral bruits. Leg pulses are diminished. There is 1+ bilateral edema. There is no DVT or cellulitis. There is no cyanosis or clubbing. There is no calf tenderness. RECORD CLERK: The patient is conscious awake alert oriented x3 with no focal deficit. PSYCHIATRIC:. The patient judgment insight are intact her affect is normal. Labs- All tests 24 hr 03/28/19 03/29/19 03/29/19 20:58 11:33 17:22 POC Glucose 164 H 186 H 307 H Chest X-Ray 03/23/19 16:04 IMPRESSION: Cardiomegaly and mild central vascular congestion. Elevation of the right hemidiaphragm. Head CT 03/23/19 21:36 IMPRESSION: No acute intracranial abnormalities. Chest X-Ray 03/24/19 01:40 IMPRESSION: Satisfactory placement of central venous catheter copyright 2011 [employer]- All Rights Reserved Chest X-Ray 03/24/19 06:00 IMPRESSION: Unchanged radiographic appearance of the chest. IMPRESSION/RECOMMENDATION: 1. Atrial flutter. S/p cardioversion to sinus bradycardia. The patient's heart rate still low. Will wait for the heart rate to come up prior to starting the patient on a beta-les or sotalol. 2. Acute on chronic hypoxic respiratory failure: Seems to be improved. Continue current treatment. 3. ACute on chronic kidney disease: GFR is improving. Avoid nephrotoxic drugs. 4. History of asthma/COPD: Continue current treatment. 5. History of pulmonary fibrosis. 6. Hypertension: Blood pressure now is much improved. The patient was hypotensive on admission on pressors. This has been weaned off. Patient blood pressure stable without any pressors. 7. Diabetes mellitus: Continue antidiabetic medication and Accu-Cheks as per protocol. 8. Hypothyroidism: Thyroid level seems to be optimal. 9. Cardiomyopathy with moderately reduced LV ejection fraction. Continue esmolol later transition to Toprol-XL. Continue Entresto. Note with the patient being in sinus rhythm patient repeat echocardiogram shows that the cardiomyopathy is resolved. LV ejection fraction is 60% although the echo is not a very good echo study. 10. Moderate to severe tricuspid regurgitation with moderate pulmonary hypertension 11. Successful elective DC synchronized cardioversion of the patient, atrial fl utter to sinus rhythm. 12. Moderate pulmonary hypertension: Since the blood pressure is up will try to increase the patient's Entresto. Medications reviewed. Medical regimen and management plan discussed with attending provider on the case. Medical decision making is of moderate complexity. 40 minutes spent with patient more than 50% of time spent in direct patient care. Will follow.
--- NOTE | 2019-03-29 13:45 | PDOC CRITICAL CARE PROG REPORT ---
General Date:: 03/22/19 Hospital Day:: 7 Resuscitation Status: Full Code Events in the past 12 to 24 Hours:: Cardioverted successfully with no recurrence in 24 hours Review of systems relevant to events:: CV Reason for ICU Addmission:: She has been downgraded since yesterday. - Medications: Medications reviewed and adjusted accordingly: Yes Vasopressors:: None Sedation:: None Physical Exam Vital Signs: Temp Pulse Resp BP Pulse Ox 98.8 F 55 L 21 H 145/76 H 98 03/29/19 12:00 03/29/19 12:00 03/29/19 12:00 03/29/19 12:00 03/29/19 12:00 Intake & Output 03/28/19 03/29/19 03/30/19 06:59 06:59 06:59 Intake Total 348 1080 240 Output Total 2110 1170 185 Balance -1762 -90 55 Weight 107.3 kg 106.2 kg Weight/Height Weight 106.2 kg Height 5 ft General appearance: PRESENT: no acute distress, morbidly obese, well-developed, well-nourished Head exam: PRESENT: atraumatic, normocephalic Eye exam: PRESENT: conjunctiva pink, EOMI, PERRLA. ABSENT: scleral icterus Ear exam: PRESENT: normal external ear exam Mouth exam: PRESENT: moist, tongue midline Respiratory exam: PRESENT: clear to auscultation rick. ABSENT: rales, rhonchi, wheezes Cardiovascular exam: PRESENT: bradycardia Vascular exam: PRESENT: normal capillary refill GI/Abdominal exam: PRESENT: normal bowel sounds, soft. ABSENT: distended, guarding, mass, organolmegaly, rebound, tenderness Rectal exam: PRESENT: deferred Extremities exam: PRESENT: full ROM. ABSENT: calf tenderness, clubbing, pedal edema Neurological exam: PRESENT: alert, awake, oriented to person, oriented to place, oriented to time, oriented to situation, CN II-XII grossly intact. ABSENT: motor sensory deficit Skin exam: PRESENT: dry, intact, warm. ABSENT: cyanosis, rash Laboratory/Radiographs Laboratory Results: 03/24/19 06:45 03/28/19 02:59 03/23/19 18:23 Blood Blood Culture - Final NO GROWTH IN 5 DAYS 03/23/19 16:25 Blood Blood Culture - Final NO GROWTH IN 5 DAYS 03/23/19 03/24/19 03/24/19 16:25 02:40 08:40 Troponin I < 0.012 < 0.012 < 0.012 03/24/19 15:36 Troponin I < 0.012 Impressions: Head CT 03/23/19 21:36 IMPRESSION: No acute intracranial abnormalities. Chest X-Ray 03/24/19 06:00 IMPRESSION: Unchanged radiographic appearance of the chest. All labs, radiographs, diagnostic studies and EKGs were personally reviewed: Yes In addition, reports of radiographic and diagnostic studies were read: Yes Assessment and Plan - Diagnosis (1) Atrial fibrillation Qualifiers: Atrial fibrillation type: unspecified Qualified Code(s): I48.91 - Unspecified atrial fibrillation Is this a current diagnosis for this admission?: Yes Plan: In NSR since cardioversion. However Dr. Valerio would like to start sotalol for rate stabilization before discharge to SNF. HR is too bradycardic right now. Needs tele for now. (2) Chronic obstructive pulmonary disease (COPD) Qualifiers: COPD type: unspecified COPD Qualified Code(s): J44.9 - Chronic obstructive pulmonary disease, unspecified Is this a current diagnosis for this admission?: Yes Plan: Stable (3) Hyperkalemia Is this a current diagnosis for this admission?: Yes Plan: Resolved (4) Morbid obesity with BMI of 40.0-44.9, adult Is this a current diagnosis for this admission?: Yes Plan: Chronic (5) Acute on chronic diastolic congestive heart failure Is this a current diagnosis for this admission?: Yes Plan: Stable (6) Diabetes mellitus type 2 in obese Is this a current diagnosis for this admission?: Yes Plan: Controlled Plan Summary: Start sotalol at Dr. Valerio's direction. Then transfer to rehab. Critical Time Critical Time (minutes): 20 Level of Care: IMCU Anticipated discharge: SNF Within: within 72 hours -: 1. The care of a critical patient is a dynamic process. This note is a represe ntative synopsis but static in nature. The timeframe for treatments given in order is not necessarily the actual time these treatments may have been done. 2. This patient requires critical care secondary to ongoing requirements for therapy not offered or safe outside the critical care environment. Transfer to a lower level of care will result in altered life or limb morbidity and mortality. 3. Multidisciplinary rounds completed. 4. ABCDE bundle addressed.
--- NOTE | 2019-03-29 14:31 | XCELERA REPORT ---
[address] [address] Transthoracic Echocardiogram Report Name: KIMBERLY GAMEZ Age: 78 yrs Gender: Female : 1940 Patient Status: Inpatient Patient Location: [id number]^A Study Date: 03/28/2019 02:59 PM Procedure: A two-dimensional transthoracic echocardiogram with color flow and Doppler was performed in limited views only. The study was technically difficult with many images being suboptimal in quality. Reason For Study: Limited study for follow up of cardiomyopathy and Pulmonary Hypertension History: Limited study for follow up of cardiomyopathy and Pulmonary Hypertension. Ordering Physician: HILLARY SHANKS Performed By: Shannon Wells Interpretation Summary Limited study shows normal LV size, with mild LVH.No regional wall motion abnormality.LVEF is normal at 60%. There is no tricuspid stenosis. There is a mild amount of tricuspid regurgitation There is moderate pulmonary hypertension by echo RVSP is 51 mm of Hg , with RA mean of 10. MMode/2D Measurements & Calculations RVDd: 2.1 cm LVIDd: 4.4 cm FS: 31.5 % Ao root diam: 2.9 cm IVSd: 1.5 cm LVIDs: 3.0 cm EDV(Teich): 85.9 ml Ao root area: 6.6 cm2 LVPWd: 1.0 cm ESV(Teich): 34.6 ml EF(Teich): 59.7 % Doppler Measurements & Calculations PA V2 max: 98.7 cm/sec PI max brody: 132.4 cm/sec TR max brody: 317.9 cm/sec PA max P.9 mmHg PI max P.0 mmHg TR max P.7 mmHg Left Ventricle Limited study shows normal LV size, with mild LVH.No regional wall motion abnormality.LVEF is normal at 60%. Tricuspid Valve There is no tricuspid stenosis. There is a mild amount of tricuspid regurgitation. There is moderate pulmonary hypertension by echo. RVSP is 51 mm of Hg , with RA mean of 10. : HILLARY SHANKS, Hillary
[2019-03-30] MEDS ORDERED: METOPROLOL SUCCINATE 50 MG TAB.SR.24H PO ONE (05:15)
[2019-03-30] MEDS: HYDROCORTISONE SOD SUCCINATE INJ/PF 100 MG/2 ML SDV IV SCH ×3 (05:39→21:46)
[2019-03-30] MEDS: LEVOTHYROXINE SODIUM 0.025 MG TABLET PO SCH (05:39)
[2019-03-30] MEDS ORDERED: SOTALOL HCL 80 MG TABLET PO ONE (08:23)
--- NOTE | 2019-03-30 10:02 | Progress Note ---
Provider Note Provider Note: CARDIOLOGY PROGRESS NOTE by Dr. Hillary Melton on 03/30/2019. SUBJECTIVE: The patient this morning ventilatory atrial fibrillation with ventricular response around 10- 20. She is asymptomatic. The patient was given 2.5 mg of verapamil intravenously and subsequently also placed on sotalol 40 mg p.o. x1 dose. The patient soon after converted back to sinus rhythm. She denies any chest pain or discomfort. There is no shortness of breath. There is no severe orthopnea. The patient in the right she is on Xarelto with no bleeding. There is no TIA CVA symptoms. There is no ventricle arrhythmia seen on the monitor. PHYSICAL EXAMINATION: The patient is morbidly obese. At present in no acute distress. Vital signs when the patient was in atrial fibrillation. Selected Entries 03/30/19 03/30/19 03/30/19 10:00 10:57 11:00 Temperature 98.5 F Temperature Oral Source Pulse Rate 109 H Heart Rate ( 107 88 Monitors) Respiratory 18 Rate Blood Pressure 102/63 Blood Pressure 76 Mean BP Location Right Arm BP Position Supine O2 Sat by Pulse 96 Oximetry Oxygen Delivery Room Air Method Post conversion to sinus rhythm. The patient's heart rate is 60 bpm with a blood pressure of 119/53.. . HEAD: Is atraumatic. Normocephalic. EYES: Pupils are equal round regular reactive to light and accommodation. Extraocular movements are normal there is no conjunctival pallor. There is no scleral icterus. EARS: Tympanic membranes are intact. External auditory canals are clear. NOSE: There is no deviated nasal septum. There is no inflammation of the nasal mucous membrane. MOUTH: There is no ulcers in the mouth. Mucous membranes of the mouth are moist. THROAT: There is no redness of the oropharynx. There is no exudates. SKIN: There is no skin rashes. There is no petechia or ecchymosis. NECK: Is supple. There is mild JVD present. Carotids are equal there is no bruit. There is no lymphadenopathy. There is no goiter. There is no accessory muscle respiration use. Trachea is central. LUNGS: Shows diminished air entry prolonged expiration. T. There a few "Velcro" [E] rales of pulmonary fibrosis in the right base.. There are no rales of CHF.. HEART: S1-S2 is heard. S1 now is of normal intensity. There is no S3 gallop. There is no S4 gallop. There is systolic murmur of tricuspid regurgitation and mild mitral regurgitation murmur present. There is no S3 gallop. There is no S4 gallop. There is no rub. ABDOMEN: Is obese. Nontender. There is no paraspinal megaly. Bowel sounds are well heard. EXTREMITIES: Femorals are deep. Femorals are diminished there is no femoral bruits. Leg pulses are diminished. There is 1+ bilateral edema. There is no DVT or cellulitis. There is no cyanosis or clubbing. There is no calf tenderness. COMPOSITION MOLDER: The patient is conscious awake alert oriented x3 with no focal deficit. PSYCHIATRIC:. The patient judgment insight are intact her affect is normal. EKG: SINUS RHYTHM WITH APC. RATE 60-75 [RLAFB] . RBBB AND LAFB [LVHPRE] . PROBABLE LVH WITH SECONDARY REPOL ABNRM Labs- All tests 24 hr 03/29/19 03/29/19 03/30/19 17:22 22:16 07:40 POC Glucose 307 H 146 H 167 H 03/30/19 11:10 POC Glucose 107 Chest X-Ray 03/23/19 16:04 IMPRESSION: Cardiomegaly and mild central vascular congestion. Elevation of t he right hemidiaphragm. Head CT 03/23/19 21:36 IMPRESSION: No acute intracranial abnormalities. Chest X-Ray 03/24/19 01:40 IMPRESSION: Satisfactory placement of central venous catheter copyright 2011 [employer]- All Rights Reserved Chest X-Ray 03/24/19 06:00 IMPRESSION: Unchanged radiographic appearance of the chest. IMPRESSION/RECOMMENDATION: 1. Atrial flutter. Paroxysmal s/p cardioversion to sinus bradycardia. The patient remained bradycardic for some time and then went into atrial fibrillation with ventricular response in the 110s to 120s. Post 2.5 mg of IV verapamil and 40 mg of sotalol the patient converted to sinus bradycardia. We will continue patient's on sotalol and will get serial EKGs and watch the patient for proarrhythmia and also watch the QTc interval. 2. Acute on chronic hypoxic respiratory failure: Seems to be improved. Continue current treatment. 3. ACute on chronic kidney disease: GFR is improving. Avoid nephrotoxic drugs. 4. History of asthma/COPD: Continue current treatment. 5. History of pulmonary fibrosis. 6. Hypertension: Blood pressure now is much improved. The patient was hypotensive on admission on pressors. This has been weaned off. Patient blood pressure stable without any pressors. 7. Diabetes mellitus: Continue antidiabetic medication and Accu-Cheks as per protocol. 8. Hypothyroidism: Thyroid level seems to be optimal. 9. Cardiomyopathy with moderately reduced LV ejection fraction. Continue esmolol later transition to Toprol-XL. Continue Entresto. Note with the patient being in sinus rhythm patient repeat echocardiogram shows that the cardiomyopathy is resolved. LV ejection fraction is 60% although the echo is not a very good echo study. 10. Moderate to severe tricuspid regurgitation with moderate pulmonary hypertension 11. Successful elective DC synchronized cardioversion of the patient, atrial flutter to sinus rhythm. 12. Moderate pulmonary hypertension: Since the blood pressure is up will try to increase the patient's Entresto. Medications reviewed. Medications added. Medical decision making is of high complexity in view of the patient's need for medications to be added and adjusted. Medical regimen and management plan discussed with attending provider on the case. 40 minutes spent with patient more than 50% time spent in direct patient care. Will follow.
[2019-03-30] MEDS ORDERED: VERAPAMIL HCL INJ/PF 5 MG/2 ML SDV IV ONE ×2 (10:05→11:15)
[2019-03-30] MEDS ORDERED: SIMETHICONE 80 MG TAB.CHEW PO PRN (10:10)
[2019-03-30] MEDS: FUROSEMIDE 20 MG TABLET PO SCH (10:11)
[2019-03-30] MEDS: PREGABALIN 100 MG CAPSULE PO SCH ×3 (10:11→17:47)
[2019-03-30] MEDS: DOCUSATE SODIUM 100 MG CAPSULE PO SCH ×2 (10:11→17:47)
[2019-03-30] MEDS: INSULIN REG, HUMAN 100 UNIT/ML 3 ML VIAL (PYX) SUBCUT SCH ×4 (10:11→21:59)
[2019-03-30] MEDS: RIVAROXABAN 10 MG TABLET PO SCH (10:11)
[2019-03-30] MEDS: SACUBITRIL/VALSARTAN 49 MG/51 MG TABLET PO SCH ×2 (10:12→21:46)
[2019-03-30] MEDS: FLUTICASONE/UMECLIDIN/VILANTER 100-62.5-25 MCG/DOSE IH SCH (10:12)
[2019-03-30] MEDS: GLIMEPIRIDE 1 MG TABLET PO SCH (10:12)
--- NOTE | 2019-03-30 10:13 | PDOC PROGRESS REPORT ---
Subjective Progress Note for:: 03/30/19 Subjective:: The patient went back into atrial fibrillation with rapid ventricular response last night. She is just starting on the sotalol. She feels fluttering but is not having any significant chest pain. She also is complaining of stomach gas. Reason For Visit: ON AMIODARONE INFUSION Physical Exam Vital Signs: Temp Pulse Resp BP Pulse Ox 98.6 F 67 18 104/41 L 97 03/30/19 07:20 03/30/19 07:20 03/30/19 07:20 03/30/19 07:20 03/30/19 07:20 Intake & Output 03/29/19 03/30/19 03/31/19 06:59 06:59 06:59 Intake Total 1080 739 Output Total 1170 735 Balance -90 4 Weight 106.2 kg 105.5 kg General appearance: PRESENT: cooperative, mild distress, morbidly obese, well- developed Head exam: PRESENT: atraumatic, normocephalic Eye exam: PRESENT: conjunctiva pink. ABSENT: scleral icterus Ear exam: PRESENT: normal external ear exam. ABSENT: bleeding, drainage Mouth exam: PRESENT: moist, tongue midline Respiratory exam: PRESENT: clear to auscultation rick, symmetrical, unlabored. ABSENT: rales, rhonchi, tachypnea, wheezes Cardiovascular exam: PRESENT: irregular rhythm, tachycardia GI/Abdominal exam: PRESENT: normal bowel sounds, soft. ABSENT: distended, guarding, tenderness Rectal exam: PRESENT: deferred Gentrourinary exam: ABSENT: indwelling catheter Extremities exam: PRESENT: pedal edema Musculoskeletal exam: PRESENT: ambulatory. ABSENT: deformity Neurological exam: PRESENT: alert, awake, oriented to person, oriented to place, oriented to time, oriented to situation, CN II-XII grossly intact Psychiatric exam: PRESENT: appropriate affect. ABSENT: agitated, anxious Focused psych exam: ABSENT: delusional, restlessness Skin exam: PRESENT: dry, warm. ABSENT: rash Results Laboratory Results: 03/24/19 06:45 03/28/19 02:59 03/23/19 03/24/19 03/24/19 16:25 02:40 08:40 Troponin I < 0.012 < 0.012 < 0.012 03/24/19 15:36 Troponin I < 0.012 Impressions: Head CT 03/23/19 21:36 IMPRESSION: No acute intracranial abnormalities. Chest X-Ray 03/24/19 06:00 IMPRESSION: Unchanged radiographic appearance of the chest. Assessment and Plan - Diagnosis (1) Atrial fibrillation with rapid ventricular response Is this a current diagnosis for this admission?: Yes Plan: The patient transition from the ICU yesterday. She was converted but now has been bradycardic until earlier today. Her heart rate increased and she was back in fibrillation. She was started on sotalol and will need to be monitored for [address] Holder will continue to follow. (2) Chronic obstructive pulmonary disease (COPD) Qualifiers: COPD type: unspecified COPD Qualified Code(s): J44.9 - Chronic obstructive pulmonary disease, unspecified Is this a current diagnosis for this admission?: Yes Plan: Continue Trelegy inhaler (3) Hyperkalemia Is this a current diagnosis for this admission?: Yes Plan: Potassium currently normal. Patient is on furosemide. Continue to monitor potassium and supplement if needed (4) Acute on chronic diastolic congestive heart failure Is this a current diagnosis for this admission?: Yes Plan: Continue Entresto and furosemide. Rate control medications as above. (5) Morbid obesity with BMI of 40.0-44.9, adult Is this a current diagnosis for this admission?: Yes Plan: Encourage weight loss as this contributes to her diabetes and cardiovascular risk. (6) Diabetes mellitus type 2 in obese Is this a current diagnosis for this admission?: Yes Plan: The patient's Accu-Cheks are variable. This could be related to the hydrocortisone. I will change the dosing to p.o. and reduce to 20 mg every 8 hours and continue to taper. (7) Eructation Is this a current diagnosis for this admission?: Yes Plan: Patient is complaining of increased stomach gas and burping. She is already on acid reducing therapy and I will add as needed simethicone. - Plan Summary Summary: 03/30/2019 Dr. Holder has started the patient on sotalol. Verapamil is also available if needed. Congestive heart failure appears to be stable. Diabetes is still not well controlled. This could be due to stress doses of intravenous hydrocortisone. I will change to oral administration and decrease the dose. She will be on 20 mg every 8 hours and we should continue to taper. - Time Time Spent with patient: 15-24 minutes Medications reviewed and adjusted accordingly: Yes Anticipated discharge: Home
--- NOTE | 2019-03-30 15:58 | EKG REPORT ---
SEVERITY:- ABNORMAL ECG - SINUS ARRHYTHMIA, RATE 60-75 RBBB AND LAFB PROBABLE LVH WITH SECONDARY REPOL ABNRM : Confirmed by: Tk Garay MD 30-Mar-2019 15:58:27
--- NOTE | 2019-03-30 16:00 | EKG REPORT ---
SEVERITY:- ABNORMAL ECG - atrial fibrillation. RBBB AND LAFB PROBABLE LVH WITH SECONDARY REPOL ABNRM : Confirmed by: Tk Garay MD 30-Mar-2019 15:59:31
[2019-03-30] MEDS: FAMOTIDINE 20 MG TABLET PO SCH (21:46)
[2019-03-30] MEDS: SOTALOL HCL 80 MG TABLET PO SCH (21:48)
[2019-03-31] MEDS: HYDROCODONE/ACETAMINOPHEN 5-325 MG TABLET PO PRN ×2 (02:37→15:40)
[2019-03-31] MEDS ORDERED: NORMAL SALINE 500 ML IV ONE (03:30)
[2019-03-31] MEDS: HYDROCORTISONE SOD SUCCINATE INJ/PF 100 MG/2 ML SDV IV SCH (05:42)
[2019-03-31] MEDS: LEVOTHYROXINE SODIUM 0.025 MG TABLET PO SCH (05:42)
--- NOTE | 2019-03-31 06:30 | EKG REPORT ---
SEVERITY:- ABNORMAL ECG - SINUS BRADYCARDIA RBBB AND LAFB PROBABLE LEFT VENTRICULAR HYPERTROPHY : Confirmed by: Tk Garay MD 31-Mar-2019 06:29:58
[2019-03-31 06:41] LABS: HEMATOCRIT 25.6 % (36.0-47.0); HEMOGLOBIN 8.8 g/dL (12.0-15.5); MEAN CORPUSCULAR HEMOGLOBIN 32.3 pg (27.0-33.4); MEAN CORPUSCULAR HGB CONC 34.3 g/dL (32.0-36.0); MEAN CORPUSCULAR VOLUME 94 fl (80-97); PLATELET COUNT 198 10^3/uL (150-450); RED BLOOD COUNT 2.71 10^6/uL (3.72-5.28); RED CELL DISTRIBUTION WIDTH 15.3 % (11.5-14.0); WHITE BLOOD COUNT 4.2 10^3/uL (4.0-10.5)
[2019-03-31 06:57] LABS: BLOOD UREA NITROGEN 22 mg/dL (7-20); CALCIUM 7.7 mg/dL (8.4-10.2); CHLORIDE 98 mmol/L (98-107); POTASSIUM 3.2 mmol/L (3.6-5.0)
[2019-03-31 06:59] LABS: GLUCOSE 63 mg/dL (75-110)
[2019-03-31 07:25] LABS: CARBON DIOXIDE 41 mmol/L (22-30)
[2019-03-31 07:38] LABS: ANION GAP 1 (5-19)
[2019-03-31] MEDS: FUROSEMIDE 20 MG TABLET PO SCH (08:09)
[2019-03-31] MEDS: INSULIN REG, HUMAN 100 UNIT/ML 3 ML VIAL (PYX) SUBCUT SCH ×4 (08:10→22:24)
[2019-03-31] MEDS: FAMOTIDINE 20 MG TABLET PO SCH ×2 (09:15→22:24)
[2019-03-31] MEDS: RIVAROXABAN 10 MG TABLET PO SCH (09:16)
[2019-03-31] MEDS: POTASSIUM CHLORIDE 10 MEQ TABLET.ER PO SCH ×2 (09:16→15:42)
[2019-03-31] MEDS: PREGABALIN 100 MG CAPSULE PO SCH ×3 (09:16→17:07)
[2019-03-31] MEDS: DOCUSATE SODIUM 100 MG CAPSULE PO SCH ×2 (09:16→17:07)
[2019-03-31] MEDS: GLIMEPIRIDE 1 MG TABLET PO SCH (09:16)
[2019-03-31] MEDS: SACUBITRIL/VALSARTAN 49 MG/51 MG TABLET PO SCH ×2 (09:17→22:24)
[2019-03-31] MEDS: SOTALOL HCL 80 MG TABLET PO SCH ×2 (09:17→22:13)
[2019-03-31] MEDS: FLUTICASONE/UMECLIDIN/VILANTER 100-62.5-25 MCG/DOSE IH SCH (09:18)
[2019-03-31] MEDS ORDERED: IPRATROPIUM BROMIDE 0.02% NEB 0.5 MG/2.5 ML AMPUL NEB PRN (11:57)
--- NOTE | 2019-03-31 12:01 | PDOC PROGRESS REPORT ---
Subjective Progress Note for:: 03/31/19 Subjective:: Patient denies any palpitations but states that she was woken up this morning because her heart rate was so low dropping into the low 40s and high 30s and was asked to get up and move around to increase her heart rate. Currently denies any chest pain, shortness of breath or palpitations. Reason For Visit: ON AMIODARONE INFUSION Physical Exam Vital Signs: Temp Pulse Resp BP Pulse Ox 98.0 F 42 L 16 134/69 H 99 03/31/19 07:39 03/31/19 07:39 03/31/19 07:39 03/31/19 07:39 03/31/19 07:39 Intake & Output 03/30/19 03/31/19 04/01/19 06:59 06:59 06:59 Intake Total 739 1280 Output Total 735 1090 Balance 4 190 Weight 105.5 kg 107.5 kg General appearance: PRESENT: no acute distress, cooperative Neck exam: ABSENT: JVD Respiratory exam: PRESENT: symmetrical, unlabored. ABSENT: tachypnea, wheezes Cardiovascular exam: PRESENT: RRR, +S1, +S2. ABSENT: tachycardia GI/Abdominal exam: PRESENT: normal bowel sounds, soft. ABSENT: rebound, rigid, tenderness Neurological exam: PRESENT: alert, awake, oriented to person, oriented to place, oriented to time Results Laboratory Results: 03/31/19 05:49 03/31/19 05:49 03/31/19 03/31/19 05:49 05:49 WBC 4.2 RBC 2.71 L Hgb 8.8 L Hct 25.6 L MCV 94 MCH 32.3 MCHC 34.3 RDW 15.3 H Plt Count 198 Sodium 139.5 Potassium 3.2 L Chloride 98 Carbon Dioxide 41 H* Anion Gap 1 L BUN 22 H Creatinine 0.80 Est GFR ( Amer) > 60 Glucose 63 L Calcium 7.7 L Magnesium 1.8 03/23/19 03/24/19 03/24/19 16:25 02:40 08:40 Troponin I < 0.012 < 0.012 < 0.012 03/24/19 15:36 Troponin I < 0.012 Impressions: Head CT 03/23/19 21:36 IMPRESSION: No acute intracranial abnormalities. Chest X-Ray 03/24/19 06:00 IMPRESSION: Unchanged radiographic appearance of the chest. Assessment and Plan - Diagnosis (1) Atrial fibrillation with rapid ventricular response Is this a current diagnosis for this admission?: Yes Plan: Started on sotalol 40 mg every 12 yesterday. Patient's arrhythmia control has been limited by the fact that when patient's atrial fibrillation breaks, patient goes into sinus bradycardia often. EKG showing normal QTC with sinus rhythm and underlying RBBB/left anterior fascicular block but now bradycardic into the 40s. Continue to monitor on telemetry with serial EKGs. i will discuss plan further with Dr. Valerio who is following patient Continue Xarelto (2) Chronic obstructive pulmonary disease (COPD) Qualifiers: COPD type: unspecified COPD Qualified Code(s): J44.9 - Chronic obstructive pulmonary disease, unspecified Is this a current diagnosis for this admission?: Yes Plan: Continue Trelegy inhaler. Nebs PRN (3) Morbid obesity with BMI of 40.0-44.9, adult Is this a current diagnosis for this admission?: Yes Plan: Has received counseling regarding weight loss and diabetes control (4) Acute on chronic diastolic congestive heart failure Is this a current diagnosis for this admission?: Yes Plan: Continue Entresto and furosemide. Rate control medications as above. (5) Diabetes mellitus type 2 in obese Is this a current diagnosis for this admission?: Yes Plan: Continue glimepiride, sliding scale and Accu-Cheks. (6) Steroid long-term use Is this a current diagnosis for this admission?: Yes Plan: Per documentation in ICU, there was concern for prolonged use of prednisone given COPD and patient was started on stress dose steroid when she was hypotensive giving risk of adrenal insufficiency. I will continue to wean off hydrocortisone and decrease to 10 mg every 8 hours tomorrow (7) Eructation Is this a current diagnosis for this admission?: Yes Plan: Continue pepcid and simethicone (8) TOBI (acute kidney injury) Is this a current diagnosis for this admission?: Yes Plan: Associated with hypotension and hyperkalemia initially. Currently resolved. - Time Time Spent with patient: 15-24 minutes
[2019-03-31] MEDS: HYDROCORTISONE 10 MG TABLET PO SCH ×2 (13:23→22:24)
--- NOTE | 2019-03-31 21:42 | Progress Note ---
Provider Note Provider Note: CARDIOLOGY PROGRESS NOTE by Dr. Hillary Holder on 03/31/2019. OBJECTIVE: The patient is without any complaints and sitting up in a chair. She remains in sinus bradycardia. She has not had any recurrence of atrial fibrillation. He denies any chest pain or discomfort. There is no shortness of breath. There is no PND orthopnea. There is no ventricular arrhythmias seen. There is no pleural arrhythmia on sotalol. There is no bleeding on Xarelto. There is no TIA CVA symptoms. PHYSICAL EXAMINATION: The patient is morbidly obese. In no acute distress. She is well-groomed. Selected Entries 03/30/19 03/30/19 10:57 11:00 Temperature 98.5 F Temperature Oral Source Heart Rate ( 88 Monitors) Respiratory 18 Rate Blood Pressure 102/63 Blood Pressure 76 Mean BP Location Right Arm BP Position Supine O2 Sat by Pulse 96 Oximetry Oxygen Delivery Room Air Method HEAD: Is atraumatic. Normocephalic. EYES: Pupils are equal round regular reactive to light and accommodation. Extraocular movements are normal there is no conjunctival pallor. There is no scleral icterus. EARS: Tympanic membranes are intact. External auditory canals are clear. NOSE: There is no deviated nasal septum. There is no inflammation of the nasal mucous membrane. MOUTH: There is no ulcers in the mouth. Mucous membranes of the mouth are moist. THROAT: There is no redness of the oropharynx. There is no exudates. SKIN: There is no skin rashes. There is no petechia or ecchymosis. NECK: Is supple. There is mild JVD present. Carotids are equal there is no bruit. There is no lymphadenopathy. There is no goiter. There is no accessory muscle respiration use. Trachea is central. LUNGS: Shows diminished air entry prolonged expiration. T. There a few "Velcro" [E] rales of pulmonary fibrosis in the right base.. There are no rales of CHF.. HEART: S1-S2 is heard. S1 now is of normal intensity. There is no S3 gallop. There is no S4 gallop. There is systolic murmur of tricuspid regurgitation and mild mitral regurgitation murmur present. There is no S3 gallop. There is no S4 gallop. There is no rub. ABDOMEN: Is obese. Nontender. There is no paraspinal megaly. Bowel sounds are well heard. EXTREMITIES: Femorals are deep. Femorals are diminished there is no femoral bruits. Leg pulses are diminished. There is 1+ bilateral edema. There is no DVT or cellulitis. There is no cyanosis or clubbing. There is no calf tenderness. MOLD HOISTER: The patient is conscious awake alert oriented x3 with no focal deficit. PSYCHIATRIC:. The patient judgment insight are intact her affect is normal. SINUS BRADYCARDIA RBBB AND LAFB PROBABLE LEFT VENTRICULAR HYPERTROPHY Room: 319 Oper: CM HR 49 DE 188 QRSD 172 QT 456 QTc 412 -- AXIS -- P 34 QRS -36 T -42 Labs- All tests 24 hr 03/31/19 03/31/19 03/31/19 05:49 05:49 07:51 WBC 4.2 RBC 2.71 L Hgb 8.8 L Hct 25.6 L MCV 94 MCH 32.3 MCHC 34.3 RDW 15.3 H Plt Count 198 Sodium 139.5 Potassium 3.2 L Chloride 98 Carbon Dioxide 41 H* Anion Gap 1 L BUN 22 H Creatinine 0.80 Est GFR ( Amer) > 60 Est GFR (MDRD) Non-Af > 60 Glucose 63 L POC Glucose 71 Calcium 7.7 L Magnesium 1.8 03/31/19 03/31/19 03/31/19 11:33 16:15 21:11 WBC RBC Hgb Hct MCV MCH MCHC RDW Plt Count Sodium Potassium Chloride Carbon Dioxide Anion Gap BUN Creatinine Est GFR ( Amer) Est GFR (MDRD) Non-Af Glucose POC Glucose 149 H 272 H 226 H Calcium Magnesium Chest X-Ray 03/23/19 16:04 IMPRESSION: Cardiomegaly and mild central vascular congestion. Elevation of the right hemidiaphragm. Head CT 03/23/19 21:36 IMPRESSION: No acute intracranial abnormalities. Chest X-Ray 03/24/19 01:40 IMPRESSION: Satisfactory placement of central venous catheter copyright 2011 [employer]- All Rights Reserved Chest X-Ray 03/24/19 06:00 IMPRESSION: Unchanged radiographic appearance of the chest. IMPRESSION/RECOMMENDATION: 1. Atrial flutter. Paroxysmal s/p cardioversion to sinus bradycardia. The patient remained bradycardic for some time and then went into atrial fibrill ation with ventricular response in the 110s to 120s. Post 2.5 mg of IV verapamil and 40 mg of sotalol the patient converted to sinus bradycardia. We will continue patient's on sotalol and will get serial EKGs and watch the patient for proarrhythmia and also watch the QTc interval. 2. Acute on chronic hypoxic respiratory failure: Seems to be improved. Continue current treatment. 3. ACute on chronic kidney disease: GFR is improving. Avoid nephrotoxic drugs. 4. History of asthma/COPD: Continue current treatment. 5. History of pulmonary fibrosis. 6. Hypertension: Blood pressure now is much improved. The patient was hypotensive on admission on pressors. This has been weaned off. Patient blood pressure stable without any pressors. 7. Diabetes mellitus: Continue antidiabetic medication and Accu-Cheks as per protocol. 8. Hypothyroidism: Thyroid level seems to be optimal. 9. Cardiomyopathy with moderately reduced LV ejection fraction. Continue esmolol later transition to Toprol-XL. Continue Entresto. Note with the patient being in sinus rhythm patient repeat echocardiogram shows that the cardiomyopathy is resolved. LV ejection fraction is 60% although the echo is not a very good echo study. 10. Moderate to severe tricuspid regurgitation with moderate pulmonary hypertension 11. Successful elective DC synchronized cardioversion of the patient, atrial flutter to sinus rhythm. 12. Moderate pulmonary hypertension: Since the blood pressure is up will try to increase the patient's Entresto. Occasions reviewed. Medical regimen and management plan discussed with attending physician. There is been no further arrhythmias on sotalol. Hence hopefully if no complications the patient can be discharged tomorrow. Medical decision making is of moderate complexity. 40 minutes spent as patient more than 50% time spent in direct patient care. Will follow.
[2019-04-01] MEDS: HYDROCORTISONE 10 MG TABLET PO SCH ×3 (05:29→21:50)
[2019-04-01] MEDS: LEVOTHYROXINE SODIUM 0.025 MG TABLET PO SCH (05:29)
[2019-04-01 06:16] LABS: BLOOD UREA NITROGEN 24 mg/dL (7-20); CHLORIDE 97 mmol/L (98-107); GLUCOSE 110 mg/dL (75-110); POTASSIUM 3.7 mmol/L (3.6-5.0)
[2019-04-01 06:29] LABS: CARBON DIOXIDE 45 mmol/L (22-30)
[2019-04-01 06:32] LABS: ANION GAP -3 (5-19)
[2019-04-01] MEDS: INSULIN REG, HUMAN 100 UNIT/ML 3 ML VIAL (PYX) SUBCUT SCH ×4 (08:32→21:51)
[2019-04-01 09:26] LABS: ARTERIAL BLOOD BASE EXCESS 14.3 mmol/L; ARTERIAL BLOOD HCO3 41.7 mmol/L (20-24); ARTERIAL BLOOD O2 SATURATION 97.4 % (94-98); ARTERIAL BLOOD PH 7.39 (7.35-7.45); ARTERIAL BLOOD PO2 102.6 mmHg (80-100); ARTERIAL BLOOD TOTAL CO2 43.8 mmol/L (21-25)
[2019-04-01 09:39] LABS: ARTERIAL BLOOD FIO2 30%
[2019-04-01 09:40] LABS: ARTERIAL BLOOD PCO2 69.9 mmHg (35-45)
[2019-04-01] MEDS: FUROSEMIDE 20 MG TABLET PO SCH (09:44)
--- NOTE | 2019-04-01 09:47 | EKG REPORT ---
SEVERITY:- ABNORMAL ECG - SINUS BRADYCARDIA RBBB AND LAFB PROBABLE LVH WITH SECONDARY REPOL ABNRM : Confirmed by: Cristal Maravilla 01-Apr-2019 09:47:02
[2019-04-01] MEDS: DOCUSATE SODIUM 100 MG CAPSULE PO SCH ×2 (10:19→17:49)
[2019-04-01] MEDS: FAMOTIDINE 20 MG TABLET PO SCH ×2 (10:19→21:50)
[2019-04-01] MEDS: RIVAROXABAN 10 MG TABLET PO SCH (10:19)
[2019-04-01] MEDS: PREGABALIN 100 MG CAPSULE PO SCH ×3 (10:19→17:49)
[2019-04-01] MEDS: SACUBITRIL/VALSARTAN 49 MG/51 MG TABLET PO SCH (10:26)
[2019-04-01] MEDS: GLIMEPIRIDE 1 MG TABLET PO SCH (10:26)
[2019-04-01] MEDS: FLUTICASONE/UMECLIDIN/VILANTER 100-62.5-25 MCG/DOSE IH SCH (12:00)
--- NOTE | 2019-04-01 12:34 | PDOC PROGRESS REPORT ---
Subjective Progress Note for:: 04/01/19 Subjective:: Patient denies any palpitations or shortness of breath today. Swelling her lower extremities improving. Patient concerned about her heart rate continuously being low. Had elaborate discussion with patient and patient's daughter regarding the plan for atrial fibrillation and bradycardia. Reason For Visit: ON AMIODARONE INFUSION Physical Exam Vital Signs: Temp Pulse Resp BP Pulse Ox 97.3 F 75 18 173/68 H 96 04/01/19 07:32 04/01/19 12:20 04/01/19 12:20 04/01/19 07:32 04/01/19 12:20 Intake & Output 03/31/19 04/01/19 04/02/19 06:59 06:59 06:59 Intake Total 1280 1330 Output Total 1090 1900 Balance 190 -570 Weight 107.5 kg 107.9 kg General appearance: PRESENT: no acute distress, cooperative Neck exam: ABSENT: JVD Respiratory exam: PRESENT: clear to auscultation rick, symmetrical, unlabored. ABSENT: tachypnea, wheezes Cardiovascular exam: PRESENT: bradycardia, RRR, +S1, +S2 GI/Abdominal exam: PRESENT: normal bowel sounds, soft. ABSENT: rebound, rigid, tenderness Neurological exam: PRESENT: alert, awake, oriented to person, oriented to place, oriented to time Results Laboratory Results: 03/31/19 05:49 04/01/19 05:28 04/01/19 04/01/19 05:28 09:10 Carbonic Acid 2.10 H HCO3/H2CO3 Ratio 19:1 ABG pH 7.39 ABG pCO2 69.9 H* ABG pO2 102.6 H ABG HCO3 41.7 H ABG O2 Saturation 97.4 ABG Base Excess 14.3 FiO2 30% Sodium 139.3 Potassium 3.7 Chloride 97 L Carbon Dioxide 45 H* Anion Gap -3 L BUN 24 H Creatinine 0.72 Est GFR ( Amer) > 60 Glucose 110 Calcium 8.0 L 03/23/19 03/24/19 03/24/19 16:25 02:40 08:40 Troponin I < 0.012 < 0.012 < 0.012 03/24/19 15:36 Troponin I < 0.012 Impressions: Head CT 03/23/19 21:36 IMPRESSION: No acute intracranial abnormalities. Chest X-Ray 03/24/19 06:00 IMPRESSION: Unchanged radiographic appearance of the chest. Assessment and Plan - Diagnosis (1) Atrial fibrillation with rapid ventricular response Is this a current diagnosis for this admission?: Yes Plan: Patient diagnosed with paroxysmal atrial fibrillation EKG showing normal QTC with sinus rhythm and underlying RBBB/left anterior fascicular block but now bradycardic into the 40s. Unfortunately, control of patient's A. fib has been limited by persistence of bradycardia while on rate/rhythm control medications even despite skipping sotalol dose last night and this morning. As a result, cardiology recommending discontinuation of sotalol and to leave patient without any rate controlling meds for now which I agree with. Upon discharge, patient to follow-up for heart monitor to see if patient's paroxysmal A. fib recurs often and to see if we control the medication would be required in the long run. Continue to monitor on telemetry Continue Jeevan Discussed plan with patient and her daughter (2) Chronic obstructive pulmonary disease (COPD) Qualifiers: COPD type: unspecified COPD Qualified Code(s): J44.9 - Chronic obstructive pulmonary disease, unspecified Is this a current diagnosis for this admission?: Yes (3) Chronic respiratory failure with hypoxia and hypercapnia Is this a current diagnosis for this admission?: Yes Plan: Secondary to COPD. Patient is not in an acute exacerbation. Patient is O2 dependent at home and wears oxygen throughout the day. Patient is also a chronic CO2 retainer with PCO2 as high as 89 mmHg on admission and currently 69.9 mmHg on blood gas this morning despite not being in acute exacerbation. This qualifies patient for nocturnal BiPAP which have discussed with patient and patient is willing to use. We will try her on nasal mask BiPAP tonight as patient often gets claustrophobic when with a full facemask. (4) Morbid obesity with BMI of 40.0-44.9, adult Is this a current diagnosis for this admission?: Yes Plan: Has received counseling regarding weight loss and diabetes control (5) Acute on chronic diastolic congestive heart failure Is this a current diagnosis for this admission?: Yes Plan: Continue Entresto and furosemide. Dr. Valerio planning for MUGA scan tomorrow. (6) Diabetes mellitus type 2 in obese Is this a current diagnosis for this admission?: Yes Plan: Continue glimepiride, sliding scale and Accu-Cheks. (7) Steroid long-term use Is this a current diagnosis for this admission?: Yes Plan: Per documentation in ICU, there was concern for prolonged use of prednisone given COPD and patient was started on stress dose steroid when she was hypotensive given risk of adrenal insufficiency. I will continue to wean off hydrocortisone and decrease to 10 mg every 8 hours today (8) Eructation Is this a current diagnosis for this admission?: Yes Plan: Continue pepcid and simethicone (9) TOBI (acute kidney injury) Is this a current diagnosis for this admission?: Yes Plan: Associated with hypotension and hyperkalemia initially. Currently resolved. - Time Time Spent with patient: 15-24 minutes
[2019-04-01] MEDS ORDERED: FUROSEMIDE 20 MG TABLET PO ONE (13:00)
--- NOTE | 2019-04-01 15:42 | Progress Note ---
Provider Note Provider Note: CARDIOLOGY PROGRESS NOTE by Dr. Hillary Holder on 04/01/2019. SUBJECTIVE: The patient denies any chest pain or discomfort. There is no PND orthopnea. There is no recurrence of atrial fibrillation. The patient is bradycardic. In fact we were unable to give the patient sotalol due to bradycardia. Hence will discontinue this. We will continue the patient's Entresto for the patient's pulmonary hypertension. Will add amlodipine. Mother was obtained for LV ejection correlation with the latest echo findings of EF of 60%. The mother showed LV ejection fraction of 58%. Hence the patient is recovered from a cardiomyopathy which is most likely rate related. PHYSICAL EXAMINATION: The patient is morbidly obese. In no acute distress. Selected Entries 04/01/19 07:32 Temperature 97.3 F Temperature Oral Source Pulse Rate 49 L Respiratory 16 Rate Blood Pressure 173/68 H Blood Pressure 103 Mean BP Location Right Arm BP Position Supine O2 Sat by Pulse 98 Oximetry Oxygen Flow 2.00 Rate Oxygen Delivery Nasal Cannula Method HEAD: Is atraumatic. Normocephalic. EYES: Pupils are equal round regular reactive to light and accommodation. Extraocular movements are normal there is no conjunctival pallor. There is no scleral icterus. EARS: Tympanic membranes are intact. External auditory canals are clear. NOSE: There is no deviated nasal septum. There is no inflammation of the nasal mucous membrane. MOUTH: There is no ulcers in the mouth. Mucous membranes of the mouth are moist. THROAT: There is no redness of the oropharynx. There is no exudates. SKIN: There is no skin rashes. There is no petechia or ecchymosis. NECK: Is supple. There is mild JVD present. Carotids are equal there is no bruit. There is no lymphadenopathy. There is no goiter. There is no accessory muscle respiration use. Trachea is central. LUNGS: Shows diminished air entry prolonged expiration. T. There a few "Velcro" [E] rales of pulmonary fibrosis in the right base.. There are no rales of CHF.. HEART: S1-S2 is heard. S1 now is of normal intensity. There is no S3 gallop. There is no S4 gallop. There is systolic murmur of tricuspid regurgitation and mild mitral regurgitation murmur present. There is no S3 gallop. There is no S4 gallop. There is no rub. ABDOMEN: Is obese. Nontender. There is no paraspinal megaly. Bowel sounds are well heard. EXTREMITIES: Femorals are deep. Femorals are diminished there is no femoral bruits. Leg pulses are diminished. There is 1+ bilateral edema. There is no DVT or cellulitis. There is no cyanosis or clubbing. There is no calf tenderness. SECOND CRUSHER: The patient is conscious awake alert oriented x3 with no focal deficit. PSYCHIATRIC:. The patient judgment insight are intact her affect is normal. MUGJA: LV ejection fraction is 58%. Patient's twelve-lead EKG shows sinus bradycardia. Right bundle branch block pattern and left intravascular block pattern. Probable LVH. Labs- All tests 24 hr 03/31/19 03/31/19 04/01/19 16:15 21:11 05:28 Carbonic Acid HCO3/H2CO3 Ratio ABG pH ABG pCO2 ABG pO2 ABG HCO3 ABG Total CO2 ABG O2 Saturation ABG Base Excess FiO2 Sodium 139.3 Potassium 3.7 Chloride 97 L Carbon Dioxide 45 H* Anion Gap -3 L BUN 24 H Creatinine 0.72 Est GFR ( Amer) > 60 Est GFR (MDRD) Non-Af > 60 Glucose 110 POC Glucose 272 H 226 H Calcium 8.0 L 04/01/19 04/01/19 04/01/19 07:36 09:10 11:47 Carbonic Acid 2.10 H HCO3/H2CO3 Ratio 19:1 ABG pH 7.39 ABG pCO2 69.9 H* ABG pO2 102.6 H ABG HCO3 41.7 H ABG Total CO2 43.8 H ABG O2 Saturation 97.4 ABG Base Excess 14.3 FiO2 30% Sodium Potassium Chloride Carbon Dioxide Anion Gap BUN Creatinine Est GFR ( Amer) Est GFR (MDRD) Non-Af Glucose POC Glucose 129 H 154 H Calcium Chest X-Ray 03/23/19 16:04 IMPRESSION: Cardiomegaly and mild central vascular congestion. Elevation of the right hemidiaphragm. Head CT 03/23/19 21:36 IMPRESSION: No acute intracranial abnormalities. Chest X-Ray 03/24/19 01:40 IMPRESSION: Satisfactory placement of central venous catheter copyright 2011 [employer]- All Rights Reserved Chest X-Ray 03/24/19 06:00 IMPRESSION: Unchanged radiographic appearance of the chest. IMPRESSION/RECOMMENDATION: 1. Atrial flutter. Paroxysmal s/p cardioversion to sinus bradycardia. The patient remained bradycardic for some time and then went into atrial fibrillation with ventricular response in the 110s to 120s. Post 2.5 mg of IV verapamil and 40 mg of sotalol the patient converted to sinus bradycardia. We will continue patient's on sotalol and will get serial EKGs and watch the patient for proarrhythmia and also watch the QTc interval. Note the patient's MUGA shows LV ejection fraction of 58%. 2. Acute on chronic hypoxic respiratory failure: Seems to be improved. Continue current treatment. 3. ACute on chronic kidney disease: GFR is improving. Avoid nephrotoxic drugs. 4. History of asthma/COPD: Continue current treatment. 5. History of pulmonary fibrosis. We will recheck the patient's chest x-ray today. 6. Hypertension: Blood pressure now is much improved. The patient was hypotensive on admission on pressors. This has been weaned off. Patient blood pressure stable without any pressors. 7. Diabetes mellitus: Continue antidiabetic medication and Accu-Cheks as per protocol. 8. Hypothyroidism: Thyroid level seems to be optimal. 9. Cardiomyopathy with moderately reduced LV ejection fraction. Continue esmolol later transition to Toprol-XL. Continue Entresto. Note with the patient being in sinus rhythm patient repeat echocardiogram shows that the cardiomyopathy is resolved. LV ejection fraction is 60% although the echo is not a very good echo study. Note this is resolved most likely secondary to rate related cardiomyopathy. MUGA shows LV ejection fraction of 58%. 10. Moderate to severe tricuspid regurgitation with moderate pulmonary hypertension 11. Successful elective DC synchronized cardioversion of the patient, atrial flutter to sinus rhythm. 12. Moderate pulmonary hypertension: The patient's LV function is normal, and the patient is hypertensive. Hence we will stop the patient's Entresto and switch to valsartan 80 mg p.o. every 12 hours and also add amlodipine 5 mg p.o. every 12 hours. Medications reviewed. Medical regimen and management plan discussed with the hospitalist attending provider. Medical decision making is of high complexity. I have discussed with the patient and the patient's daughter the findings of the patient's MU GA. I have also spoken to her that in view of the bradycardia we are unable to put her on beta-blockers or AV lara blocking agents. If the patient's has recurrence of atrial fibrillation then she will most likely need a permanent pacemaker to protect her from drug-induced bradycardia.. Will check a chest x-ray in the morning. Cardiology status seems to be stable. Will follow. 40 minutes spent on this patient more than 50% time spent direct patient care.
--- NOTE | 2019-04-01 17:05 | RADIOLOGY REPORT (SQ) ---
EXAM DESCRIPTION: CHEST SINGLE VIEW COMPLETED DATE/TIME: 04/01/2019 4:49 pm REASON FOR STUDY: Pulmonary Fibrosis COMPARISON: AP chest 03/03/2019, 03/23/2019, 03/24/2019 EXAM PARAMETERS: NUMBER OF VIEWS: One view. TECHNIQUE: Single frontal radiographic view of the chest acquired. RADIATION DOSE: NA LIMITATIONS: None. FINDINGS: LUNGS AND PLEURA: Elevated right hemidiaphragm. Right apical pleuroparenchymal scarring. No acute infiltrates. No pleural effusion or pneumothorax. MEDIASTINUM AND HILAR STRUCTURES: No masses. Contour normal. HEART AND VASCULAR STRUCTURES: Stable cardiomegaly BONES: No acute findings. HARDWARE: He was left-sided central line tip superior vena cava. Surgical clips right axilla post ma stectomy. OTHER: No other significant finding. IMPRESSION: No acute findings TECHNICAL DOCUMENTATION: JOB ID: [id number] [employer]- All Rights Reserved Reading location - IP/workstation name: [email or web address]
[2019-04-01] MEDS: HYDROCODONE/ACETAMINOPHEN 5-325 MG TABLET PO PRN (19:47)
[2019-04-01] MEDS: VALSARTAN 80 MG TABLET PO SCH (21:50)
[2019-04-01] MEDS: AMLODIPINE BESYLATE 5 MG TABLET PO SCH (21:50)
[2019-04-02] MEDS: HYDROCODONE/ACETAMINOPHEN 5-325 MG TABLET PO PRN (03:35)
--- NOTE | 2019-04-02 03:51 | RADIOLOGY REPORT (SQ) ---
INDICATION: Congestive heart failure. COMPARISON: None. CORRELATION: None. TECHNIQUE: Multiple gated images were obtained as per standard protocol after intravenous administration of 24.5 millicuries of technetium 99m as pertechnetate for red blood cell labeling. Both visual and computer assisted digital analysis was performed. Raw data and processed imaging has been reviewed FINDINGS: A good tag is seen. Ejection fraction is low normal. Digitally, it is measuring approximately 58 %. No focal wall motion abnormality. End diastolic volume 140 mL End systolic volume 48 mL IMPRESSION: Low normal ejection fraction digitally measuring 58 %. Dilated left ventricle
[2019-04-02] MEDS: HYDROCORTISONE 10 MG TABLET PO SCH ×2 (05:43→13:34)
[2019-04-02] MEDS: LEVOTHYROXINE SODIUM 0.025 MG TABLET PO SCH (05:43)
[2019-04-02 05:55] LABS: ARTERIAL BLOOD BASE EXCESS 16.1 mmol/L; ARTERIAL BLOOD FIO2 30%; ARTERIAL BLOOD H2CO3 1.96 mmol/L (1.05-1.35); ARTERIAL BLOOD HCO3 42.9 mmol/L (20-24); ARTERIAL BLOOD O2 SATURATION 96.4 % (94-98); ARTERIAL BLOOD PH 7.44 (7.35-7.45); ARTERIAL BLOOD PO2 85.9 mmHg (80-100); ARTERIAL BLOOD TOTAL CO2 44.9 mmol/L (21-25)
[2019-04-02 06:45] LABS: BLOOD UREA NITROGEN 20 mg/dL (7-20); CALCIUM 7.8 mg/dL (8.4-10.2); CHLORIDE 95 mmol/L (98-107); POTASSIUM 3.1 mmol/L (3.6-5.0)
[2019-04-02 06:49] LABS: GLUCOSE 56 mg/dL (75-110)
[2019-04-02 06:54] LABS: ANION GAP -1 (5-19)
[2019-04-02 06:55] LABS: CARBON DIOXIDE 45 mmol/L (22-30)
[2019-04-02] MEDS: INSULIN REG, HUMAN 100 UNIT/ML 3 ML VIAL (PYX) SUBCUT SCH ×2 (08:13→12:04)
[2019-04-02] MEDS: FUROSEMIDE 20 MG TABLET PO SCH (10:05)
[2019-04-02 10:06] VITALS: BP 135/79
[2019-04-02] MEDS: POTASSIUM CHLORIDE 10 MEQ TABLET.ER PO SCH ×2 (10:06→13:34)
[2019-04-02] MEDS: RIVAROXABAN 10 MG TABLET PO SCH (10:06)
[2019-04-02] MEDS: FAMOTIDINE 20 MG TABLET PO SCH (10:06)
[2019-04-02] MEDS: DOCUSATE SODIUM 100 MG CAPSULE PO SCH (10:07)
[2019-04-02] MEDS: VALSARTAN 80 MG TABLET PO SCH (10:07)
[2019-04-02] MEDS: PREGABALIN 100 MG CAPSULE PO SCH ×2 (10:07→13:34)
[2019-04-02] MEDS: AMLODIPINE BESYLATE 5 MG TABLET PO SCH (10:09)
[2019-04-02] MEDS: GLIMEPIRIDE 1 MG TABLET PO SCH (10:12)
[2019-04-02] MEDS: FLUTICASONE/UMECLIDIN/VILANTER 100-62.5-25 MCG/DOSE IH SCH (10:13)
--- NOTE | 2019-04-02 11:06 | Progress Note ---
Provider Note Provider Note: CARDIOLOGY PROGRESS NOTE by Dr. Hillary Holder on 04/02/2019. SUBJECTIVE: The patient denies any chest pain or discomfort. She still bradycardic. With her blood pressure is high. There is no recurrence of atrial flutter. There is no bleeding on Xarelto. There is no TIA CVA symptoms. Note with the patient's oxygen of her sats drop into the 80s. With 2.5 L/min of nasal oxygen by cannula her sats come up to about 90%. PHYSICAL EXAMINATION: The patient is morbidly obese in no acute distress. Selected Entries 04/02/19 08:07 Temperature 98.4 F Temperature Oral Source Pulse Rate 63 Respiratory 20 Rate Blood Pressure 97 Mean BP Location Left Arm O2 Sat by Pulse 97 Oximetry Oxygen Flow 2.50 Rate Oxygen Delivery Nasal Cannula Method HEAD: Is atraumatic. Normocephalic. EYES: Pupils are equal round regular reactive to light and accommodation. Extraocular movements are normal there is no conjunctival pallor. There is no scleral icterus. EARS: Tympanic membranes are intact. External auditory canals are clear. NOSE: There is no deviated nasal septum. There is no inflammation of the nasal mucous membrane. MOUTH: There is no ulcers in the mouth. Mucous membranes of the mouth are moist. THROAT: There is no redness of the oropharynx. There is no exudates. SKIN: There is no skin rashes. There is no petechia or ecchymosis. NECK: Is supple. There is mild JVD present. Carotids are equal there is no bruit. There is no lymphadenopathy. There is no goiter. There is no accessory muscle respiration use. Trachea is central. LUNGS: Shows diminished air entry prolonged expiration. T. There a few "Velcro" [E] rales of pulmonary fibrosis in the right base.. There are no rales of CHF.. HEART: S1-S2 is heard. S1 now is of normal intensity. There is no S3 gallop. There is no S4 gallop. There is systolic murmur of tricuspid regurgitation and mild mitral regurgitation murmur present. There is no S3 gallop. There is no S4 gallop. There is no rub. ABDOMEN: Is obese. Nontender. There is no paraspinal megaly. Bowel sounds are well heard. EXTREMITIES: Femorals are deep. Femorals are diminished there is no femoral bruits. Leg pulses are diminished. There is 1+ bilateral edema. There is no DVT or cellulitis. There is no cyanosis or clubbing. There is no calf tenderness. DECK AND HULL ASSEMBLER: The patient is conscious awake alert oriented x3 with no focal deficit. PSYCHIATRIC:. The patient judgment insight are intact her affect is normal. MUGJA: LV ejection fraction is 58%. Labs- All tests 24 hr 04/01/19 04/01/19 04/01/19 11:47 16:14 21:14 Carbonic Acid HCO3/H2CO3 Ratio ABG pH ABG pCO2 ABG pO2 ABG HCO3 ABG Total CO2 ABG O2 Saturation ABG Base Excess FiO2 Sodium Potassium Chloride Carbon Dioxide Anion Gap BUN Creatinine Est GFR ( Amer) Est GFR (MDRD) Non-Af Glucose POC Glucose 154 H 115 H 228 H Calcium 04/02/19 04/02/19 04/02/19 05:25 05:34 07:59 Carbonic Acid 1.96 H HCO3/H2CO3 Ratio 21:1 ABG pH 7.44 ABG pCO2 65.0 H ABG pO2 85.9 ABG HCO3 42.9 H ABG Total CO2 44.9 H ABG O2 Saturation 96.4 ABG Base Excess 16.1 FiO2 30% Sodium 138.7 Potassium 3.1 L Chloride 95 L Carbon Dioxide 45 H* Anion Gap -1 L BUN 20 Creatinine 0.64 Est GFR ( Amer) > 60 Est GFR (MDRD) Non-Af > 60 Glucose 56 L POC Glucose 76 Calcium 7.8 L Chest X-Ray 03/23/19 16:04 IMPRESSION: Cardiomegaly and mild central vascular congestion. Elevation of the right hemidiaphragm. Head CT 03/23/19 21:36 IMPRESSION: No acute intracranial abnormalities. Chest X-Ray 03/24/19 01:40 IMPRESSION: Satisfactory placement of central venous catheter copyright 2011 [employer]- All Rights Reserved Chest X-Ray 03/24/19 06:00 IMPRESSION: Unchanged radiographic appearance of the chest. Cardiac Imaging Nuclear Medicine 04/01/19 00:00 IMPRESSION: Low normal ejection fraction digitally measuring 58 %. Dilated left ventricle Chest X-Ray 04/01/19 00:00 IMPRESSION: No acute findings EKG:SINUS BRADYCARDIA [RLAFB] . RBBB AND LAFB [LVHPRE] . PROBABLE LVH WITH SECONDARY REPOL ABNRM IMPRESSION/RECOMMENDATION: 1. Atrial flutter. Paroxysmal s/p cardioversion to sinus bradycardia. The patient remained bradycardic, and hence unable to start the patient on a sotalol or a SA or AV node blocking agent. The patient being transferred to [facility]. Will have the company send a 30-day event monitor. If the patient should have recurrence of atrial flutter or fibrillation with rapid ventricular response the patient will need permanent pacemaker to protect her from cardiac cardia due to the medications placed to control the heart rate. This is been discussed with the patient and patient's daughter. MUGA shows LV ejection fraction of 58%. 2. Acute on chronic hypoxic respiratory failure: The acute phase is resolved. Patient back to baseline. Continue current treatment. 3. ACute on chronic kidney disease: GFR is now normal and greater than 60. 4. History of asthma/COPD: Continue current treatment. 5. History of pulmonary fibrosis. We will recheck the patient's chest x-ray today. 6. Hypertension: Blood pressure now is much improved. The patient was hypotensive on admission on pressors. This has been weaned off. Patient blood pressure stable without any pressors. 7. Diabetes mellitus: Continue antidiabetic medication and Accu-Cheks as per protocol. 8. Hypothyroidism: Thyroid level seems to be optimal. 9. Cardiomyopathy with moderately reduced LV ejection fraction. This is resolved. MUGA shows LV ejection fraction of 58%. 10. Moderate to severe tricuspid regurgitation with moderate pulmonary hypertension 11. Successful elective DC synchronized cardioversion of the patient, atrial flutter to sinus rhythm. 12. Moderate pulmonary hypertension: We will stop the patient's Entresto. I have placed the patient on valsartan 80 mg p.o. twice daily and also amlodipine 5 mg p.o. twice daily. Medications reviewed. Medications had been adjusted. Medical regimen and management plan discussed with attending physician on the case. Medical decision making hours of moderate complexity. 40 minutes spent on patient with more than 50% time spent in direct patient care. The patient being transferred to [facility]. Will get an event monitor sent to their place. Will sign off. Will follow the patient in the office.
--- NOTE | 2019-04-02 11:58 | PDOC TRANSFER SUMMARY ---
Impression - Admit/DC Date/PCP Admission Date/Primary Care Provider: 03/23/19 23:22 DESIRE BAILEY MD Discharge Date: 04/02/19 - Discharge Diagnosis (1) Atrial fibrillation with rapid ventricular response Is this a current diagnosis for this admission?: Yes (2) Chronic obstructive pulmonary disease (COPD) Is this a current diagnosis for this admission?: Yes (3) Chronic respiratory failure with hypoxia and hypercapnia Is this a current diagnosis for this admission?: Yes (4) Morbid obesity with BMI of 40.0-44.9, adult Is this a current diagnosis for this admission?: Yes (5) Acute on chronic diastolic congestive heart failure Is this a current diagnosis for this admission?: Yes (6) Diabetes mellitus type 2 in obese Is this a current diagnosis for this admission?: Yes (7) Steroid long-term use Is this a current diagnosis for this admission?: Yes (8) Eructation Is this a current diagnosis for this admission?: Yes (9) TOBI (acute kidney injury) Is this a current diagnosis for this admission?: Yes - Assessment Summary: Patient was initially admitted to the ICU given her hypotension accompanied by atrial fibrillation and rapid ventricular response. Of note patient does have history of paroxysmal atrial fibrillation/aflutter. Patient was cardioverted back into sinus rhythm but was now in sinus bradycardia upon cardioversion. Regarding patient's hypotension, patient received some fluids. The hypotension was secondary to unstable atrial fibrillation and caused some TOBI with corresponding hyperkalemia which resolved after fluids. Patient's thyroid levels were within normal limits. Patient was started on SA and AV lara blockers but persistently made patient even more bradycardic. Metoprolol and diltiazem was subsequently discontinued. Patient was tried on sotalol which made patient even more bradycardic as well. Since the initial cardioversion, patient has maintained in sinus rhythm. Given patient's inability to tolerate SA or AV lara blockers, the decision was made by the cosmetology professor to keep pat ient off any form of rate control for now. Patient will follow up with a cosmetology professor to get a heart monitor and if patient should be noted to go back into rapid ventricular response, patient will have to get a permanent pacemaker placed to protect her from bradycardic episodes and then placed on an SA or AV lara les. Patient is to follow-up with Dr. Valerio in the clinic. Patient also has acute on chronic congestive heart failure likely triggered by her tachyarrhythmia. Echocardiogram and MUGA scan revealed normal ejection fraction suggesting diastolic heart failure of 58%. Patient is to continue her Lasix with p.o. potassium supplementation and maintain adequate control of her blood pressure. Job Compositor has discontinued Entresto and changed patient's regimen to valsartan and amlodipine. Regarding patient's COPD, she is noted to have chronic respiratory failure with hypercapnia and hypoxia warranting starting patient on nocturnal BiPAP given elevated PCO2 of 69 mmHg on a.m. blood gas after sleeping with only nasal cannula. Patient has been started on nocturnal BiPAP with FiO2 of 30%, 15/8 and RR of 16 to be used when patient is sleeping. - Additional Information Resuscitation Status: Full Code Referrals: DESIRE BAILEY MD [Primary Care Provider] - Follow up as needed ASIA SHANKS MD [ACTIVE STAFF] - Home Medications: Fluticasone/Umeclidin/Vilanter [Trelegy 100-62.5-25 Mcg Ellipta 14 Dose/Dpi] 1 puff IH DAILY 02/27/19 Furosemide [Lasix 20 mg Tablet] 20 mg PO QAM 02/27/19 Glimepiride 2 mg PO DAILY 02/27/19 Hydrocodone/Acetaminophen [[place] 5-325 Tablet] 1 each PO Q6HP PRN 02/27/19 Levothyroxine Sodium [Synthroid 0.025 mg Tablet] 25 mcg PO DAILY 02/27/19 Potassium Chloride [Klor-Con M20] 20 meq PO DAILY 02/27/19 Pregabalin [Lyrica 100 mg Capsule] 100 mg PO TID 02/27/19 Rivaroxaban [Xarelto] 20 mg PO DAILY 02/27/19 Amlodipine Besylate [Norvasc 5 mg Tablet] 5 mg PO Q12 tablet 04/02/19 Docusate Sodium [Colace 100 mg Capsule] 100 mg PO BID capsule 04/02/19 Famotidine [Pepcid 20 mg Tablet] 20 mg PO Q12 tablet 04/02/19 Valsartan [Diovan 80 mg Tablet] 80 mg PO Q12 tablet 04/02/19 History of Present Illiness History of Present Illness: KIMBERLY GAMEZ is a 78 year old female with PMHx of COPD, CHF with most recent echo showing EF of 55-60% on 03/13/19, pulmonary fibrosis, COPD on home O2, HTN, hx of breast CA with bilateral mastecomy, DMII and arthritis. She was brought to the ED tonight by her daughter after pt had complaints of increased SOB and reported "heartburn" symptoms after eating tomato soup. Pt was discharged from the hospital 15 days ago after being treated for weakness and SOB. Daughter stated that pt usually ambulates with a walker and suffered a fall down to bilateral knees about 5 days ago. She believes her knees gave out on her while walking; she did not hit her head and there was no LOC. From this fall pt was not able to ambulate and required family assistance to transfer from chair to bedside commode. During one of these transfers, she slid from the arms of family and to the ground, again to her knees. Daughter states she has been noticeably more lethargic over the past 3-4 days but able to be aroused to eat small meals and take her meds that family administers for her. No complaints of increase cough. Daughter states she has not had changes to bowel or bladder. On assessment in the ED, pt is noted to be hypotension 70s and in Afib with a rate 100-120 on the monitor; daughter states pt did not take her medications this AM. She is resting in bed with NC on without acute distress. Difficult to arouse but when asked to wake by daughter pt will mumble and did answer "no" when asked if she was hungry but did not open her eyes. Labs on arrival were significant for K 6.1 that was treat by ED - repeat POC while at bedside was 94. Request ED obtain CT to rule out acute concerns for AMS/lethargy which was negative. Physical Exam Vital Signs: Temp Pulse Resp BP Pulse Ox 98.4 F 63 20 135/79 H 97 04/02/19 08:07 04/02/19 08:07 04/02/19 08:07 04/02/19 08:07 04/02/19 08:07 Intake & Output 04/01/19 04/02/19 04/03/19 06:59 06:59 06:59 Intake Total 1330 1060 Output Total 1900 350 Balance -570 710 Weight 107.9 kg 107 kg General appearance: PRESENT: no acute distress, cooperative Neck exam: ABSENT: JVD Respiratory exam: PRESENT: symmetrical, unlabored. ABSENT: rhonchi, tachypnea, wheezes Cardiovascular exam: PRESENT: bradycardia, RRR, +S1, +S2. ABSENT: tachycardia GI/Abdominal exam: PRESENT: soft. ABSENT: rebound, rigid, tenderness Extremities exam: PRESENT: pedal edema Neurological exam: PRESENT: alert, awake, oriented to person, oriented to place, oriented to time Results Laboratory Results: WBC 4.2 10^3/uL (4.0-10.5) 03/31/19 05:49 RBC 2.71 10^6/uL (3.72-5.28) L 03/31/19 05:49 Hgb 8.8 g/dL (12.0-15.5) L 03/31/19 05:49 Hct 25.6 % (36.0-47.0) L 03/31/19 05:49 MCV 94 fl (80-97) 03/31/19 05:49 MCH 32.3 pg (27.0-33.4) 03/31/19 05:49 MCHC 34.3 g/dL (32.0-36.0) 03/31/19 05:49 RDW 15.3 % (11.5-14.0) H 03/31/19 05:49 Plt Count 198 10^3/uL (150-450) 03/31/19 05:49 Lymph % (Auto) 18.5 % (13-45) 03/24/19 06:45 [place] % (Auto) 10.4 % (3-13) 03/24/19 06:45 Eos % (Auto) 3.0 % (0-6) 03/24/19 06:45 Baso % (Auto) 0.6 % (0-2) 03/24/19 06:45 Absolute Neuts (auto) 3.9 10^3/uL (1.7-8.2) 03/24/19 06:45 Absolute Lymphs (auto) 1.1 10^3/uL (0.5-4.7) 03/24/19 06:45 Absolute Monos (auto) 0.6 10^3/uL (0.1-1.4) 03/24/19 06:45 Absolute Eos (auto) 0.2 10^3/uL (0.0-0.6) 03/24/19 06:45 Absolute Basos (auto) 0.0 10^3/uL (0.0-0.2) 03/24/19 06:45 Seg Neutrophils % 67.5 % (42-78) 03/24/19 06:45 PT 27.1 SEC (11.4-15.4) H 03/24/19 02:40 INR 2.46 03/24/19 02:40 APTT 39.9 SEC (23.5-35.8) H 03/24/19 02:40 Carbonic Acid 1.96 mmol/L (1.05-1.35) H 04/02/19 05:34 HCO3/H2CO3 Ratio 21:1 04/02/19 05:34 ABG pH 7.44 (7.35-7.45) 04/02/19 05:34 ABG pCO2 65.0 mmHg (35-45) H 04/02/19 05:34 ABG pO2 85.9 mmHg (80-100) 04/02/19 05:34 ABG HCO3 42.9 mmol/L (20-24) H 04/02/19 05:34 ABG Total CO2 44.9 mmol/L (21-25) H 04/02/19 05:34 ABG O2 Saturation 96.4 % (94-98) 04/02/19 05:34 ABG Base Excess 16.1 mmol/L 04/02/19 05:34 VBG pH 7.27 (7.30-7.42) L 03/23/19 16:25 VBG pCO2 89.1 mmHg (35-63) H* 03/23/19 16:25 VBG HCO3 40.0 mmol/L (20-32) H 03/23/19 16:25 VBG Base Excess 9.2 mmol/L 03/23/19 16:25 FiO2 30% 04/02/19 05:34 Sodium 138.7 mmol/L (137-145) 04/02/19 05:25 Potassium 3.1 mmol/L (3.6-5.0) L 04/02/19 05:25 Chloride 95 mmol/L (98-107) L 04/02/19 05:25 Carbon Dioxide 45 mmol/L (22-30) H* 04/02/19 05:25 Anion Gap -1 (5-19) L 04/02/19 05:25 BUN 20 mg/dL (7-20) 04/02/19 05:25 Creatinine 0.64 mg/dL (0.52-1.25) 04/02/19 05:25 Est GFR ( Amer) > 60 (>60) 04/02/19 05:25 Est GFR (MDRD) Non-Af > 60 (>60) 04/02/19 05:25 Glucose 56 mg/dL (75-110) L 04/02/19 05:25 POC Glucose 157 mg/dL (70-110) H 04/02/19 11:44 Lactic Acid 1.2 mmol/L (0.7-2.1) 03/23/19 18:23 Calcium 7.8 mg/dL (8.4-10.2) L 04/02/19 05:25 Phosphorus 3.9 mg/dL (2.5-4.5) 03/26/19 05:11 Magnesium 1.8 mg/dL (1.6-2.3) 03/31/19 05:49 Total Bilirubin 0.2 mg/dL (0.2-1.3) 03/28/19 02:59 Direct Bilirubin 0.0 mg/dL (0.0-0.4) 03/28/19 02:59 Neonat Total Bilirubin Not Reportable 03/28/19 02:59 Neonat Direct Bilirubin Not Reportable 03/28/19 02:59 Neonat Indirect Bili Not Reportable 03/28/19 02:59 AST 13 U/L (14-36) L 03/28/19 02:59 ALT 17 U/L (<35) 03/28/19 02:59 Alkaline Phosphatase 64 U/L (38-126) 03/28/19 02:59 Troponin I < 0.012 ng/mL 03/24/19 15:36 Total Protein 4.5 g/dL (6.3-8.2) L 03/28/19 02:59 Albumin 2.4 g/dL (3.5-5.0) L 03/28/19 02:59 TSH 0.21 uIU/mL (0.47-4.68) L 03/25/19 20:29 Free T4 0.78 ng/dL (0.78-2.19) 03/26/19 10:34 Free T3 pg/mL 1.53 pg/mL (2.77-5.27) L 03/26/19 10:34 Random Cortisol 8.74 ug/dL (None Established) 03/24/19 08:40 Urine Color YELLOW 03/23/19 19:24 Urine Appearance CLEAR 03/23/19 19:24 Urine pH 5.0 (5.0-9.0) 03/23/19 19:24 Ur Specific [place] 1.015 03/23/19 19:24 Urine Protein NEGATIVE mg/dL (NEGATIVE) 03/23/19 19:24 Urine Glucose (UA) 50 mg/dL (NEGATIVE) H 03/23/19 19:24 Urine Ketones NEGATIVE mg/dL (NEGATIVE) 03/23/19 19:24 Urine Blood NEGATIVE (NEGATIVE) 03/23/19 19:24 Urine Nitrite (Reflex) NEGATIVE (NEGATIVE) 03/23/19 19:24 Urine Bilirubin NEGATIVE (NEGATIVE) 03/23/19 19:24 Urine Urobilinogen NEGATIVE mg/dL (<2.0) 03/23/19 19:24 Leukocyte Esterase Rfl TRACE (NEGATIVE) H 03/23/19 19:24 Urine RBC (Auto) 3 /HPF 03/23/19 19:24 U Hyaline Cast (Auto) 6 /LPF 03/23/19 19:24 Urine WBC (Reflex) 5 /HPF 03/23/19 19:24 Squamous Epi Cells Auto 6 /HPF 03/23/19 19:24 Urine Mucus (Auto) RARE /LPF 03/23/19 19:24 Urine Ascorbic Acid NEGATIVE (NEGATIVE) 03/23/19 19:24 03/23/19 03/24/19 03/24/19 16:25 02:40 08:40 Troponin I < 0.012 < 0.012 < 0.012 03/24/19 15:36 Troponin I < 0.012 Impressions: Chest X-Ray 03/23/19 16:04 IMPRESSION: Cardiomegaly and mild central vascular congestion. Elevation of the right hemidiaphragm. Head CT 03/23/19 21:36 IMPRESSION: No acute intracranial abnormalities. Chest X-Ray 03/24/19 01:40 IMPRESSION: Satisfactory placement of central venous catheter copyright 2011 [employer]- All Rights Reserved Chest X-Ray 03/24/19 06:00 IMPRESSION: Unchanged radiographic appearance of the chest. Cardiac Imaging Nuclear Medicine 04/01/19 00:00 IMPRESSION: Low normal ejection fraction digitally measuring 58 %. Dilated left ventricle Chest X-Ray 04/01/19 00:00 IMPRESSION: No acute findings Plan Plan of Treatment: SNF patient. Time Spent: Greater than 30 Minutes Stroke Is this a Stroke Patient?: No Acute Heart Failure - Is this a Heart Failure Patient?: Yes Documentation of LVEF assessment?: Yes LVEF < 40%?: No- if no continue to question #3 3. Anticoagulant therapy for permanect/persistent/paraoxysmal Afib or Aflutter: Yes Follow-up Appointment scheduled within 7 days?: Yes
--- NOTE | 2019-04-02 14:24 | EKG REPORT ---
SEVERITY:- ABNORMAL ECG - SINUS BRADYCARDIA RBBB AND LAFB PROBABLE LVH WITH SECONDARY REPOL ABNRM : Confirmed by: Cristal Maravilla 02-Apr-2019 14:24:13
== END 2019-04-02 15:19 | DRG 308 ==
LOC: ER 15:57 → EH 23:22 → ICU 03-24 03:14 → 3W 03-29 16:37
PROVIDERS: ADMIT Anesthesiology; ATTEND Hospitalist
PROC: 02HV33Z Insertion of Infusion Device into Superior Vena Cava, Percutaneous Approach (ICD-10-PCS; principal; 2019-03-23)
PROC: 5A2204Z Restoration of Cardiac Rhythm, Single (ICD-10-PCS; 2019-03-27)
PROC: 5A09357 Assistance with Respiratory Ventilation, Less than 24 Consecutive Hours, Continuous Positive Airway Pressure (ICD-10-PCS; 2019-04-01)
DX: I48.0 Paroxysmal atrial fibrillation (principal); I50.33 Acute on chronic diastolic (congestive) heart failure; N17.9 Acute kidney failure, unspecified; Z68.41 Body mass index [BMI] 40.0-44.9, adult; J96.11 Chronic respiratory failure with hypoxia; I11.0 Hypertensive heart disease with heart failure; I42.9 Cardiomyopathy, unspecified; I48.92 Unspecified atrial flutter; E66.01 Morbid (severe) obesity due to excess calories; E87.5 Hyperkalemia; J44.9 Chronic obstructive pulmonary disease, unspecified; I95.89 Other hypotension; J84.10 Pulmonary fibrosis, unspecified; E11.9 Type 2 diabetes mellitus without complications; M19.90 Unspecified osteoarthritis, unspecified site; I07.1 Rheumatic tricuspid insufficiency; I27.20 Pulmonary hypertension, unspecified; E03.9 Hypothyroidism, unspecified; R14.2 Eructation; R00.1 Bradycardia, unspecified; T44.7X5A Adverse effect of beta-adrenoreceptor antagonists, initial encounter; T46.1X5A Adverse effect of calcium-channel blockers, initial encounter; Y92.239 Unspecified place in hospital as the place of occurrence of the external cause; Z99.81 Dependence on supplemental oxygen; Z85.3 Personal history of malignant neoplasm of breast; Z90.13 Acquired absence of bilateral breasts and nipples; Z91.81 History of falling; Z90.49 Acquired absence of other specified parts of digestive tract; Z90.710 Acquired absence of both cervix and uterus; Z88.6 Allergy status to analgesic agent; Z88.8 Allergy status to other drugs, medicaments and biological substances; Z79.02 Long term (current) use of antithrombotics/antiplatelets; Z79.52 Long term (current) use of systemic steroids; Z79.84 Long term (current) use of oral hypoglycemic drugs
CPT/HCPCS: 00410; 36415; 36600; 70450; 71045; 78496; 80048; 80053; 80076; 81001; 82533; 82803; 82962; 83605; 83735; 84100; 84439; 84443; 84481; 84484; 85025; 85027; 85610; 85730; 87040; 87070; 93005; 93010; 93308; 94660; 96361; 96374; 99231; 99232; 99291; 99292; A9538; C1751; C1769; J0282; J1160; J1642; J1644; J1720; J1815; J3475; J3490; J7030; J7040; J7060; J7120; Q9969

== ENCOUNTER 2019-09-22 23:21 | Emergency (ER) | payer MEDICARE ==
[2019-09-23] MEDS ORDERED: ACETAMINOPHEN 325 MG TABLET PO ONE (00:16)
--- NOTE | 2019-09-23 02:27 | RADIOLOGY REPORT (SQ) ---
Right hand radiographs: 09/23/2019 1:24 AM CDT TECHNIQUE: AP, lateral, oblique images of the right hand were obtained. HISTORY: 79-year-old patient with history of right hand pain, trauma. COMPARISON: None available FINDINGS: The carpal arcs appear to be intact. The soft tissues are grossly unremarkable. There are no findings to suggest an acute fracture or subluxation within the right hand. No abnormal soft tissue calcifications, significant osteophyte formation, periarticular osteopenia, or bony erosions are seen. There are severe degenerative changes seen at the first metacarpocarpal joint. There is fragmentation at the base of the first metacarpal carpal joint which could be due to remote trauma. IMPRESSION: There are no findings to suggest an acute fracture or subluxation within the right hand.
[2019-09-23 03:13] VITALS: BP 125/73
--- NOTE | 2019-09-23 05:17 | ER Document Report ---
Entered by NIMCO JUSTIN SCRIBE 09/23/19 0259 Acting as scribe for:MIGUELITO MIRELES DO ED Hand/Wrist Injury - General Chief Complaint: Hand Pain Stated Complaint: RIGHT HAND PAIN Time Seen by Provider: 09/23/19 01:46 Primary Care Provider: DESIRE BAILEY MD [Primary Care Provider] - Follow up as needed FELICIANO MONIQUE DO [ACTIVE STAFF] - Follow up in 3-5 days Information source: Patient Notes: This 79-year-old female patient presents to the emergency department today with complaints of right index finger pain. Patient reports that she woke up from a nap and noticed that her head was resting awkwardly on her hands, and in particular that finger. Patient reports that the finger feels like it is "out of place". TRAVEL OUTSIDE OF THE [place] IN LAST 30 DAYS: No - Related Data Allergies/Adverse Reactions: albuterol Allergy (Verified 09/23/19 00:10) aspirin Allergy (Verified 09/23/19 00:10) diphenhydramine [From Benadryl] Allergy (Verified 09/23/19 00:10) Past Medical History - General Information source: Patient - Social History Smoking Status: Former Smoker Cigarette use (# per day): No Frequency of alcohol use: None Drug Abuse: None Lives with: Family Family History: Reviewed & Not Pertinent, CAD, DM, Hypertension, Malignancy. denies: Thyroid Disfunction Patient has homicidal ideation: No - Past Medical History Cardiac Medical History: Reports: Hx Atrial Fibrillation, Hx Congestive Heart Failure, Hx Hypertension Pulmonary Medical History: Reports: Hx Asthma, Hx COPD, Hx Pneumonia, Hx Respiratory Failure - Chronic respiratory failure with oxygen dependence Endocrine Medical History: Reports: Hx Diabetes Mellitus Type 2 Malignancy Medical History: Reports: Hx Breast Cancer - Status post bilateral mastectomies GI Medical History: Reports: Hx Hiatal Hernia Musculoskeletal Medical History: Reports Hx Arthritis Past Surgical History: Reports: Hx Abdominal Surgery - hernia repair, Hx Appendectomy, Hx Breast Surgery, Hx Cholecystectomy, Hx Hysterectomy, Hx Mastectomy - bilateral, Other - Bilateral cataract surgery, 5 colon surgeries for abnormal growths Review of Systems - Review of Systems Constitutional: No symptoms reported EENT: No symptoms reported Cardiovascular: No symptoms reported Respiratory: No symptoms reported Gastrointestinal: No symptoms reported Genitourinary: No symptoms reported Female Genitourinary: No symptoms reported Musculoskeletal: See HPI, Joint pain, Joint swelling Skin: No symptoms reported Hematologic/Lymphatic: No symptoms reported Neurological/Psychological: No symptoms reported -: Yes All other systems reviewed and negative Physical Exam - Vital signs Vitals: Temp Pulse Resp BP Pulse Ox 98.4 F 72 22 H 119/75 96 09/22/19 23:22 09/22/19 23:22 09/22/19 23:22 09/22/19 23:22 09/22/19 23:22 Interpretation: Normal - General General appearance: Appears well, Alert - HEENT Head: Normocephalic, Atraumatic Eyes: Normal Pupils: PERRL - Respiratory Respiratory status: No respiratory distress Chest status: Nontender Breath sounds: Normal Chest palpation: Normal - Cardiovascular Rhythm: Regular Heart sounds: Normal auscultation Murmur: No - Abdominal Inspection: Normal Distension: No distension Bowel sounds: Normal Tenderness: Nontender Organomegaly: No organomegaly - Back Back: Normal, Nontender - Extremities General upper extremity: Tender, Normal color, Normal temperature General lower extremity: Normal inspection, Nontender, Normal color, Normal ROM, Normal temperature, Normal weight bearing. No: Jamal's sign Shoulder: Normal Arm: Normal Elbow: Normal Forearm: Normal Wrist: Normal Hand: Tender - Over right index MCP., Swelling - Over right index MCP. No erythema. No discharge. No warmth. Hip: Normal Thigh: Normal Knee: Normal Ankle: Normal Foot: Normal - Neurological Neuro grossly intact: Yes Cognition: Normal Orientation: AAOx4 Violet Coma Scale Eye Opening: Spontaneous Micah Coma Scale Verbal: Oriented Micah Coma Scale Motor: Obeys Commands Micah Coma Scale Total: 15 Speech: Normal Motor strength normal: LUE, RUE, LLE, RLE Sensory: Normal - Psychological Associated symptoms: Normal affect, Normal mood - Skin Skin Temperature: Warm Skin Moisture: Dry Skin Color: Normal Course - Re-evaluation Re-evalutation: 09/23/19 Patient comes in for pain of her right index finger over her MCP. She does not remember any injury. No evidence for gout or infection. X-ray with no evidence for fracture. Clinically, joint appears possibly dislocated although patient does not remember injuring it. It is quite possible that she sprained it in her sleep. Regardless, hand will be Bethel wrapped and patient is to follow-up with orthopedics. Again, no evidence for infection. No other complaints or concerns. Follow-up with orthopedics. Return if any worsening concerns or symptoms. Understands and agrees with plan. Stable for discharge. - Vital Signs Vital signs: Temp Pulse Resp BP Pulse Ox 98.7 F 75 20 125/73 96 09/23/19 03:11 09/23/19 03:11 09/23/19 03:11 09/23/19 03:11 09/23/19 03:11 - Diagnostic Test Radiology reviewed: Image reviewed, Reports reviewed Procedures - Immobilization Right 2nd digit Pre-Proc Neuro Vasc Exam: Normal Immobilizer type: Bethel wrap Performed by: Provider Post-Proc Neuro Vasc Exam: Normal Alignment checked and good: Yes Discharge - Discharge Clinical Impression: Hand injury Qualifiers: Encounter type: initial encounter Laterality: right Qualified Code(s): S69.91XA - Unspecified injury of right wrist, hand and finger(s), initial encounter Condition: Stable Disposition: HOME, SELF-CARE Instructions: Sprained Finger ([facility]) Referrals: DESIRE BAILEY MD [Primary Care Provider] - Follow up as needed FELICIANO MONIQUE DO [ACTIVE STAFF] - Follow up in 3-5 days I personally performed the services described in the documentation, reviewed and edited the documentation which was dictated to the scribe in my presence, and it accurately records my words and actions.
== END 2019-09-23 03:11 | disposition home or self-care (01) ==
LOC: ER 23:21
DX: S69.91XA Unspecified injury of right wrist, hand and finger(s), initial encounter (principal); M79.641 Pain in right hand; M79.644 Pain in right finger(s); X58.XXXA Exposure to other specified factors, initial encounter; Z88.8 Allergy status to other drugs, medicaments and biological substances; Z87.891 Personal history of nicotine dependence; I11.0 Hypertensive heart disease with heart failure; I50.9 Heart failure, unspecified; J44.9 Chronic obstructive pulmonary disease, unspecified; E11.9 Type 2 diabetes mellitus without complications
CPT/HCPCS: 99283; 73130; A9270